=== PATIENT | female | born 1970 | race Caucasian/White ===

== ENCOUNTER 2017-10-24 00:27 | Outpatient (REF) | payer SELFPAY ==
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
--- OUTSIDE RECORDS SUMMARY | 2017-10-24 00:36 | XMS RPT_ITS | Summary of Care ---
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 Performing Laboratory Urine - Urine, Random [facility] [address] [place] [id number] Narrative Screen results should be used for treatment purposes only. [place] Top (01/16/2017 8:55 PM) Specimen Performing Laboratory Blood [facility] [address] [place] [id number] [place] Top (01/16/2017 8:55 PM) Component Value Ref Range Extra Tube Hold for add-ons.Comment: Auto resulted. Specimen Performing Laboratory Blood [facility] [address] [place] [address], [place] [address] Light Blue Top (01/16/2017 8:55 PM) Component Value Ref Range Extra Tube Hold for add-ons.Comment: Auto resulted. Specimen Performing Laboratory Blood [facility] [address] [place] [phone] Gold Top (01/16/2017 8:55 PM) Component Value Ref Range Extra Tube Hold for add-ons.Comment: Auto resulted. Specimen Performing Laboratory Blood [facility] [address] [place] [id number] [place] Draw (01/16/2017 8:55 PM) Specimen Performing Laboratory Blood Narrative The following orders were created for panel order [place] Draw. Procedure? Abnormality? Status? ---------? ------? Gold Top[[id number]]? Final result? [place] Top[[id number]]? Final result? [place] Top[[id number]]? Final result? [place] Top[[id number]]? Final result? Please view results for these tests on the individual orders. CBC Auto Differential (01/16/2017 8:55 PM) Component Value Ref Range WBC 6.26 4.50 - 11.00 K/mcL RBC 3.83 (L) 4.00 - 5.20 M/mcL Hemoglobin 9.2 (L) 12.0 - 16.0 g/dL Hematocrit 30.4 (L) 36.0 - 46.0 % MCV 79.4 (L) 80.0 - 100.0 fL MCH 24.0 (L) 26.0 - 34.0 pg MCHC 30.3 (L) 31.0 - 37.0 g/dL Platelets 284 150 - 400 K/mcL RDW - CV 17.1 (H) 11.6 - 14.8 % MPV 11.7 9.0 - 15.5 fL Neutrophils 48.4 % Lymphocytes 42.8 % Monocytes 4.2 % Eosinophils 3.5 % Basophils 0.8 % IG Percent 0.30Comment: The IG parameter is the percentage % of metamyelocytes, myelocytes, and promyelocytes. Neutrophils Abs 3.03 1.70 - 7.00 K/mcL Lymphocytes Abs 2.68 0.90 - 4.00 K/mcL Monocytes Abs 0.26 (L) 0.30 - 0.90 K/mcL Eosinophils Abs 0.22 0.00 - 0.50 K/mcL Basophils Abs 0.05 0.00 - 0.30 K/mcL IG Absolute 0.02 0.00 - 0.30 K/mcL Nucleated RBC 0.0 % Nucleated RBC Abs 0.00 0.00 - 0.00 K/mcL Specimen Performing Laboratory Blood [facility] [address] [place] [id number] Acetaminophen Level (01/16/2017 8:55 PM) Component Value Ref Range Acetaminophen <5.0 0.0 - 30.0 mcg/mL Specimen Performing Laboratory Blood [facility] [address] [place] [id number] Salicylate Level (01/16/2017 8:55 PM) Component Value Ref Range Salicylate <2.6 (L) 10.0 - 20.0 mg/dL Specimen Performing Laboratory Blood [facility] [address] [place] [id number] Alcohol, Medical (01/16/2017 8:55 PM) Component Value Ref Range Alcohol (Medical) 282.0 (H) <10.0 mg/dL Specimen Performing Laboratory Blood [facility] [address] [place] [id number] TSH (01/16/2017 8:55 PM) Component Value Ref Range TSH 2.92 0.32 - 5.00 mcIU/mL Specimen Performing Laboratory Blood [facility] [address] [place] [id number] Comprehensive Metabolic Panel (01/16/2017 8:55 PM) Component Value Ref Range Sodium 145 135 - 145 mmol/L Potassium 3.0 (L) 3.5 - 5.1 mmol/L Chloride 107 98 - 108 mmol/L Bicarbonate 24 21 - 32 mmol/L Anion Gap 17 10 - 20 mmol/L Glucose 97 65 - 99 mg/dL BUN 9 8 - 25 mg/dL Creatinine 0.75 0.40 - 1.10 mg/dL eGFR 97 >=60 mL/min/1.73 m2 BUN/Creatinine Ratio 12.0 10.0 - 20.0 Total Protein 7.1 6.0 - 8.0 g/dL Albumin 3.9 3.2 - 5.2 g/dL Calcium 8.7 8.4 - 10.2 mg/dL Alkaline Phosphatase 51 40 - 150 U/L AST 18 0 - 45 U/L ALT 10 0 - 40 U/L Total Bilirubin 0.4 0.0 - 1.3 mg/dL Specimen Performing Laboratory Blood [facility] [address] [place] [address] Narrative The eGFR should be used for monitoring renal function only and not for medication dosing. CBC and Differential (01/16/2017 8:55 PM) Specimen Performing Laboratory Blood Narrative The following orders were created for panel order CBC and Differential. Procedure? Abnormality? Status? ---------? ------? CBC Auto Differential[[id number]]?Abnormal?Final result? Please view results for these tests on the individual orders. in this encounter Administered Medications Inactive Administered Medications - up to 3 most recent administrations Medication Order MAR Action Action Date Dose Rate Site haloperidol lactate Given 01/16/2017 20:10 EST 10 mg Left Ventrogluteal (HALDOL) injection 10 mg 10 mg, Intramuscular, Once, 01/16/17 at 2009, For 1 dose, May cause QT interval prolongation. LORazepam (ATIVAN) injection 1 mg Given 01/16/2017 20:10 EST 1 mg Left Ventrogluteal 1 mg, Intramuscular, Once, 01/16/17 at 2009, For 1 dose in this encounter Insurance Payer Benefit Plan / Group Subscriber ID Type Phone Address MEDICARE MEDICARE PART A & B [id number] [place] Home: [phone] [place] [address] as of this encounter
--- OUTSIDE RECORDS SUMMARY | 2017-10-24 00:36 | XMS RPT_ITS ---
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 atraumatic.EYES: No conjunctival injection, no icterus.EARS: External ears appear normal.NOSE: Nose appears normal.NECK: Trachea is midline.RESPIRATORY: Normal chest excursion with respiration, no stridor. No rales, rhonchi or wheezes.CARDIOVASCULAR: Regular rate and rhythm. No edema.GASTROINTESTINAL: Abdomen is soft and nontender.NEUROLOGICAL: Awake, alert and oriented. PSYCHOLOGICAL: The patient's mood and manner are appropriate. INTEGUMENTARY: Skin is warm and dry. No evidence of rash. Medical Decision Making I saw and evaluated the patient. I have reviewed the chief complaint, triage note, past medical/surgical, family, and social history.The patient's presenting pulse oximetry was 100% on room air. This was interpreted as normal. The patient's old medical records have been reviewed.dr. kvng foy was my super vising physician discussed case withPatient presents to emergency room by EMS after being pink slipped by police. Patient was seen in the ER earlier today for bilateral ankle and feet pain with normal x-rays. She was treated as a sprain. She was acting erratic and bizarre at a gas station and called police multiple times. As I evaluated the patient in the ER she was resting comfortably and stated she just wanted to rest and go to sleep. I was unable to provide much history other than what is listed above. Social work for consult on psychiatric evaluation. We'll order blood work for medical clearance and addition to urinalysis. CBC showed no signs of leukocytosis with a hemoglobin of 8.6. I do not have prior labs to compare. Her potassium is low at 3.0 and she'll be given oral potassium chloride 40 mEq. pt. continued to sleep throughout her ER visit during my shift. I checked up on her multiple times. Will await pt. to be evaluated by forensic social worker. Reexamination/ Reevaluation Impression and Plan IMPRESSION: 1.acute bizarre behavior 2.acute hypokalemia Basic Information ED [facility] Observed: 12/06/2016 Status: C Source: [place] 2:37 PM HEALTH SYSTEM REPOSITORY [place] [address] [facility] Department Discharge Instructions KATHRIN CONDE , Please provide this information to your Primary Care/Specialist Name : KATHRIN CONDE Current Date : 12/06/2016 14:37:55DOB : 1970 12:00 PM Primary Care Physician: Physician, PCP Unknown Diagnosis : Follow-Up Instructions:KATHRIN CONDE has been given these follow- up instructions: Provider: Specialty: Address: Date: Follow up with primary care provider 7 to 10 days Laboratory Orders: None Ordered Radiology Orders: Name: Status: XR Ankle 3+ Views bilat Completed XR Foot 3+ Views bilat Completed Diagnostic Tests: None Ordered Procedure(s) and Patient Education(s ) : [place] - Clinic List - All (CUSTOM); Foot Sprain; Ankle Sprain EMERGENCY SERVICES MEDICATION LISTLista de Medicaciones de los Servicios de Emergencia Name KATHRIN CONDE MRN ([facility])- [id number] PLEASE READ THE FOLLOWING REGARDING YOUR MEDICATIONS Based on the information available during your visit we have given you the medication instructions below. Continue taking medications you took prior to your visit unless you have been told to change. Please share this information with your own doctor. Carry a list of your medications with you in case of an emergency. Update it when medications are stopped, doses are changed, or new medications (including ayve-zif-qvsxqag products) are added. If you have any questions, check with your doctor. Por la informaci??n disponible marino treviño visita, las instrucciones de medicaci??n aparecen debajo. Favor de continuar tomando las medicaciones Ud. meggan?? antes de treviño visita por lo menos que hay cambios. Favor de compartir esta informaci??n con treviño medico. Lleva jose lista de medicaciones consigo por jameel de emergenc??a. Actualiza la lista cuando Ud. aaron de anjel las medicaciones, si cambian las dosis, o si hay nuevas medicaciones a??adidas (incluyendo medicaciones vendidas sin prescripci??n). Favor de preguntar a treviño medico por cualquier belkis. THESE ARE THE MEDICATIONS YOU SHOULD BE TAKINGibuprofen (Motrin 600 mg oral tablet) 1 Tab(s) By Mouth every 6 hours for 10 Days. Refills: 0.MEDICATIONS GIVEN DURING MEDICAL VISITNone NON-MEDICATION PRESCRIPTION SCHEDULING PHONE NUMBER: MEDICATION CHANGE DETAILS (Not your Final Home Medication List) During the course of your visit, your home medication list was updated with the most current information. The details of those changes are shown below: NEW MEDICATIONSPrinted Prescriptionsibuprofen (Motrin 600 mg oral tablet) 1 Tab(s) By Mouth every 6 hours for 10 Days. Refills: 0.Comment UPDATED MEDICATIONSNoneUNCHANGED MEDICATIONSNoneSTOP TAKING THESE MEDICATIONSNoneDO NOT TAKE UNTIL YOU TALK TO YOUR DOCTORNone [place] [id number] [facility] Department Discharge Instructions Name: KATHRIN CONDE Current Date: 12/06/2016 14:37:55 : 1970 12:00 PM Primary Physician: Physician, PCP Unknown We would like to thank you for choosing [facility] for your emergency medical needs. We examined and treated you today on an emergency basis only. This was not a substitute for, or an effort to provide, complete medical care. In most cases, you must let your doctor (or the doctor we referred you to) check you again. Tell your doctor about any new or lasting problems. We cannot recognize and treat all injuries or illnesses in one emergency department visit. After you leave, you should follow the directions attached. When arranging for follow-up care with your physician/referral identify yourself as being seen in the emergency department. For language assistance please call [phone]. Instructions for obtaining X-rays:When following up with your doctor, you may need to take copies of your x-rays that were done in the Emergency Department. If you didn't receive these upon your discharge from the emergency department, please call . When the final report becomes available and it is reviewed, the emergency department will attempt to contact you if there are any changes in your instructions. It is important that you leave accurate information with us on how to contact you. IF you cannot be contacted, YOU must contact the follow-up doctor that you were assigned to make sure that the final official x-ray report does not require a change in your treatment. Instructions for obtaining medical records:If you need a copy of your medical records for follow-up, please contact the Health Information Management Department at . Their office hours are 8 AM- 4:30 PM, Tuesday through Tuesday. Please note: Results are not immediately available. Please allow a minimum of 36 hours for documentation and results.If you were prescribed an antibiotic:Antibiotics are life-saving drugs and they need to be used properly. Your team might change your antibiotic because test results show that a different antibiotic would be better to treat your infection. Like all medications, antibiotics have side effects. Some can be serious. This includes the risk of getting an antibiotic-resistant infection later, which may be difficult to treat. Remember to take your antibiotics as prescribed. If you have any questions please talk to your healthcare team.Seatbelts:There is no doubt that seatbelts save lives. Every day, people without seatbelts have more serious injuries. Have everyone buckle up, using age appropriate seatbelts or car seats, to reduce their risk of injury.Smoking:If you do smoke, we encourage you to stop. Smoking affects all aspects of your health and the health of those around you. Call the [place] [employer] at 5-057-IZPE-USA or the [place] [employer] at 2-470-HZJ-7380 for more information.High blood pressure: Your screening blood pressure today was 137 mm Hg / 85 mm Hg. Hypertension ( high blood pressure) is blood pressure over 120/80. People with hypertension should contact their primary care provider within 30 days to follow up. Check your patient portal for additional blood pressure information.Immunizations:Immunization is a way to protect against deadly infections. Discuss this with your child's guest relations officer, or Public Health Department. Your family practice doctor can determine if you need pneumonia or flu vaccine. The [facility] Department can be reached at .Domestic Violence:If you are a victim of domestic violence (physical, verbal, or emotional), you are not alone. Discuss this with your physician or a friend and call Choices Hotline ( for assistance and support.You are the most important factor in your recovery. Follow the provided instructions carefully. Take your medications as prescribed. Most importantly, see a doctor again as discussed. If you have problems that we have not discussed, call or visit your doctor right away. If you do not have a primary care physician, we have provided one for you to follow up with. When you call for an appointment, please inform them that you were seen in the emergency department and the date of your visit. If you are unable to reach your doctor and are still experiencing problems, return to the emergency department. For assistance finding a primary care physician, call the Physician Referral Line at .Suicide Hotline:Your mental and emotional well-being is important. If you are in a mental health crisis or are having thoughts of suicide, please call the nationwide suicide hotline, anytime day or night, at 7-974-880-KUDP.Community Forensic Social Worker: You may be contacted by your local fire department for a follow up visit from a community photographer lithographic. The community photographer lithographic can help with a home safety check; follow up care, and general home care management. Pharmacy Information:Below is a list of 24 hour pharmacies that we are aware of. We suggest that you call the specific pharmacy for their hours before traveling to a location. Hours may vary on holidays. [facility] Pharmacy [facility] [place] [address] [facility], [phone] [facility], [id number] [address] [facility], Skva676-9137 [address], [place]14[address] 5800 [facility], Nkxh969-2628 [address], [place]523-1165 [address] [place], [place]889-5[address] 1141 [place], [phone] 4617 [place], [place]868-1224 4548 [place], [place]235-[address]76 55 [address] [place], [place]890-8869 [address] [place], [phone] [address] [place] [phone] [address] [place] [phone] [address] [place], [place] [place], [place] [phone] Take all medications as directed. If you need prescription assistance, contact the following agencies:?? Partnership for Prescription Assistance at or www.pparx.org?? [facility] Best Rx at 9-718- 173-6686 or www.Diamond Fort[employer] Technologiesbestrx.org?? www.OndaxRSaleMove.[employer] is a site with many valuable coupons Patient Education Materials KATHRIN CONDE has been given the following patient education materials: For patients referred to a [facility] for possible follow-up careBefore you call for an appointment, please read this notice completely.[facility] wants to make sure that your follow-up care will not be delayed. Please let the emergency room staff know if you DO NOT meet ALL of the requirements listed below. They will then refer you elsewhere for timely care. Patients who are eligible for [facility] see patients:?? Who do not have a regular doctor or clinic that they see - no family doctor, no work- related clinic, etc.?? Who do not have private or employer-provided insurance?? Who are on Medicare/Medicaid without supplemental insurance.Who have a [employer] insurance card that lists [facility] as the providerPatients who are not eligible for [facility] provide high-quality health care for a variety of illnesses and injuries. However, [facility] are not able to serve all patients. [facility] cannot see patients:?? Who are under 18. ?? Who have private medical insurance. ?? Who already have a family doctor or are seen at another clinic.?? Who are on Medicare and have supplemental insurance.?? Who have an injury that is/could be a worker's compensation claim - i.e., were hurt on the job.?? Who are using/expecting payment from someone else's insurance - e.g., auto accident injuries when the patient is not the responsible constitution party. Not all types of care are available at all [facility] locations. Here is a list of [facility] locations and phone numbers, along with a brief description of the services they offer. [facility] - For General Medical Concerns [facility] Fdkzhk767 [place], [place] [phone] [facility]3480 [address] [place], [place] [phone] [facility] Bjtvmg[address] [phone]6699 [place], [place] [phone] [facility] BUSINESS ANALYST Bpvjlt413 [place], [place] [phone] [facility] Vadxfn[address] [phone] medical [facility] Outreach Mobile Jacquard Card [facility] - For all Clinics call [phone] [facility]*2930 [place], [place] [address]Qggija the [place]/ [facility]*2875 [place], [place] [address]EgtbBaker [facility] Kitchen*57 [place], [place] [address]Tcvoll27 Miller StreetColumbus, [place] [address]Qbdnhlvpmyjy CRC14 [place], [place] [address] [facility] 1675 [place], [place] [address]SpukeTrinity Health System [facility] Campus3160 [place], [place] [address] [address] [address]EhivnRipon Medical Center*888 [place], [place] [address]*Denotes clinics where mental health services are provided on site. Clinic hours vary; unless otherwise noted, [facility] see patients by appointment only. Some clinics do not accept Medicare patients. In addition to the above, there are other similar clinics throughout [facility]. Several such clinics are listed on the back of this notice, for your convenience. Non-[facility] in [facility] supplies this information for reference only, and is not responsible for changes in locations , hours, or services. This information was accurate at the time of printing. [facility] recommends checking all information listed here before choosing a clinic for your care.Call for hours, most clinics are by appointment only [facility] [phone] [facility]1180 [place], [place] [phone] [facility] Cl[place]'s[address] [phone] Cross Hospital2300 [place], [place] [address]N[address] Floor [place], [place] [address]Dwxao[address] [address] [facility]3433 [facility], [address], [place] [address]Ibqlhbk [facility] Johnnie Roca1905 [place], [place] [address] [place] [address] [address] [facility] Clinics Dental Bpdggi815 08 Watts [phone]'s Health FtgzilulR358 [place] [phone] Optometry Jcmydy[address] [phone] [facility]3595 [place], [place] [phone] Insure/Medicaid ClinicsDr. Nikolay Mejia[address] [place] [address]Hte people employed or have some incomeWith no insurance or those with MedicaidOnly see patients on mornings.To schedule an appointment call: [phone] [facility] Care Klparn[address] [place] [address] [phone] [facility] Shzbebo6351 [place], [place] [address] [facility] Family [phone] University Medical Center EpiscopalCleveland Clinic [phone] [facility] Free [phone] Free [phone] Free Cmnsbv9739 [place], [place] [phone] [facility] Primary Care Clinics [address] [phone] [place], [place] [phone] Mkos99[address] [place] [address] [phone] [phone] [place], [place] [phone]- [phone] [address]777 [place], [place] [phone] Uzpivrfx480 [place], [place] [phone] [place], [place] [phone] Wmiy0196 [place], [place] [phone]- [phone] Cross[address] [place], [place] [phone] [place], [place] [phone] [facility] Close to Home Centers [place]7901 [facility] [address] [place], [place] [phone] Zkuvfuzi0036 [place], [place] [phone] [facility] [address], [place] [phone]- [phone] [facility] [address], [place] [phone] [facility] [address], [place] [phone] [facility] 3rd floorSearcy, [place] [phone] [place], [place] [phone] [phone] [place], [place] [phone] [place], [place] [phone] All Seasons [place], [place] [phone], [place] [phone] Suite [place], [place] [phone] [place], [place] [phone] Non Hospital [facility] XenTemple University Hospital1934 [place], [place] [phone] ext 1840[facility]ness Ocdfkc[address] [place] [address] [phone] [phone], Tests, Health ScreeningsCall for times of clinicsGrace [facility] ([facility])39 [place], [place] [address]Vspjriyk of all ages accepted- treatment of common ailments including: common cold, ear infections, abrasions, and sprains.[phone] Tuesday 6:30pm-8:30pm [facility] [address] [phone] Fe Indian HospitalVarious locations throughout [phone] ChurchRoute 36/, and Mondays at [phone] medical care at no charge including sports and school physicals, health screenings. Walk [phone] or [phone] (toll free) [facility] MedicineAnkle SprainAn ankle sprain is an injury to the strong, fibrous tissues (ligaments) that hold the bones of your ankle joint together. ( Inserted Image. Unable to display) CAUSESAn ankle sprain is usually caused by a fall or by twisting your ankle. Ankle sprains most commonly occur when you step on the outer edge of your foot, and your ankle turns inward. People who participate in sports are more prone to these types of injuries. SYMPTOMS???Pain in your ankle. The pain may be present at rest or only when you are trying to stand or walk.???Swelling.???Bruising. Bruising may develop immediately or within 1 to 2 days after your injury.???Difficulty standing or walking, particularly when turning corners or changing directions.DIAGNOSISYour caregiver will ask you details about your injury and perform a physical exam of your ankle to determine if you have an ankle sprain. During the physical exam, your caregiver will press on and apply pressure to specific areas of your foot and ankle. Your caregiver will try to move your ankle in certain ways. An X-ray exam may be done to be sure a bone was not broken or a ligament did not separate from one of the bones in your ankle (avulsion fracture). TREATMENTCertain types of braces can help stabilize your ankle. Your caregiver can make a recommendation for this. Your caregiver may recommend the use of medicine for pain. If your sprain is severe, your caregiver may refer you to a surgeon who helps to restore function to parts of your skeletal system (orthopedist) or a physical therapist.HOME CARE INSTRUCTIONS???Apply ice to your injury for 1?2 days or as directed by your caregiver. Applying ice helps to reduce inflammation and pain.???Put ice in a plastic bag.???Place a towel between your skin and the bag.???Leave the ice on for 15-20 minutes at a time, every 2 hours while you are awake.???Only take lwxu-gaj-hxmuhhs or prescription medicines for pain, discomfort, or fever as directed by your caregiver. ???Elevate your injured ankle above the level of your heart as much as possible for 2?3 days.???If your caregiver recommends crutches, use them as instructed. Gradually put weight on the affected ankle. Continue to use crutches or a cane until you can walk without feeling pain in your ankle.???If you have a plaster splint, wear the splint as directed by your caregiver. Do not rest it on anything harder than a pillow for the first 24 hours. Do not put weight on it. Do not get it wet. You may take it off to take a shower or bath. ???You may have been given an elastic bandage to wear around your ankle to provide support. If the elastic bandage is too tight (you have numbness or tingling in your foot or your foot becomes cold and blue), adjust the bandage to make it comfortable.???If you have an air splint, you may blow more air into it or let air out to make it more comfortable. You may take your splint off at night and before taking a shower or bath. Wiggle your toes in the splint several times per day to decrease swelling.SEEK MEDICAL CARE IF:???You have rapidly increasing bruising or swelling.???Your toes feel extremely cold or you lose feeling in your foot.???Your pain is not relieved with medicine.SEEK IMMEDIATE MEDICAL CARE IF:???Your toes are numb or blue.???You have severe pain that is increasing.MAKE SURE YOU:??? Understand these instructions. ???Will watch your condition.???Will get help right away if you are not doing well or get worse.This information is not intended to replace advice given to you by your health care provider. Make sure you discuss any questions you have with your health care provider.Document Released: 01/31/2006 Document Revised: 02/21/2015 Document Reviewed: 02/12/2012[employer] Patient Education ?2016 [employer].MusculoskeletalFoot SprainA foot sprain is an injury to one of the strong bands of tissue (ligaments) that connect and support the many bones in your feet. The ligament can be stretched too much or it can tear. A tear can be either partial or complete. The severity of the sprain depends on how much of the ligament was damaged or torn.CAUSESA foot sprain is usually caused by suddenly twisting or pivoting your foot.RISK FACTORSThis injury is more likely to occur in people who:???Play a sport, such as basketball or football.???Exercise or play a sport without warming up.???Start a new workout or sport.???Suddenly increase how long or hard they exercise or play a sport.SYMPTOMSSymptoms of this condition start soon after an injury and include:???Pain, especially in the arch of the foot.???Bruising.??? Swelling.???Inability to walk or use the foot to support body weight.DIAGNOSISThis condition is diagnosed with a medical history and physical exam. You may also have imaging tests, such as:??? X-rays to make sure there are no broken bones (fractures).???MRI to see if the ligament has torn.TREATMENTTreatment varies depending on the severity of your sprain. Mild sprains can be treated with rest, ice, compression, and elevation (RICE). If your ligament is overstretched or partially torn, treatment usually involves keeping your foot in a fixed position (immobilization) for a period of time. To help you do this, your health care provider will apply a bandage, splint, or walking boot to keep your foot from moving until it heals. You may also be advised to use crutches or a scooter for a few weeks to avoid bearing weight on your foot while it is healing.If your ligament is fully torn, you may need surgery to reconnect the ligament to the bone. After surgery, a cast or splint will be applied and will need to stay on your foot while it heals.Your health care provider may also suggest exercises or physical therapy to strengthen your foot.HOME CARE INSTRUCTIONSIf You Have a Bandage, Splint, or Walking Boot:???Wear it as directed by your health care provider. Remove it only as directed by your health care provider.???Loosen the bandage, splint, or walking boot if your toes become numb and tingle, or if they turn cold and blue.Bathing???If your health care provider approves bathing and showering, cover the bandage or splint with a watertight plastic bag to protect it from water. Do not let the bandage or splint get wet.Managing Pain, Stiffness, and Swelling ???If directed , apply ice to the injured area:???Put ice in a plastic bag.???Place a towel between your skin and the bag.???Leave the ice on for 20 minutes, 2?3 times per day.???Move your toes often to avoid stiffness and to lessen swelling.???Raise (elevate) the injured area above the level of your heart while you are sitting or lying down.Driving???Do not drive or operate heavy machinery while taking pain medicine.???Do not drive while wearing a bandage, splint, or walking boot on a foot that you use for driving.Activity???Rest as directed by your health care provider.???Do not use the injured foot to support your body weight until your health care provider says that you can. Use crutches or other supportive devices as directed by your health care provider.???Ask your health care provider what activities are safe for you. Gradually increase how much and how far you walk until your health care provider says it is safe to return to full activity.???Do any exercise or physical therapy as directed by your health care provider.General Instructions???If a splint was applied, do not put pressure on any part of it until it is fully hardened. This may take several hours.???Take medicines only as directed by your health care provider. These include oekn-gyb-dmodefj medicines and prescription medicines.? ??Keep all follow-up visits as directed by your health care provider. This is important.???When you can walk without pain, wear supportive shoes that have stiff soles. Do not wear flip- flops, and do not walk barefoot.SEEK MEDICAL CARE IF:???Your pain is not controlled with medicine.???Your bruising or swelling gets worse or does not get better with treatment.???Your splint or walking boot is damaged.SEEK IMMEDIATE MEDICAL CARE IF:???Your foot is numb or blue.???Your foot feels colder than normal.This information is not intended to replace advice given to you by your health care provider. Make sure you discuss any questions you have with your health care provider.Document Released: 07/23/2002 Document Revised: 06/17/2015 Document Reviewed: 2014[employer] Patient Education ?2016 [employer].<><><><><><><><><>&lt ;><><><><><><><><><>&lt ;><><><>&l t;><><><><><><><><><>& lt;><><><><><><> Patient Visit Summary KATHRIN Salmon has been given the following list of patient education materials, prescriptions and follow-up instructions: IAMAYA DIANA, have received the above patient education materials/instructions and have verbalized understanding: Date_ Time Patient Signature Date Time Provider Signature DEPART SUMMARY Observed: 12/06/2016 Status: C Source: [facility] 2:37 PM HEALTH SYSTEM REPOSITORY EMERGENCY DEPARTMENT DISCHARGE SUMMARYPATIENT NAME:KATHRIN CONDE : 46 Years SEX: Female PHONE:DOS: 12/06/2016 1: 06 PM : 1970 ATTENDING PHYSICIAN:Curtis RODRIGUEZ , Ana Johnson PCP: Physician, PCP Unknown CHIEF COMPLAINT: BILATERAL ANKLE PAIN Allergies No Known Medication AllergiesProblems No Problems Documented DISCHARGE DIAGNOSIS: DISCHARGE INSTRUCTIONS: CO - Clinic List - All (CUSTOM); Foot Sprain; Ankle Sprain HISTORY OF PRESENT ILLNESS:MEDICAL DECISION MAKING:PROCEDURES:Free Text Sentence DISPOSITION:Time of Departure From ER 12/06/2016 14:37 Discharge/Transfer From ER Home 01 MEDICATION LISTS: CURRENT MEDICATION LISTibuprofen (Motrin 600 mg oral tablet) 1 Tab(s) By Mouth every 6 hours for 10 Days. Refills: 0. MEDICATIONS GIVEN DURING MEDICAL VISITNone LAB RESULTS: RADIOLOGY:RADIOLOGY RESULT(S) (Please contact Medical Records office for further information): 12/06/2016 13:22 XR Ankle 3+ Views bilat EXAMINATION TYPE: XR Foot 3+ Views bilat, XR Ankle 3+ Views bilat DATE OF EXAM : 12/06/2016 1:48 PMHISTORY: Pain w Trauma,COMPARISON: NONEFINDINGS: 3 views submitted bilaterally of the ankles and feet. LEFT ankle appears normal. LEFT foot demonstrates normal bone density. No fracture or dislocation. Mild arthritic narrowing of the 1st MTP joint.RIGHT ankle appears normal. Ankle mortise preserved. Imaging of the RIGHT foot demonstrates normal bone density. No fracture or dislocation. Mild osteoarthritic narrowing 1st MTP joint and early bunion formation.IMPRESSION: No acute findings noted of the ankles or feet bilaterally.Mary Cheung thanks you for the opportunity to care for your patient. Workstation ID: [id number] 12/06/2016 13:22 XR Foot 3+ Views bilat EXAMINATION TYPE: XR Foot 3+ Views bilat, XR Ankle 3+ Views bilat DATE OF EXAM : 12/06/2016 1:48 PMHISTORY: Pain w Trauma,COMPARISON: NONEFINDINGS: 3 views submitted bilaterally of the ankles and feet. LEFT ankle appears normal. LEFT foot demonstrates normal bone density. No fracture or dislocation. Mild arthritic narrowing of the 1st MTP joint.RIGHT ankle appears normal. Ankle mortise preserved. Imaging of the RIGHT foot demonstrates normal bone density. No fracture or dislocation. Mild osteoarthritic narrowing 1st MTP joint and early bunion formation.IMPRESSION: No acute findings noted of the ankles or feet bilaterally.[place] thanks you for the opportunity to care for your patient. Workstation ID: [id number] FOLLOW UP:With: Address: When: Follow up with primary care provider Within 7 to 10 days ED PHYSICIAN NOTES Observed: 12/06/2016 Status: F Source: [facility] 1:59 PM [facility]ALTH SYSTEM REPOSITORY Patient: KATHRIN CONDE MRN: [id number] Age: 46 years Sex: Female : 1970 Associated Diagnoses: None Author: Curtis RODRIGUEZ , Ana Johnson I elicited a history from and performed a physical examination on the patient. I have discussed the patient's management with the resident. I reviewed the resident's note and agree with the documented findings and plan of care. Patient presents with bilateral foot and ankle pain after fall. Most of patient's pain is over the lateral aspect of the right ankle and foot. Differential diagnosis is fracture sprain dislocation. Plain films of the foot and ankle bilateral negative per radiology interpretation.I did visualize the images.Impression:Right anterior talo fibular ligament sprainRight foot sprainLeft foot sprainLeft anterior scalp fibular ligament sprain XR ANKLE 3+ VIEWS Observed: 12/06/2016 Status: F Source: [facility] 1:48 PM [facility]ALTH SYSTEM REPOSITORY EXAMINATION TYPE: XR Foot 3+ Views bilat, XR Ankle 3+ Views bilat DATE OF EXAM : 12/06/2016 1:48 PMHISTORY: Pain w Trauma,COMPARISON: NONEFINDINGS: 3 views submitted bilaterally of the ankles and feet. LEFT ankle appears normal. LEFT foot demonstrates normal bone density. No fracture or dislocation. Mild arthritic narrowing of the 1st MTP joint.RIGHT ankle appears normal. Ankle mortise preserved. Imaging of the RIGHT foot demonstrates normal bone density. No fracture or dislocation. Mild osteoarthritic narrowing 1st MTP joint and early bunion formation.IMPRESSION: No acute findings noted of the ankles or feet bilaterally.Mary Cheung thanks you for the opportunity to care for your patient. Workstation ID: [id number] FINAL REPORT Dictated By: Ezequiel Kowalski MD 12/06/2016 13: 51Assigned Physician: Ezequiel Kowalski MD and Electronically Signed By: Ezequiel Kowalski MD 12/06/2016 13:52Transcribed by: LESTER 12/06/2016 13:51 XR FOOT 3+ VIEWS Observed: 12/06/2016 Status: F Source: [facility] 1:48 PM [facility]ALTH SYSTEM REPOSITORY EXAMINATION TYPE: XR Foot 3+ Views bilat, XR Ankle 3+ Views bilat DATE OF EXAM : 12/06/2016 1:48 PMHISTORY: Pain w Trauma,COMPARISON: NONEFINDINGS: 3 views submitted bilaterally of the ankles and feet. LEFT ankle appears normal. LEFT foot demonstrates normal bone density. No fracture or dislocation. Mild arthritic narrowing of the 1st MTP joint.RIGHT ankle appears normal. Ankle mortise preserved. Imaging of the RIGHT foot demonstrates normal bone density. No fracture or dislocation. Mild osteoarthritic narrowing 1st MTP joint and early bunion formation.IMPRESSION: No acute findings noted of the ankles or feet bilaterally.Mary Cheung thanks you for the opportunity to care for your patient. Workstation ID: [id number] FINAL REPORT Dictated By: Ezequiel Kowalski MD 12/06/2016 13: 51Assigned Physician: Ezequiel Kowalski MD and Electronically Signed By: Ezequiel Kowalski MD 12/06/2016 13:52Transcribed by: [facility] 12/06/2016 13:51 ED PHYSICIAN NOTES Observed: 12/06/2016 Status: F Source: [facility] 1:26 PM [facility]ALTH SYSTEM REPOSITORY Patient: KATHRIN CONDE MRN: [id number] Age: 46 years Sex: Female : 1970 Associated Diagnoses: None Author: Stan Maddox MD History of Present Illness The patient is a 46 yo F vague complaint of bilateral foot/ ankle pain, right>left. Says she was at [facility] when she tripped on a step and twisted her ankle with an audible snap. Reports inability to ambulate after falling. Denies numbness/tingling. Denies pain in bilateral knees/legs. During exam she is fixated on the cuboidal bony prominence of her right foot stating that's not normal. Social History: Review of Systems All systems have been reviewed by me, and with the exception of what is described in the history of present illness above, are otherwise negative.Nursing triage notes were reviewed by me and I agree. Health Status Allergies: Allergic Reactions (All)No Known Medication Allergies. Past Medical/ Family/ Social History Medical history No active or resolved past medical history items have been selected or recorded. Past Medical History Problem List No active or resolved problems charted Surgical history: No active procedure history items have been selected or recorded.. Family history: No family history items have been selected or recorded.. Social history: Social and Psychosocial GiaovuSzwybcd79/23/2017 Risk Assessment: Medium RiskSubstance Abuse12/06/2016 Risk Assessment: Denies Substance Abuse. Physical Examination Vital Signs Vital Signs/Measurements 12/06/2016 13:08 EDT Temperature 97.6 Degrees F NML Temperature Route Oral Pulse Rate 85 BPM NML Respiratory Rate 16 Br PM NML Pulse Oximetry 100 % NML Oxygen Delivery Room air Systolic BP 137 mm Hg NML Diastolic BP 85 mm Hg NML NIBP Method-CC Cuff Pain Score 10 Is Pain Level Acceptable? Yes Pain Location Site #1 Ankle Pain Location Modifier Site #1 Bilateral Weight 61.4 kg Weight Type Pt reported Weight Lb 135 lbs Weight Oz 5.82 oz Height 174 cm Height Type Pt reported Height Ft 5 ft Height in 8.5 Inch BSA 1.74 m2 Body Mass Index 20.3 kg/m2 . Constitutional: Awake, alert, covering head with blanket. HEENT: Normocephalic, atraumatic. Extraocular movements are intact.Cardiovascular: No edema/cyanosisPulmonary: Non-labored breathingIntegument: Skin is warm and dry without rashes or lesions.Musculoskeletal: RLE: Some erythema over lateral aspect of midfoot. No ecchymosis or deformity. Skin intact circumferentially. TTP diffusely. No gross deformity. SILT sa/treviño/sp/dp/tibial n. Wiggles toes, 3/5 strength in plantar and dorsiflexion. DP/PT 2+, BCR, WWP. LLE: Skin intact circumferentially. No ecchymosis or deformity. SILT sa/sai/sp/dp/tibial n. Wiggles toes, 5/5 strength in plantar and dorsiflexion. DP/PT 2+, BCR, WWP. Medical Decision Making Patient is a poor historian and participation in interview/ exam is limited. Feet and ankles are neurovascular intact, however somewhat limited due to complaint of extreme tenderness to light touch by provider despite patient ability to press on these areas. I ordered xrays of bilateral feet and bilateral ankles however given lack of swelling/deformity I have low suspicion for fracture or dislocation. Reexamination/ Reevaluation Impression and Plan Impression:46 F bilateral ankle/foot pain, right>left. Procedure Basic Information Patient information:: Chief Complaint from Nursing Triage Note : Chief Complaint-Triage 12/06/2016 13 :08 EDT Chief Complaint-Triage BILATERAL ANKLE PAIN . ALLERGIES ALLERGIES DATE TYPE / CODE NAME / CODE REACTION SEVERITY SOURCE Drug NO KNOWN [facility] Class/03798 ALLERGIES Repository 1003(SNOMED CT) ENCOUNTERS ENCOUNTERS ADMIT/DISCHARGE ACCOUNT NUMBER ADMITTING ENCOUNTER LOCATION SOURCE CLASS 10/24/2017 [id number] Ambulatory [facility] ding:ED Repository 01/16/2017/ [id number] Emergency Building:[place] [address] RRoom: One B40Bed: 40 Repository 12/06/2016/ [id number] Emergency [address] Repository :EDW 12/06/2016/ [id number] Emergency [address] Repository :EDW 11/11/2016/ [id number] LETI, Emergency Building:[place] [address] DIONNA GRoom: Two AKIRA A58Bed: 58 Repository 11/09/2016/ [id number] [place] [address] GRoom: Two A55Bed: 55 Repository 10/27/2016/ [id number] [place] [address] GRoom: Two A58Bed: 58 Repository PAYERS PAYERS ENCOUNTER GUARANTOR PAYER SUBSCRIBER SOURCE 10/24/2017 Primary NOT GIVENUNK [place] Insurance:SELF PAY [facility] Number: Effective Repository Date:2017-10-24 01/16/2017 KATHRINIZA CHAUB: Primary KATHRINIZA CONDEDOB: [facility] [id number] [facility] [id number] [facility] Number[facility] [address] [place], [place] [id number] [place], [place] [address]Xpe: (999) Date:[id number] [id number]: (HP) J15 PART A CLAIMSPO [phone] (HP) [address] [place] [id number]: 12/06/2016 KATHRIN AMAYADOB: Primary KATHRIN AMAYADOB: [facility]ung [id number] Insurance:MEDICARE [id number] [address] PART APolicy Number: Repository [address], [place] Effective [address]Flj: Date:[id number] Name:B () (WP) 12/06/2016 Secondary KATHRIN AMAYADOB: Mary Cheung Insurance:MEDICARE [id number] PART BPolicy Number: Repository Effective Date:[id number] Name:B 12/06/2016 KATHRIN AMAYADOB: Primary KATHRIN AMAYADOB: Mary Cheung [id number] Insurance:MEDICARE [id number] [address] PART APolicy Number: Repository [address], [place] Effective [address]Ged: Date:[id number] Name:B () (WP) 12/06/2016 Secondary KATHRIN AMAYADOB: Mary Cheung Insurance:MEDICARE [id number] PART BPolicy Number: Repository Effective Date:[id number] Name:B 11/11/2016 KATHRIN FRITZ: Primary KATHRINIZA CHAUB: [facility] Insurance:MEDICAREPol [id number] Repository [address] Number: [address] [place] [id number] [place], [place] [address]Zrf: (999) Date:[id number] [id number]: (HP) J15 PART A CLAIMSPO [phone] (HP) [address] [address]QBPNF[place], [place] [address]NK: 11/09/2016 KATHRIN CHAUB: Primary KATHRINIZA CHAUB: [facility] Insurance:MEDICAREPol [id number] Repository [address] icy Number: [address] [place] [id number] [place] [address]Scq: (999) Date:[id number] [address]Meo: (HP) J15 PART A CLAIMSPO [phone] (HP) [address] [address] [address]IO: 10/27/2016 KATHRIN CHAUB: Primary KATHRIN CHAUB: [facility] [id number] Repository [address] icy Number: [address] [place], [place] [id number] [place], [place] [address]Ibk: (999) Date:[id number] [id number]: (HP) J15 PART A CLAIMSPO [phone] (HP) [address] [address]UNY[place], [place] [address]VJ:
== END 2017-10-24 04:30 | disposition home or self-care (01) ==
LOC: ED 00:27
DX: Z04.41 Encounter for examination and observation following alleged adult rape (principal)

== ENCOUNTER 2017-10-24 02:48 | Emergency (ER) | payer MEDICARE, SELFPAY ==
[2017-10-24 02:50] VITALS: BP 131/80; PULSE 72; RESP 18; TEMP 36.4; O2SAT 99; BMI 20.5
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
[2017-10-24 04:31] LABS: Amphetamine Urine VISTA NEGATIVE (<1000 ng/mL); Barbiturate Urine VISTA NEGATIVE (< 200 ng/mL); Benzodiazepine Urine VISTA NEGATIVE (< 200 ng/mL); Cocaine Urine VISTA NEGATIVE (< 300 ng/mL); Ecstacy Urine VISTA NEGATIVE (< 500 ng/mL); Methadone Urine VISTA NEGATIVE (< 300 ng/mL); PCP Urine VISTA NEGATIVE (< 25 ng/mL); THC Urine VISTA NEGATIVE (< 50 ng/mL); Vista UDS pH Range 5
[2017-10-24 06:07] VITALS: BP 101/67; PULSE 114; RESP 16; RESP 17; O2SAT 100
== END 2017-10-24 06:08 | disposition home or self-care (01) ==
PROVIDERS: Emergency Provider Emergency Medicine
DX: Z04.41 Encounter for examination and observation following alleged adult rape (principal); F10.229 Alcohol dependence with intoxication, unspecified; Y90.9 Presence of alcohol in blood, level not specified
CPT/HCPCS: 80307; 99282

== ENCOUNTER 2018-01-14 15:15 | Outpatient (REF) | payer SELFPAY | END 2018-01-14 19:15 | disposition home or self-care (01) | LOC: EDREF 15:15 | DX: Z04.41 Encounter for examination and observation following alleged adult rape (principal) ==

== ENCOUNTER 2018-04-30 23:49 | Outpatient (REF) | payer SELFPAY | END 2018-05-01 03:30 | disposition home or self-care (01) | LOC: ED 23:49 | DX: Z04.41 Encounter for examination and observation following alleged adult rape (principal) ==

== ENCOUNTER 2019-03-25 09:39 | Emergency (ER) | payer MEDICARE, MEDICAID, SELFPAY ==
[2019-03-25 09:41] VITALS: BP 104/76; PULSE 74; RESP 18; TEMP 37.3; O2SAT 100; BMI 17.7
--- NOTE | 2019-03-25 10:03 | EKG12_ITS ---
Test Reason : SYNCOPE Blood Pressure : / mmHG Vent. Rate : 089 BPM Atrial Rate : 089 BPM P-R Int : 120 ms QRS Dur : 084 ms QT Int : 416 ms P-R-T Axes : 044 018 -07 degrees QTc Int : 506 ms Normal sinus rhythm Nonspecific ST and T wave abnormality Abnormal ECG Confirmed by ALEXUS RODRIGUEZ, FABIO ([id number]), editor publications ELENITA MELVIN ([id number]) on 03/27/2019 8:01:24 AM Referred By: DELORES Confirmed By:FABIO VAUGHAN MD
[2019-03-25 10:21] LABS: Absolute Lymphocyte Count 0.53 X10^3/uL (0.83-4.51); Basophil# 0.03 X10^3/uL; Basophil% 0.9 % (0-1); Eosinophil# 0.01 X10^3/uL; Eosinophils% 0.3 % (0-5); Hematocrit 32.1 % (37-47); Hemoglobin 9.7 g/dL (12.0-15.0); Lymphocyte # 0.53 X10^3/ul (4.0); Lymphocyte % 16.5 % (19-41); Mean Corp Hgb Conc 30.2 g/dL (32-36); Mean Corpuscular Hgb 25.5 pg (27.0-32.0); Mean Corpuscular Volume 84.3 fL (81-99); Mean Platelet Vol. 12.1 fl (6.2-12.0); Monocyte# 0.63 X10^3/uL; Monocyte% 19.6 % (0-10); NRBC Flagged by Analyzer 0 % (0-5); Neutrophil # 2.01 X10^3/uL (2.7-7.7); Neutrophil % 62.4 % (47-70); POSITIVE DIFFERENTIAL YES; Platelet Count 152 K/mm3 (150-450); RBC Distribution Width CV 18.6 % (11.6-14.6); RBC Distribution Width SD 56.8 fl (35.1-43.9); Red Blood Count 3.81 M/mm3 (4.2-5.4); White Blood Count 3.2 K/mm3 (4.4-11.0)
[2019-03-25 10:22] LABS: Differential Indicated SCAN CRITERIA MET
[2019-03-25] MEDS: 0.9% Normal Saline 1,000 ML 1000 ML IV (10:26)
[2019-03-25] MEDS: Ondansetron 4 MG/2 ML Vial IV (10:27)
--- NOTE | 2019-03-25 10:34 | RAD_ITS ---
STUDY: X-RAY CHEST REASON FOR EXAM: Female, 48 years old. SYNCOPE, WEAKNESS; -- NAUSEA, VOMITING, DIARRHEA TECHNIQUE: Frontal and lateral views COMPARISON: March 25, 2014 FINDINGS: The lungs are clear and expanded. There is no demonstrated pleural abnormality. Normal size heart. Normal mediastinum and dillon. Normal visualized pulmonary arteries. Normal visualized aortic arch and descending thoracic aorta. Normal visualized thoracic spine. Old left seventh rib fracture There is no demonstrated abnormality of the visualized soft tissue structures of the upper abdomen. RAD/Chest PA and Lateral IMPRESSION: Normal x-ray examination of the chest. Electronically Signed: Joselito Summers DO at 10:54 EST Tel [phone], Service support ,
[2019-03-25 10:41] LABS: Anisocytosis 1+; Hypochromasia 1+; Platelet Estimate ADEQUATE (ADEQ)
[2019-03-25 10:50] LABS: ALB/GLOB Ratio 0.6 RATIO (0.9-2.4); AST(SGOT) 163 U/L (15-37); Alanine Aminotransfer ALT/SGPT 57 U/L (13-56); Albumin, Serum 2.8 g/dL (3.2-5.0); Alkaline Phosphatase 153 U/L (45-117); Anion Gap 7 (5-15); BUN 11 mg/dL (7-18); BUN/Creat Ratio 11.8 RATIO (10-20); Calcium,Total 8.5 mg/dL (8.5-10.1); Chloride 99 mmol/L (98-107); Creatinine, Serum 0.93 mg/dL (0.55-1.02); EST Glomerular Filtration Rate 69 mL/min (>60); Est Glom Filt Rate - Afr Amer 83 mL/min (>60); Estimated Creatinine Clearance 64.95 ml/min; Globulin 4.5 g/dL (2.2-4.2); Glucose 84 mg/dL (74-106); Lipase 171 U/L (73-393); Potassium 2.7 mmol/L (3.5-5.1); Protein, Total 7.3 g/dL (6.4-8.2); Sodium Level 134 mmol/L (136-145)
[2019-03-25 10:51] LABS: Alcohol, Blood (Medical)-Serum < 3.0 mg/dL
[2019-03-25 11:16] VITALS: BP 101/86; BP 112/79; BP 118/80; PULSE 74; PULSE 82; PULSE 90
--- NOTE | 2019-03-25 12:13 | ED.VISSUMM ---
- ER Visit Summary Date of Service: 03/25/19 Chief Complaint: Syncope History of Present Illness: The patient is a 48 F with no primary care physician. She reports that she had gone to [place] today. She is resting for 5 to 10 minutes. She is lightheaded throughout this. She felt nauseated. She states that she had a syncopal episode. She denies any injury from this. No blow to her head. She is not on anticoagulants. She denies any neck or back pain. No shoulder, wrist, or hip pain. Patient is a poor informant. On review of systems she reports that she has had a fever for 2 months. She had a 20 pound weight loss in the past 2-1/2 months. She reports she is had a cough for several months. She denies any chest pain or shortness of breath. She reports she is been nauseated and vomited twice today. No abdominal pain. She has had diarrhea twice a day for the past 2 days. No blood in her stools or black tarry stools. She also complains of generalized weakness. Physical Examination: Vitals: Stable. Afebrile. General: Well-nourished and well-developed. Head: Normocephalic atraumatic. Neck: Supple, no lymphadenopathy. No JVD. Nontender. Cardiovascular: Regular rate and rhythm. No murmurs. Respiratory: No respiratory distress. Clear to auscultation bilaterally. Abdominal: Soft, nontender, nondistended, normal bowel sounds. No guarding, rebound, or peritoneal signs. Back: Nontender. Extremities: Nontender, no edema. Skin: Normal color, no rash. Neurologic: Alert and oriented ?3. Cranial nerves II through XII are intact. Normal strength and sensation. Psych: Normal affect. Test Results: EKG is sinus at [address] changes. Troponin is negative. LFTs are marked for an alk phos of 153, ALT of 53, AST of 163. Lipase is normal. Chem-7 shows a sodium 134 potassium 3.7. CBC shows a white count of 3.2 with 17 lymphocytes and 20 monocytes. H&H is 9.7 and 32.1. Alcohol is negative. Chest x-ray is normal. Emergency Department Course and Treatment: Patient was given a liter of normal saline. She was given potassium p.o. and magnesium IV. She is resting comfortably. She does report that she drinks 1/5 of vodka a day. She does not want help with her drinking. Treatment Plan: Patient will be discharged with potassium and magnesium. She is also given Zofran for nausea. Instructed to push fluids. Follow-up Dr. Krishnan within a week for another exam. Return to the emergency department for any worsening symptoms. Disposition: To home in improved and stable condition. Impression: 1. Syncope. 2. Hypokalemia. 3. Alcoholism. This note was generated with [facility] dictation software. It may contain incorrect words, spelling, and punctuation that were not noted in review of the chart prior to signing ED Disposition - Plan for ED Patient: Disposition: Home or Assisted Living Instructions: Hypokalemia, SYNCOPE, Unk Cause Prescriptions: Potassium Chloride [K-Dur] 40 meq PO DAILY #10 tab Prescription Printed Magnesium Oxide [Magnesium] 500 mg PO BID #60 cap Prescription Printed Referrals: Gerardo Krishnan MD [NON-STAFF] - 3-5 Days
[2019-03-25 12:36] VITALS: PULSE 66; RESP 25; O2SAT 97
[2019-03-25] MEDS: Magnesium Sulfate 2 GM in Syringe 1 EACH IV (12:54)
[2019-03-26 14:02] LABS: Pathologist Review Reviewed
== END 2019-03-25 13:17 | disposition home or self-care (01) ==
LOC: ED 10:11
PROVIDERS: Emergency Provider Emergency Medicine
DX: R55 Syncope and collapse (principal); E87.6 Hypokalemia; F10.20 Alcohol dependence, uncomplicated; R05 Cough; R19.7 Diarrhea, unspecified
CPT/HCPCS: 71046; 80053; 80320; 83690; 84484; 85025; 93005; 96365; 96367; 96375; 99285; J7030; J7050; A4216; G0480; J2405; J3475; J3490

== ENCOUNTER 2020-01-16 16:33 | Emergency (ER) | payer MEDICARE, MEDICAID, SELFPAY ==
[2020-01-16 16:33] VITALS: BP 98/50; PULSE 90; RESP 18; TEMP 32.7; O2SAT 100; BMI 17.4
--- NOTE | 2020-01-16 17:35 | ED.RN ---
PT OBSERVED AMBULATING OUT OF DEPT. STATES SHE DOESN'T WANT SEEN IN ED, DECLINES TESTING, DECLINES SPEAKING TO MD. MD MADE AWARE. PT AMBULATED OUT TO WAITING ROOM, NUMBERS GIVEN TO CALL TAXI. PT DENIES FURTHER NEEDS.
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
== END 2020-01-16 17:50 | disposition home or self-care (01) ==
LOC: ED 17:41
PROVIDERS: Emergency Provider Emergency Medicine
DX: R55 Syncope and collapse (principal); Z53.21 Procedure and treatment not carried out due to patient leaving prior to being seen by health care provider

== ENCOUNTER 2020-01-18 09:57 | Inpatient (IN) | payer MEDICARE, MEDICAID, SELFPAY ==
[2020-01-18] VITALS (13 sets, daily range): BP systolic 75–103; BP diastolic 44–80; PULSE 73–98; RESP 12–22; TEMP 36.6–37.2; O2SAT 95–100; BMI 17.4; BMI 17.9
--- NOTE | 2020-01-18 10:18 | EKG12_ITS ---
Test Reason : Blood Pressure : / mmHG Vent. Rate : 084 BPM Atrial Rate : 084 BPM P-R Int : 136 ms QRS Dur : 088 ms QT Int : 444 ms P-R-T Axes : 028 015 -54 degrees QTc Int : 524 ms Normal sinus rhythm ST & T wave abnormality, consider inferior ischemia ST & T wave abnormality, consider anterolateral ischemia Prolonged QT Abnormal ECG Confirmed by FABIO VAUGHAN MD ([id number]), editor greeting card ELENITA MELVIN ([id number]) on 01/21/2020 1:15:41 PM Referred By: SANIA Confirmed By:FABIO VAUGHAN MD
--- NOTE | 2020-01-18 10:18 | CT_ITS ---
STUDY: CT BRAIN WITHOUT CONTRAST REASON FOR EXAM: Female, 49 years old. FALL, COUGH, WEAK, SOB, SYNCOPE EPISODES. RADIATION DOSAGE (If Supplied By Facility): CTDIvol = ( 44.99 ) mGy, DLP = ( 745.49 ) mGycm TECHNIQUE: Transaxial CT imaging of the brain was performed without administration of intravenous contrast material. Individualized dose optimization techniques were used for this CT. COMPARISON: No relevant priors. FINDINGS: Normal soft tissue structures. Normal calvarium. There is mild cerebral atrophy with widening of the extra-axial spaces and ventricular dilatation. Normal white matter tracts of the cerebral hemispheres. Findings suggestive of early ischemic lacunar infarct in the left thalamus. Normal brainstem. Normal cerebellum. There is no intracranial hemorrhage. There are no findings of an acute ischemic infarction. Atherosclerotic calcification of the cavernous portions of the internal carotid arteries bilaterally. Normal visualized paranasal sinuses. CT/Brain/Head without Contrast IMPRESSION: Chronic involutional changes of the brain. Findings suggestive of early lacunar infarct in the left thalamus. Electronically Signed: Renzo Lyman, at 15:20 EST , Service support ,
--- NOTE | 2020-01-18 10:37 | ED.VISSUMM ---
- ER Visit Summary Date of Service: 01/18/20 Chief Complaint: Multiple complaints History of Present Illness: The patient is a 49 F complaining of generalized weakness. She was seen in the ED on 01/15 but left prior to completion of her evaluation. She denies fever or chills. She denies current chest pain. She complains of shortness of breath and cough. She has had nausea and vomiting daily. She states that she has had multiple syncopal episodes over the past year. She states she has passed out almost daily over the past 1 month. She states she is lightheaded with standing. She denies blood in her stool or black stool. She drinks alcohol daily. Physical Examination: Vitals are stable. Patient is afebrile. Alert no acute distress. HEENT exam is unremarkable. Neck is supple. Lungs are clear and equal bilaterally. Heart is regular rate and rhythm. Abdomen is soft mild right upper quadrant tenderness with no guarding or rebound Extremities are unremarkable. Skin is warm and dry. No focal neurologic deficit. Normal strength and sensation Remainder of exam is unremarkable. Emergency Department Course and Treatment: EKG is sinus rhythm rate of 84 with inferolateral T wave inversion. Chest x-ray shows no acute process. Covid is positive. Tox is negative. Alcohol negative. CT head shows Chronic involutional changes of the brain. Findings suggestive of early lacunar infarct in the left thalamus. Chest x-ray shows no acute process. Gallbladder ultrasound shows Hepatomegaly and fatty infiltration of the liver. Distended gallbladder with positive Brooks''s sign and sludge within the lumen. Chemistries show potassium 2.3. Total bili 2.4, alk phos 221, AST 195, lipase is normal. Lactic acid is 4.4. Magnesium 1.8. Troponin is negative. Patient was given potassium IV replacement. She was given IV fluids. Discussed with hospitalist for admission. Disposition: Admission Impression: Hypokalemia, recurrent syncope, generalized weakness, lactic acidosis, elevated liver enzymes, Covid positive This note was generated with [employer] dictation software. It may contain incorrect words, spelling, and punctuation that were not noted in review of the chart prior to signing ED Disposition - Plan for ED Patient: Referrals: Care Physician,No Primary [Primary Care Provider] -
--- NOTE | 2020-01-18 10:53 | RAD_ITS ---
STUDY: X-RAY CHEST REASON FOR EXAM: Female, 49 years old. PT WITH WEAKNESS, SOB, COUGH, FAINTING SPELLS FOR 1 MONTH. STATES NOW BECOMING WORSE TECHNIQUE: Single AP portable view of the chest. COMPARISON: Comparison is made with prior study dated 03/25/2019. FINDINGS: EKG electrodes are seen. The lungs are clear and expanded. There is no demonstrated pleural abnormality. Normal size heart. Normal mediastinum and dillon. Normal visualized pulmonary arteries. Normal visualized aortic arch and descending thoracic aorta. Normal visualized thoracic spine. Healed left rib fractures. There is no demonstrated abnormality of the visualized soft tissue structures of the upper abdomen. RAD/Chest 1 View (Portable) IMPRESSION: No acute abnormality is seen. Electronically Signed: Renzo Lyman, at 11:17 EST , Service support ,
[2020-01-18] MEDS: 0.9% Normal Saline 1,000 ML 1000 ML IV (10:55)
[2020-01-18 11:54] LABS: Amphetamine Urine VISTA NEGATIVE (<1000 ng/mL); Barbiturate Urine VISTA NEGATIVE (< 200 ng/mL); Benzodiazepine Urine VISTA NEGATIVE (< 200 ng/mL); Cocaine Urine VISTA NEGATIVE (< 300 ng/mL); Ecstacy Urine VISTA NEGATIVE (< 500 ng/mL); Methadone Urine VISTA NEGATIVE (< 300 ng/mL); PCP Urine VISTA NEGATIVE (< 25 ng/mL); THC Urine VISTA NEGATIVE (< 50 ng/mL); Vista UDS pH Range 5
[2020-01-18] MEDS: LORazepam 1 MG Tablet PO (12:09)
[2020-01-18 13:23] LABS: Absolute Lymphocyte Count 0.73 X10^3/uL (0.83-4.51); Absolute Neutrophil Count 2.5 X10^3/uL (2.0-7.7); Basophil# 0.02 X10^3/uL; Basophil% 0.6 % (0-1); Eosinophil# 0.02 X10^3/uL; Eosinophils% 0.6 % (0-5); Hematocrit 26.6 % (37-47); Hemoglobin 8.8 g/dL (12.0-15.0); Lymphocyte # 0.73 X10^3/ul (4.0); Lymphocyte % 20.7 % (19-41); Mean Corp Hgb Conc 33.1 g/dL (32-36); Mean Corpuscular Hgb 28.9 pg (27.0-32.0); Mean Corpuscular Volume 87.5 fL (81-99); Monocyte# 0.26 X10^3/uL; Monocyte% 7.4 % (0-10); NRBC Flagged by Analyzer 0 % (0-5); Neutrophil # 2.48 X10^3/uL (2.7-7.7); Neutrophil % 70.1 % (47-70); POSITIVE COUNT YES; Platelet Count 96 K/mm3 (150-450); RBC Distribution Width CV 19.8 % (11.6-14.6); RBC Distribution Width SD 62.8 fl (35.1-43.9); Red Blood Count 3.04 M/mm3 (4.2-5.4); White Blood Count 3.5 K/mm3 (4.4-11.0)
[2020-01-18 13:30] LABS: Alcohol, Blood (Medical)-Serum < 3.0 mg/dL
[2020-01-18 13:32] LABS: Differential Indicated SCAN CRITERIA MET
[2020-01-18 13:42] LABS: ALB/GLOB Ratio 0.4 RATIO (0.9-2.4); AST(SGOT) 195 U/L (15-37); Alanine Aminotransfer ALT/SGPT 48 U/L (13-56); Albumin, Serum 2.2 g/dL (3.2-5.0); Alkaline Phosphatase 221 U/L (45-117); Anion Gap 10 (5-15); BUN 3 mg/dL (7-18); BUN/Creat Ratio 3.1 RATIO (10-20); Calcium,Total 7.9 mg/dL (8.5-10.1); Chloride 97 mmol/L (98-107); Creatinine, Serum 0.97 mg/dL (0.55-1.02); EST Glomerular Filtration Rate 65 mL/min (>60); Est Glom Filt Rate - Afr Amer 79 mL/min (>60); Estimated Creatinine Clearance 60.58 ml/min; Globulin 5.3 g/dL (2.2-4.2); Glucose 85 mg/dL (74-106); Lipase 49 U/L (73-393); Magnesium 1.8 mg/dL (1.6-2.6); Potassium 2.3 mmol/L (3.5-5.1); Protein, Total 7.5 g/dL (6.4-8.2); Sodium Level 135 mmol/L (136-145)
[2020-01-18 13:47] LABS: Lactic Acid 4.4 mmol/L (0.4-1.9)
--- NOTE | 2020-01-18 13:48 | US_ITS ---
STUDY: ABDOMINAL ULTRASOUND - RIGHT UPPER QUADRANT REASON FOR VISIT: Female, 49 years old RUQ PAIN TECHNIQUE: Ultrasound evaluation of the right upper quadrant was performed with real-time and static weston-scale imaging. TECHNICAL QUALITY: Adequate. COMPARISON: None. FINDINGS: Liver: The liver is slightly enlarged and measures 19.2 cm. There is increased echogenicity consistent with fatty infiltration. The bile ducts are within normal limits. There is hepatic color flow. The direction of portal flow is hepatopetal. There is a 9 mm x 10 mm x 6 mm cyst in the anterior left lobe of the liver. Gallbladder: There is a moderately distended gallbladder. The gallbladder wall measures 2 mm. There is a positive sonographic Brooks''s sign. There is no pericholecystic fluid. There are no gallstones. /Before meals within the gallbladder lumen. Common Bile Duct (C.B.D.): The common bile duct measures 5.0 mm. Pancreas: Normal size of the head, body and tail of the pancreas. There is normal echogenicity of the pancreas. There is no demonstrated pancreatic mass or cyst. Right Kidney: Normal size of the right kidney. The right kidney measures 10.4 cm x 3.7 cm x 3.6 cm. Normal renal cortex. The right cortex measures 1.0 cm. There is no demonstrated renal mass or cyst. There is no right hydronephrosis. US/Gallbladder IMPRESSION: Hepatomegaly and fatty infiltration of the liver. Distended gallbladder with positive Brooks''s sign and sludge within the lumen. Electronically Signed: Renzo Lyman, at 15:47 EST , Service support ,
[2020-01-18 13:52] LABS: International Normalized Ratio 1.3; Prothrombin Time (Protime)PT. 15.3 SECONDS (11.7-14.9)
[2020-01-18 13:55] LABS: D-Dimer Quantitative (DVT/PE) 0.43 FEU/ug/m (0.27-0.49)
[2020-01-18] MEDS: Potassium Chloride 10mEq/100mL 10 MEQ/100 ML IV.SOLN. 100 MEQ IV BOLUS ×3 (14:20→16:58)
[2020-01-18 14:22] LABS: Platelet Estimate MOD DEC (ADEQ)
[2020-01-18 17:14] LABS: Reflex Lactate? Y
--- NOTE | 2020-01-18 18:28 | ED.RN ---
THIS NURSE TOLD THE MANAGER HEALTH IN THE PT ROOM THAT THERE WAS ONE MORE BAG OF KCL THAT NEEDED TO BE INFUSED WHICH WAS LEFT ON THE SINK.
[2020-01-18 19:11] LABS: Lactic Acid 2.8 mmol/L (0.4-1.9)
[2020-01-18 20:40] LABS: Iron 35 ug/dL (50-170); Iron Binding Capacity,Total 226 ug/dL (250-450); PERCENT IRON SATURATION 15.5 % (15.0-55.0)
--- NOTE | 2020-01-18 21:35 | PCM.HP.STD ---
Problem List (1) Syncope Status: Acute Qualifiers: Syncope type: unspecified Qualified Code(s): R55 - Syncope and collapse (2) Generalized weakness Status: Acute History of Present Illness Date of Admission: 01/18/20 Chief Complaint: Unexplained syncope, generalized weakness The patient is a 49 year old F who was seen in the emergency room at [facility] with multiple various complaints including recurrent syncope x3 months, nausea and vomiting and diarrhea-unknown length of time, and generalized weakness. Patient is unable to tell me what brings on her syncopal episodes, she states she has not gone to a physician regarding the syncopal episodes and did not give an exact reason why she did not seek a physician regarding this. Patient states that she is never had a family practitioner-I have a hard time believing that this is true. Patient is a poor informant and complains of multiple other symptoms which do not make sense. Work-up in the emergency room included labs which showed her potassium to be low at 2.3, bilirubin was elevated at 2.4, alkaline phosphatase was 221, AST was 195, and lactic acid was 4.4. On examination by the emergency room doctor, her abdomen was found to be mildly tender to palpation and so an ultrasound was obtained which showed a distended gallbladder and sludge within the lumen of the gallbladder. There was also noted to be hepatomegaly and fatty infiltration of the liver. Chest x-ray showed no acute process, Covid antigen test was obtained and this was positive. Tox screen was negative, alcohol level was nondetectable he showed a white blood cell count 3.5, hemoglobin was 8.8, and platelet count was 96,000. Patient's room air pulse ox was 100%, patient was not febrile. Patient denied excessive alcohol use and says she only drinks 2 beers per day. She denies any illicit drug abuse. Patient was given potassium supplementation in the emergency room,, she will be admitted to PCU under Covid precautions, she will be given IV fluids and labs will be rechecked. Will not be given any dexamethasone or remdesivir for her Covid infection as she is not hypoxic and has no evidence of pneumonia on her chest x-ray. Past Medical History Past Medical History (Chronic Problems): Chronic Problems (This Medical Record has been edited. Action required.) Alcoholism (Chronic) Allergies No Known Allergies Allergy (Verified 12/04/20 10:00) Home Medications: Ambulatory Orders Medication Instructions Recorded NK 01/18/20 Surgical History: - - Psychiatric History: No pertinent psych hx [employer] History: No pertinent [employer] history Lives: Alone Smoking Status: Never smoker Tobacco Use: Non-smoker Alcohol: Occasional Drugs: None - *Family History Maternal History Items: No pertinent history Paternal History Items: No pertinent history Review of Systems Constitutional: Reports: Weakness, Fatigue. Denies: Anorexia, Chills, Fever, Night Sweats, Malaise, Weight Change Eyes: Denies: Cataracts, Conjunctivae Inflammation, Double vision, Drainage HEENT: Denies: Difficulty Swallowing, Dysphasia, Ear Pain, Eye Pain, Hearing Changes, Nasal bleeding, Nasal Congestion, Post Nasal Drip Cardiovascular: Denies: Chest Pain, Claudication, Chest Pressure, Chest Tightness, Edema, Palpitations Respiratory: Denies: Cough, Hemoptysis, Shortness of breath at rest, Shortness of breath upon exertion Gastrointestinal: Reports: Diarrhea, Nausea, Vomiting. Denies: Abdominal Pain, Constipation, Hematemesis, Hematochezia, Melena Genitourinary: Denies: Dysuria, Frequency, Hematuria, Hesitancy, Urgency Musculoskeletal: Denies: Foot Pain, Hand Pain, Joint Pain, Joint stiffness, Joint swelling, Joint Tenderness, Leg Pain Skin: Denies: Dryness, Jaundice, Pruritis, Rash Neurological: Denies: Blurred vision, Double vision, Change in Speech, Slurred speech, Difficulty swallowing, Focal weakness, Headaches, Incoordination, Numbness, Tingling Psychiatric: Denies: Anxiety, Depression, Homicidal Ideations, Suicidal Ideations Endocrine: Denies: Change in Body Habitus, Heat/ Cold Intolerance, Polydipsia, Polyuria Hematologic/ Lymphatic: Denies: Adenopathy, Anemia, Easy Bruising, Easy Bleeding, Petechiae, Purpura VTE Information - Inpt Only VTE Present on Admission: No VTE Mechan Device Prophylaxis: None VTE Pharm Prophylaxis ordered?: Yes - Physical Exam Vitals/I&O's: Vital Signs Temp Pulse Resp BP Pulse Ox 98.2 F 77 14 83/58 L 96 01/18/20 18:51 01/18/20 18:51 01/18/20 18:51 01/18/20 18:51 01/18/20 18:51 Oxygen Delivery Method Room Air Weight: 54.885 kg Body Mass Index (BMI) 17.9 Intake and Output for Last 24 Hours 01/16/20 01/17/20 01/18/20 23:59 23:59 23:59 Intake Total 1200 / 1200 Balance 1200 / 1200 General: Alert, Oriented x3, Cooperative, No apparent distress, Well developed, Well nourished HEENT: Atraumatic, PERRLA, EOMI, Normocephalic Oral: Moist Mucosa Neck: Supple, No JVD, Negative Carotid Bruits, Trachea Midline, Thyroid Normal Size and Texture Lungs: Clear to auscultation, Normal air movement, No rhonchi, No wheeze, No rales Cardiovascular: Regular rate, Regular Rhythm, Normal S1, Normal S2, No murmurs, PMI Normal, No rub noted, No Gallop Abdomen: Bowel Sounds Present, Soft, Non Tender, Non-Distended Extremities: No clubbing, No cyanosis, No edema, Capillary Refill Less than 3 Seconds Skin: No rashes, No breakdown Musculoskeletal: No Tenderness to Palpation of Joints or Extremities Neurological: Cranial nerves II-XII grossly intact, Neuro grossly intact, Sensory exam intact to light touch and pain, Coordination normal Psych/Mental Status: Normal Affect, Appropriate, Alert and oriented to time, place, person, mood and affect Microbiology Past 72 Hours 01/18/20 10:35 Mucosa - Nose SARS-CoV-2 Antigen (Rapid) - Final SARS-CoV-2 (COVID 19) Laboratory Results 01/18/20 11:15: Urine Opiates Screen NEGATIVE, Urine Methadone Screen NEGATIVE, Ur Barbiturates Screen NEGATIVE, Ur Phencyclidine Scrn NEGATIVE, Ur Amphetamines Screen NEGATIVE, U Methamphetamin-MDMA NEGATIVE, U Benzodiazepines Scrn NEGATIVE, Urine Cocaine Screen NEGATIVE, U Cannabinoids Screen NEGATIVE, Ur Drug Screen Comment 01/18/20 12:40: Ethyl Alcohol < 3.0 01/18/20 13:05: WBC 3.5 L, RBC 3.04 L, Hgb 8.8 L, Hct 26.6 L, MCV 87.5, MCH 28.9, MCHC 33.1, RDW Std Deviation 62.8 H, RDW Coeff of Bhakti 19.8 H, Plt Count 96 L, Immature Gran % (Auto) 0.600, Neut % (Auto) 70.1 H, Lymph % (Auto) 20.7, Dauphin % (Auto) 7.4, Eos % (Auto) 0.6, Baso % (Auto) 0.6, Absolute Neuts (auto) 2.5, Absolute Lymphs (auto) 0.73 L, Nucleated RBC % 0, Platelet Estimate MOD DEC 01/18/20 13:05: PT 15.3 H, INR 1.3, D-Dimer Quant (PE/DVT) 0.43 01/18/20 13:05: Sodium 135 L, Potassium 2.3 L*, Chloride 97 L, Carbon Dioxide 28.0, Anion Gap 10, BUN 3 L, Creatinine 0.97, Estim Creat Clear Calc 60.58, Est GFR (MDRD) Af Amer 79, Est GFR (MDRD) Non-Af 65, BUN/Creatinine Ratio 3.1 L, Glucose 85, Calcium 7.9 L, Magnesium 1.8, Total Bilirubin 2.40 H, AST 195 H, ALT 48, Alkaline Phosphatase 221 H, Troponin I < 0.015, Total Protein 7.5, Albumin 2.2 L, Globulin 5.3 H, Albumin/Globulin Ratio 0.4 L, Lipase 49 L 01/18/20 13:05: Lactic Acid 4.4 H* 01/18/20 13:05: Iron 35 L, TIBC 226 L, Iron Saturation 15.5 01/18/20 18:30: Lactic Acid 2.8 H* Current Medications Acetaminophen (Acetaminophen 325 Mg Tablet) 650 mg PO Q6H PRN PRN PRN Reason: Pain Score 1-10/Temp > 100.7 F Enoxaparin Sodium (Enoxaparin 40 Mg/0.4 Ml Syringe) 40 mg SC BID CHRISTY Sodium Chloride () 250 mls @ 15 mls/hr IV .[id number] PRN PRN Reason: Saline Flush Sodium Chloride () 250 mls @ 15 mls/hr IV .[id number] PRN PRN Reason: Additional IVPB Infusion Potassium Chloride/Sodium Chloride () 1,000 mls @ 125 mls/hr IV .Q8H CHRISTY Sodium Chloride (0.9% Saline Lock 10 Ml Syringe) 10 - 40 ml IV UD PRN PRN Reason: SALINE FLUSH Assessment/Plan All Active Problems (This Medical Record has been edited. Action required.) Syncope (Acute) Generalized weakness (Acute) #1 hypokalemia-etiology unclear, patient complained to this examiner of diarrhea and vomiting although she made no mention of this to the emergency room physician. Patient will be placed in observation status on PCU, fluids will be administered and she will be given potassium replacement, labs will be rechecked tomorrow. #2 recurrent syncope-etiology unclear at this time, patient will be monitored on telemetry #3 COVID-19 infection without pneumonia-patient is not hypoxic #4 past history of alcoholism-patient denies excessive alcohol intake currently #5 anemia-etiology unclear, patient will have iron studies ordered #6 leukopenia-probably secondary to COVID-19 infection #7 elevated liver enzymes-possibly secondary to COVID-19 infection or unreported alcohol use #8 elevated lactic acid-etiology unclear, I do not feel this is secondary to severe sepsis. OBSV E&M: [id number] Initial observation care L3
[2020-01-18] MEDS: Enoxaparin 40 MG/0.4 ML Syringe SC (22:05)
[2020-01-18] MEDS: 0.9% Saline Lock 10 ML Syringe IV (22:40)
[2020-01-19] VITALS (13 sets, daily range): BP systolic 85–100; BP diastolic 49–68; PULSE 78–102; RESP 15–19; TEMP 36.8–37.3; O2SAT 92–100
[2020-01-19] MEDS: 0.9% Saline Lock 10 ML Syringe IV ×3 (06:23→21:38)
[2020-01-19 10:33] LABS: Absolute Lymphocyte Count 1.17 X10^3/uL (0.83-4.51); Absolute Neutrophil Count 2.9 X10^3/uL (2.0-7.7); Basophil# 0.03 X10^3/uL; Basophil% 0.7 % (0-1); Eosinophil# 0.03 X10^3/uL; Eosinophils% 0.7 % (0-5); Hematocrit 23.7 % (37-47); Hemoglobin 7.5 g/dL (12.0-15.0); Lymphocyte # 1.17 X10^3/ul (4.0); Lymphocyte % 25.8 % (19-41); Mean Corp Hgb Conc 31.6 g/dL (32-36); Mean Corpuscular Hgb 28.8 pg (27.0-32.0); Mean Corpuscular Volume 91.2 fL (81-99); Monocyte# 0.35 X10^3/uL; Monocyte% 7.7 % (0-10); NRBC Flagged by Analyzer 0 % (0-5); Neutrophil # 2.93 X10^3/uL (2.7-7.7); Neutrophil % 64.7 % (47-70); POSITIVE COUNT YES; POSITIVE MORPHOLOGY YES; Platelet Count 90 K/mm3 (150-450); RBC Distribution Width CV 21.1 % (11.6-14.6); RBC Distribution Width SD 69.9 fl (35.1-43.9); White Blood Count 4.5 K/mm3 (4.4-11.0)
[2020-01-19 10:34] LABS: Differential Indicated SCAN CRITERIA MET
[2020-01-19 10:47] LABS: ALB/GLOB Ratio 0.4 RATIO (0.9-2.4); AST(SGOT) 163 U/L (15-37); Alanine Aminotransfer ALT/SGPT 37 U/L (13-56); Albumin, Serum 1.8 g/dL (3.2-5.0); Alkaline Phosphatase 183 U/L (45-117); Anion Gap 10 (5-15); BUN 4 mg/dL (7-18); Calcium,Total 7.2 mg/dL (8.5-10.1); Chloride 106 mmol/L (98-107); Creatinine, Serum 1.01 mg/dL (0.55-1.02); EST Glomerular Filtration Rate 62 mL/min (>60); Est Glom Filt Rate - Afr Amer 76 mL/min (>60); Estimated Creatinine Clearance 59.66 ml/min; Globulin 4.2 g/dL (2.2-4.2); Glucose 114 mg/dL (74-106); Potassium 3.3 mmol/L (3.5-5.1); Sodium Level 138 mmol/L (136-145)
[2020-01-19 11:15] LABS: Anisocytosis 2+; Differential Comment SCANNED; Hypochromasia 2+; Poikilocytosis 2+; Stomatocyte 1+
[2020-01-19] MEDS: Enoxaparin 40 MG/0.4 ML Syringe SC ×2 (11:22→21:38)
[2020-01-19 11:38] LABS: Platelet Estimate SLT DEC (ADEQ)
--- NOTE | 2020-01-19 17:19 | PCM.PROGNOTE ---
Patient Problems: Active and Suspected Problems (This Medical Record has been edited. Action required.) Syncope (Acute) Generalized weakness (Acute) Subjective: Patient was seen and examined today, she said earlier this morning she had a brief syncopal episode at her bedside when she tried to sit up at the end of the bed, there is nothing on telemetry to suggest there was any cardiac event during this time. Patient initially refused labs this morning and then consented, her potassium was slightly low, hemoglobin was lower than on admission. Patient has an element of iron deficiency anemia, I will repeat labs tomorrow. Objective: General: Alert, Oriented x3, Cooperative, No apparent distress, Well developed, Well nourished HEENT: Atraumatic, PERRLA, EOMI, Normocephalic Oral: Moist Mucosa Neck: Supple, No JVD, Negative Carotid Bruits, Trachea Midline, Thyroid Normal Size and Texture Lungs: Clear to auscultation, Normal air movement, No rhonchi, No wheeze, No rales Cardiovascular: Regular rate, Regular Rhythm, Normal S1, Normal S2, No murmurs, PMI Normal, No rub noted, No Gallop Abdomen: Bowel Sounds Present, Soft, Non Tender, Non-Distended Extremities: No clubbing, No cyanosis, No edema, Capillary Refill Less than 3 Seconds Skin: No rashes, No breakdown Musculoskeletal: No Tenderness to Palpation of Joints or Extremities Neurological: Cranial nerves II-XII grossly intact, Neuro grossly intact, Sensory exam intact to light touch and pain, Coordination normal Psych/Mental Status: Normal Affect, Appropriate, Alert and oriented to time, place, person, mood and affect - Physical Exam Vitals/I&O's: Vital Signs Temp Pulse Resp BP Pulse Ox 99.1 F 84 15 95/57 L 92 01/19/20 17:10 01/19/20 17:10 01/19/20 17:10 01/19/20 17:10 01/19/20 17:10 Oxygen Delivery Method Room Air Weight: 54.885 kg Body Mass Index (BMI) 17.9 Orthostatic Vital Signs Start: 01/19/20 12:34 Freq: q24h Status: Active Protocol: Activity Type Activity Date Activity User E-Sign Co-Sign Detail Recorded Client Recorded Date Recorded By Document 01/19/20 12:34 [facility] [id number] 01/19/20 12:36 LDS 01/19/20 12:34 Orthostatic Vitals Standing -Blood Pressure (90/60-120/80) 85/52 L -Extremity Use Left Arm -Pulse Rate (60-100) 99 Sitting -Blood Pressure (90/60-120/80) 92/57 L -Extremity Use Left Arm -Pulse Rate (60-100) 98 Lying -Blood Pressure (90/60-120/80) 100/58 L -Extremity Use Left Arm -Pulse Rate (60-100) 95 Intake and Output for Last 24 Hours 01/17/20 01/18/20 01/19/20 23:59 23:59 23:59 Intake Total 1300 / 1700 3440 / 3440 Balance 1300 / 1700 3440 / 3440 Microbiology Past 72 Hours 01/18/20 10:35 Mucosa - Nose SARS-CoV-2 Antigen (Rapid) - Final SARS-CoV-2 (COVID 19) Laboratory Results 01/18/20 13:05: Iron 35 L, TIBC 226 L, Iron Saturation 15.5 01/18/20 18:30: Lactic Acid 2.8 H* 01/19/20 10:24: WBC 4.5, RBC 2.60 L, Hgb 7.5 L, Hct 23.7 L, MCV 91.2, MCH 28.8, MCHC 31.6 L, RDW Std Deviation 69.9 H, RDW Coeff of Bhakti 21.1 H, Plt Count 90 L, MPV 13.0 H, Immature Gran % (Auto) 0.400, Neut % (Auto) 64.7, Lymph % (Auto) 25.8, Hart % (Auto) 7.7, Eos % (Auto) 0.7, Baso % (Auto) 0.7, Absolute Neuts (auto) 2.9, Absolute Lymphs (auto) 1.17, Nucleated RBC % 0, Differential Comment SCANNED, Platelet Estimate SLT DEC, Hypochromasia 2+, Poikilocytosis 2+, Anisocytosis 2+, Stomatocytes 1+ 01/19/20 10:24: Sodium 138, Potassium 3.3 L, Chloride 106, Carbon Dioxide 22.0, Anion Gap 10, BUN 4 L, Creatinine 1.01, Estim Creat Clear Calc 59.66, Est GFR (MDRD) Af Amer 76, Est GFR (MDRD) Non-Af 62, BUN/Creatinine Ratio 4.0 L, Glucose 114 H, Calcium 7.2 L, Total Bilirubin 1.70 H, AST 163 H, ALT 37, Alkaline Phosphatase 183 H, Total Protein 6.0 L, Albumin 1.8 L, Globulin 4.2, Albumin/Globulin Ratio 0.4 L Current Medications Acetaminophen (Acetaminophen 325 Mg Tablet) 650 mg PO Q6H PRN PRN PRN Reason: Pain Score 1-10/Temp > 100.7 F Enoxaparin Sodium (Enoxaparin 40 Mg/0.4 Ml Syringe) 40 mg SC BID CHRISTY Last Admin: 01/19/20 11:22 Dose: 40 mg Documented by: Sodium Chloride () 250 mls @ 15 mls/hr IV .[id number] PRN PRN Reason: Saline Flush Sodium Chloride () 250 mls @ 15 mls/hr IV .[id number] PRN PRN Reason: Additional IVPB Infusion Potassium Chloride/Sodium Chloride () 1,000 mls @ 100 mls/hr IV .Q10H CHRISTY Last Admin: 01/19/20 17:06 Dose: 100 mls/hr Documented by: Sodium Chloride (0.9% Saline Lock 10 Ml Syringe) 10 - 40 ml IV UD PRN PRN Reason: SALINE FLUSH Last Admin: 01/19/20 06:24 Dose: 10 ml Documented by: Medical Necessity - Tobacco Use Smoking Status: Never smoker Tobacco Use: Non-smoker Assessment/Plan All Active Problems (This Medical Record has been edited. Action required.) Syncope (Acute) Generalized weakness (Acute) #1 hypokalemia-etiology unclear, supplemental potassium was given to the patient, labs will be repeated tomorrow #2 recurrent syncope-etiology unclear at this time, patient will be monitored on telemetry #3 COVID-19 infection without pneumonia-patient is not hypoxic #4 past history of alcoholism-patient denies excessive alcohol intake currently #5 anemia-appears to be iron deficiency in nature, I will give Zayra for today and recheck the patient's CBC tomorrow #6 leukopenia-probably secondary to COVID-19 infection #7 elevated liver enzymes-possibly secondary to COVID-19 infection or unreported alcohol use #8 elevated lactic acid-etiology unclear Inpatient E&M: 11926 Init Hosp L3
[2020-01-19] MEDS: Sodium Ferric Gluconat 250 MG in 0.9% Normal Saline 250 ML 135 MG IV (18:46)
[2020-01-19] MEDS: MELATONIN 3 MG TABLET PO (23:54)
[2020-01-20] VITALS (8 sets, daily range): BP systolic 86–102; BP diastolic 48–59; PULSE 79–90; RESP 20–21; TEMP 36.6–37.1; O2SAT 20–96
--- NOTE | 2020-01-20 01:21 | NURSING ---
Pt refusing telemetry. Educated on the need to monitor her heart. Pt continued to refuse.
[2020-01-20] MEDS: Acetaminophen 325 MG Tablet 650 MG PO ×2 (05:54→12:22)
[2020-01-20 06:55] LABS: Absolute Lymphocyte Count 1.33 X10^3/uL (0.83-4.51); Absolute Neutrophil Count 3.4 X10^3/uL (2.0-7.7); Basophil# 0.03 X10^3/uL; Basophil% 0.6 % (0-1); Eosinophil# 0.06 X10^3/uL; Eosinophils% 1.1 % (0-5); Hematocrit 23.6 % (37-47); Hemoglobin 7.3 g/dL (12.0-15.0); Lymphocyte # 1.33 X10^3/ul (4.0); Lymphocyte % 25.2 % (19-41); Mean Corp Hgb Conc 30.9 g/dL (32-36); Mean Corpuscular Volume 90.4 fL (81-99); Mean Platelet Vol. 13.2 fl (6.2-12.0); Monocyte# 0.41 X10^3/uL; Monocyte% 7.8 % (0-10); NRBC Flagged by Analyzer 0 % (0-5); Neutrophil # 3.41 X10^3/uL (2.7-7.7); Neutrophil % 64.5 % (47-70); POSITIVE MORPHOLOGY YES; Platelet Count 101 K/mm3 (150-450); RBC Distribution Width CV 21.6 % (11.6-14.6); RBC Distribution Width SD 70.9 fl (35.1-43.9); Red Blood Count 2.61 M/mm3 (4.2-5.4); White Blood Count 5.3 K/mm3 (4.4-11.0)
[2020-01-20 07:02] LABS: Differential Indicated SCAN CRITERIA MET
[2020-01-20 07:22] LABS: Anion Gap 6 (5-15); BUN 2 mg/dL (7-18); BUN/Creat Ratio 3.3 RATIO (10-20); Calcium,Total 7.6 mg/dL (8.5-10.1); Chloride 104 mmol/L (98-107); Creatinine, Serum 0.61 mg/dL (0.55-1.02); EST Glomerular Filtration Rate 111 mL/min (>60); Est Glom Filt Rate - Afr Amer 134 mL/min (>60); Estimated Creatinine Clearance 98.79 ml/min; Glucose 64 mg/dL (74-106); Potassium 3.6 mmol/L (3.5-5.1); Sodium Level 136 mmol/L (136-145)
[2020-01-20 07:30] LABS: Differential Comment SCANNED
[2020-01-20 07:32] LABS: Anisocytosis 2+; Hypochromasia 2+; Platelet Estimate SLT DEC (ADEQ); Poikilocytosis 2+; Stomatocyte 1+
[2020-01-20 07:33] LABS: Target Cells 1+
[2020-01-20] MEDS: Sodium Ferric Gluconat 250 MG in 0.9% Normal Saline 250 ML 135 MG IV (10:02)
--- NOTE | 2020-01-20 15:55 | NURSING ---
1545 in to pt room with charge nurse Cesar PARKS. pt is disoriented, but able to reorient. blood sugar 304. neuro check done. Julianne Gambino RN
--- NOTE | 2020-01-20 17:11 | DS.PCM_ITS ---
Discharge Date and Diagnosis - Problem List Patient Problems: Active and Suspected Problems (This Medical Record has been edited. Action required.) Syncope (Acute) Generalized weakness (Acute) Date of Admission: 01/18/20 Date of Discharge: 01/20/20 - Primary Discharge Diagnosis Acute Problems: Active Problems (This Medical Record has been edited. Action required.) Syncope -etiology unknown Generalized weakness -multifocal, probably secondary to chronic anemia, hypokalemia, and COVID-19 infection COVID-19 infection without pneumonia Chronic iron deficiency anemia-etiology unclear Hypokalemia-etiology unknown - Secondary Discharge Diagnosis Chronic Problems: Chronic Problems (This Medical Record has been edited. Action required.) Alcoholism (Chronic) Hospital Course and Treatment Operations: None Procedures: None Summary of Care Provided: The patient is a 49 year old F who was seen in the emergency room at [facility] with a chief complaint of multiple syncopal episodes over the past several weeks. When asked why she did not seek medical attention, she stated that she did not have a family practitioner, and she also stated that she is never had a family practitioner except when she was a child. Patient denies drinking excessively-she has a past history of alcoholism. Patient also complained of generalized weakness but was very vague about the timeframe of this weakness. Patient overall was a poor informant. Work-up in the emergency room showed her potassium to be low at 2.3, bilirubin was elevated at 2.4, AST was 195, alkaline phosphatase was 221, and lactic acid was 4.4. Patient underwent an abdominal ultrasound which showed a distended gallbladder and sludge within the lumen of the gallbladder but it was not felt that the patient was septic at this point or that her gallbladder was infected. Patient's tox screen was negative, alcohol level was undetectable, white blood cell count was 3.5 and hemoglobin was 8.8. Platelet count was low at 96,000, patient was not febrile, Covid antigen test was obtained and this was positive. Patient was admitted to PCU and given potassium replacement and IV fluids, the next morning her hemoglobin dropped to 7.5, iron studies were obtained and reveal that the patient was iron deficient and she was given IV Venofer. Patient stated that she had 1 syncopal episode in the hospital-this was not witnessed but telemetry did not show any cardiac abnormalities during the patient's hospitalization. Patient was not placed on any dexamethasone or remdesivir due to the fact that she was not hypoxic. On 01/20/2020, patient's CBC was repeated and showed a hemoglobin of 7.3, I recommended that the patient have a unit of blood transfused but she refused this. I then gave her Venofer, she was walked by nursing in her room and was not hypoxic on that day. Patient was examined on 01/20/2020: On examination she appeared in good health and spirits, she does not appear to be in any distress. Vital signs as documented. Skin warm and dry and without overt rashes. Neck without JVD, thyroid appears normal, trachea is midline, neck is supple. Lungs clear, normal air movement was noted. Heart exam notable for regular rhythm, normal sounds and absence of murmurs, rubs or gallops. Abdomen unremarkable and without evidence of organomegaly, masses, or abdominal aortic enlargement, bowel sounds are present in all 4 quadrants, no abdominal tenderness was noted. Extremities nonedematous, no cyanosis was noted, no clubbing was noted. Neuro: Cranial nerves II through XII are grossly intact, no focal motor deficits were noted, sensation to light touch and pinprick is intact, motor exam 5/5 throughout. Psych: Patient is alert and oriented x3, she does not appear anxious or depressed, she does not appear agitated. Patient was felt to be stable for discharge home on 01/20/2020, she was inst ructed to obtain [id number] ferrous sulfate 325 mg and take 1 twice a day, she was also given a list of physicians with which to follow-up with within the next 2 weeks. The etiology of the patient's syncope was never explained. Patient Problems: Active and Suspected Problems (This Medical Record has been edited. Action required.) Syncope (Acute) Generalized weakness (Acute) - Physical Exam Vitals/I&O's: Vital Signs Temp Pulse Resp BP Pulse Ox 98 F 80 20 H 86/48 L 96 01/20/20 09:30 01/20/20 10:00 01/20/20 10:00 01/20/20 09:30 01/20/20 10:00 Oxygen Delivery Method Room Air Weight: 54.885 kg Body Mass Index (BMI) 17.9 Orthostatic Vital Signs Start: 01/19/20 12:34 Freq: q24h Status: Active Protocol: Activity Type Activity Date Activity User E-Sign Co-Sign Detail Recorded Client Recorded Date Recorded By Document 01/19/20 12:34 [facility] [id number] 01/19/20 12:36 [facility] 01/19/20 12:34 Orthostatic Vitals Standing -Blood Pressure (90/60-120/80) 85/52 L -Extremity Use Left Arm -Pulse Rate (60-100) 99 Sitting -Blood Pressure (90/60-120/80) 92/57 L -Extremity Use Left Arm -Pulse Rate (60-100) 98 Lying -Blood Pressure (90/60-120/80) 100/58 L -Extremity Use Left Arm -Pulse Rate (60-100) 95 Intake and Output for Last 24 Hours 01/18/20 01/19/20 01/20/20 23:59 23:59 23:59 Intake Total 1300 / 1700 5076.67 / 5076.67 Balance 1300 / 1700 5076.67 / 5076.67 Microbiology Past 72 Hours 01/18/20 10:35 Mucosa - Nose SARS-CoV-2 Antigen (Rapid) - Final SARS-CoV-2 (COVID 19) Laboratory Results 01/20/20 06:20: WBC 5.3, RBC 2.61 L, Hgb 7.3 L, Hct 23.6 L, MCV 90.4, MCH 28.0, MCHC 30.9 L, RDW Std Deviation 70.9 H, RDW Coeff of Bhakti 21.6 H, Plt Count 101 L, MPV 13.2 H, Immature Gran % (Auto) 0.800, Neut % (Auto) 64.5, Lymph % (Auto) 25.2, [place] % (Auto) 7.8, Eos % (Auto) 1.1, Baso % (Auto) 0.6, Absolute Neuts (auto) 3.4, Absolute Lymphs (auto) 1.33, Nucleated RBC % 0, Differential Comment SCANNED, Platelet Estimate SLT DEC, Hypochromasia 2+, Poikilocytosis 2+, Anisocytosis 2+, Target Cells 1+, Stomatocytes 1+ 01/20/20 06:20: Sodium 136, Potassium 3.6, Chloride 104, Carbon Dioxide 26.0, Anion Gap 6, BUN 2 L, Creatinine 0.61, Estim Creat Clear Calc 98.79, Est GFR (MDRD) Af Amer 134, Est GFR (MDRD) Non-Af 111, BUN/Creatinine Ratio 3.3 L, Glucose 64 L, Calcium 7.6 L 01/20/20 08:45: Blood Type A NEGATIVE, Antibody Screen NEGATIVE, Crossmatch See Detail Current Medications Acetaminophen (Acetaminophen 325 Mg Tablet) 650 mg PO Q6H PRN PRN PRN Reason: Pain Score 1-10/Temp > 100.7 F Last Admin: 01/20/20 12:22 Dose: 650 mg Documented by: Betamethasone Valerate (Betamethasone Valerate 0.1% Cream) 1 applic TOPICAL BID [facility]; Protocol Enoxaparin Sodium (Enoxaparin 40 Mg/0.4 Ml Syringe) 40 mg SC BID [facility] Last Admin: 01/20/20 10:04 Dose: Not Given Documented by: Sodium Chloride () 250 mls @ 15 mls/hr IV .[id number] PRN PRN Reason: Saline Flush Sodium Chloride () 250 mls @ 15 mls/hr IV .[id number] PRN PRN Reason: Additional IVPB Infusion Potassium Chloride/Sodium Chloride () 1,000 mls @ 100 mls/hr IV .Q10H [facility] Last Infusion: 01/20/20 10:05 Dose: 0 mls/hr Documented by: Melatonin (Melatonin 3 Mg Tablet) 3 mg PO QHS [facility] Last Admin: 01/19/20 23:54 Dose: 3 mg Documented by: Sodium Chloride (0.9% Saline Lock 10 Ml Syringe) 10 - 40 ml IV UD PRN PRN Reason: SALINE FLUSH Last Admin: 01/19/20 21:38 Dose: 10 ml Documented by: Home Medications: Medications to take at Discharge Betamethasone Valerate [Valisone 0.1% Cream (BKC)] 1 applic TOPICAL BID tube 01/20/20 Primary Care Physician: Care Physician,No Primary [Primary Care Provider] - Disposition: Home Minutes spent on discharge:: 31 Patient Condition:: Stable Medical Necessity - Tobacco Use Smoking Status: Never smoker Tobacco Use: Non-smoker Meaningful Use Info Meaningful Use Diagnoses (Choose all that apply): None applicable Inpatient E&M: 42670 Disch Hosp
--- NOTE | 2020-01-20 17:14 | DCINST_ITS ---
- Discharge Diagnoses Current Active Problems: Current Active and Chronic Problems (This Medical Record has been edited. Action required.) Syncope (Acute) Generalized weakness (Acute) You will use the following diet at home:: No restrictions Your food should be the consistency of: Regular Your liquids should be the consistency of: Regular/Thin Discharge Activity: Return to Normal Activity, May Not Drive - Until you have seen a family physician for further work-up of your fainting episodes Weight Bearing Status: Full weight bearing Additional Instructions: Obtain ferrous sulfate 325 mg [id number] and take 1 twice a day for iron deficiency Allergies/Adverse Reactions: Allergies No Known Allergies Allergy (Verified 01/18/20 10:00) Medications to take at Discharge Betamethasone Valerate [Valisone 0.1% Cream (BKC)] 1 applic TOPICAL BID tube 01/20/20 Primary Care Physician: Care Physician,No Primary [Primary Care Provider] - Please follow up with your Primary Care Physician in: Follow-up with a primary care physician within the next 2 weeks Test Results: Test results from this visit will be discussed in further detail at your follow- up appointment, if applicable.
== END 2020-01-20 19:25 | disposition home or self-care (01) | DRG 640 ==
LOC: ED 10:57 → PCU 17:30
PROVIDERS: Admitting Provider Internal Medicine; Emergency Provider Emergency Medicine; Visit Provider Internal Medicine
DX: E87.6 Hypokalemia (principal); U07.1 COVID-19; R55 Syncope and collapse; F10.20 Alcohol dependence, uncomplicated; D50.9 Iron deficiency anemia, unspecified; K76.0 Fatty (change of) liver, not elsewhere classified
CPT/HCPCS: 36415; 70450; 71045; 76705; 80048; 80053; 80307; 80320; 83540; 83550; 83605; 83690; 83735; 84484; 85025; 85379; 85610; 86850; 86900; 86901; 86920; 86922; 87426; 93005; 97802; 99285; J7030; J7040; J7050; A4216; G0480; J2916

== ENCOUNTER 2020-02-13 17:00 | Emergency (ER) | payer MEDICARE, MEDICAID, SELFPAY ==
[2020-01-18 18:42] VITALS: BMI 17.9
[2020-02-13 17:03] VITALS: BP 119/81; PULSE 102; RESP 16; TEMP 36.7; O2SAT 98; BMI 18.0
--- NOTE | 2020-02-13 17:18 | ED.VIS.GEN ---
History of Present Illness Chief Complaint: Weakness Informant: Patient Onset: Month(s) - Onset 2 years ago Context: - - Gradual Timing: Continuous Quality: Generalized weakness, weight loss, hair loss and daily alcohol consumption Location: Patient states she is either in her bed or chair 90% of the day Current Severity: - - Unable to determine Maximum Severity: - - Unable to determine Worsened by: Patient states something occurred September 16. However onset was 2 years ago Relieved by: Nothing Associated Symptoms: Please read HPI Narrative: Patient is a 49-year-old woman who looks much older than stated age and is cachectic. She presents for generalized weakness. She states that started 2 years ago. She states she lives alone. She states she predominately sits in her chair or is in her bed 90% of the time. She states she has lost significant amount of weight. She states she has no appetite. She has trouble with sleep. She reports something occurred September 16 but would not elaborate. She also was told she needed a blood transfusion but refused. We will need to review prior records to determine when this occurred. Patient does admit to drinking daily. She did not quantitate how much she drinks on a daily basis. She reports intermittent black stool. She denies history of pancreatitis. She denies abdominal pain. She has no cardiac, respiratory or GI symptoms other than lack of appetite. She denies night sweats. She does report hair loss. Prior similar symptoms: No Recent Illness/Hospitalization: No Capacity - Capacity Assessment Tool Can the patient make a choice & communicate that choice?: Yes Can the patient understand benefits, risks and alternatives?: Yes Can the patient make a logical, rational choice?: Yes Is the choice the patient makes consistent w/ their values?: Yes Is there an impending, emergent risk to the patient?: Unable to Determine Does the patient have an Advance Directive?: No Is there a Surrogate Available?: No i.e. HCPOA: No i.e. close relative (spouse, child, parent, sibling)?: No - Past Medical History (1) Generalized weakness Status: Acute (2) Alcoholism Status: Chronic Past Medical History - Allergies and Home Meds Allergies/Adverse Reactions: Allergies No Known Allergies Allergy (Verified 02/13/20 17:06) Primary Care Physician: Care Physician,No Primary [Primary Care Provider] - Prior records reviewed: Yes Surgical History: - - Lives: Alone Smoking Status: Never smoker Alcohol: Heavy Drugs: None - Family History Maternal Family History: Reports: No pertinent history Paternal Family History: Reports: No pertinent history Review of Systems General: Reports: Weight loss. Denies: Chills, Fever, Malaise, Subjective, Sweats Eyes: Denies: Visual changes - bilaterally, Blurred Vision - bilaterally, Diplopia ENT: Denies: Bilateral ear pain, Rhinorrhea, Sore throat Cardiovascular: Denies: Chest pain, Palpitations, Heart racing Respiratory: Denies: Dyspnea, Cough, Dyspnea on exertion, Orthopnea Gastrointestinal: Reports: Nausea, Melena. Denies: Abdominal pain, Vomiting, Diarrhea, Constipation, Hematochezia Genitourinary: Denies: Dysuria, Hematuria, Frequency Musculoskeletal: Denies: Myalgias, Arthralgias, Neck pain, Back pain, Swelling, Extremity Pain, -, - Skin: Denies: Rash Neurological: Reports: Weakness. Denies: Headache, Parasthesia Psych: Reports: Depression. Denies: Anxiety Endocrine: Denies: Polyuria, Polydipsia Hematologic: Denies: Easy bruising, Easy bleeding Allergy: Reports: - - Patient reports she is lost weight because of lesions she had on her tongue. She would not elaborate. Physical Exam Vital Signs/Narrative: Vital Signs Temp Pulse Resp BP Pulse Ox 02/13/20 17:03 98.1 F 102 H 16 119/81 H 98 Inital Vital Signs reviewed: Yes General: Well developed, Cachectic, No Acute Distress Head: Normocephalic, Atraumatic Eyes: Perrl, EOMI. Negative for: Pale conjunctiva, Scleral icterus ENT: Moist mucous membranes, No rhinorrhea Neck: Supple, Nontender, No lymphadenopathy, No JVD Cardiovascular: Regular rhythm, No murmurs, Normal S1, Normal S2, Tachycardia Respiratory: No distress, CTA bilaterally, Chest nontender Abdomen: Soft, Nontender, Nondistended, Normal bowel sounds Rectal: Deferred Back: Nontender Extremities: Nontender, No edema. Negative for: Tenderness, Edema, Calf Tenderness Skin: Normal color, No rash, No Trauma. Negative for: Cyanosis, Diaphoresis, Jaundice Neurological: Alert, Oriented x3, Cranial nerves II-XII grossly intact, Normal Strength, Normal Sensation Psychological: Depressed, Tearful Diagnostic/Tx/Re-eval Laboratory Results 02/13/20 02/13/20 02/13/20 17:35 17:35 17:35 WBC 14.4 H RBC 3.28 L Hgb 9.9 L Hct 31.0 L MCV 94.5 MCH 30.2 MCHC 31.9 L RDW Std Deviation 68.2 H RDW Coeff of Bhakti 19.5 H Plt Count 221 MPV 11.9 Immature Gran % (Auto) 0.600 Neut % (Auto) 77.1 H Lymph % (Auto) 13.7 L [place] % (Auto) 7.7 Eos % (Auto) 0.1 Baso % (Auto) 0.8 Absolute Neuts (auto) 11.1 H Absolute Lymphs (auto) 1.97 Nucleated RBC % 0 Differential Comment SCANNED Hypochromasia 1+ Anisocytosis 1+ Target Cells 1+ ESR 103 H PT INR Sodium 133 L Potassium 2.3 L* Chloride 96 L Carbon Dioxide 23.0 Anion Gap 14 BUN 3 L Creatinine 1.00 Estim Creat Clear Calc 60.93 Est GFR (MDRD) Af Amer 76 Est GFR (MDRD) Non-Af 63 BUN/Creatinine Ratio 3.0 L Glucose 126 H Calcium 8.3 L Magnesium Total Bilirubin 3.60 H AST 192 H ALT 40 Alkaline Phosphatase 264 H Total Protein 8.8 H Albumin 2.1 L Globulin 6.7 H Albumin/Globulin Ratio 0.3 L Lipase 74 TSH 2.35 Ethyl Alcohol 108.0 02/13/20 02/13/20 17:35 17:35 WBC RBC Hgb Hct MCV MCH MCHC RDW Std Deviation RDW Coeff of Bhakti Plt Count MPV Immature Gran % (Auto) Neut % (Auto) Lymph % (Auto) [place] % (Auto) Eos % (Auto) Baso % (Auto) Absolute Neuts (auto) Absolute Lymphs (auto) Nucleated RBC % Differential Comment Hypochromasia Anisocytosis Target Cells ESR PT 17.1 H INR 1.5 Sodium Potassium Chloride Carbon Dioxide Anion Gap BUN Creatinine Estim Creat Clear Calc Est GFR (MDRD) Af Amer Est GFR (MDRD) Non-Af BUN/Creatinine Ratio Glucose Calcium Magnesium 2.0 Total Bilirubin AST ALT Alkaline Phosphatase Total Protein Albumin Globulin Albumin/Globulin Ratio Lipase TSH Ethyl Alcohol Potassium is 2.3. Magnesium is pain is normal. PT/INR slight elevated 17.1 and 1.5 consistent with alcoholic liver disease. She does have jaundice. Initially she was agreeable to admission. She is now not agreeable. She will sign out AGAINST MEDICAL ADVICE. As previously documented she has the capacity to sign out AGAINST MEDICAL ADVICE. She understands consequences/risk benefits. - Medical Decision Making Patient is clinically depressed. Need to rule out endocrine metabolic causes. If there are no medical reasons we will have case management see the person to facilitate appropriate care. The hospitalist informed that patient reported blood in her stool recently. Plan was to perform anoscopy/sigmoidoscopy. Patient informed me that she is going home. She asked the nurse to remove her IV. In my professional medical opinion patient has the capacity to make a medical decision AGAINST MEDICAL ADVICE. Patient has been here greater than 3 hours. Presuming she is a slow metabolizer she is below the legal limit. Presume she is a fast metabolizer since she drinks daily. Clinically she is not intoxicated or under the influence of any mind altering substances. Patient was informed by leaving AGAINST MEDICAL ADVICE this may result in necessity for more invasive treatment and more complications which may include but not limited to inability to perform 1 or more activities of daily living, life support, tracheostomy, feeding tube, seizure disorder, vegetative to semivegetative state, cognitive, physical or psychological disability. ED Disposition - Plan for ED Patient: Disposition: Against Medical Advice Diagnosis: Hypokalemia, Major depression, Alcoholic liver disease, Jaundice, recurrent, Anemia, unspecified, Reported hematochezia, Weight loss of more than 10% body weight Instructions: ED Hypokalemia, ED Depression, ED Anemia, Type Not Specified (Adult) Prescriptions: Potassium Cloride Effervescent [Potassium Chl 25 Meq Eff (For Liquid)] 25 meq PO BID #60 tablet.eff Prescription Printed Referrals: Care Physician,No Primary [Primary Care Provider] - [facility] [STAFF PHYSICIAN] - Gris Pineda [NON-STAFF] - 3-5 Days
[2020-02-13 17:56] LABS: Absolute Lymphocyte Count 1.97 X10^3/uL (0.83-4.51); Absolute Neutrophil Count 11.1 X10^3/uL (2.0-7.7); Basophil# 0.12 X10^3/uL; Basophil% 0.8 % (0-1); Eosinophil# 0.02 X10^3/uL; Eosinophils% 0.1 % (0-5); Hemoglobin 9.9 g/dL (12.0-15.0); Lymphocyte # 1.97 X10^3/ul (4.0); Lymphocyte % 13.7 % (19-41); Mean Corp Hgb Conc 31.9 g/dL (32-36); Mean Corpuscular Hgb 30.2 pg (27.0-32.0); Mean Corpuscular Volume 94.5 fL (81-99); Mean Platelet Vol. 11.9 fl (6.2-12.0); Monocyte# 1.11 X10^3/uL; Monocyte% 7.7 % (0-10); NRBC Flagged by Analyzer 0 % (0-5); Neutrophil # 11.11 X10^3/uL (2.7-7.7); Neutrophil % 77.1 % (47-70); POSITIVE MORPHOLOGY YES; Platelet Count 221 K/mm3 (150-450); RBC Distribution Width CV 19.5 % (11.6-14.6); RBC Distribution Width SD 68.2 fl (35.1-43.9); Red Blood Count 3.28 M/mm3 (4.2-5.4); White Blood Count 14.4 K/mm3 (4.4-11.0)
[2020-02-13 18:00] LABS: Differential Indicated SCAN CRITERIA MET
[2020-02-13 18:28] LABS: ALB/GLOB Ratio 0.3 RATIO (0.9-2.4); AST(SGOT) 192 U/L (15-37); Alanine Aminotransfer ALT/SGPT 40 U/L (13-56); Albumin, Serum 2.1 g/dL (3.2-5.0); Alkaline Phosphatase 264 U/L (45-117); Anion Gap 14 (5-15); BUN 3 mg/dL (7-18); Calcium,Total 8.3 mg/dL (8.5-10.1); Chloride 96 mmol/L (98-107); EST Glomerular Filtration Rate 63 mL/min (>60); Est Glom Filt Rate - Afr Amer 76 mL/min (>60); Estimated Creatinine Clearance 60.93 ml/min; Globulin 6.7 g/dL (2.2-4.2); Glucose 126 mg/dL (74-106); Lipase 74 U/L (73-393); Potassium 2.3 mmol/L (3.5-5.1); Protein, Total 8.8 g/dL (6.4-8.2); Sodium Level 133 mmol/L (136-145); Thyroid Stim Hormone (TSH) 2.35 uIU/mL (0.358-3.74)
[2020-02-13 18:30] LABS: Anisocytosis 1+; Differential Comment SCANNED; Hypochromasia 1+; Target Cells 1+
[2020-02-13 18:31] LABS: Erythrocyte Sedimentation Rate 103 mm/hr (0-20)
[2020-02-13 19:15] VITALS: BP 109/76; PULSE 100; RESP 20; O2SAT 100
--- NOTE | 2020-02-13 19:22 | HP.PCM_ITS ---
Problem List (1) GI bleed Status: Acute Qualifiers: GI bleed type/associated pathology: unspecified gastrointestinal hemorrhage type Qualified Code(s): K92.2 - Gastrointestinal hemorrhage, unspecified (2) Alcoholism Status: Chronic (3) Major depression Status: Chronic Qualifiers: Major depression recurrence: unspecified whether recurrent Active/Remission status: remission status unspecified Qualified Code(s): F32.9 - Major depressive disorder, single episode, unspecified (4) Alcoholic liver disease Status: Chronic (5) Anemia, unspecified Status: Chronic Qualifiers: Anemia type: unspecified type Qualified Code(s): D64.9 - Anemia, unspecified (6) Weight loss of more than 10% body weight Status: Chronic History of Present Illness Date of Admission: 02/13/20 Chief Complaint: Occasional hematemesis and black stools, possible EtOH withdrawal treatment The patient is a 49 y/o F w/ PMHx: Chronic pancreatitis, Suspected EtOH Abuse, Chronic macrocytic anemia, Bulemic/Paranoia/Germaphobic who presents to the [facility] ED on 02/13/20 with history of ongoing significant alcohol intake reportedly drinking several screwdrivers daily drinking at least 1/5 of vodka per day, more heavily over the last several months with underlying depression, uncontrolled but no associated suicidal ideation although per discussions in patient's behavior including usage of several different voices depending on the person in the room do suspect possible underlying borderline disorder concurrently with requested alcohol withdrawal treatment with most recent intake prior to ED presentation however concurrent information noting ongoing history of intermittent black stools most recently 2 days prior and hematemesis x1 on day of presentation which she notes is common. Patient denies knowledge of having any varices. She denies having ever been scoped or banded. Work-up in the ED included T 98.1, heart rate 102, BP 119/81, respiratory rate 16, 98% room air, CBC with WC 14.4, hemoglobin 9.9, platelet 221 with left shift, pending coags, CMP with sodium 133, potassium 2.3, chloride 96, BUN/creatinine 3/1.00, glucose 126, total bilirubin 3.60, AST/ALT 182/40, alk phos 264, lipase 74, TSH 2.35, ethyl alcohol level 108. In the ED patient administered potassium 40 mill equivalent p.o. x1. She admits significant depression but no SI related. Notes poor activity tolerance secondary to her depression. Past Medical History Past Medical History (Chronic Problems): Chronic Problems (This Medical Record has been edited. Action required.) Alcoholism (Chronic) Major depression (Chronic) Alcoholic liver disease (Chronic) Anemia, unspecified (Chronic) Weight loss of more than 10% body weight (Chronic) Allergies No Known Allergies Allergy (Verified 02/13/20 17:06) Home Medications: Ambulatory Orders Medication Instructions Recorded Potassium Cloride Effervescent 25 meq PO BID #60 tablet.eff 02/13/20 [Potassium Chl 25 Meq Eff (For Liquid)] Surgical History: - - x1, bilateral tubal ligation. Psychiatric History: No pertinent psych hx [employer]TER History: No pertinent [employer]TER history Lives: Alone Smoking Status: Never smoker Tobacco Use: Non-smoker Alcohol: Heavy - Patient with at least 1/5 of vodka daily specifically noting she drinks several screwdrivers daily. Drugs: None - *Family History Maternal History Items: Hypertension Paternal History Items: Hypertension Review of Systems Constitutional: Reports: Anorexia, Malaise, Weakness, Fatigue. Denies: Chills, Fever, Weight Change HEENT: Denies: Head Aches, Sinus Congestion, Sinus Drainage Cardiovascular: Denies: Chest Pain, Palpitations Respiratory: Denies: Cough, Shortness of breath at rest, Sputum production Gastrointestinal: Reports: Dyspepsia, Nausea, - - Occasional hematemesis noted to be bright red and dark black stools.. Denies: Abdominal Pain, Vomiting Genitourinary: Denies: Dysuria Musculoskeletal: Reports: Joint Pain. Denies: Joint Tenderness Skin: Denies: Rash, Wounds Neurological: Denies: Numbness, Tingling, Focal weakness Psychiatric: Reports: Anxiety, Depression. Denies: Homicidal Ideations, Suicidal Ideations Hematologic/ Lymphatic: Reports: Anemia. Denies: Easy Bruising, Easy Bleeding VTE Information - Inpt Only VTE Present on Admission: No VTE Mechan Device Prophylaxis: SCD's VTE Pharm Prophylaxis ordered?: No Reason prophylaxis not ordered:: Medical Contraindication Patient Problems: Active and Suspected Problems (This Medical Record has been edited. Action required.) Generalized weakness (Acute) Hypokalemia (Acute) Jaundice, recurrent (Acute) Subjective: Laying in the ED bed, fatigued appearing otherwise no acute distress, soft baby voice but eventually improved and is more dull like. Objective: Physical Examination: General: awake, alert, oriented x 3 and cooperative, laying in the ED bed, fatigued appearing otherwise no acute distress. Skin: normal color, turgor, no icterus, cyanosis except occasional staged ecchymoses. HEENT: AT/NC, EOMI, PERRLA, moderately dry MM, no carotid bruits or JVD noted. Lungs: Diminished breath sounds, greater bases, moderate effort, no rales, ronchi or wheezing. Heart: Mildly tachycardic with regular rhythm; no gallop, rub audible. Abdomen: soft, mild discomfort with epigastric palpation, ND, hyperactive BS, positive HM. Extremities: no cyanosis, clubbing, or edema. Neurological: patient awake, alert, oriented as noted; cognitive function suspect near baseline intact; pupils equally reactive to light and accomodation; cranial nerves II-XII grossly normal, moving all 4 extremities, no focal deficits, strength moderately global decrease secondary to acute presentation and complaints. Psychiatric: affect appears flat, fatigued, does have intermittent variations in her voice, noted to be using some accidents with staff and then transitioning altering her voice to baby like talk, admits to underlying significant depression anxiety but denies any suicidal ideation. - Physical Exam Vitals/I&O's: Vital Signs Temp Pulse Resp BP Pulse Ox 98.1 F 100 20 H 109/76 100 02/13/20 17:03 02/13/20 19:15 02/13/20 19:15 02/13/20 19:15 02/13/20 19:15 Oxygen Delivery Method Room Air Weight: 122 lb 5.705 oz Body Mass Index (BMI) 18.0 Laboratory Results 02/13/20 17:35: WBC 14.4 H, RBC 3.28 L, Hgb 9.9 L, Hct 31.0 L, MCV 94.5, MCH 30.2, MCHC 31.9 L, RDW Std Deviation 68.2 H, RDW Coeff of Bhakti 19.5 H, Plt Count 221, MPV 11.9, Immature Gran % (Auto) 0.600, Neut % (Auto) 77.1 H, Lymph % (Auto) 13.7 L, [place] % (Auto) 7.7, Eos % (Auto) 0.1, Baso % (Auto) 0.8, Absolute Neuts (auto) 11.1 H, Absolute Lymphs (auto) 1.97, Nucleated RBC % 0, Differential Comment SCANNED, Hypochromasia 1+, Anisocytosis 1+, Target Cells 1+, ESR 103 H 02/13/20 17:35: Sodium 133 L, Potassium 2.3 L*, Chloride 96 L, Carbon Dioxide 23.0, Anion Gap 14, BUN 3 L, Creatinine 1.00, Estim Creat Clear Calc 60.93, Est GFR (MDRD) Af Amer 76, Est GFR (MDRD) Non-Af 63, BUN/Creatinine Ratio 3.0 L, Glucose 126 H, Calcium 8.3 L, Total Bilirubin 3.60 H, AST 192 H, ALT 40, Alkaline Phosphatase 264 H, Total Protein 8.8 H, Albumin 2.1 L, Globulin 6.7 H, Albumin/Globulin Ratio 0.3 L, Lipase 74, TSH 2.35 02/13/20 17:35: Ethyl Alcohol 108.0 02/13/20 17:35: PT Pending, INR Pending 02/13/20 17:35: Magnesium Pending Assessment/Plan All Active Problems (This Medical Record has been edited. Action required.) Syncope (Acute) Generalized weakness (Acute) Hypokalemia (Acute) Jaundice, recurrent (Acute) GI bleed (Acute) The patient is a 49 y/o F w/ PMHx: Chronic pancreatitis, Suspected EtOH Abuse, Chronic macrocytic anemia, Bulemic/Paranoia/Germaphobic who presents to the [facility] ED on 02/13/20 with history of significant alcohol intake with some interest in alcohol withdrawal treatment with most recent intake prior to ED presentation however concurrent information noting ongoing history of intermittent black stools most recently 2 days prior and hematemesis x1 on day of presentation. 1. Acute GI Bleed w/ resultant chronic anemia as noted, complicated by alcohol abuse, suspected possible variceal bleeding: Patient reportedly having dark black stools and hematemesis noted to be bright red, intermittent, most recently 2 days prior to presentation with specifically black stools and hematemesis on day of presentation, admission hemoglobin 9.9, similar to prior however, would requested general surgery evaluation and clearance prior to any admission especially given underlying alcohol abuse this could be variceal bleeding, if they were amenable with then admit patient to the PCU to closely monitor, maintain on judicious IV fluids, n.p.o. status, cycle H&H's, obtain type and screen for PRBC administration if necessary, maintain on IV PPI and given alcohol abuse history would place on prophylactic Rocephin therapy. 2. Acute EtOH Withdrawal: If general surgery amenable to admission given significant history of hematemesis and black stools in the setting of alcohol abuse, lower suspicion as could be variceal bleed related then would plan admission to PCU to closely monitor, initiate and continue on protocol of Phenobarbital, scheduled gabapentin for seizure prophylaxis, as needed Catapres, Bentyl, Vistaril, IV fluids, IV antiemetics, Tylenol as needed for pain. Would plan consultation with Case management for assistance for transition to next level of rehabilitation care. Mag, phos would be requested. We will plan to maintain on CIWA protocol concurrently. 3. Hypokalemia: Admission K+ 2.3, magnesium level requested, supplementation given, repeat level in AM. 4. Chronic macrocytic anemia: Admission hemoglobin 9.9, most recently previously 7.3 on 01/20/2020, continue to trend as noted above. 5. Chronically elevated liver functions: Admission total bilirubin 3.60, AST/ALT 192/40, alk phos 264, bilirubin has increased from prior most recently noted 01/18/2020 up to 2.40, continue to treat as noted above, repeat CMP in AM. 6. Underlying depression/anxiety, bulimia, suspected borderline personality disorder: Patient with significant psychiatric history, denied any recent ongoing bulimia but suspect patient may continue this process given weight loss, denies any suicidal ideation but would greatly benefit from case management/neonatal social worker evaluation as well as aggressive therapy and treatment with 180. 7. Severe protein calorie malnutrition: Evidenced by habitus, lower BMI, obvious muscle and fat loss, significant bulimia history, would plan nutrition consultation. 8. DVT prophylaxis: SCDs, defer any chemoprophylaxis given acute presentation #1. Procedures: Other Procedure - See Report - BILLING CODE: [id number] ED consultation
[2020-02-13 19:44] LABS: International Normalized Ratio 1.5; Prothrombin Time (Protime)PT. 17.1 SECONDS (11.7-14.9)
--- NOTE | 2020-02-13 20:38 | ED.RN ---
PT ADAMANTLY REFUSES ADMISSION TO HOSPITAL, ALSO REFUSES TO ALLOW ED MD TO PERFORM EXAM OF ANUS TO EVALUATE FOR SELF REPORTED BLOODY STOOLS. PT VOICES UNDERSTANDING OF RISKS IN LEAVING AMA UP TO AND INCLUDING . PT CALLED FOR TAXI, AMBULATED OUT OF DEPARTMENT INDEPENDENTLY.
== END 2020-02-13 20:49 | disposition left against medical advice (07) ==
PROVIDERS: Emergency Provider Emergency Medicine
DX: E87.6 Hypokalemia (principal); F32.9 Major depressive disorder, single episode, unspecified; K70.9 Alcoholic liver disease, unspecified; D64.9 Anemia, unspecified; R63.4 Abnormal weight loss; K92.1 Melena; F10.20 Alcohol dependence, uncomplicated; K86.1 Other chronic pancreatitis; E43 Unspecified severe protein-calorie malnutrition; Z68.1 Body mass index [BMI] 19.9 or less, adult; Z53.21 Procedure and treatment not carried out due to patient leaving prior to being seen by health care provider; Z87.19 Personal history of other diseases of the digestive system
CPT/HCPCS: 80053; 80320; 83690; 83735; 84443; 85025; 85610; 85652; 99285; G0480

== ENCOUNTER 2020-03-12 19:01 | Emergency (ER) | payer MEDICARE, MEDICAID, SELFPAY ==
[2020-03-12 19:02] VITALS: BP 109/78; PULSE 90; RESP 20; TEMP 36.9; O2SAT 100; BMI 17.6
[2020-03-12 19:42] LABS: Absolute Lymphocyte Count 2.35 X10^3/uL (0.83-4.51); Absolute Neutrophil Count 13.3 X10^3/uL (2.0-7.7); Basophil# 0.11 X10^3/uL; Basophil% 0.6 % (0-1); Eosinophils% 1.1 % (0-5); Hematocrit 24.8 % (37-47); Hemoglobin 8.4 g/dL (12.0-15.0); Lymphocyte # 2.35 X10^3/ul (4.0); Lymphocyte % 13.5 % (19-41); Mean Corp Hgb Conc 33.9 g/dL (32-36); Mean Corpuscular Hgb 33.6 pg (27.0-32.0); Mean Corpuscular Volume 99.2 fL (81-99); Mean Platelet Vol. 11.3 fl (6.2-12.0); Monocyte# 1.24 X10^3/uL; Monocyte% 7.1 % (0-10); NRBC Flagged by Analyzer 0.1 % (0-5); Neutrophil # 13.26 X10^3/uL (2.7-7.7); Neutrophil % 76.3 % (47-70); POSITIVE MORPHOLOGY YES; Platelet Count 186 K/mm3 (150-450); RBC Distribution Width CV 18.6 % (11.6-14.6); RBC Distribution Width SD 66.3 fl (35.1-43.9); White Blood Count 17.4 K/mm3 (4.4-11.0)
[2020-03-12 19:52] LABS: Internal QC Validated? YES +Cl - CLEAR BKGD; Pregnancy, Serum, hCG Quali. NEGATIVE Negative
[2020-03-12 20:01] LABS: ALB/GLOB Ratio 0.2 RATIO (0.9-2.4); AST(SGOT) 136 U/L (15-37); Alanine Aminotransfer ALT/SGPT 16 U/L (13-56); Albumin, Serum 1.4 g/dL (3.2-5.0); Alkaline Phosphatase 157 U/L (45-117); Anion Gap 13 (5-15); BUN 5 mg/dL (7-18); BUN/Creat Ratio 5.4 RATIO (10-20); Calcium,Total 7.7 mg/dL (8.5-10.1); Chloride 89 mmol/L (98-107); Creatinine, Serum 0.92 mg/dL (0.55-1.02); EST Glomerular Filtration Rate 69 mL/min (>60); Est Glom Filt Rate - Afr Amer 84 mL/min (>60); Estimated Creatinine Clearance 64.92 ml/min; Globulin 6.6 g/dL (2.2-4.2); Glucose 86 mg/dL (74-106); Potassium 2.8 mmol/L (3.5-5.1); Sodium Level 130 mmol/L (136-145)
[2020-03-12 20:03] LABS: Differential Indicated SCAN CRITERIA MET
--- NOTE | 2020-03-12 20:05 | EKG12_ITS ---
Test Reason : OTHER PAIN Blood Pressure : / mmHG Vent. Rate : 089 BPM Atrial Rate : 089 BPM P-R Int : 128 ms QRS Dur : 092 ms QT Int : 462 ms P-R-T Axes : 056 029 -53 degrees QTc Int : 562 ms Normal sinus rhythm Anterior infarct , age undetermined ST & T wave abnormality, consider inferolateral ischemia Prolonged QT Abnormal ECG Confirmed by MAR RODRIGUEZ, FLAKO ([id number]), newspaper managing editor BINH FATIMA ([id number]) on 03/17/2020 11:10:20 AM Referred By: ONDINA Confirmed By:JENNIFER MANUEL MD
[2020-03-12 20:12] LABS: Differential Comment SCANNED
[2020-03-12 20:13] LABS: Anisocytosis 1+; Hypochromasia 1+; Polychromasia RARE; Target Cells 1+
--- NOTE | 2020-03-12 20:21 | ED.VIS.GEN ---
History of Present Illness Chief Complaint: Other, Pain/Inj Informant: Patient Narrative: Patient is a 49-year-old female who presents to the emergency department for generalized weakness and inability to walk. She states that she is b she has not seen a doctor for her liver disease. She states that she has been having bLeeding from her mouth, nose, vagina and rectum. She was diagnosed with liver failure. She is a heavy drinker and states she drinks 1 pint of screwdriver each day. She has not followed with anybody for her liver disease. She states that she does have diffuse abdominal discomfort. No nausea vomiting. She denies any diarrhea. No fevers or chills. She does have a chronic cough which is no worse than normal. She denies any chest pain or shortness of breath. Patient states that she had been drinking today as well. Past Medical History - Allergies and Home Meds Allergies/Adverse Reactions: Allergies No Known Allergies Allergy (Verified 03/12/20 19:06) Primary Care Physician: Care Physician,No Primary [Primary Care Provider] - Prior records reviewed: Yes Past Medical History: - - Depression, liver disease, alcohol abuse Surgical History: - - x1, bilateral tubal ligation. Smoking Status: Never smoker Alcohol: Heavy - Family History Maternal Family History: Reports: Hypertension Paternal Family History: Reports: Hypertension Review of Systems All systems negative except as indicated General: Reports: Malaise. Denies: Chills, Fever, Sweats Eyes: Denies: Visual changes - bilaterally, Diplopia ENT: Denies: Rhinorrhea, Sore throat Cardiovascular: Denies: Chest pain, Palpitations Respiratory: Denies: Dyspnea, Cough, Dyspnea on exertion Gastrointestinal: Denies: Abdominal pain, Nausea, Vomiting, Diarrhea Genitourinary: Reports: Hematuria. Denies: Dysuria, Frequency Musculoskeletal: Denies: Back pain, Extremity Pain Skin: Denies: Rash, Wounds Neurological: Reports: Weakness. Denies: Headache, Numbness Hematologic: Reports: Easy bleeding Physical Exam Vital Signs/Narrative: Vital Signs Temp Pulse Resp BP Pulse Ox 03/12/20 19:02 98.5 F 90 20 H 109/78 100 Inital Vital Signs reviewed: Yes General: Cachectic, No Acute Distress Head: Normocephalic, Atraumatic Eyes: Perrl, EOMI, Scleral icterus ENT: Moist mucous membranes, No rhinorrhea Neck: Supple, Nontender Cardiovascular: Regular rate, Regular rhythm, No murmurs Respiratory: No distress, CTA bilaterally, Chest nontender Abdomen: Soft, Nontender, Nondistended, Normal bowel sounds Back: Nontender, Normal Inspection Extremities: Nontender, No edema Skin: No rash, Jaundice Neurological: Alert, Oriented x3, Cranial nerves II-XII grossly intact, Normal Strength, Normal Sensation Psychological: Normal affect, Normal Mood Diagnostic/Tx/Re-eval - Medical Decision Making Patient presents to the emergency department for generalized weakness and unable to ambulate. She states that she has been having very easy bleeding which is getting worse. She was supposed to be hospitalized but she left AGAINST MEDICAL ADVICE 2 weeks ago. She has been drinking heavily as well. We will recheck lab work today. Patient's lab work shows her to have a leukocytosis. She does have a urinary tract infection is treated with Rocephin. Her PTT is very high. She does have a meld score of 25. We do not have GI specialist here capable of caring for her especially she has a varicocele bleed. Because of this issue she is requiring transfer. She is agreeable to being transferred. I did contact the [place] [facility] at [facility] are full. They are requesting coronavirus swab before they will speak to us. Patient not having any active bleeding here in the emergency department. Her potassium is being replaced. Patient signed out due to end of shift. ED Disposition - Plan for ED Patient: Diagnosis: Weakness, Coagulopathy, Liver failure, Hypokalemia, Anemia, UTI (urinary tract infection) Referrals: Care Physician,No Primary [Primary Care Provider] -
[2020-03-12] MEDS: Potassium Chloride 10mEq/100mL 10 MEQ/100 ML IV.SOLN. 100 MEQ IV BOLUS ×2 (20:30→22:08)
--- NOTE | 2020-03-12 20:35 | CT_ITS ---
STUDY: CT ABDOMEN AND PELVIS WITH CONTRAST REASON FOR EXAM: Female, 49 years old. ELEVATED BILIRUBIN, DIFFUSE ABD PAIN, RECENT DX LIVER DZ, BLEEDING FROM MOUTH, NOSE, VAGINA, RECTUM, ALCOHOLISM, WEAKNESS RADIATION DOSAGE (If Supplied By Facility): CTDIvol = ( 15.66 ) mGy, DLP = ( 421.17 ) mGycm TECHNIQUE: Transaxial images were obtained from the dome of the diaphragm to the symphysis pubis without oral contrast. IV 100mL Isovue-370 was administered. Sagittal and coronal images were reconstructed. Individualized dose optimization techniques were used for this CT. COMPARISON: None. FINDINGS: Mild nonspecific interstitial thickening at the lung bases.. The visualized portions of the heart are within normal limits. Liver is enlarged and fatty infiltrated. There is a small cyst in left lobe. Bile ducts are not dilated. There is minor thickening of the wall of the gallbladder without calcified stones or pericholecystic fluid. Normal spleen. Pancreas is normal in size and homogeneous attenuation however there does appear to be very mild peripancreatic edema and fluid most pronounced at the level of the distal body and tail consistent with acute pancreatitis. Normal bilateral adrenal glands. Normal right kidney. Normal left kidney. Normal visualized stomach. Normal small intestine. Normal colon. No evidence for acute appendicitis. Normal abdominal aorta. Normal inferior vena cava. Normal retroperitoneum. Incompletely distended thick-walled bladder likely of no significance Uterus is normal size however there does appear to be a small pedunculated fibroid arising off the fundus of the uterus. Postsurgical changes in the pelvis possibly due to prior tubal ligation Normal abdominal wall. Lumbar spine demonstrates degenerative change CT/Abdomen/Pelvis W IV Cont ONLY IMPRESSION: Findings suggestive of mild acute pancreatitis. Mildly thick-walled gallbladder without calcified stones which may be further assessed with ultrasound if clinically warranted Other findings as above Electronically Signed: Pradeep Gallego MD at 21:47 EST , Service support ,
[2020-03-12 21:49] LABS: Mucous, Urine 0 SEEN /hpf (<or=2+); Red Blood Cells-Urine 0 SEEN /hpf (0-5)
[2020-03-12 21:59] LABS: Color, Urine Amber (Yellow); Glucose, Dipstick Normal (Normal); Ketone-Dipstick 5 mg/dl (Negative); Leukocyte Esterase-Dipstick 500 /ul (Negative); Nitrite-Dipstick Positive (Negative); Occult Blood-Urine 250 /ul (Negative); Protein-Dipstick 30 mg/dl (Negative); Urine Clarity Cloudy (Clear); Urine Urobilinogen 12 mg/dl (Normal); Urine pH 6.5 (5.0 - 8.0)
[2020-03-12 22:00] VITALS: RESP 18; O2SAT 98
[2020-03-12 22:04] LABS: Urine Bilirubin Dipstick 3 mg/dL (Negative)
[2020-03-12 22:13] LABS: Bacteria 2+ /hpf (None Seen); White Blood Cells 5-10 SEEN /hpf (0-5)
[2020-03-12 22:14] LABS: Squamous Epithelial Cells - UA 10-25 SEEN /hpf (5-10)
[2020-03-12 22:15] LABS: Amphetamine Urine VISTA NEGATIVE (<1000 ng/mL); Barbiturate Urine VISTA NEGATIVE (< 200 ng/mL); Benzodiazepine Urine VISTA NEGATIVE (< 200 ng/mL); Cocaine Urine VISTA NEGATIVE (< 300 ng/mL); Ecstacy Urine VISTA NEGATIVE (< 500 ng/mL); Methadone Urine VISTA NEGATIVE (< 300 ng/mL); PCP Urine VISTA NEGATIVE (< 25 ng/mL); THC Urine VISTA NEGATIVE (< 50 ng/mL); Vista UDS pH Range 6
[2020-03-12 22:23] LABS: International Normalized Ratio 1.7; Prothrombin Time (Protime)PT. 19.7 SECONDS (11.7-14.9)
[2020-03-12 22:38] VITALS: BP 98/68; O2SAT 100
[2020-03-12 22:47] LABS: Partial Thromboplast Time > 250.0 Seconds (24.1-36.2)
[2020-03-12] MEDS: Ceftriaxone 1 GM/50 ML BAG IV (23:54)
[2020-03-13] VITALS: BP 96/59; O2SAT 99
[2020-03-13 02:00] VITALS: BP 93/56; PULSE 72; RESP 18; O2SAT 98
[2020-03-13 02:24] VITALS: BP 93/56; PULSE 72; RESP 18; O2SAT 98
[2020-03-13 04:35] VITALS: BP 96/57; PULSE 70; RESP 16; O2SAT 98
== END 2020-03-13 04:46 | disposition short-term general hospital (02) ==
LOC: ED 19:50
PROVIDERS: Emergency Provider Emergency Medicine
DX: D68.9 Coagulation defect, unspecified (principal); R53.1 Weakness; K72.90 Hepatic failure, unspecified without coma; E87.6 Hypokalemia; D64.9 Anemia, unspecified; N39.0 Urinary tract infection, site not specified; R31.9 Hematuria, unspecified; F10.10 Alcohol abuse, uncomplicated
CPT/HCPCS: 36415; 74177; 80053; 80307; 81001; 82077; 83735; 84484; 84703; 85025; 85610; 85730; 87426; 93005; 96365; 96366; 96368; 99285; J7030; Q9967; A4216

== ENCOUNTER 2020-05-16 09:01 | Emergency (ER) | payer MEDICARE, MEDICAID, SELFPAY ==
[2020-05-16 09:01] VITALS: BP 120/78; PULSE 101; RESP 17; TEMP 36.7; O2SAT 100; BMI 17.4
--- NOTE | 2020-05-16 09:13 | EKG12_ITS ---
Test Reason : Blood Pressure : / mmHG Vent. Rate : 095 BPM Atrial Rate : 095 BPM P-R Int : 122 ms QRS Dur : 088 ms QT Int : 402 ms P-R-T Axes : 026 004 028 degrees QTc Int : 505 ms Normal sinus rhythm Low voltage QRS Prolonged QT Abnormal ECG Confirmed by ENRIQUE RODRIGUEZ, DIMITRIS ([id number]), scientific editor FABIANO KRISHNAN ([id number]) on 05/21/2020 8:02:36 AM Referred By: RONALD Confirmed By:DIMITRIS NUNEZ MD
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
--- NOTE | 2020-05-16 09:47 | RAD_ITS ---
STUDY: X-RAY CHEST REASON FOR EXAM: Female, 49 years old. Chest pain TECHNIQUE: Single AP portable view of the chest. COMPARISON: Comparison is made with prior study dated 01/18/2020. FINDINGS: EKG electrodes are seen. The lungs are clear and expanded. There is no demonstrated pleural abnormality. Normal size heart. Normal mediastinum and dillon. Normal visualized pulmonary arteries. Normal visualized aortic arch and descending thoracic aorta. Normal visualized thoracic spine. Healed left-sided rib fractures. There is no demonstrated abnormality of the visualized soft tissue structures of the upper abdomen. RAD/Chest 1 View (Portable) IMPRESSION: No acute abnormality is seen. Healed left rib fractures. Electronically Signed: Renzo Lyman MD at 10:09 EDT , Service support ,
[2020-05-16 10:03] LABS: Absolute Neutrophil Count 2.2 X10^3/uL (2.0-7.7); Basophil# 0.05 X10^3/uL; Basophil% 1.2 % (0-1); Eosinophil# 0.08 X10^3/uL; Hematocrit 25.9 % (37-47); Hemoglobin 8.2 g/dL (12.0-15.0); Lymphocyte % 34.9 % (19-41); Mean Corp Hgb Conc 31.7 g/dL (32-36); Mean Corpuscular Hgb 28.9 pg (27.0-32.0); Mean Corpuscular Volume 91.2 fL (81-99); Mean Platelet Vol. 10.5 fl (6.2-12.0); Monocyte# 0.27 X10^3/uL; Monocyte% 6.7 % (0-10); NRBC Flagged by Analyzer 0 % (0-5); Neutrophil # 2.19 X10^3/uL (2.7-7.7); Neutrophil % 54.7 % (47-70); Platelet Count 153 K/mm3 (150-450); RBC Distribution Width CV 17.1 % (11.6-14.6); RBC Distribution Width SD 55.3 fl (35.1-43.9); Red Blood Count 2.84 M/mm3 (4.2-5.4)
[2020-05-16 10:06] VITALS: BP 106/66; PULSE 108; RESP 16; O2SAT 100
[2020-05-16 10:13] LABS: AST(SGOT) 121 U/L (15-37); Alanine Aminotransfer ALT/SGPT 34 U/L (13-56); Albumin, Serum 2.3 g/dL (3.2-5.0); Alkaline Phosphatase 123 U/L (45-117); Anion Gap 11 (5-15); BUN 2 mg/dL (7-18); BUN/Creat Ratio 2.9 RATIO (10-20); Bilirubin, Direct 1.88 mg/dL (0.00-0.30); Calcium,Total 8.4 mg/dL (8.5-10.1); Chloride 100 mmol/L (98-107); Creatinine, Serum 0.69 mg/dL (0.55-1.02); EST Glomerular Filtration Rate 97 mL/min (>60); Est Glom Filt Rate - Afr Amer 117 mL/min (>60); Estimated Creatinine Clearance 85.29 ml/min; Globulin 6.3 g/dL (2.2-4.2); Glucose 72 mg/dL (74-106); Potassium 2.8 mmol/L (3.5-5.1); Protein, Total 8.6 g/dL (6.4-8.2); Sodium Level 136 mmol/L (136-145)
[2020-05-16 10:42] LABS: Magnesium 1.5 mg/dL (1.6-2.6)
[2020-05-16] MEDS: Potassium Chloride Oral Tablet 20 MEQ 40 MEQ PO (10:54)
[2020-05-16] MEDS: Potassium Chloride 10mEq/100mL 10 MEQ/100 ML IV.SOLN. 100 MEQ IV BOLUS ×2 (10:55→11:55)
[2020-05-16 11:02] VITALS: BP 105/71; PULSE 88; RESP 15; O2SAT 100
[2020-05-16 13:06] VITALS: BP 104/71; PULSE 89; RESP 16; O2SAT 98
== END 2020-05-16 13:10 | disposition home or self-care (01) ==
PROVIDERS: Emergency Provider Emergency Medicine
DX: R07.89 Other chest pain (principal); E87.6 Hypokalemia; F10.129 Alcohol abuse with intoxication, unspecified; Y90.9 Presence of alcohol in blood, level not specified; K74.60 Unspecified cirrhosis of liver; Z91.19 Patient's noncompliance with other medical treatment and regimen
CPT/HCPCS: 71045; 80048; 80076; 82077; 83735; 84484; 85025; 93005; 96365; 96366; 99285; J7030; A4216

== ENCOUNTER 2020-05-27 17:11 | Emergency (ER) | payer MEDICARE, MEDICAID, SELFPAY ==
[2020-05-27 17:13] VITALS: BP 99/66; PULSE 93; RESP 16; TEMP 36.8; O2SAT 100; BMI 17.7
--- NOTE | 2020-05-27 17:35 | EKG12_ITS ---
Test Reason : UPPER EXTREMETY Blood Pressure : / mmHG Vent. Rate : 094 BPM Atrial Rate : 094 BPM P-R Int : 124 ms QRS Dur : 098 ms QT Int : 410 ms P-R-T Axes : 018 034 023 degrees QTc Int : 512 ms Normal sinus rhythm Low voltage QRS Prolonged QT Abnormal ECG Confirmed by ALEXUS RODRIGUEZ, FABIO ([id number]), industrial editor BINH FATIMA ([id number]) on 05/28/2020 1:08:26 PM Referred By: NICOLE Confirmed By:FABIO VAUGHAN MD
--- NOTE | 2020-05-27 18:04 | ED.VIS.GEN ---
History of Present Illness Chief Complaint: Upper Extremity Injury Informant: Patient Onset: - - Patient has multiple complaints see HPI Context: - - Approximately 2 weeks ago Timing: Continuous - Reports neighbors are harassing her Quality: Patient states she has no appetite Location: Apartment Current Severity: - - Unable to determine Maximum Severity: - - Unable to determine Worsened by: Reportedly because behavior of neighbors and [address] Relieved by: Nothing Associated Symptoms: Lack of appetite, increased abdominal girth Narrative: Patient is a middle-age woman who reports she has history of liver cancer. She has had paracentesis performed in the past. She states the last time 3.5 L was removed. She receives her care at [facility]. She denies fever, chills night sweats. She reports generalized weakness. She did injure her elbow. She denies pain. Tetanus is up-to-date. She denies headache, visual, ocular auditory symptoms. She is aware that her eyes appear yellow. She does report thirst. She states she is not eating for 13 days because her neighbors bother her and she does not wish to eat. She denies being depressed. When asked if she was depressed she replied I do not know what that is and I am not sure . She has no thoughts of harming herself. She denies visual auditory hallucinations. She denies paresthesia, anesthesia motor weakness. She does report chest pain has been intermittent lasting 15 minutes to hours over the last 3 days. There is no exacerbating, precipitating alleviating factors. She denies pleuritic component. She denies shortness of breath. She does report increased abdominal girth. She does report darker colored urine. 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 She does not note any blood in the stool or mucus. She denies urologic symptoms. Prior similar symptoms: Yes Recent Illness/Hospitalization: Yes - Past Medical History (1) GI bleed Status: Acute (2) Generalized weakness Status: Acute (3) Alcoholism Status: Chronic Past Medical History - Allergies and Home Meds Allergies/Adverse Reactions: Allergies No Known Allergies Allergy (Verified 05/27/20 17:12) Primary Care Physician: Care Physician,No Primary [Primary Care Provider] - Prior records reviewed: Yes Surgical History: - - x1, bilateral tubal ligation. Lives: Alone Smoking Status: Current every day smoker Alcohol: Sober Drugs: None - Family History Maternal Family History: Reports: Hypertension Paternal Family History: Reports: Hypertension Review of Systems General: Reports: Malaise, Weight loss. Denies: Chills, Fever, Subjective, Sweats Eyes: Denies: Visual changes - bilaterally, Blurred Vision - bilaterally ENT: Denies: Bilateral ear pain, Rhinorrhea, Sore throat Cardiovascular: Reports: Chest pain. Denies: Palpitations, Heart racing Respiratory: Denies: Dyspnea, Cough, Sputum, Dyspnea on exertion, Orthopnea, Paroxysmal nocturnal dyspnea Gastrointestinal: Reports: Abdominal pain, Nausea. Denies: Vomiting, Diarrhea, Constipation, Melena, Hematochezia Genitourinary: Denies: Dysuria, Hematuria, Frequency Musculoskeletal: Denies: Myalgias, Arthralgias, Neck pain, Back pain, Swelling Skin: Denies: Rash, Wounds Neurological: Reports: Weakness. Denies: Headache, Parasthesia Psych: Denies: Depression, Anxiety Hematologic: Denies: Easy bruising, Easy bleeding Allergy: Denies: Uticaria, Swelling of the mouth Physical Exam Vital Signs/Narrative: Vital Signs Temp Pulse Resp BP Pulse Ox 05/27/20 17:13 98.3 F 93 16 99/66 100 Inital Vital Signs reviewed: Yes General: Well developed, No Acute Distress Head: Normocephalic, Atraumatic Eyes: Perrl, EOMI, Scleral icterus. Negative for: Pale conjunctiva ENT: No rhinorrhea, TM's clear. Negative for: Nasal congestion, Sinus tenderness Neck: Supple, Nontender, No lymphadenopathy, No JVD Cardiovascular: Regular rate, Regular rhythm, No murmurs, Normal S1, Normal S2 Respiratory: No distress, CTA bilaterally, Chest nontender Abdomen: Soft, Nontender, Normal bowel sounds, - - Patient has fluid wave noted.. Negative for: Nondistended Rectal: Deferred Back: Nontender, Normal Inspection Extremities: Negative for: Nontender, No edema Skin: No rash, Jaundice. Negative for: Normal color, Cyanosis, Diaphoresis Neurological: Alert, Oriented x3, Cranial nerves II-XII grossly intact, Normal Strength, Normal Sensation Psychological: Depressed Diagnostic/Tx/Re-eval Chest X-Ray - ED: 1 View, Unchanged, Normal, Heart, No Acute Disease, Chronic Changes 05/27/20 18:17 Chest PA and Lateral [RAD] Stat Laboratory Results 05/27/20 05/27/20 05/27/20 18:00 18:00 18:00 WBC 3.4 L RBC 3.00 L Hgb 8.7 L Hct 27.9 L MCV 93.0 MCH 29.0 MCHC 31.2 L RDW Std Deviation 66.6 H RDW Coeff of Bhakti 19.9 H Plt Count 46 L* MPV TNP Immature Gran % (Auto) 0.600 Neut % (Auto) 62.4 Lymph % (Auto) 27.0 [place] % (Auto) 9.1 Eos % (Auto) 0.3 Baso % (Auto) 0.6 Absolute Neuts (auto) 2.1 Absolute Lymphs (auto) 0.92 Nucleated RBC % 0 Differential Comment SCANNED Diff Path Review June foll PT 22.3 H INR 2.1 Sodium 132 L Potassium 2.6 L* Chloride 93 L Carbon Dioxide 27.0 Anion Gap 12 BUN 2 L Creatinine 1.18 H Estim Creat Clear Calc 50.80 Est GFR (MDRD) Af Amer 63 Est GFR (MDRD) Non-Af 52 L BUN/Creatinine Ratio 1.7 L Glucose 110 H Calcium 8.7 Total Bilirubin 7.60 H AST 89 H ALT 27 Alkaline Phosphatase 154 H Total Protein 8.9 H Albumin 2.3 L Globulin 6.6 H Albumin/Globulin Ratio 0.3 L Lipase 112 Alcohol use level is elevated. Presuming she metabolizes that 0.15/h plan is discharge at 10 PM. She states she will take a cab. She was treated with potassium p.o. for hypokalemia. - Rhythm Strip Rhythm Strip: Sinus Rhythm Rate: 89 Ectopy: None - EKG Initial EKG Interpretation: Sinus Rhythm - Normal sinus rhythm rate of 94. [place] interval is 124 ms. QS duration 98 ms. QT duration 4 and 10 ms. QT C is 512 ms, which is prolonged. Patient has low voltage. The EKG is not normal. - Medical Decision Making In my professional opinion patient is depressed. She not suicidal. Since she reports not eating for 3 days and is jaundice baseline blood work was obtained to assess for anemia, renal injury, electrolyte abnormality. Because she complained of chest pain EKG was obtained. Troponin was obtained as well. Nurse informed me that she attempted to leave and she appeared to be staggering. Since patient is known alcoholic alcohol level was ordered. Case management was consulted as well. ED Disposition - Plan for ED Patient: Disposition: Home or Assisted Living Diagnosis: Liver cancer, Alcoholic cirrhosis of liver, Jaundice, Hypokalemia, Ascites of liver, Alcohol intoxication with blood alcohol level 0.08-0.29 Instructions: ED Cirrhosis, ED Hypokalemia, ED Ascites, ED Alcohol Intoxication Prescriptions: Potassium Chloride Oral Soln [KCL 20meq Oral Solution] 20 meq PO DAILY #[id number] [facility] [place] Status: Pending to Expert TA #[id number] Referrals: Care Physician,No Primary [Primary Care Provider] - Additional Instructions: Follow-up with your doctor to have a potassium level drawn in 4 to 5 days.
[2020-05-27 18:10] LABS: Absolute Lymphocyte Count 0.92 X10^3/uL (0.83-4.51); Absolute Neutrophil Count 2.1 X10^3/uL (2.0-7.7); Basophil# 0.02 X10^3/uL; Basophil% 0.6 % (0-1); Eosinophil# 0.01 X10^3/uL; Eosinophils% 0.3 % (0-5); Hematocrit 27.9 % (37-47); Hemoglobin 8.7 g/dL (12.0-15.0); Lymphocyte # 0.92 X10^3/ul (4.0); Mean Corp Hgb Conc 31.2 g/dL (32-36); Monocyte# 0.31 X10^3/uL; Monocyte% 9.1 % (0-10); NRBC Flagged by Analyzer 0 % (0-5); Neutrophil # 2.13 X10^3/uL (2.7-7.7); Neutrophil % 62.4 % (47-70); POSITIVE COUNT YES; POSITIVE MORPHOLOGY YES; RBC Distribution Width CV 19.9 % (11.6-14.6); RBC Distribution Width SD 66.6 fl (35.1-43.9); White Blood Count 3.4 K/mm3 (4.4-11.0)
[2020-05-27 18:11] LABS: Differential Indicated SCAN CRITERIA MET
[2020-05-27 18:12] LABS: Platelet Count 46 K/mm3 (150-450)
--- NOTE | 2020-05-27 18:17 | RAD_ITS ---
STUDY: X-RAY CHEST REASON FOR EXAM: Female, 49 years old. Chest pain TECHNIQUE: Frontal and lateral views COMPARISON: 05/16/2020. FINDINGS: The lungs are expanded. No infiltrate or consolidation.. Normal size heart. Normal mediastinum and dillon. Normal visualized pulmonary arteries. Normal visualized aortic arch and descending thoracic aorta. Normal visualized thoracic spine . Old left seventh rib fracture. There is no demonstrated abnormality of the visualized soft tissue structures of the upper abdomen. RAD/Chest PA and Lateral IMPRESSION: Mild right infrahilar opacity. Electronically Signed: Joselito Summers DO at 19:26 EDT Tel [phone], Service support ,
[2020-05-27 18:22] LABS: International Normalized Ratio 2.1; Prothrombin Time (Protime)PT. 22.3 SECONDS (11.7-14.9)
[2020-05-27 18:35] LABS: Differential Comment SCANNED
[2020-05-27 18:40] LABS: ALB/GLOB Ratio 0.3 RATIO (0.9-2.4); AST(SGOT) 89 U/L (15-37); Alanine Aminotransfer ALT/SGPT 27 U/L (13-56); Albumin, Serum 2.3 g/dL (3.2-5.0); Alkaline Phosphatase 154 U/L (45-117); Anion Gap 12 (5-15); BUN 2 mg/dL (7-18); BUN/Creat Ratio 1.7 RATIO (10-20); Calcium,Total 8.7 mg/dL (8.5-10.1); Chloride 93 mmol/L (98-107); Creatinine, Serum 1.18 mg/dL (0.55-1.02); EST Glomerular Filtration Rate 52 mL/min (>60); Est Glom Filt Rate - Afr Amer 63 mL/min (>60); Globulin 6.6 g/dL (2.2-4.2); Glucose 110 mg/dL (74-106); Lipase 112 U/L (73-393); Potassium 2.6 mmol/L (3.5-5.1); Protein, Total 8.9 g/dL (6.4-8.2); Sodium Level 132 mmol/L (136-145)
[2020-05-27 19:14] VITALS: BP 103/65; PULSE 103; RESP 22; O2SAT 100
--- NOTE | 2020-05-27 20:03 | CM.ED ---
SOCIAL WORK Received order for consult for Hospice/Palliative Care. Met with patient in room and attempted to educate patient on Hospice and Palliative Care. Patient appears intoxicated. Inquired if patient has been drinking today. Patient states I had a pint of screwdrivers. Dr. Robles updated on the above. This worker to remain available for needs. Educational information left with patient to review. Maria E Sandy, LITHOGRAPH OPERATOR, [employer]
[2020-05-27] MEDS: Potassium Chloride Oral Soln 20 MEQ/15 ML UDC 40 MEQ PO ×2 (20:46→21:29)
[2020-05-28 13:51] LABS: Pathologist Review Reviewed
== END 2020-05-27 23:10 | disposition home or self-care (01) ==
PROVIDERS: Emergency Provider Emergency Medicine
DX: K70.31 Alcoholic cirrhosis of liver with ascites (principal); C22.8 Malignant neoplasm of liver, primary, unspecified as to type; E87.6 Hypokalemia; F10.129 Alcohol abuse with intoxication, unspecified; Y90.9 Presence of alcohol in blood, level not specified; F32.9 Major depressive disorder, single episode, unspecified; Z87.19 Personal history of other diseases of the digestive system; F17.200 Nicotine dependence, unspecified, uncomplicated
CPT/HCPCS: 71046; 80053; 82077; 83690; 85025; 85610; 93005; 99285; A4216

== ENCOUNTER 2020-06-05 21:15 | Inpatient (IN) | payer MEDICARE, MEDICAID, SELFPAY ==
[2020-06-05 21:18] VITALS: BP 92/67; PULSE 89; RESP 18; TEMP 36.8; O2SAT 99; BMI 17.2
--- NOTE | 2020-06-05 22:00 | RAD_ITS ---
STUDY: X-RAY CHEST REASON FOR EXAM: Female, 49 years old. weakness TECHNIQUE: Single AP portable view of the chest. COMPARISON: 05/27/2020 FINDINGS: The lungs are clear and expanded. There is no demonstrated pleural abnormality. Normal size heart. Normal mediastinum and dillon. Normal visualized pulmonary arteries. Normal visualized aortic arch and descending thoracic aorta. Normal visualized thoracic spine. Normal visualized ribs, clavicles, and shoulders. There is no demonstrated abnormality of the visualized soft tissue structures of the upper abdomen. RAD/Chest 1 View (Portable) IMPRESSION: Normal x-ray examination of the chest. Electronically Signed: Subhash Hurley DO at 22:24 EDT Tel , Service support ,
--- NOTE | 2020-06-05 22:02 | ED.VIS.GEN ---
History of Present Illness Chief Complaint: Weakness Informant: Patient Narrative: 49-year-old female with history of EtOH abuse and liver cancer presenting for generalized weakness. She states she was at drug [place] when she she collapsed. It was noted by bystanders. EMS was called and she was transported the ED. It is unknown if she hit her head. She states that she feels generally weak. She supposed to follow-up with [facility] for chemotherapy but does not. She states he is supposed to be set up with palliative care hospice but is unclear why she has it. She appears intoxicated. She states her last drink was this morning. History is noted as the patient is a poor historian. - Past Medical History (1) Generalized weakness Status: Chronic (2) Syncope Status: Chronic (3) Alcoholism Status: Chronic Past Medical History - Allergies and Home Meds Allergies/Adverse Reactions: Allergies No Known Allergies Allergy (Verified 06/05/20 21:18) Primary Care Physician: Care Physician,No Primary [Primary Care Provider] - Prior records reviewed: Yes Past Medical History: - Surgical History: - - x1, bilateral tubal ligation. Lives: Alone Smoking Status: Current every day smoker Alcohol: Heavy Drugs: None - Family History Maternal Family History: Reports: Hypertension Paternal Family History: Reports: Hypertension Review of Systems General: Reports: Malaise. Denies: Chills, Fever, Sweats Eyes: Denies: Visual changes - bilaterally, Diplopia ENT: Denies: Rhinorrhea, Sore throat Cardiovascular: Reports: - - Syncope Respiratory: Denies: Dyspnea, Cough, Dyspnea on exertion Gastrointestinal: Denies: Abdominal pain, Nausea, Vomiting, Diarrhea, Melena, Hematochezia Genitourinary: Denies: Dysuria, Hematuria, Frequency Musculoskeletal: Denies: Neck pain, Back pain, Extremity Pain Skin: Denies: Rash, Wounds Neurological: Denies: Headache, Weakness Psych: Denies: Depression, Anxiety Physical Exam Vital Signs/Narrative: Vital Signs Temp Pulse Resp BP Pulse Ox 06/05/20 21:18 98.3 F 89 18 92/67 99 General: Obese, Unkempt, No Acute Distress Head: Normocephalic, Atraumatic Eyes: Perrl, EOMI, Scleral icterus ENT: Moist mucous membranes, No rhinorrhea Cardiovascular: Regular rate, Regular rhythm Respiratory: No distress, CTA bilaterally Abdomen: Soft, Nontender, Nondistended Skin: No rash, Jaundice. Negative for: Cyanosis Neurological: Alert, Cranial nerves II-XII grossly intact Psychological: Depressed, Tearful Diagnostic/Tx/Re-eval Clinical Impression(s) from Imaging Studies Chest X-Ray 06/05/20 22:00 IMPRESSION: Normal x-ray examination of the chest. Electronically Signed: Subhash Hurley DO at 22:24 EDT Tel , Service support , Brain CT 06/05/20 22:03 IMPRESSION: No acute intracranial pathology Electronically Signed: Subhash Hurley DO at 23:03 EDT Tel , Service support , Laboratory Data 06/05/20 06/05/20 06/05/20 22:15 22:15 22:15 WBC 5.5 RBC 2.80 L Hgb 8.4 L Hct 26.5 L MCV 94.6 MCH 30.0 MCHC 31.7 L RDW Std Deviation 73.0 H RDW Coeff of Bhakti 21.4 H Plt Count 68 L MPV 11.5 Immature Gran % (Auto) 1.100 H Neut % (Auto) 66.5 Lymph % (Auto) 20.6 [place] % (Auto) 10.7 H Eos % (Auto) 0.2 Baso % (Auto) 0.9 Absolute Neuts (auto) 3.7 Absolute Lymphs (auto) 1.13 Nucleated RBC % 0.4 Platelet Estimate MOD DEC RBC Morphology N CHROM Hypochromasia 1+ Anisocytosis 1+ Macrocytosis RARE Target Cells RARE Ovalocytes RARE PT 24.6 H INR 2.3 Sodium 131 L Potassium 3.2 L Chloride 90 L Carbon Dioxide 27.0 Anion Gap 14 BUN 3 L Creatinine 0.98 Estim Creat Clear Calc 59.27 Est GFR (MDRD) Af Amer 78 Est GFR (MDRD) Non-Af 64 BUN/Creatinine Ratio 3.1 L Glucose 78 Calcium 8.1 L Total Bilirubin 9.00 H AST 133 H ALT 23 Alkaline Phosphatase 167 H Ammonia Troponin I < 0.015 Total Protein 8.3 H Albumin 2.0 L Globulin 6.3 H Albumin/Globulin Ratio 0.3 L Lipase 73 Urine Color Urine Clarity Urine pH Ur Specific [place] Urine Protein Urine Glucose (UA) Urine Ketones Urine Occult Blood Urine Nitrite Urine Bilirubin Urine Urobilinogen Ur Leukocyte Esterase Urine RBC Urine WBC Ur Squamous Epith Cells Urine Bacteria Urine Mucus Ethyl Alcohol 06/05/20 06/05/20 06/05/20 22:15 22:15 23:00 WBC RBC Hgb Hct MCV MCH MCHC RDW Std Deviation RDW Coeff of Bhakti Plt Count MPV Immature Gran % (Auto) Neut % (Auto) Lymph % (Auto) [place] % (Auto) Eos % (Auto) Baso % (Auto) Absolute Neuts (auto) Absolute Lymphs (auto) Nucleated RBC % Platelet Estimate RBC Morphology Hypochromasia Anisocytosis Macrocytosis Target Cells Ovalocytes PT INR Sodium Potassium Chloride Carbon Dioxide Anion Gap BUN Creatinine Estim Creat Clear Calc Est GFR (MDRD) Af Amer Est GFR (MDRD) Non-Af BUN/Creatinine Ratio Glucose Calcium Total Bilirubin AST ALT Alkaline Phosphatase Ammonia 11.0 Troponin I Total Protein Albumin Globulin Albumin/Globulin Ratio Lipase Urine Color Mel Urine Clarity Sl. Cloudy Urine pH 5.0 Ur Specific [place] 1.025 Urine Protein 30 H Urine Glucose (UA) Normal Urine Ketones 15 H Urine Occult Blood 10 H Urine Nitrite Negative Urine Bilirubin 6 H Urine Urobilinogen 12 H Ur Leukocyte Esterase 25 H Urine RBC 0-5 SEEN Urine WBC 0-5 SEEN Ur Squamous Epith Cells 10-25 SEEN Urine Bacteria 1+ Urine Mucus 4+ Ethyl Alcohol 78.0 - Medical Decision Making 49-year-old female with history of EtOH abuse, hyperbilirubinemia, liver cancer presenting with generalized weakness and episode of syncope at [employer]. She states she feels generally weak. She has no specific complaint of pain. Blood work appears to be at baseline with exception of her bilirubin which is now elevated. Her ammonia is not elevated. Urinalysis is negative for infection. CT brain negative for acute intracranial findings. Chest x-ray is interpreted by myself shows no acute cardiopulmonary process. Impression: 1. Elevated bilirubin 2. Generalized weakness 3. Syncope 4. History of liver cancer ED Disposition - Plan for ED Patient: Referrals: Care Physician,No Primary [Primary Care Provider] -
--- NOTE | 2020-06-05 22:03 | CT_ITS ---
STUDY: CT BRAIN WITHOUT CONTRAST REASON FOR EXAM: Female, 49 years old. syncope RADIATION DOSAGE (If Supplied By Facility): CTDIvol = ( 44.99 ) mGy, DLP = ( 796.11 ) mGycm TECHNIQUE: Transaxial CT imaging of the brain was performed without administration of intravenous contrast material. Individualized dose optimization techniques were used for this CT. COMPARISON: 01/18/2020 FINDINGS: Normal soft tissue structures. Normal calvarium. Normal size ventricles and extra-axial spaces for the patient''s age. Normal white matter tracts of the cerebral hemispheres. Normal basal ganglia and thalami. Normal brainstem. Normal cerebellum. There is no intracranial hemorrhage. There are no findings of an acute ischemic infarction. Normal visualized paranasal sinuses. 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 CT/Brain/Head without Contrast IMPRESSION: No acute intracranial pathology Electronically Signed: Subhsah Hurley DO at 23:03 EDT Tel , Service support ,
[2020-06-05 22:27] LABS: Absolute Lymphocyte Count 1.13 X10^3/uL (0.83-4.51); Absolute Neutrophil Count 3.7 X10^3/uL (2.0-7.7); Basophil# 0.05 X10^3/uL; Basophil% 0.9 % (0-1); Eosinophil# 0.01 X10^3/uL; Eosinophils% 0.2 % (0-5); Hematocrit 26.5 % (37-47); Hemoglobin 8.4 g/dL (12.0-15.0); Lymphocyte # 1.13 X10^3/ul (0.83-4.51); Lymphocyte % 20.6 % (19-41); Mean Corp Hgb Conc 31.7 g/dL (32-36); Mean Corpuscular Volume 94.6 fL (81-99); Mean Platelet Vol. 11.5 fl (6.2-12.0); Monocyte# 0.59 X10^3/uL; Monocyte% 10.7 % (0-10); NRBC Flagged by Analyzer 0.4 % (0-5); Neutrophil # 3.65 X10^3/uL (2.7-7.7); Neutrophil % 66.5 % (47-70); POSITIVE COUNT YES; POSITIVE MORPHOLOGY YES; Platelet Count 68 K/mm3 (150-450); RBC Distribution Width CV 21.4 % (11.6-14.6); White Blood Count 5.5 K/mm3 (4.4-11.0)
[2020-06-05 22:32] LABS: Differential Indicated SCAN CRITERIA MET
[2020-06-05 22:37] LABS: International Normalized Ratio 2.3; Prothrombin Time (Protime)PT. 24.6 SECONDS (11.7-14.9)
[2020-06-05 22:46] LABS: Anisocytosis 1+; Hypochromasia 1+; Macrocytosis RARE; Ovalocyte RARE; Platelet Estimate MOD DEC (ADEQ); Red Cell Morphology N CHROM NORMAL (NORM C&C); Target Cells RARE
[2020-06-05 22:48] LABS: ALB/GLOB Ratio 0.3 RATIO (0.9-2.4); AST(SGOT) 133 U/L (15-37); Alanine Aminotransfer ALT/SGPT 23 U/L (13-56); Alkaline Phosphatase 167 U/L (45-117); Anion Gap 14 (5-15); BUN 3 mg/dL (7-18); BUN/Creat Ratio 3.1 RATIO (10-20); Calcium,Total 8.1 mg/dL (8.5-10.1); Chloride 90 mmol/L (98-107); Creatinine, Serum 0.98 mg/dL (0.55-1.02); EST Glomerular Filtration Rate 64 mL/min (>60); Est Glom Filt Rate - Afr Amer 78 mL/min (>60); Estimated Creatinine Clearance 59.27 ml/min; Globulin 6.3 g/dL (2.2-4.2); Glucose 78 mg/dL (74-106); Lipase 73 U/L (73-393); Potassium 3.2 mmol/L (3.5-5.1); Protein, Total 8.3 g/dL (6.4-8.2); Sodium Level 131 mmol/L (136-145)
[2020-06-05 23:13] LABS: Color, Urine Amber (Yellow); Glucose, Dipstick Normal (Normal); Ketone-Dipstick 15 mg/dl (Negative); Leukocyte Esterase-Dipstick 25 /ul (Negative); Nitrite-Dipstick Negative (Negative); Occult Blood-Urine 10 /ul (Negative); Protein-Dipstick 30 mg/dl (Negative); Specific Gravity, Urine 1.025 (1.002-1.030); Urine Clarity Sl. Cloudy (Clear); Urine Urobilinogen 12 mg/dl (Normal)
[2020-06-05 23:15] LABS: Urine Bilirubin Dipstick 6 mg/dL (Negative)
[2020-06-05 23:18] LABS: Squamous Epithelial Cells - UA 10-25 SEEN /hpf (5-10)
[2020-06-05 23:19] LABS: Mucous, Urine 4+ /hpf (<or=2+); Red Blood Cells-Urine 0-5 SEEN /hpf (0-5); White Blood Cells 0-5 SEEN /hpf (0-5)
[2020-06-05 23:20] LABS: Bacteria 1+ /hpf (None Seen)
--- NOTE | 2020-06-05 23:50 | HP.PCM_ITS ---
Problem List (1) Alcohol withdrawal Status: Acute (2) Encounter for hospice care discussion Status: Acute (3) Alcoholic cirrhosis Status: Chronic Qualifiers: Ascites presence: unspecified Qualified Code(s): K70.30 - Alcoholic cirrhosis of liver without ascites (4) Anxiety and depression Status: Chronic (5) Alcoholism Status: Chronic (6) GI bleed Status: Acute Qualifiers: GI bleed type/associated pathology: unspecified gastrointestinal hemorrhage type Qualified Code(s): K92.2 - Gastrointestinal hemorrhage, unspecified History of Present Illness Date of Admission: 06/05/20 Chief Complaint: Fatigue, malaise, desire for hospice. 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 Patient interested in Hospice transition and understands necessity for withdrawal treatment to achieve transition to hospice potentially in facility if case management notes this as an appropriate transition. She requests specifically hospice consultation upon discussions regarding her presentation. She notes ongoing fatigue, malaise. She denies any worsening dyspnea, confusion, edema. She notes she is tired of drinking. She reports wants to be able to contact her family again. Work-up in the ED included T 98.3, heart rate 89, BP 92/67, respiratory rate 18, 99% on room air, CBC with WC 5.5, hemoglobin 8.4, platelets 68 with mildly increased immature granulocytes, coags with PT 24.6, INR 2.3, CMP with sodium 131, potassium 3.2, chloride 90, total bilirubin 9, AST/LT 133/23, alk phos 167, ammonia 11, less than 0.015, lipase 73, ethyl alcohol 78, chest x- ray with no acute cardiopulmonary findings, CT head no acute intracranial findings, UA with specific IV 1.025, protein 30, glucose 15, ketones 10, negative nitrite, 25 leukocyte esterase, poor sample with 10-25 squamous epithelial cells with 1+ urine bacteria but patient is asymptomatic. Past Medical History Past Medical History (Chronic Problems): Chronic Problems (This Medical Record has been edited. Action required.) Alcoholism (Chronic) Syncope (Chronic) Generalized weakness (Chronic) Alcoholic cirrhosis (Chronic) Anxiety and depression (Chronic) Allergies No Known Allergies Allergy (Verified 06/05/20 21:18) Home Medications: Ambulatory Orders Medication Instructions Recorded Potassium Chloride Oral Soln [KCL 20 meq PO DAILY #210 [facility] [place] 05/27/20 20meq Oral Solution] Surgical History: - - x1, bilateral tubal ligation. 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 Denies: Chills, Fever, Weight Change HEENT: Denies: Head Aches, Sinus Congestion, Sinus Drainage Cardiovascular: Denies: Chest Pain, Palpitations Respiratory: Denies: Cough, Shortness of Breath, Shortness of breath at rest, Shortness of breath upon exertion, Sputum production Gastrointestinal: Reports: Nausea. Denies: Abdominal Pain, Vomiting Genitourinary: Denies: Dysuria Musculoskeletal: Reports: Joint Pain. Denies: Joint Tenderness Skin: Denies: Rash, Wounds Neurological: Denies: Numbness, Tingling, Focal weakness Psychiatric: Reports: Anxiety, Depression. Denies: Homicidal Ideations, Suicidal Ideations Hematologic/ Lymphatic: Reports: Anemia, Easy Bruising, Easy Bleeding VTE Information - Inpt Only VTE Present on Admission: No VTE Mechan Device Prophylaxis: None VTE Pharm Prophylaxis ordered?: No Reason prophylaxis not ordered:: Hospice Care, Palliative Care Patient Problems: Active and Suspected Problems (This Medical Record has been edited. Action required.) GI bleed (Acute) Alcohol withdrawal (Acute) Encounter for hospice care discussion (Acute) Subjective: Patient laying in the ED bed, fatigued appearance, alert and appropriate with lengthy discussion regarding her intention for hospice transition and amenable to alcohol withdrawal treatment in order to facilitate this transition. Objective: Physical Examination: General: awake, alert, oriented x >3 including to person, place, year, remains cooperative, laying in the ED bed, no acute distress aside from reported mild nausea and mild tremors. Skin: normal color, turgor, no icterus, cyanosis. HEENT: AT/NC, EOMI, PERRLA, dry MM, no carotid bruits or JVD noted. Lungs: Diminished breath sounds, greater bases, moderate effort, no evidence of any distress, no rales, ronchi or wheezing. Heart: Mildly tachycardic with regular rhythm; no gallop, rub audible. Abdomen: soft, NTTP, not markedly distended, mildly hyperactive bowel sounds, positive HM. Extremities: no cyanosis, clubbing, or edema. Neurological: patient awake, alert, oriented as noted; cognitive function appears intact; pupils equally reactive to light and accomodation; cranial nerves II-XII grossly normal, moving all 4 extremities, no focal deficits, strength moderately decreased secondary to acute presentation and underlying history. Psychiatric: affect appears fatigued, flat which is common presentation for this patient, does have underlying history of anxiety and depression. - Physical Exam Vitals/I&O's: Vital Signs Temp Pulse Resp BP Pulse Ox 98.3 F 89 18 92/67 99 06/05/20 21:18 06/05/20 21:18 06/05/20 21:18 06/05/20 21:18 06/05/20 21:18 Oxygen Delivery Method Room Air Weight: 116 lb 9.992 oz Body Mass Index (BMI) 17.2 Laboratory Results 06/05/20 22:15: WBC 5.5, RBC 2.80 L, Hgb 8.4 L, Hct 26.5 L, MCV 94.6, MCH 30.0, MCHC 31.7 L, RDW Std Deviation 73.0 H, RDW Coeff of Bhakti 21.4 H, Plt Count 68 L, MPV 11.5, Immature Gran % (Auto) 1.100 H, Neut % (Auto) 66.5, Lymph % (Auto) 20.6, [place] % (Auto) 10.7 H, Eos % (Auto) 0.2, Baso % (Auto) 0.9, Absolute Neuts (auto) 3.7, Absolute Lymphs (auto) 1.13, Nucleated RBC % 0.4, Platelet Estimate MOD DEC, RBC Morphology N CHROM, Hypochromasia 1+, Anisocytosis 1+, Macrocytosis RARE, Target Cells RARE, Ovalocytes RARE 06/05/20 22:15: Sodium 131 L, Potassium 3.2 L, Chloride 90 L, Carbon Dioxide 27.0, Anion Gap 14, BUN 3 L, Creatinine 0.98, Estim Creat Clear Calc 59.27, Est GFR (MDRD) Af Amer 78, Est GFR (MDRD) Non-Af 64, BUN/Creatinine Ratio 3.1 L, Glucose 78, Calcium 8.1 L, Total Bilirubin 9.00 H, AST 133 H, ALT 23, Alkaline Phosphatase 167 H, Troponin I < 0.015, Total Protein 8.3 H, Albumin 2.0 L, Globulin 6.3 H, Albumin/Globulin Ratio 0.3 L, Lipase 73 06/05/20 22:15: PT 24.6 H, INR 2.3 06/05/20 22:15: Ammonia 11.0 06/05/20 22:15: Ethyl Alcohol 78.0 06/05/20 23:00: Urine Color Mel, Urine Clarity Sl. Cloudy, Urine pH 5.0, Ur Specific [place] 1.025, Urine Protein 30 H, Urine Glucose (UA) Normal, Urine Ketones 15 H, Urine Occult Blood 10 H, Urine Nitrite Negative, Urine Bilirubin 6 H, Urine Urobilinogen 12 H, Ur Leukocyte Esterase 25 H, Urine RBC 0-5 SEEN, Urine WBC 0-5 SEEN, Ur Squamous Epith Cells 10-25 SEEN, Urine Bacteria 1+, Urine Mucus 4+ Assessment/Plan All Active Problems (This Medical Record has been edited. 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 1. Underlying EtOH Liver Cirrhosis, Patient reported Hepatic Cancer (Unclear if true), does not appear decompensated however patient with worsening fatigue, malaise with Requested Hospice transition: Given complicated presentation, patient currently living by herself and an ongoing alcoholic will admit to medical surgical floor, will initiate alcohol withdrawal treatment as last drink she reports earlier in the day with onset of withdrawal mild symptoms with patient interested in transitioning to hospice and admission that she cannot live by herself or take care of herself, will maintain on fall and aspiration precautions, will correct potassium, will obtain mag and Riddhi level and replete as needed, not on any current medications and will defer starting given planned hospice transition, will repeat CBC, CMP in a.m. however beyond this would defer any repeat labs given DNRCC transition. Will hold on PT and OT assessments as unclear if these would be needed for hospice transition but given likelihood of SNF for hospice transition may be required but will await case management input as well as pending consultation with hospice service. 2. Acute EtOH Withdrawal: Given patient intention for transition to hospice with most recent drink early in day of ED day of presentation will initiate and continue on protocol with taper course of Ativan cautiously given liver dysfu nction, scheduled gabapentin for seizure prophylaxis, as needed Catapres, Bentyl, Vistaril, IV fluids, IV antiemetics, Tylenol as needed for pain. Will consult Case management as noted. Mag, phos pending. 3. Hypokalemia: Admission K+ 3.2, magnesium level requested, supplementation given, repeat level in AM but will defer repeat further following hospice transition. 4. Chronic thrombocytopenia: Admission platelets 68, prior to this on 05/27/20 platelets 46, will repeat CBC in a.m. but as noted given DNRCC transition with planned hospice will defer repeat beyond this. 5. Chronic anemia: Associated with underlying liver disease and EtOH abuse, admission hemoglobin 8.4, baseline 7-9, stable, will repeat CBC in a.m. but given planned DNRCC transition with planned hospice will defer repeat beyond this. 6. Anxiety and depression complicated by bulimia/paranoia/drama phobia: Patient not on any regimen, case management consulted, complicated situation given alcohol abuse and significant cirrhotic disease, will benefit from what ever services hospice has for her underlying psychiatric disease. 7. Severe protein calorie malnutrition: Evidenced by reduced BMI, obvious muscle and fat loss, secondary to #1, #2. 8. GERD with history of GI bleed: We will maintain on PPI. 9. DVT prophylaxis: Defer SCDs or chemoprophylaxis given comfort status, planned hospice transition and also elevated INR with cirrhotic disease as noted. 10. CODE status: Patient does not have healthcare power of corporate controller or living will set up. Given planned hospice transition, discussed CODE status at length including difference between FULL code, DNR-CCA and DNR-CC status. Following discussions about the differences in these status, agreed to transition to DNRCC status and remains amenable to hospice transition with specific request to transition to hospice at facility. DNR CC form filled out and signed by patient. Advanced Care Planning Face to Face Time: 20 minutes. Inpatient E&M: 85102 Init Hosp L3 Procedures: 33438 Advncd Care Plan 30 Min
[2020-06-06] VITALS (14 sets, daily range): BP systolic 79–104; BP diastolic 46–69; PULSE 87–105; RESP 16–18; TEMP 36.3–37.7; O2SAT 94–100; BMI 17.7
--- NOTE | 2020-06-06 00:15 | EKG12_ITS ---
Test Reason : DYSRHYTHMIA Blood Pressure : / mmHG Vent. Rate : 091 BPM Atrial Rate : 091 BPM P-R Int : 106 ms QRS Dur : 096 ms QT Int : 410 ms P-R-T Axes : 040 064 070 degrees QTc Int : 504 ms Sinus rhythm with short AR Otherwise normal ECG Confirmed by MAR RODRIGUEZ, FLAKO ([id number]), managing editor BINH FATIMA ([id number]) on 06/09/2020 9:55:11 AM Referred By: LIZZ Confirmed By:JENNIFER MANUEL MD
--- NOTE | 2020-06-06 00:24 | ED.RN ---
Pt refuses IV
--- NOTE | 2020-06-06 01:15 | NURSING ---
Pt refusing for IV to be placed. Will update hospitalist.
[2020-06-06 01:18] LABS: Magnesium 1.7 mg/dL (1.6-2.6)
[2020-06-06] MEDS: Potassium Chloride Oral Tablet 20 MEQ 40 MEQ PO (01:26)
[2020-06-06] MEDS: Ondansetron 8 MG Tablet PO (05:54)
[2020-06-06] MEDS: LORazepam 1 MG Tablet PO (06:33)
[2020-06-06 06:53] LABS: Absolute Lymphocyte Count 1.13 X10^3/uL (0.83-4.51); Absolute Neutrophil Count 3.3 X10^3/uL (2.0-7.7); Basophil# 0.04 X10^3/uL; Basophil% 0.8 % (0-1); Eosinophil# 0.02 X10^3/uL; Eosinophils% 0.4 % (0-5); Hematocrit 23.2 % (37-47); Hemoglobin 7.5 g/dL (12.0-15.0); Lymphocyte # 1.13 X10^3/ul (0.83-4.51); Lymphocyte % 21.9 % (19-41); Mean Corp Hgb Conc 32.3 g/dL (32-36); Mean Corpuscular Hgb 30.1 pg (27.0-32.0); Mean Corpuscular Volume 93.2 fL (81-99); Mean Platelet Vol. 11.9 fl (6.2-12.0); Monocyte# 0.65 X10^3/uL; Monocyte% 12.6 % (0-10); NRBC Flagged by Analyzer 0 % (0-5); Neutrophil # 3.28 X10^3/uL (2.7-7.7); Neutrophil % 63.7 % (47-70); POSITIVE COUNT YES; POSITIVE MORPHOLOGY YES; Platelet Count 61 K/mm3 (150-450); RBC Distribution Width CV 21.7 % (11.6-14.6); RBC Distribution Width SD 72.5 fl (35.1-43.9); Red Blood Count 2.49 M/mm3 (4.2-5.4); White Blood Count 5.2 K/mm3 (4.4-11.0)
[2020-06-06 06:54] LABS: Differential Indicated SCAN CRITERIA MET
[2020-06-06 07:20] LABS: ALB/GLOB Ratio 0.3 RATIO (0.9-2.4); AST(SGOT) 111 U/L (15-37); Alanine Aminotransfer ALT/SGPT 18 U/L (13-56); Albumin, Serum 1.9 g/dL (3.2-5.0); Alkaline Phosphatase 150 U/L (45-117); Anion Gap 13 (5-15); BUN 4 mg/dL (7-18); BUN/Creat Ratio 3.6 RATIO (10-20); Calcium,Total 8.2 mg/dL (8.5-10.1); Chloride 91 mmol/L (98-107); Creatinine, Serum 1.12 mg/dL (0.55-1.02); EST Glomerular Filtration Rate 55 mL/min (>60); Est Glom Filt Rate - Afr Amer 67 mL/min (>60); Estimated Creatinine Clearance 53.43 ml/min; Globulin 5.6 g/dL (2.2-4.2); Glucose 61 mg/dL (74-106); Protein, Total 7.5 g/dL (6.4-8.2); Sodium Level 130 mmol/L (136-145)
--- NOTE | 2020-06-06 11:20 | CASEMGMT ---
Social Work Note HOMER updated that pt does want to speak with Hospice and that Hospice was called last night. HOMER placed a call to [facility] and spoke with Yanique in admissions. Yanique states referral was called last night but no clinicals were faxed. HOMER faxed clinicals. HOMER also updated that pt was hard to arouse this morning, Yanique updated. Yanique states she will discuss with her supervisor forming department to determine when Hospice can meet with pt. HOMER received call from Yanique stating the Liaison coordinator will be in tomorrow to speak with pt since pt is not arousable at this time. SW to continue to follow. Michelle Clarke POCKET SETTER, SENIOR COMPUTER SPECIALIST
--- NOTE | 2020-06-06 12:00 | CASEMGMT ---
KASEY MONTERO in to pt room for assessment. Pt lying with eyes closed. Pt did not open her eyes for assessment. KASEY MONTERO will try back later today.
--- NOTE | 2020-06-06 13:07 | CASEMGMT ---
Pt screened with [facility] Palliative Care screening tool due to pt being a Str[employer] 3. Pt did meet criteria. Hospice consulted for pt. Referral not made.
--- NOTE | 2020-06-06 14:09 | PCM.NTREPORT ---
Nutrition Therapy Report - History Nutrition Services has been consulted to:: Manage nutrient details of diet order Current diet / nutrition support order:: Regular diet - Anthropometric Measurements Height:: 5 ft 9 in Weight:: 54.5 kg Body Mass Index (BMI):: 17.7 - Relevant Labs Relevant Labs:: RBC 2.49 M/mm3 (4.2-5.4) L 06/06/20 06:27 Hgb 7.5 g/dL (12.0-15.0) L 06/06/20 06:27 Hct 23.2 % (37-47) L 06/06/20 06:27 MCHC 31.7 g/dL (32-36) L 06/05/20 22:15 RDW Std Deviation 72.5 fl (35.1-43.9) H 06/06/20 06:27 RDW Coeff of Bhakti 21.7 % (11.6-14.6) H 06/06/20 06:27 Plt Count 61 K/mm3 (150-450) L 06/06/20 06:27 Immature Gran % (Auto) 1.100 % (0.0-0.9) H 06/05/20 22:15 [place] % (Auto) 12.6 % (0-10) H 06/06/20 06:27 PT 24.6 SECONDS (11.7-14.9) H 06/05/20 22:15 Sodium 130 mmol/L (136-145) L 06/06/20 06:27 Potassium 3.0 mmol/L (3.5-5.1) L 06/06/20 06:27 Chloride 91 mmol/L (98-107) L 06/06/20 06:27 BUN 4 mg/dL (7-18) L 06/06/20 06:27 Creatinine 1.12 mg/dL (0.55-1.02) H 06/06/20 06:27 Est GFR (MDRD) Non-Af 55 mL/min (>60) L 06/06/20 06:27 BUN/Creatinine Ratio 3.6 RATIO (10-20) L 06/06/20 06:27 Glucose 61 mg/dL (74-106) L 06/06/20 06:27 Calcium 8.2 mg/dL (8.5-10.1) L 06/06/20 06:27 Total Bilirubin 9.20 mg/dL (0.20-1.00) H 06/06/20 06:27 AST 111 U/L (15-37) H 06/06/20 06:27 Alkaline Phosphatase 150 U/L (45-117) H 06/06/20 06:27 Total Protein 8.3 g/dL (6.4-8.2) H 06/05/20 22:15 Albumin 1.9 g/dL (3.2-5.0) L 06/06/20 06:27 Globulin 5.6 g/dL (2.2-4.2) H 06/06/20 06:27 Albumin/Globulin Ratio 0.3 RATIO (0.9-2.4) L 06/06/20 06:27 - Assessment Food / Nutrition-Related History:: Pt is sleeping with no interest in being interviewed at this time; noted to be refusing meals since admit; per EMR review wt appears stable as per wt 54.9 Kg 4-5 months ago. Pt with obvious muscle and fat wasting in the face, clavicle, arms and legs. 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 - Nutrition Diagnosis Problem / Etiology / Signs & Symptoms (PES):: Protein/Calorie Malnutrition in the context of chronic disease related to ETOH abuse and refusal of meal intake as evidenced by poor intake meeting less than 50% of estimated nutrition needs, obvious muscle and fat wasting in the face, clavicle, arms and legs and BMI 17.7. Evidence of Malnutrition Exists:: Yes Severe PCM:: Chronic Illness - Nutrition Intervention Nutrition Prescription:: Estimated nutrition needs~1477-9746 kcal (25 kcal/Kg +350 kcal) and ~70-80 gm pro (1.4 gm pro/Kg) per day. Estimated fluid needs~6938-3720 ml/day (30 ml/Kg). - Food / Nutrient Delivery Interventions Summary of nutrition intervention:: Continue liberalized regular diet as pt willing to accept. Will offer 240 ml Ensure Enlive w/ breakfast and Magic Cup BID w/ lunch and dinner for additional 930 kcal and 38 gm protein per day if consumed. May need to consider TF support if pt continues refusal of meals. [ End ] Nutrition support ordered as / adjusted to:: None at this time. Nutrition education provided?: No - MNT Monitoring Further MNT monitoring and evaluation required?: Yes MNT Follow-up in:: 3-5 days
--- NOTE | 2020-06-06 14:40 | CASEMGMT ---
Social Work Note SW updated that pt is now awake and able to engage in conversation. SW placed a call to [facility] and spoke with Admissions again and let them know pt is awake now and able to discuss services if they want to send Liaison over today. Admissions state they will check with staff. Michelle Clarke BIOSTATISTICS PROFESSOR, UPHOLSTERY DEPARTMENT SUPERVISOR
--- NOTE | 2020-06-06 14:51 | CASEMGMT ---
Social Work SW met with pt in room and introduced self and role of SW. Pt is lying in bed with eyes open. Pt speaking only in whisper but as coversation progressed, pt voice became louder. Pt willing to speak with SW and answer questions asked. Pt appears to be A&Ox3. Pt able to state address and that she lives on second floor apartment. PCP: Pt states her PCP is Dr. Robbins in [place] (although the accuracy of this is questionable) Specialists: Pt states she sees a Liver doctor at [facility] Preferred Pharmacy: [facility] Insurance:Medicare, Medicaid Prescription Benefit: Yes Living Will/HPOA: No LNOK: Pt states she has no one involved in her life. When asked a second time who she would want contacted in case of emergency she stated her family, and when pressed further she states her mother Jamila Reyes. Living Arrangements: Pt lives alone in a second story apartment. Flight of stairs to get into the apartment. Pt states that she has been independent, but recently is very weak and cannot care for herself. Transportation: Pt does not drive. States the only place she goes is [facility] as she can walk there. DME: Denies using any DME Mental Health: Pt states she does have PTSD. Denies any other mental health issues including depression and anxiety. Pt denies taking any medications Drug Use: Pt denies any drug use. Alcohol Use: Pt does state at one point that she doesn't eat at all and drinks instead and does state she drinks daily. Pt later states that she only drinks 2 beers a day, an occasional screwdriver, but not often. Pt states she stopped drinking for a few months after her visit to the liver doctor but started drinking again due to the stress from the tennants in [address] where she lives. Plan: Pt states she would like to have hospice services. SW explained hospice and that it was for someone with terminal illness who is not seeking continued medical care. Pt acknowledges understanding of this and states several doctors have told her she should be on hospice. When asked about living situation after discharge pt stating she wants to go to inpatient hospice unit. SW explained there is criteria to get into IPU and SW is uncertain if pt would meet criteria. Pt asked if pt would return home or [place] [facility]. Pt states she cannot return home as she cannot care for herself and would be open to ECF if needed. Hospice Referral made and will see pt later this afternoon or Tuesday. ASHVIN Martinez updated. ASHVIN Bustillo
--- NOTE | 2020-06-06 17:22 | CASEMGMT ---
Social Work Note HOMER placed another call to [facility] and spoke with Olivia. HOMER asked Olivia about [facility] speaking with pt virginie. Olivia states she will staff come to [facility] to speak with pt about Hospice tonight. HOMER updated RN. Plan: Hospice to meet with pt Michelle Clarke SMOKE ROOM OPERATOR, LEADERSHIP PROGRAM ASSOCIATE
--- NOTE | 2020-06-06 17:38 | PCM.PROGNOTE ---
Patient Problems: Active and Suspected Problems (This Medical Record has been edited. Action required.) Encounter for hospice care discussion (Acute) Subjective: Patient was seen and examined today, she appeared very lethargic this morning, I decided to give her 2 units of packed red blood cells due to her anemia. She indicated to me that she would talk with hospice today, at the time of this dictation-patient has not seen hospice yet today. - Physical Exam Vitals/I&O's: Vital Signs Temp Pulse Resp BP Pulse Ox 98.2 F 94 18 95/55 L 98 06/06/20 14:39 06/06/20 14:39 06/06/20 14:39 06/06/20 14:39 06/06/20 14:39 Oxygen Delivery Method Room Air Weight: 54.5 kg Body Mass Index (BMI) 17.7 Intake and Output for Last 24 Hours 06/04/20 06/05/20 06/06/20 23:59 23:59 23:59 Intake Total 400 / 400 Output Total 0 / 0 Balance 400 / 400 General: Cooperative, No apparent distress, Well developed, Lethargic HEENT: Atraumatic, PERRLA, EOMI, Normocephalic Oral: Moist Mucosa Neck: Supple, No JVD, Trachea Midline, Thyroid Normal Size and Texture Lungs: Clear to auscultation, Normal air movement, No rhonchi, No wheeze, No rales Cardiovascular: Regular rate, Regular Rhythm, Normal S1, Normal S2, No murmurs, PMI Normal, No rub noted, No Gallop Abdomen: Bowel Sounds Present, Soft, Non Tender, Non-Distended Extremities: No clubbing, No cyanosis, No edema, Capillary Refill Less than 3 Seconds Skin: No rashes, No breakdown Musculoskeletal: No Tenderness to Palpation of Joints or Extremities Neurological: Cranial nerves II-XII grossly intact, Neuro grossly intact, Sensory exam intact to light touch and pain Psych/Mental Status: Flat Affect, - - Patient is lethargic Laboratory Results 06/05/20 22:15: WBC 5.5, RBC 2.80 L, Hgb 8.4 L, Hct 26.5 L, MCV 94.6, MCH 30.0, MCHC 31.7 L, RDW Std Deviation 73.0 H, RDW Coeff of Bhakti 21.4 H, Plt Count 68 L, MPV 11.5, Immature Gran % (Auto) 1.100 H, Neut % (Auto) 66.5, Lymph % (Auto) 20.6, [place] % (Auto) 10.7 H, Eos % (Auto) 0.2, Baso % (Auto) 0.9, Absolute Neuts (auto) 3.7, Absolute Lymphs (auto) 1.13, Nucleated RBC % 0.4, Platelet Estimate MOD DEC, RBC Morphology N CHROM, Hypochromasia 1+, Anisocytosis 1+, Macrocytosis RARE, Target Cells RARE, Ovalocytes RARE 06/05/20 22:15: Sodium 131 L, Potassium 3.2 L, Chloride 90 L, Carbon Dioxide 27.0, Anion Gap 14, BUN 3 L, Creatinine 0.98, Estim Creat Clear Calc 59.27, Est GFR (MDRD) Af Amer 78, Est GFR (MDRD) Non-Af 64, BUN/Creatinine Ratio 3.1 L, Glucose 78, Calcium 8.1 L, Total Bilirubin 9.00 H, AST 133 H, ALT 23, Alkaline Phosphatase 167 H, Troponin I < 0.015, Total Protein 8.3 H, Albumin 2.0 L, Globulin 6.3 H, Albumin/Globulin Ratio 0.3 L, Lipase 73 06/05/20 22:15: PT 24.6 H, INR 2.3 06/05/20 22:15: Ammonia 11.0 06/05/20 22:15: Ethyl Alcohol 78.0 06/05/20 23:00: Urine Color Mel, Urine Clarity Sl. Cloudy, Urine pH 5.0, Ur Specific [place] 1.025, Urine Protein 30 H, Urine Glucose (UA) Normal, Urine Ketones 15 H, Urine Occult Blood 10 H, Urine Nitrite Negative, Urine Bilirubin 6 H, Urine Urobilinogen 12 H, Ur Leukocyte Esterase 25 H, Urine RBC 0-5 SEEN, Urine WBC 0-5 SEEN, Ur Squamous Epith Cells 10-25 SEEN, Urine Bacteria 1+, Urine Mucus 4+ 06/06/20 00:23: Troponin I < 0.015 06/06/20 06:27: WBC 5.2, RBC 2.49 L, Hgb 7.5 L, Hct 23.2 L, MCV 93.2, MCH 30.1, MCHC 32.3, RDW Std Deviation 72.5 H, RDW Coeff of Bhakti 21.7 H, Plt Count 61 L, MPV 11.9, Immature Gran % (Auto) 0.600, Neut % (Auto) 63.7, Lymph % (Auto) 21.9, [place] % (Auto) 12.6 H, Eos % (Auto) 0.4, Baso % (Auto) 0.8, Absolute Neuts (auto) 3.3, Absolute Lymphs (auto) 1.13, Nucleated RBC % 0 06/06/20 06:27: Sodium 130 L, Potassium 3.0 L, Chloride 91 L, Carbon Dioxide 26.0, Anion Gap 13, BUN 4 L, Creatinine 1.12 H, Estim Creat Clear Calc 53.43, Est GFR (MDRD) Af Amer 67, Est GFR (MDRD) Non-Af 55 L, BUN/Creatinine Ratio 3.6 L, Glucose 61 L, Calcium 8.2 L, Total Bilirubin 9.20 H, AST 111 H, ALT 18, Alkaline Phosphatase 150 H, Total Protein 7.5, Albumin 1.9 L, Globulin 5.6 H, Albumin/Globulin Ratio 0.3 L 06/06/20 08:40: Blood Type A NEGATIVE, Antibody Screen NEGATIVE, Crossmatch See Detail 06/06/20 : Magnesium 1.7 Current Medications Acetaminophen (Acetaminophen 500 Mg Tablet) 500 mg PO Q4H PRN PRN PRN Reason: Temp > 100.4 F Al Hydroxide/Mg Hydroxide (Mag Hydrox/Al Hydrox/Simeth 30 Ml Udc) 30 ml PO Q6H PRN PRN PRN Reason: dyspesia Albuterol Sulfate (Albuterol 2.5 Mg/3 Ml Vial.Neb.) 2.5 mg INHALATION Q2H PRN PRN PRN Reason: Dyspnea, wheezing Bisacodyl (Bisacodyl 10 Mg Suppository) 10 mg RC DAILY PRN PRN Reason: Constipation Dicyclomine HCl (Dicyclomine 10 Mg Capsule) 20 mg PO Q6H PRN PRN PRN Reason: abdominal discomfort Folic Acid (Folic Acid 1 Mg Tablet) 1 mg PO DAILY@0800 CHRISTY Last Admin: 06/06/20 10:41 Dose: Not Given Documented by: Gabapentin (Gabapentin 300 Mg Capsule) 300 mg PO Q8H PRN PRN PRN Reason: moderate to severe anxiety Guaifenesin (Guaifenesin 10 Ml Udc (200mg/10ml)) 20 ml PO Q4H PRN PRN PRN Reason: COUGH Hydralazine HCl (Hydralazine 20 Mg/Ml Vial) 10 mg IV Q4H PRN PRN PRN Reason: SBP > 160 Hydroxyzine Pamoate (Hydroxyzine [place] 25 Mg Capsule) 50 mg PO Q4H PRN PRN PRN Reason: mild anxiety Loperamide HCl (Loperamide 2 Mg Capsule) 2 mg PO Q4H PRN PRN PRN Reason: LOOSE STOOLS Lorazepam (Lorazepam 1 Mg Tablet) 2 mg PO Q4H CHRISTY; Taper Stop: 06/10/20 08:59 Last Admin: 06/06/20 13:09 Dose: Not Given Documented by: Ondansetron HCl (Ondansetron 8 Mg Tablet) 8 mg PO Q8H PRN PRN PRN Reason: NAUSEA Last Admin: 06/06/20 05:54 Dose: 8 mg Documented by: Ondansetron HCl (Ondansetron 4 Mg/2 Ml Vial) 4 mg IV Q8H PRN PRN PRN Reason: NAUSEA/VOMITING Pantoprazole Sodium (Pantoprazole Sodium 20 Mg Tablet) 20 mg PO BID [facility] Last Admin: 06/06/20 10:41 Dose: Not Given Documented by: Prochlorperazine Edisylate (Prochlorperazine 10 Mg/2 Ml Vial) 5 mg IV Q4H PRN PRN PRN Reason: Breakthrough nausea/vomiting Senna (Senna Tablet) 2 tablet PO QHS PRN PRN PRN Reason: Constipation Sodium Chloride (0.9% Saline Lock 10 Ml Syringe) 10 - 40 ml IV UD PRN PRN Reason: SALINE FLUSH Thiamine HCl (Thiamine Hydrochloride 100 Mg Tablet) 100 mg PO DAILYCM [facility] Last Admin: 06/06/20 10:41 Dose: Not Given Documented by: Throat Lozenges (Benzocaine/Menthol 1 Lozenge) 1 lozenge MUCOUS MEM Q2H PRN PRN PRN Reason: SORE THROAT Trazodone HCl (Trazodone 100 Mg Tablet) 100 mg PO QHS PRN PRN PRN Reason: INSOMNIA Medical Necessity - Tobacco Use Smoking Status: Never smoker Tobacco Use: Non-smoker Assessment/Plan All Active Problems (This Medical Record has been edited. Action required.) GI bleed (Resolved) Encounter for hospice care discussion (Acute) #1 generalized weakness-probably secondary to chronic alcoholism, chronic liver disease, and anemia-I have decided to give the patient 2 units of packed red blood cells today, she will be seen by hospice today #2 anemia-etiology unclear, patient will receive 2 units of packed red blood cells #3 alcoholic liver disease #4 alcoholism-patient is not showing any signs of alcohol withdrawal at this time #5 hypokalemia-potassium replacement will be given, labs will be rechecked #6 alcoholic hepatitis-patient's liver functions are elevated, CMP will be rechecked #7 hyponatremia-secondary to alcoholic cirrhosis Discharge planning is unclear on this patient, I do not know whether she will want to return home after her hospitalization, I do not believe she is a candidate to go to inpatient hospice at this time. Inpatient E&M: [id number] Subs Hosp L2
[2020-06-06] MEDS: Pantoprazole Sodium 20 MG Tablet PO (20:50)
[2020-06-07] VITALS (10 sets, daily range): BP systolic 83–99; BP diastolic 44–74; PULSE 75–109; RESP 16–20; TEMP 36.3–37.2; O2SAT 92–98
[2020-06-07 07:22] LABS: Absolute Lymphocyte Count 1.61 X10^3/uL (0.83-4.51); Absolute Neutrophil Count 2.9 X10^3/uL (2.0-7.7); Basophil# 0.06 X10^3/uL; Basophil% 1.1 % (0-1); Eosinophil# 0.14 X10^3/uL; Eosinophils% 2.6 % (0-5); Hematocrit 27.1 % (37-47); Lymphocyte # 1.61 X10^3/ul (0.83-4.51); Lymphocyte % 30.4 % (19-41); Mean Corp Hgb Conc 33.2 g/dL (32-36); Mean Corpuscular Hgb 29.7 pg (27.0-32.0); Mean Corpuscular Volume 89.4 fL (81-99); Mean Platelet Vol. 11.1 fl (6.2-12.0); Monocyte# 0.57 X10^3/uL; Monocyte% 10.8 % (0-10); NRBC Flagged by Analyzer 0 % (0-5); Neutrophil # 2.89 X10^3/uL (2.7-7.7); Neutrophil % 54.5 % (47-70); POSITIVE COUNT YES; POSITIVE MORPHOLOGY YES; Platelet Count 58 K/mm3 (150-450); RBC Distribution Width CV 19.9 % (11.6-14.6); RBC Distribution Width SD 61.4 fl (35.1-43.9); Red Blood Count 3.03 M/mm3 (4.2-5.4); White Blood Count 5.3 K/mm3 (4.4-11.0)
[2020-06-07 07:24] LABS: Differential Indicated SCAN CRITERIA MET
[2020-06-07 08:12] LABS: Hypochromasia 2+; Platelet Estimate MKD DEC (ADEQ)
[2020-06-07] MEDS: Pantoprazole Sodium 20 MG Tablet PO (08:28)
[2020-06-07] MEDS: 0.9% Saline Lock 10 ML Syringe IV (08:28)
[2020-06-07] MEDS: Folic Acid 1 MG Tablet PO (08:28)
[2020-06-07] MEDS: Ondansetron 4 MG/2 ML Vial IV (08:28)
--- NOTE | 2020-06-07 09:20 | NURSING ---
Call made to Jeanne at [facility] hospice with update that pt is more alert today, willing to speak with hospice. Jeanne will call [facility] to assess pt today.
--- NOTE | 2020-06-07 10:55 | CASEMGMT ---
SOCIAL WORK Received call from Yosvany with [facility]. Yosvany reports will be in this afternoon to meet with patient. Maria E Sandy, LASTING ROOM MACHINE OPERATOR, [employer] REPAIR SHOP MANAGER
--- NOTE | 2020-06-07 14:30 | CASEMGMT ---
SOCIAL WORK Updated by nursing, [facility] met with patient and patient signed paperwork. Nursing states patient will need [facility] placement. Met with patient in room. Patient laying in bed with eyes closed. Introduced self and provided patient with list of area facilities. Patient to review list. SW to follow up Tuesday. LUANA Chacko, FELLER OPERATOR
--- NOTE | 2020-06-07 14:54 | PCM.PROGNOTE ---
Patient Problems: Active and Suspected Problems (This Medical Record has been edited. Action required.) Encounter for hospice care discussion (Acute) Subjective: Patient was seen and examined today, she has not been evaluated by hospice as yet because of extreme somnolence, she still appears sleepy today, I have elected to reduce her Librium to 3 times daily. I doubt patient will be able to care for self at home, we will probably need placement in a senior care facility if she consents. - Physical Exam Vitals/I&O's: Vital Signs Temp Pulse Resp BP Pulse Ox 98.9 F 98 20 H 83/49 L 96 06/07/20 12:46 06/07/20 12:46 06/07/20 12:46 06/07/20 12:46 06/07/20 12:46 Oxygen Delivery Method Room Air Weight: 54.5 kg Body Mass Index (BMI) 17.7 Intake and Output for Last 24 Hours 06/05/20 06/06/20 06/07/20 23:59 23:59 23:59 Intake Total 860 / 960 200 / 200 Output Total 225 / 225 150 / 150 Balance 635 / 735 50 / 50 General: Cooperative, No apparent distress, Well developed, Lethargic HEENT: Atraumatic, PERRLA, EOMI, Normocephalic Oral: Moist Mucosa Neck: Supple, No JVD, Trachea Midline, Thyroid Normal Size and Texture Lungs: Clear to auscultation, Normal air movement, No rhonchi, No wheeze, No rales Cardiovascular: Regular rate, Regular Rhythm, Normal S1, Normal S2, No murmurs, PMI Normal, No rub noted Abdomen: Bowel Sounds Present, Soft, Non Tender, Non-Distended Extremities: No clubbing, No cyanosis, No edema, Capillary Refill Less than 3 Seconds Skin: No rashes, No breakdown Musculoskeletal: No Tenderness to Palpation of Joints or Extremities Neurological: Cranial nerves II-XII grossly intact, Neuro grossly intact, Sensory exam intact to light touch and pain Psych/Mental Status: Flat Affect, - - Patient appears somnolent, she shakes her head yes when asked questions Laboratory Results 06/06/20 08:40: Crossmatch See Detail 06/07/20 07:14: WBC 5.3, RBC 3.03 L, Hgb 9.0 L, Hct 27.1 L, MCV 89.4, MCH 29.7, MCHC 33.2, RDW Std Deviation 61.4 H, RDW Coeff of Bhakti 19.9 H, Plt Count 58 L, MPV 11.1, Immature Gran % (Auto) 0.600, Neut % (Auto) 54.5, Lymph % (Auto) 30.4, [place] % (Auto) 10.8 H, Eos % (Auto) 2.6, Baso % (Auto) 1.1 H, Absolute Neuts (auto) 2.9, Absolute Lymphs (auto) 1.61, Nucleated RBC % 0, Platelet Estimate MKD DEC, Hypochromasia 2+ Current Medications Acetaminophen (Acetaminophen 500 Mg Tablet) 500 mg PO Q4H PRN PRN PRN Reason: Temp > 100.4 F Folic Acid (Folic Acid 1 Mg Tablet) 1 mg PO DAILY@0800 [facility] Last Admin: 06/07/20 08:28 Dose: 1 mg Documented by: Loperamide HCl (Loperamide 2 Mg Capsule) 2 mg PO Q4H PRN PRN PRN Reason: LOOSE STOOLS Lorazepam (Lorazepam 1 Mg Tablet) 1 mg PO Q8 [facility]; Taper Stop: 06/12/20 05:59 Ondansetron HCl (Ondansetron 4 Mg/2 Ml Vial) 4 mg IV Q8H PRN PRN PRN Reason: NAUSEA/VOMITING Last Admin: 06/07/20 08:28 Dose: 4 mg Documented by: Pantoprazole Sodium (Pantoprazole Sodium 20 Mg Tablet) 20 mg PO BID [facility] Last Admin: 06/07/20 08:28 Dose: 20 mg Documented by: Senna (Senna Tablet) 2 tablet PO QHS PRN PRN PRN Reason: Constipation Sodium Chloride (0.9% Saline Lock 10 Ml Syringe) 10 - 40 ml IV UD PRN PRN Reason: SALINE FLUSH Last Admin: 06/07/20 08:28 Dose: 10 ml Documented by: Thiamine HCl (Thiamine Hydrochloride 100 Mg Tablet) 100 mg PO DAILYCM [facility] Last Admin: 06/07/20 08:35 Dose: Not Given Documented by: Trazodone HCl (Trazodone 100 Mg Tablet) 100 mg PO QHS PRN PRN PRN Reason: INSOMNIA Medical Necessity - Tobacco Use Smoking Status: Never smoker Tobacco Use: Non-smoker Assessment/Plan All Active Problems (This Medical Record has been edited. Action required.) GI bleed (Resolved) Encounter for hospice care discussion (Acute) #1 generalized weakness-probably secondary to chronic alcoholism, chronic liver disease, and anemia-patient's hemoglobin is now 9 #2 anemia-etiology unclear, requiring blood transfusion #3 alcoholic liver disease #4 alcoholism-patient is not showing any signs of alcohol withdrawal at this time #5 hypokalemia-potassium replacement will be given, labs will be rechecked #6 alcoholic hepatitis-patient's liver functions are elevated, CMP will be rechecked #7 hyponatremia-secondary to alcoholic cirrhosis Discharge planning is unclear on this patient, I do not know whether she will want to return home after her hospitalization, I do not believe she is a candidate to go to inpatient hospice at this time. Inpatient E&M: [id number] Subs Hosp L2
[2020-06-08 02:01] VITALS: BP 113/61; PULSE 97; RESP 18; TEMP 37; O2SAT 98
[2020-06-08 07:38] VITALS: BP 95/62; PULSE 93; RESP 18; TEMP 37; O2SAT 94
[2020-06-08 07:47] VITALS: O2SAT 94
[2020-06-08] MEDS: Folic Acid 1 MG Tablet PO (08:33)
[2020-06-08] MEDS: Pantoprazole Sodium 20 MG Tablet PO ×2 (08:33→20:41)
[2020-06-08] MEDS: Thiamine Hydrochloride 100 MG Tablet PO (08:33)
[2020-06-08 13:21] VITALS: BP 100/63; PULSE 90; RESP 18; TEMP 36.9; O2SAT 96
--- NOTE | 2020-06-08 17:01 | PCM.PROGNOTE ---
Patient Problems: Active and Suspected Problems (This Medical Record has been edited. Action required.) Encounter for hospice care discussion (Acute) Subjective: In and examined today, she is more alert today and is able to talk with me, I suggested to senior care she might consider for placement, [facility] in [place]. Patient has no complaints to this examiner of anxiety or tremor today - Physical Exam Vitals/I&O's: Vital Signs Temp Pulse Resp BP Pulse Ox 98.4 F 90 18 100/63 96 06/08/20 13:21 06/08/20 13:21 06/08/20 13:21 06/08/20 13:21 06/08/20 13:21 Oxygen Delivery Method Room Air Weight: 54.5 kg Body Mass Index (BMI) 17.7 Intake and Output for Last 24 Hours 06/06/20 06/07/20 06/08/20 23:59 23:59 23:59 Intake Total 860 / 960 320 / 870 890 / 890 Output Total 225 / 225 400 / 400 450 / 450 Balance 635 / 735 -80 / 470 440 / 440 General: Alert, Oriented x3, Cooperative, No apparent distress, Well developed HEENT: Atraumatic, PERRLA, EOMI, Normocephalic Oral: Moist Mucosa Neck: Supple, No JVD, Trachea Midline, Thyroid Normal Size and Texture Lungs: Clear to auscultation, Normal air movement, No rhonchi, No wheeze, No rales Cardiovascular: Regular rate, Regular Rhythm, Normal S1, Normal S2, No murmurs, PMI Normal, No rub noted, No Gallop Abdomen: Bowel Sounds Present, Soft, Non Tender, Non-Distended Extremities: No clubbing, No cyanosis, No edema, Capillary Refill Less than 3 Seconds Skin: No rashes, No breakdown Musculoskeletal: No Tenderness to Palpation of Joints or Extremities Neurological: Cranial nerves II-XII grossly intact, Neuro grossly intact, Sensory exam intact to light touch and pain Psych/Mental Status: Appropriate, Flat Affect Current Medications Acetaminophen (Acetaminophen 500 Mg Tablet) 500 mg PO Q4H PRN PRN PRN Reason: Temp > 100.4 F Folic Acid (Folic Acid 1 Mg Tablet) 1 mg PO DAILY@0800 CHRISTY Last Admin: 06/08/20 08:33 Dose: 1 mg Documented by: Loperamide HCl (Loperamide 2 Mg Capsule) 2 mg PO Q4H PRN PRN PRN Reason: LOOSE STOOLS Ondansetron HCl (Ondansetron 4 Mg/2 Ml Vial) 4 mg IV Q8H PRN PRN PRN Reason: NAUSEA/VOMITING Last Admin: 06/07/20 08:28 Dose: 4 mg Documented by: Pantoprazole Sodium (Pantoprazole Sodium 20 Mg Tablet) 20 mg PO BID [facility] Last Admin: 06/08/20 08:33 Dose: 20 mg Documented by: Senna (Senna Tablet) 2 tablet PO QHS PRN PRN PRN Reason: Constipation Sodium Chloride (0.9% Saline Lock 10 Ml Syringe) 10 - 40 ml IV UD PRN PRN Reason: SALINE FLUSH Last Admin: 06/07/20 08:28 Dose: 10 ml Documented by: Thiamine HCl (Thiamine Hydrochloride 100 Mg Tablet) 100 mg PO DAILYCM [facility] Last Admin: 06/08/20 08:33 Dose: 100 mg Documented by: Trazodone HCl (Trazodone 100 Mg Tablet) 100 mg PO QHS PRN PRN PRN Reason: INSOMNIA Medical Necessity - Tobacco Use Smoking Status: Never smoker Tobacco Use: Non-smoker Assessment/Plan All Active Problems (This Medical Record has been edited. Action required.) GI bleed (Resolved) Encounter for hospice care discussion (Acute) #1 generalized weakness-probably secondary to chronic alcoholism, chronic liver disease, and anemia #2 anemia-etiology unclear, requiring blood transfusion, recheck CBC tomorrow #3 alcoholic liver disease #4 alcoholism-patient is not showing any signs of alcohol withdrawal at this time #5 hypokalemia-potassium replacement will be given, labs will be rechecked #6 alcoholic hepatitis-patient's liver functions are elevated, CMP will be rechecked #7 hyponatremia-secondary to alcoholic cirrhosis Patient will need temporary placement in a senior care facility at the time of discharge, she does not want to go back to her apartment-she states she does not feel safe. Hospice saw the patient yesterday but there is no note entered by hospice in the electronic medical records or on the chart according to nursing. Inpatient E&M: [id number] [facility] [place] Hosp L2
[2020-06-08 18:12] VITALS: BP 97/65; PULSE 93; RESP 18; TEMP 36.9; O2SAT 97
[2020-06-08 20:31] VITALS: BP 96/61; PULSE 98; RESP 18; TEMP 37; O2SAT 96
[2020-06-08] MEDS: traZODone 100 MG Tablet PO (20:41)
[2020-06-09 02:30] VITALS: BP 94/50; PULSE 99; RESP 18; TEMP 37.7; O2SAT 94
[2020-06-09 07:21] LABS: Absolute Neutrophil Count 2.9 X10^3/uL (2.0-7.7); Basophil# 0.06 X10^3/uL; Basophil% 1.1 % (0-1); Eosinophil# 0.12 X10^3/uL; Eosinophils% 2.2 % (0-5); Hematocrit 26.8 % (37-47); Hemoglobin 8.9 g/dL (12.0-15.0); Lymphocyte % 29.6 % (19-41); Mean Corp Hgb Conc 33.2 g/dL (32-36); Mean Corpuscular Hgb 29.9 pg (27.0-32.0); Mean Corpuscular Volume 89.9 fL (81-99); Mean Platelet Vol. 11.6 fl (6.2-12.0); Monocyte# 0.73 X10^3/uL; Monocyte% 13.5 % (0-10); NRBC Flagged by Analyzer 0.4 % (0-5); Neutrophil # 2.87 X10^3/uL (2.7-7.7); POSITIVE COUNT YES; POSITIVE MORPHOLOGY YES; Platelet Count 65 K/mm3 (150-450); RBC Distribution Width CV 21.4 % (11.6-14.6); RBC Distribution Width SD 65.1 fl (35.1-43.9); Red Blood Count 2.98 M/mm3 (4.2-5.4); White Blood Count 5.4 K/mm3 (4.4-11.0)
[2020-06-09 07:24] LABS: Differential Indicated SCAN CRITERIA MET
[2020-06-09 07:38] VITALS: BP 96/60; PULSE 99; RESP 14; TEMP 36.9; O2SAT 96
[2020-06-09 07:45] LABS: Anisocytosis 1+
[2020-06-09 07:46] LABS: Platelet Estimate MOD DEC (ADEQ)
[2020-06-09] MEDS: Pantoprazole Sodium 20 MG Tablet PO ×2 (07:51→21:12)
[2020-06-09] MEDS: Folic Acid 1 MG Tablet PO (07:52)
[2020-06-09] MEDS: Thiamine Hydrochloride 100 MG Tablet PO (07:52)
[2020-06-09 07:58] LABS: ALB/GLOB Ratio 0.3 RATIO (0.9-2.4); AST(SGOT) 85 U/L (15-37); Alanine Aminotransfer ALT/SGPT 15 U/L (13-56); Albumin, Serum 1.6 g/dL (3.2-5.0); Alkaline Phosphatase 160 U/L (45-117); Anion Gap 4 (5-15); BUN 4 mg/dL (7-18); BUN/Creat Ratio 4.3 RATIO (10-20); Chloride 95 mmol/L (98-107); Creatinine, Serum 0.92 mg/dL (0.55-1.02); EST Glomerular Filtration Rate 69 mL/min (>60); Est Glom Filt Rate - Afr Amer 84 mL/min (>60); Estimated Creatinine Clearance 65.04 ml/min; Glucose 74 mg/dL (74-106); Potassium 2.6 mmol/L (3.5-5.1); Protein, Total 6.6 g/dL (6.4-8.2); Sodium Level 132 mmol/L (136-145)
--- NOTE | 2020-06-09 09:58 | PN_ITS ---
Patient Problems: Active and Suspected Problems (This Medical Record has been edited. Action required.) Encounter for hospice care discussion (Acute) Subjective: States that her anemia she lives on the first floor were removed from this floor as well as a second floor for intimidation and creating commotion. They were not there visiting her but to stalk her. These neighbors follow her wherever she goes and she only goes to drug [place]. They tell her that she is stocking them but then they are blunt as f and tell her that they are stalking her. They tell her that it is a set up for psychiatric evaluation. Vitals/I&O's: Vital Signs Temp Pulse Resp BP Pulse Ox 36.9 C 99 14 96/60 96 06/09/20 07:38 06/09/20 07:38 06/09/20 07:38 06/09/20 07:38 06/09/20 07:38 Oxygen Delivery Method Room Air Weight: 54.5 kg Body Mass Index (BMI) 17.7 Intake and Output for Last 24 Hours 06/07/20 06/08/20 06/09/20 23:59 23:59 23:59 Intake Total 320 / 870 1090 / 1090 Output Total 400 / 400 450 / 450 75 / 75 Balance -80 / 470 640 / 640 -75 / -75 General: Alert, Oriented x3, - - appears much older than stated age. HEENT: Atraumatic, Normocephalic Psych/Mental Status: - - patient declined further exam. Laboratory Results 06/09/20 06:50: WBC 5.4, RBC 2.98 L, Hgb 8.9 L, Hct 26.8 L, MCV 89.9, MCH 29.9, MCHC 33.2, RDW Std Deviation 65.1 H, RDW Coeff of Bhakti 21.4 H, Plt Count 65 L, MPV 11.6, Immature Gran % (Auto) 0.600, Neut % (Auto) 53.0, Lymph % (Auto) 29.6, [place] % (Auto) 13.5 H, Eos % (Auto) 2.2, Baso % (Auto) 1.1 H, Absolute Neuts (auto) 2.9, Absolute Lymphs (auto) 1.60, Nucleated RBC % 0.4, Platelet Estimate MOD DEC, Anisocytosis 1+ 06/09/20 06:50: Sodium 132 L, Potassium 2.6 L*, Chloride 95 L, Carbon Dioxide 33.0 H, Anion Gap 4 L, BUN 4 L, Creatinine 0.92, Estim Creat Clear Calc 65.04, Est GFR (MDRD) Af Amer 84, Est GFR (MDRD) Non-Af 69, BUN/Creatinine Ratio 4.3 L, Glucose 74, Calcium 8.0 L, Total Bilirubin 6.20 H, AST 85 H, ALT 15, Alkaline Phosphatase 160 H, Total Protein 6.6, Albumin 1.6 L, Globulin 5.0 H, Albumin/Globulin Ratio 0.3 L Current Medications Acetaminophen (Acetaminophen 500 Mg Tablet) 500 mg PO Q4H PRN PRN PRN Reason: Temp > 100.4 F Folic Acid (Folic Acid 1 Mg Tablet) 1 mg PO DAILY@0800 [facility] Last Admin: 06/09/20 07:52 Dose: 1 mg Documented by: Loperamide HCl (Loperamide 2 Mg Capsule) 2 mg PO Q4H PRN PRN PRN Reason: LOOSE STOOLS Nystatin (Nystatin 500,000 Unit/5 Ml Udc) 500,000 unit PO 4X/DAY [facility] Ondansetron HCl (Ondansetron 4 Mg/2 Ml Vial) 4 mg IV Q8H PRN PRN PRN Reason: NAUSEA/VOMITING Last Admin: 06/07/20 08:28 Dose: 4 mg Documented by: Ondansetron HCl (Ondansetron 8 Mg Tablet) 8 mg PO Q8H PRN PRN PRN Reason: NAUSEA/VOMITING Pantoprazole Sodium (Pantoprazole Sodium 20 Mg Tablet) 20 mg PO BID [facility] Last Admin: 06/09/20 07:51 Dose: 20 mg Documented by: Potassium Chloride (Potassium Chloride Oral Tablet 20 Meq) [facility] Senna (Senna Tablet) 2 tablet PO QHS PRN PRN PRN Reason: Constipation Sodium Chloride (0.9% Saline Lock 10 Ml Syringe) 10 - 40 ml IV UD PRN PRN Reason: SALINE FLUSH Last Admin: 06/07/20 08:28 Dose: 10 ml Documented by: Thiamine HCl (Thiamine Hydrochloride 100 Mg Tablet) [facility] Last Admin: 06/09/20 07:52 Dose: 100 mg Documented by: Trazodone HCl (Trazodone 100 Mg Tablet) 100 mg PO QHS PRN PRN PRN Reason: INSOMNIA Last Admin: 06/08/20 20:41 Dose: 100 mg Documented by: STROKE Vital Signs/Narrative: Vital Signs Temp Pulse Resp BP Pulse Ox 06/09/20 07:38 36.9 C 99 14 96/60 96 Medical Necessity - Tobacco Use Smoking Status: Never smoker Tobacco Use: Non-smoker Assessment/Plan All Active Problems (This Medical Record has been edited. Action required.) GI bleed (Resolved) Encounter for hospice care discussion (Acute) 1. hallucinations Patient stated that her neighbors who live on the first floor are tormenting her here in the hospital and had to be removed. This is not the case. She said that she notified the police and I reviewed her call registry on her phone which she stated that she called herself on she is not made any phone calls since Tuesday. I am concerned the patient is actively hallucinating or is completely making this up. The reason I suspect she may be making this up as she is completely alert and oriented x3. Previously her ammonia level has been normal at 11 so I do not feel that she is experiencing hepatic encephalopathy. I suspect she is either malingering or she is having legitimate psychiatric break with reality. With this possible hallucinations, patient is not competent to make a decision in regards to her overall wellbeing and we would need a competency evaluation performed by psychiatry before she could be determined capable of making her own decisions. 2. Cirrhosis Patient has a meld score of 25. It had been the plan for the patient to meet with hospice and go somewhere with hospice services but with this possible hallucinations and questionable competency and that is currently on hold at this time. 3. Hypokalemia Replace 4. Alcohol abuse No obvious withdrawal symptoms at this time unless these hallucinations are a manifestation of that. 5. Anemia: Stable at this time. No indication to transfuse. Greater than 35 minutes which greater than 50 in the time was discussing the patient about her hallucinations and what she is experiencing. I did express to her that I am concerned that this may not be real for her. Inpatient E&M: [id number] Subs Hosp L3
--- NOTE | 2020-06-09 10:52 | CASEMGMT ---
Social Work Note Physician is requesting Crisis evaluation due to pt's current hallucinations. HOMER placed a call to [facility] and spoke with María and provided referral. SW faxed referral. Michelle Clarke BARREL RAISER HELPER, WATER CONTROL STATION ENGINEER
[2020-06-09 11:17] LABS: Magnesium 1.9 mg/dL (1.6-2.6)
[2020-06-09] MEDS: NYSTATIN 500,000 UNIT/5 ML UDC 500000 UNIT PO ×4 (11:17→21:12)
[2020-06-09] MEDS: Potassium Chloride Oral Tablet 20 MEQ 40 MEQ PO ×2 (11:17→17:35)
--- NOTE | 2020-06-09 12:54 | CHAPLAIN ---
Type of Pastoral Visit _x__ Initial Visit ___ Follow-up Visit ___ On-call Visit ___ General Patient Visit ___ Spiritual Assessment ___ Family Conference ___ Bereavement ___ Rapid Response ___ Code Blue ___ Other (describe below) Pastoral Care Referral From _x__ Patient ___ Family ___ Nurse ___ Physician ___ Technical Specialist Cytogenetics ___ Edge Baster ___ Other (describe below) Sacrament/Intervention _x__ Active listening ___ Anointing ___ Zoroastrianism ___ Bereavement ___ Communion _x__ Brianna exploration ___ ___ Life review _x__ Prayer ___ Reconciliation ___ Sacrament of Sick _x__ Supportive presence ___ Wedding ___ Other (describe below) Pastoral Comments patient talks immediately about people that are accusing her of things that are not true; pt states I am just tired and I want people to leave me alone; pt continues to explain that she wants hospice because three doctors have said I don't have much time; asked to tell about her feelings, the patient indicates that they include anger and sadness; pt is not affiliated with any baptist but absolutely believes in God; pt says that I have not talked to my family when asked if she had family support; pt welcomed visit and prayer of this recycling director
[2020-06-09 14:08] VITALS: BP 109/67; PULSE 98; RESP 16; TEMP 36.7; O2SAT 98
[2020-06-09] MEDS: Ondansetron 8 MG Tablet PO (14:14)
--- NOTE | 2020-06-09 15:24 | CASEMGMT ---
Addendum entered by Michelle Clarke 06/09/20 16:32: SW updated that pt is now not wanting Hospice but to continue treatment and got to a SNF skilled. HOMER placed a call to Tabitha at [facility] and updated her. Tabitha states she will update the team. SW placed a call to Olivia at [facility] and updated Olivia that pt is now not wanting Hospice. Olivia states understanding, cancelled Hospice referral at this time. SW then received message from Tabitha at [facility] stating they are not able to accept pt. Per previous conversation with pt, her second choice for SNF is [facility]. SW to fax referral to [facility]. Plan: SNF pending acceptance Original Note: Social Work Note SW updated that Crisis evaluated pt and pt was cleared. SW updated that physician wanted competency evaluation to be completed by Crisis. HOMER placed a call to [facility] and spoke with María with Crisis. María states they are not able to do competency evaluations, can only do Psychiatric Evaluations. María states pt had slight delusions, thoughts were linear, pt was able to complete sentences, and pt had insight. SW in to speak with pt. HOMER introduced self and role at [facility]. Pt is alert and orientated x3. SW completed Mini Mental Status Exam with pt. Pt only missed three, scored a 27/30. A score below 20 usually indicated cognitive impairment. Pt scored above 20. HOMER updated physician. HOMER spoke with pt about discharge plans. Pt once again states she would like to go to an ECF with Hospice Services. Pt states her preferred providers are 1. [facility] and 2. [facility]. HOMER informed pt that this worker will send referral to [facility] first to determine if they are able to accept pt. Pt states understanding. HOMER placed a call to [facility] and spoke with Olivia. Olivia confirms pt signed Hospice paperwork. HOMER placed a call to Tabitha at [facility] and left message regarding referral. HMOER faxed referral. Michelle Clarke MONITORING SPECIALIST, FOUNTAIN WAITRESS/WAITER
[2020-06-09] MEDS: Furosemide 40 MG Tablet PO (17:35)
[2020-06-09 21:18] VITALS: BP 95/51; PULSE 92; RESP 16; TEMP 37.4; O2SAT 94
[2020-06-10] VITALS (7 sets, daily range): BP systolic 88–104; BP diastolic 53–69; PULSE 90–99; RESP 16; TEMP 36.7–37.3; O2SAT 96–98
[2020-06-10 07:48] LABS: ALB/GLOB Ratio 0.3 RATIO (0.9-2.4); AST(SGOT) 79 U/L (15-37); Alanine Aminotransfer ALT/SGPT 15 U/L (13-56); Albumin, Serum 1.5 g/dL (3.2-5.0); Alkaline Phosphatase 148 U/L (45-117); Anion Gap 7 (5-15); BUN 5 mg/dL (7-18); BUN/Creat Ratio 5.5 RATIO (10-20); Calcium,Total 7.5 mg/dL (8.5-10.1); Chloride 93 mmol/L (98-107); Creatinine, Serum 0.91 mg/dL (0.55-1.02); EST Glomerular Filtration Rate 70 mL/min (>60); Est Glom Filt Rate - Afr Amer 85 mL/min (>60); Estimated Creatinine Clearance 65.75 ml/min; Glucose 80 mg/dL (74-106); Protein, Total 6.5 g/dL (6.4-8.2); Sodium Level 133 mmol/L (136-145)
[2020-06-10] MEDS: Potassium Chloride Oral Tablet 20 MEQ 40 MEQ PO ×2 (08:52→16:37)
[2020-06-10] MEDS: Folic Acid 1 MG Tablet PO (08:52)
[2020-06-10] MEDS: Pantoprazole Sodium 20 MG Tablet PO ×2 (08:52→20:06)
[2020-06-10] MEDS: Thiamine Hydrochloride 100 MG Tablet PO (08:52)
[2020-06-10] MEDS: Ondansetron 8 MG Tablet PO (08:57)
[2020-06-10] MEDS: Spironolactone 50 MG Tablet PO (10:52)
[2020-06-10] MEDS: NYSTATIN 500,000 UNIT/5 ML UDC 500000 UNIT PO ×4 (10:52→20:06)
[2020-06-10] MEDS: Furosemide 40 MG Tablet PO (10:53)
--- NOTE | 2020-06-10 11:44 | CASEMGMT ---
Addendum entered by Michelle Clarke 06/10/20 13:57: SW placed another call to [facility] and left message for admissions regarding referral. SW waiting for call back. Original Note: Social Work Note SW in to speak with pt. Pt confirms that she wishes to continue to receive treatment and doesn't want Hospice. Pt confirms she would like to admit to SNF skilled. SW informed pt that this worker faxed referral to [facility] yesterday but they are not able to accept pt. SW asked pt if she wanted a referral sent to [facility] ( as this was pt's second choice yesterday) or a different SNF. Pt asked can I go back to [facility]? Pt states she was at a half-way called [facility] and pt states they were able to get me walking again. SW informed pt that this worker can send referral to [facility] and see if they are able to accept pt. Pt states understanding. SW placed a call to [facility] ([phone]) and left message for admission. SW faxed referral to [facility] ([phone]). Plan: SNF pending acceptance Michelle Clarke JEWELRY APPRAISER, PRODUCTION REPAIRER
--- NOTE | 2020-06-10 11:47 | PCM.PN.HOSP ---
Subjective Subjective: Denies complaints. Objective Data Objective Data Vital Signs: Vital Signs Temp Pulse Resp BP Pulse Ox 36.9 C 98 16 104/62 96 06/10/20 08:41 06/10/20 08:42 06/10/20 08:41 06/10/20 10:54 06/10/20 08:41 Oxygen Delivery Method Room Air Weight: 54.5 kg Body Mass Index (BMI) 17.7 Intake & Output: Intake and Output for Last 24 Hours 06/08/20 06/09/20 06/10/20 23:59 23:59 23:59 Intake Total 1090 / 1090 200 / 200 Output Total 450 / 450 1075 / 1075 200 / 200 Balance 640 / 640 -875 / -875 -200 / -200 Lab / Micro Data Result Diagrams: 06/09/20 06:50 06/10/20 06:05 Labs: Laboratory Results - last 24 hr 06/10/20 06:05 Sodium 133 L Potassium 3.0 L Chloride 93 L Carbon Dioxide 33.0 H Anion Gap 7 BUN 5 L Creatinine 0.91 Estim Creat Clear Calc 65.75 Est GFR (MDRD) Af Amer 85 Est GFR (MDRD) Non-Af 70 BUN/Creatinine Ratio 5.5 L Glucose 80 Calcium 7.5 L Total Bilirubin 5.60 H AST 79 H ALT 15 Alkaline Phosphatase 148 H Total Protein 6.5 Albumin 1.5 L Globulin 5.0 H Albumin/Globulin Ratio 0.3 L Physical Exam Const Constitutional Narrative: lying bed. awakes with ease. soft voice. no active hallucinations Resp normal respiratory effort and clear to auscultation bilaterally Cardio regular rate and regular rhythm Assessment & Plan Assessment/Plan (1) Alcoholic cirrhosis: Status: Chronic Code(s): K70.30 - Alcoholic cirrhosis of liver without ascites Qualifiers: Ascites presence: unspecified Qualified Code(s): K70.30 - Alcoholic cirrhosis of liver without ascites Plan: 1. hallucinations Patient stated that her neighbors who live on the first floor are tormenting her here in the hospital and had to be removed. This is not the case. She said that she notified the police and I reviewed her call registry on her phone which she stated that she called herself on she is not made any phone calls since Tuesday. I am concerned the patient is actively hallucinating or is completely making this up. The reason I suspect she may be making this up as she is completely alert and oriented x3. Previously her ammonia level has been normal at 11 so I do not feel that she is experiencing hepatic encephalopathy. I suspect she is either malingering or she is having legitimate psychiatric break with reality. With this possible hallucinations, patient is not competent to make a decision in regards to her overall wellbeing and we would need a competency evaluation performed by psychiatry before she could be determined capable of making her own decisions. 2. Cirrhosis Patient has a meld score of 25. It had been the plan for the patient to meet with hospice and go somewhere with hospice services but with this possible hallucinations and questionable competency and that is currently on hold at this time. 3. Hypokalemia Replace 4. Alcohol abuse No obvious withdrawal symptoms at this time unless these hallucinations are a manifestation of that. 5. Anemia: Stable at this time. No indication to transfuse. Inpatient E&M: 46482 Subs Hosp L2
[2020-06-10] MEDS: traZODone 100 MG Tablet PO (22:39)
[2020-06-10] MEDS: Ibuprofen 600 MG Tablet PO (22:40)
[2020-06-11 06:00] VITALS: BP 84/54; PULSE 94; RESP 20; TEMP 36.9; O2SAT 93
[2020-06-11 07:14] LABS: Absolute Lymphocyte Count 1.73 X10^3/uL (0.83-4.51); Absolute Neutrophil Count 2.9 X10^3/uL (2.0-7.7); Basophil# 0.09 X10^3/uL; Basophil% 1.6 % (0-1); Eosinophil# 0.15 X10^3/uL; Eosinophils% 2.6 % (0-5); Hematocrit 27.5 % (37-47); Hemoglobin 8.8 g/dL (12.0-15.0); Lymphocyte # 1.73 X10^3/ul (0.83-4.51); Lymphocyte % 30.1 % (19-41); Mean Corpuscular Hgb 29.5 pg (27.0-32.0); Mean Corpuscular Volume 92.3 fL (81-99); Mean Platelet Vol. 10.6 fl (6.2-12.0); Monocyte# 0.88 X10^3/uL; Monocyte% 15.3 % (0-10); NRBC Flagged by Analyzer 0 % (0-5); Neutrophil # 2.87 X10^3/uL (2.7-7.7); Neutrophil % 49.9 % (47-70); POSITIVE COUNT YES; POSITIVE MORPHOLOGY YES; Platelet Count 71 K/mm3 (150-450); RBC Distribution Width CV 22.8 % (11.6-14.6); RBC Distribution Width SD 70.5 fl (35.1-43.9); Red Blood Count 2.98 M/mm3 (4.2-5.4); White Blood Count 5.8 K/mm3 (4.4-11.0)
[2020-06-11 07:16] LABS: Differential Indicated SCAN CRITERIA MET
[2020-06-11 07:43] LABS: ALB/GLOB Ratio 0.3 RATIO (0.9-2.4); AST(SGOT) 65 U/L (15-37); Alanine Aminotransfer ALT/SGPT 13 U/L (13-56); Albumin, Serum 1.5 g/dL (3.2-5.0); Alkaline Phosphatase 136 U/L (45-117); Anion Gap 3 (5-15); BUN 6 mg/dL (7-18); BUN/Creat Ratio 6.1 RATIO (10-20); Calcium,Total 7.5 mg/dL (8.5-10.1); Chloride 96 mmol/L (98-107); Creatinine, Serum 0.98 mg/dL (0.55-1.02); EST Glomerular Filtration Rate 65 mL/min (>60); Est Glom Filt Rate - Afr Amer 78 mL/min (>60); Estimated Creatinine Clearance 61.06 ml/min; Globulin 4.8 g/dL (2.2-4.2); Glucose 88 mg/dL (74-106); Potassium 3.8 mmol/L (3.5-5.1); Protein, Total 6.3 g/dL (6.4-8.2); Sodium Level 132 mmol/L (136-145)
[2020-06-11 07:46] LABS: Anisocytosis 1+; Platelet Estimate MOD DEC (ADEQ)
[2020-06-11 10:00] VITALS: BP 86/56; PULSE 84; RESP 16; TEMP 36.9; O2SAT 95
--- NOTE | 2020-06-11 10:18 | CASEMGMT ---
HOMER called [facility] twice, was informed they are still reviewing referrals. LEANDRO Alvarez
[2020-06-11] MEDS: Potassium Chloride Oral Tablet 20 MEQ 40 MEQ PO (10:23)
[2020-06-11] MEDS: Pantoprazole Sodium 20 MG Tablet PO (10:35)
[2020-06-11] MEDS: NYSTATIN 500,000 UNIT/5 ML UDC 500000 UNIT PO (10:36)
--- NOTE | 2020-06-11 11:15 | PCM.PN.HOSP ---
Subjective Subjective: Denies any new complaints. States that her abdomen is feeling softer today. Objective Data Objective Data Vital Signs: Vital Signs Temp Pulse Resp BP Pulse Ox 36.9 C 84 16 86/56 L 95 06/11/20 10:00 06/11/20 10:00 06/11/20 10:00 06/11/20 10:00 06/11/20 10:00 Oxygen Delivery Method Room Air Weight: 54.5 kg Body Mass Index (BMI) 17.7 Intake & Output: Intake and Output for Last 24 Hours 06/09/20 06/10/20 06/11/20 23:59 23:59 23:59 Intake Total 200 / 200 440 / 440 125 / 125 Output Total 1075 / 1075 200 / 350 150 / 150 Balance -875 / -875 240 / 90 -25 / -25 Lab / Micro Data Result Diagrams: 06/11/20 06:55 06/11/20 06:55 Labs: Laboratory Results - last 24 hr 06/11/20 06/11/20 06:55 06:55 WBC 5.8 RBC 2.98 L Hgb 8.8 L Hct 27.5 L MCV 92.3 MCH 29.5 MCHC 32.0 RDW Std Deviation 70.5 H RDW Coeff of Bhakti 22.8 H Plt Count 71 L MPV 10.6 Immature Gran % (Auto) 0.500 Neut % (Auto) 49.9 Lymph % (Auto) 30.1 [place] % (Auto) 15.3 H Eos % (Auto) 2.6 Baso % (Auto) 1.6 H Absolute Neuts (auto) 2.9 Absolute Lymphs (auto) 1.73 Nucleated RBC % 0 Platelet Estimate MOD DEC Anisocytosis 1+ Sodium 132 L Potassium 3.8 Chloride 96 L Carbon Dioxide 33.0 H Anion Gap 3 L BUN 6 L Creatinine 0.98 Estim Creat Clear Calc 61.06 Est GFR (MDRD) Af Amer 78 Est GFR (MDRD) Non-Af 65 BUN/Creatinine Ratio 6.1 L Glucose 88 Calcium 7.5 L Total Bilirubin 6.10 H AST 65 H ALT 13 Alkaline Phosphatase 136 H Total Protein 6.3 L Albumin 1.5 L Globulin 4.8 H Albumin/Globulin Ratio 0.3 L Micro: Microbiology 06/10/20 16:15 Mucosa - Nose SARS-CoV-2 Antigen (Rapid) - Final Physical Exam Const alert and no apparent distress HEENT Head and Scalp: normocephalic Resp normal respiratory effort and clear to auscultation bilaterally Cardio regular rate, regular rhythm, S1 normal heart sound and S2 normal heart sound GI normal to inspection, nondistended, normoactive bowel sounds and non-tender Assessment & Plan Assessment/Plan (1) Alcoholic cirrhosis: Status: Chronic Code(s): K70.30 - Alcoholic cirrhosis of liver without ascites Qualifiers: Ascites presence: unspecified Qualified Code(s): K70.30 - Alcoholic cirrhosis of liver without ascites (2) Ascites due to alcoholic cirrhosis: Status: Acute Code(s): K70.31 - Alcoholic cirrhosis of liver with ascites (3) Hallucinations: Status: Acute Code(s): R44.3 - Hallucinations, unspecified Plan: 1. hallucinations Patient stated that her neighbors who live on the first floor are tormenting her here in the hospital and had to be removed. This is not the case. She said that she notified the police and I reviewed her call registry on her phone which she stated that she called herself on she is not made any phone calls since Tuesday. I am concerned the patient is actively hallucinating or is completely making this up. The reason I suspect she may be making this up as she is completely alert and oriented x3. Previously her ammonia level has been normal at 11 so I do not feel that she is experiencing hepatic encephalopathy. I suspect she is either malingering or she is having legitimate psychiatric break with reality. With this possible hallucinations, patient is not competent to make a decision in regards to her overall wellbeing and we would need a competency evaluation performed by psychiatry before she could be determined capable of making her own decisions. 2. Cirrhosis Patient has a meld score of 25. It had been the plan for the patient to meet with hospice and go somewhere with hospice services but with this possible hallucinations and questionable competency and that is currently on hold at this time. 3. Hypokalemia improved 4. Alcohol abuse No obvious withdrawal symptoms at this time unless these hallucinations are a manifestation of that. 5. Anemia: Stable at this time. No indication to transfuse.
--- NOTE | 2020-06-11 12:12 | CASEMGMT ---
Addendum entered by Sujey Burris 06/11/20 14:41: SW called [facility], message left. SW also sent a referral to [facility]. LEANDRO Alvarez Addendum entered by Sujey Burris 06/11/20 12:28: SW spoke w/pt again let her know that [facility] cannot take her, and that a referral was faxed to [facility]. SW asked for additional choices if [facility] cannot take pt. SW provided pt with a list of jail facilities that take her insurance, in her geographic area, can meet her medical needs and that includes quality and resource data. Pt states does not want to stay in [place], otherwise does not have a preference. SW explained will send other referrals if the [facility] cannot take her. SW will continue to follow. LEANDRO Alvarez Original Note: SW spoke w/pt about other options if [facility] cannot take pt. She states [facility]. SW called admissions at [facility], they cannot take pt, no beds available. HOMER called [facility], faxed referral. SW will continue to follow. LEANDRO Alvarez
--- NOTE | 2020-06-11 15:37 | CASEMGMT ---
Addendum entered by Sujey Burris 06/11/20 15:49: [facility] asked for additional information, information faxed, they will let SW know if they can take pt. If they can, it will be tomorrow. LEANDRO Alvarez Original Note: [facility] SW attempted to tell pt, she is asleep. [facility] referral is still pending. LEANDRO Alvarez
[2020-06-11] MEDS: Furosemide 40 MG Tablet PO (16:07)
[2020-06-11 16:16] VITALS: BP 100/60; PULSE 102; RESP 18; TEMP 37; O2SAT 98
[2020-06-11 22:00] VITALS: BP 87/56; PULSE 84; RESP 18; TEMP 36.9; O2SAT 98
[2020-06-12 03:00] VITALS: BP 99/54; PULSE 89; RESP 16; TEMP 36.9; O2SAT 93
[2020-06-12] MEDS: Potassium Chloride Oral Tablet 20 MEQ 40 MEQ PO (08:29)
[2020-06-12] MEDS: Furosemide 40 MG Tablet PO (08:34)
[2020-06-12 08:54] LABS: ALB/GLOB Ratio 0.3 RATIO (0.9-2.4); AST(SGOT) 63 U/L (15-37); Alanine Aminotransfer ALT/SGPT 11 U/L (13-56); Albumin, Serum 1.5 g/dL (3.2-5.0); Alkaline Phosphatase 149 U/L (45-117); Anion Gap 3 (5-15); BUN 10 mg/dL (7-18); BUN/Creat Ratio 9.5 RATIO (10-20); Calcium,Total 7.9 mg/dL (8.5-10.1); Chloride 99 mmol/L (98-107); Creatinine, Serum 1.05 mg/dL (0.55-1.02); EST Glomerular Filtration Rate 60 mL/min (>60); Est Glom Filt Rate - Afr Amer 72 mL/min (>60); Estimated Creatinine Clearance 56.99 ml/min; Globulin 4.8 g/dL (2.2-4.2); Glucose 86 mg/dL (74-106); Protein, Total 6.3 g/dL (6.4-8.2); Sodium Level 134 mmol/L (136-145)
[2020-06-12 09:00] VITALS: BP 88/45; PULSE 97; RESP 18; TEMP 36.9; O2SAT 96
--- NOTE | 2020-06-12 09:16 | CASEMGMT ---
Social Work Note SW placed a call to Sherry at [facility] to inquire about referral. Sherry state she will review referral and give this worker a call back. Plan: [facility] pending pre-cert Michelle Clarke OUTSIDE CUTTER, BRAND PLANNER
--- NOTE | 2020-06-12 12:56 | TREXTCAR_ITS ---
Diet 06/06/20 00:56 Diet: Regular - General Food consistency:: Regular Liquid Consistency:: Regular/Thin Type of Dietary Supplement:: Magic Cup Dessert Diet Comments: 240ml ensure clear w/breakfast; magic cup BID w/ lunch and dinner Problem/Diagnosis (1) Alcoholic cirrhosis: Status: Chronic (2) Ascites due to alcoholic cirrhosis: Status: Chronic (3) Hallucinations: Status: Chronic Allergies/Procedures Done in Hospital Allergies No Known Allergies Allergy (Verified 06/05/20 21:18) Type of Care/Length of Stay Estimated LOS: Convalescent Care Less Than 30 days Type of Care Needed: Skilled Rehab Potential: Fair Prognosis: Fair Additional Orders/Day of Discharge Day of Discharge: 06/12/20 Dietary and Speech Recommendations Dietitian Recommendations/Changes: Continue liberalized regular diet as pt willing to accept. Will provide 240 ml Ensure Clear w/ breakfast and Magic Cup BID w/ lunch and dinner. May need to consider TF support if pt continues refusal of meals. Discharge Plan Admission Admit Date/Time: 06/05/20 23:51 Attending Provider: Manuel Ch Primary Care Provider: Care Physician,No Primary Instructions Patient Instructions: ED Cirrhosis Additional Instructions / Restrictions: Follow up with gastroenterology in 4-6 weeks. Discharge Orders/Prescriptions Prescriptions: New folic acid 1 mg Tablet 1 mg PO DAILY@0800 Qty: 0 RF: 0 furosemide 40 mg Tablet 40 mg PO DAILY Qty: 0 RF: 0 sennosides [Kristi-parveen] 8.6 mg Tablet 2 tab PO QHS PRN PRN (Reason: Constipation) Qty: 0 RF: 0 nystatin 100,000 unit/mL Suspension 500,000 unit PO 4X/DAY Qty: 0 RF: 0 loperamide 2 mg Capsule 2 mg PO Q4H PRN PRN (Reason: LOOSE STOOLS) Qty: 0 RF: 0 ondansetron HCl 8 mg Tablet 8 mg PO Q8H PRN PRN (Reason: NAUSEA/VOMITING) Qty: 0 RF: 0 pantoprazole 20 mg Tablet,Delayed Release (Dr/Ec) 20 mg PO BID Qty: 0 RF: 0 thiamine HCl (vitamin B1) [Vitamin B-1] 100 mg Tablet 100 mg PO DAILYCM Qty: 0 RF: 0 spironolactone 50 mg Tablet 50 mg PO DAILY Qty: 0 RF: 0 trazodone 100 mg Tablet 100 mg PO QHS PRN PRN (Reason: Insomnia) Qty: 0 RF: 0 No Action potassium chloride 20 MEQ/15 ML liquid 20 meq PO DAILY Qty: 210 RF: 0 Referrals: Care Physician,No Primary [Primary Care Provider] - Within 1 Week Disposition Patient Disposition: Assisted Facility
--- NOTE | 2020-06-12 13:14 | DS.PCM_ITS ---
Providers Date of Admission: 06/05/20 Primary Care Physician: Juli Primary Care Phys Consultations 06/06/20 00:56 Physician Consult Routine Consulting Provider: Nola Krishnan Consulted Physician Type:: Hospice/Pallative care Reason for Consult: Liver failure, Cancer, patient requesting hospice transition, FTT adult Comments:: called Cassia assistant vice president MD Notified: Yes Date Notified:: 06/06/20 Time Notified: 06:29 Method of Notification:: Verbal Reason For Visit: FTT ADULT, LIVER FAILURE, HOSPICE TRANSITION Diagnosis Discharge Diagnosis (1) Alcoholic cirrhosis: Status: Chronic Code(s): K70.30 - Alcoholic cirrhosis of liver without ascites Qualifiers: Ascites presence: unspecified Qualified Code(s): K70.30 - Alcoholic cirrhosis of liver without ascites (2) Ascites due to alcoholic cirrhosis: Status: Chronic Code(s): K70.31 - Alcoholic cirrhosis of liver with ascites (3) Hallucinations: Status: Chronic Code(s): R44.3 - Hallucinations, unspecified Medications at Discharge Home Medications potassium chloride 20 meq PO DAILY #210 udc 05/27/20 folic acid 1 mg PO DAILY@0800 #0 tab 06/12/20 furosemide 40 mg PO DAILY #0 tab 06/12/20 loperamide 2 mg PO Q4H PRN PRN #0 cap 06/12/20 nystatin 500,000 unit PO 4X/DAY #0 ml 06/12/20 ondansetron HCl 8 mg PO Q8H PRN PRN #0 tab 06/12/20 pantoprazole 20 mg PO BID #0 tab 06/12/20 sennosides [Kristi-parveen] 2 tab PO QHS PRN PRN #0 tab 06/12/20 spironolactone 50 mg PO DAILY #0 tab 06/12/20 thiamine HCl (vitamin B1) [Vitamin B-1] 100 mg PO DAILYCM #0 tab 06/12/20 trazodone 100 mg PO QHS PRN PRN #0 tab 06/12/20 Hospital Course Summary of Care Provided Minutes Spent on Discharge: 40 Hospital Course: Presents with debility and expressing desire for hospice. Hospital course was complicated by hallucinations. Patient was stating that her neighbors were in the house and on the second floor which is the Covid unit and obviously they were not in the hospital. Previous to that patient was expressing desire to proceed with hospice but then there was concern about competency. Patient was seen by crisis not felt to be a candidate for inpatient therapy. 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 Discussed treating her cirrhosis with medications to help mitigate her ascites. Patient was in agreement that the patient was started on furosemide and spironolactone and she has tolerated that. Patient does have some abdominal distention but is not hot nor any concern for spontaneous bacterial peritonitis. Regards to patient's delusions and hallucinations, ammonia level is normal so is not felt to be related with hepatic encephalopathy. Concern is patient has underlying psychiatric disorder that is not been fully elucidated and will require further psychiatric evaluation after discharge. So patient will be going to [facility] in stable condition. Physical Exam Const alert Constitutional Narrative: Appears older than stated age Resp normal respiratory effort and clear to auscultation bilaterally Cardio regular rate, regular rhythm, S1 normal heart sound and S2 normal heart sound Neuro Sensorium / Orientation: awake and alert ABG / Lab / Microbiology Data Result Diagrams: 06/11/20 06:55 06/12/20 08:14 Laboratory: Laboratory Results - last 24 hr 06/12/20 08:14 Sodium 134 L Potassium 4.0 Chloride 99 Carbon Dioxide 32.0 Anion Gap 3 L BUN 10 Creatinine 1.05 H Estim Creat Clear Calc 56.99 Est GFR (MDRD) Af Amer 72 Est GFR (MDRD) Non-Af 60 BUN/Creatinine Ratio 9.5 L Glucose 86 Calcium 7.9 L Total Bilirubin 5.30 H AST 63 H ALT 11 L Alkaline Phosphatase 149 H Total Protein 6.3 L Albumin 1.5 L Globulin 4.8 H Albumin/Globulin Ratio 0.3 L Microbiology: Microbiology 06/10/20 16:15 Mucosa - Nose SARS-CoV-2 Antigen (Rapid) - Final D/C Instructions Discharge Diet: Low fat / Low cholesterol Meaningful Use Info Meaningful Use Diagnoses (Choose all that apply): None applicable Discharge Plan Admission Admit Date/Time: 06/05/20 23:51 Attending Provider: Manuel Ch Primary Care Provider: Care Physician,No Primary Instructions Patient Instructions: ED Cirrhosis Additional Instructions / Restrictions: Follow up with gastroenterology in 4-6 weeks. Discharge Orders/Prescriptions Prescriptions: New folic acid 1 mg Tablet 1 mg PO DAILY@0800 Qty: 0 RF: 0 furosemide 40 mg Tablet 40 mg PO DAILY Qty: 0 RF: 0 sennosides [Kristi-parveen] 8.6 mg Tablet 2 tab PO QHS PRN PRN (Reason: Constipation) Qty: 0 RF: 0 nystatin 100,000 unit/mL Suspension 500,000 unit PO 4X/DAY Qty: 0 RF: 0 loperamide 2 mg Capsule 2 mg PO Q4H PRN PRN (Reason: LOOSE STOOLS) Qty: 0 RF: 0 ondansetron HCl 8 mg Tablet 8 mg PO Q8H PRN PRN (Reason: NAUSEA/VOMITING) Qty: 0 RF: 0 pantoprazole 20 mg Tablet,Delayed Release (Dr/Ec) 20 mg PO BID Qty: 0 RF: 0 thiamine HCl (vitamin B1) [Vitamin B-1] 100 mg Tablet 100 mg PO DAILYCM Qty: 0 RF: 0 spironolactone 50 mg Tablet 50 mg PO DAILY Qty: 0 RF: 0 trazodone 100 mg Tablet 100 mg PO QHS PRN PRN (Reason: Insomnia) Qty: 0 RF: 0 No Action potassium chloride 20 MEQ/15 ML liquid 20 meq PO DAILY Qty: 210 RF: 0 Referrals: Care Physician,No Primary [Primary Care Provider] - Within 1 Week Disposition Patient Disposition: Senior Living Facility Inpatient E&M: [id number] Disch Hosp
[2020-06-12 13:39] VITALS: BP 112/63; PULSE 80; RESP 18; TEMP 37.1; O2SAT 96
--- NOTE | 2020-06-12 14:05 | CASEMGMT ---
Social Work Note HOMER Wolff called Esther at [facility] and updated her that patient will leave [facility] at 3:30pm. HOMER faxed discharge paperwork including orders, ambulette forms and HENS to [facility] for continuity of care. HOMER Wolff updated [facility] RN that patient would be discharged at 3:30pm. HOMER went to patient's room and spoke to patient. Advised that ambulettte would be here to pick her up at 3:30 today. Patient voiced no issues or concerns regarding discharge plans. Plan: Discharge to [facility] for Skilled LOC Alissa LEVINE
== END 2020-06-12 15:31 | disposition skilled nursing facility (03) | DRG 896 ==
LOC: ED 23:33 → MS3 06-06 06:18
PROVIDERS: Internal Medicine; Admitting Provider Family Medicine; Emergency Provider Student in an Organized Health Care Education/Training Program
DX: F10.20 Alcohol dependence, uncomplicated (principal); E43 Unspecified severe protein-calorie malnutrition; Z68.1 Body mass index [BMI] 19.9 or less, adult; E87.1 Hypo-osmolality and hyponatremia; F50.2 Bulimia nervosa; R44.3 Hallucinations, unspecified; K86.1 Other chronic pancreatitis; K70.31 Alcoholic cirrhosis of liver with ascites; K70.11 Alcoholic hepatitis with ascites; Y90.9 Presence of alcohol in blood, level not specified; R62.7 Adult failure to thrive; F32.9 Major depressive disorder, single episode, unspecified; F41.9 Anxiety disorder, unspecified; K21.9 Gastro-esophageal reflux disease without esophagitis; D64.9 Anemia, unspecified; D69.6 Thrombocytopenia, unspecified; E87.6 Hypokalemia; Z87.19 Personal history of other diseases of the digestive system; Z66 Do not resuscitate; Z79.899 Other long term (current) drug therapy; F17.200 Nicotine dependence, unspecified, uncomplicated
CPT/HCPCS: 36415; 70450; 71045; 80053; 81001; 82077; 82140; 83690; 83735; 84484; 85025; 85610; 86850; 86900; 86901; 86920; 86922; 87426; 93005; 97162; 97166; 97530; 97535; 99285; 99406; J7040; P9016; A4216; J2405

== ENCOUNTER 2020-06-25 19:17 | Inpatient (IN) | payer MEDICARE, MEDICAID, SELFPAY ==
[2020-06-06 14:10] VITALS: BMI 17.7
[2020-06-25 19:18] VITALS: BP 114/77; PULSE 100; RESP 16; TEMP 36.7; O2SAT 98; BMI 17.2
--- NOTE | 2020-06-25 19:40 | CT_ITS ---
STUDY: CT BRAIN WITHOUT CONTRAST REASON FOR EXAM: Female, 49 years old. Confusion and weakness Fell out of bed-injured shoulder. Hx of alcoholic cirrhosis RADIATION DOSAGE (If Supplied By Facility): CTDIvol = ( 44.99 ) mGy, DLP = ( 745.49 ) mGycm TECHNIQUE: Transaxial CT imaging of the brain was performed without administration of intravenous contrast material. Individualized dose optimization techniques were used for this CT. COMPARISON: Head CT dated JUNE 05, 2020 FINDINGS: No visualized skull fractures or hemorrhagic contusions of the brain parenchyma. Normal soft tissue structures. Normal calvarium. There is mild cerebral atrophy with widening of the extra-axial spaces and ventricular dilatation. Normal white matter tracts of the cerebral hemispheres. Normal basal ganglia and thalami. Normal brainstem. Normal cerebellum. There is no intracranial hemorrhage. There are no findings of an acute ischemic infarction. Normal visualized paranasal sinuses. CT/Brain/Head without Contrast IMPRESSION: Chronic involutional changes of the brain. Electronically Signed: Jhonny Watts MD at 20:36 EDT , Service support ,
--- NOTE | 2020-06-25 19:45 | CM.ED ---
SOCIAL WORK Informant: Dr. Harden Reason for Consult: Discharge planning Patient presents by squad for weakness. EMS report they have been called the last 2 days, patient unable to care for self. Reviewed patient's chart, upon discharge last admission-patient discharged to [facility]. Patient known to this worker from previous admission. Patient had been referred to [facility] and agreed to Hospice, prior to leaving hospital patient declined services. Met with patient in room. Introduced role and reason for referral. Patient crying stating, I should have listened, I'm sorry. I need to go back to [facility]. Emotional support and active listening provided. Call to [facility]. Furniture Upholsterer states unable to contact a nurse at this time. Discussed with Dr. Harden. Anticipate admission for placement. Plan: Admit, patient requesting to return to [facility]. SW to follow up tomorrow. Maria E Sandy, TANK CREWMEMBER, WEATHERCASTER
--- NOTE | 2020-06-25 19:46 | EDS_ITS ---
HPI History of Present Illness Chief Complaint: Weakness Informant: patient Onset/Context/Timing Onset: Yesterday Context: Gradual Onset Timing: Continuous Quality: Weakness Location: Generalized Narrative Narrative: Patient presents with generalized weakness that became worse yesterday. Patient was recently admitted to the hospital then transferred to [facility]. Patient was supposed to go into hospice at that time. Patient left [facility] AGAINST MEDICAL ADVICE. Patient states she now lives at home. Patient states she fell out of bed yesterday. Patient states she feels weak all over. Patient states she does not feel like she can take care of herself anymore. Patient has a history of ascites and alcoholic cirrhosis. PFSH PFSH Home Medications potassium chloride 20 meq PO DAILY #210 udc 05/27/20 [Rx Last Taken 06/03/20] folic acid 1 mg PO DAILY@0800 #0 tab 06/12/20 [Rx Last Taken Unknown] furosemide 40 mg PO DAILY #0 tab 06/12/20 [Rx Last Taken Unknown] loperamide 2 mg PO Q4H PRN PRN #0 cap 06/12/20 [Rx Last Taken Unknown] nystatin 500,000 unit PO 4X/DAY #0 ml 06/12/20 [Rx Last Taken Unknown] ondansetron HCl 8 mg PO Q8H PRN PRN #0 tab 06/12/20 [Rx Last Taken Unknown] pantoprazole 20 mg PO BID #0 tab 06/12/20 [Rx Last Taken Unknown] sennosides [Kristi-parveen] 2 tab PO QHS PRN PRN #0 tab 06/12/20 [Rx Last Taken Unknown] spironolactone 50 mg PO DAILY #0 tab 06/12/20 [Rx Last Taken Unknown] thiamine HCl (vitamin B1) [Vitamin B-1] 100 mg PO DAILYCM #0 tab 06/12/20 [Rx Last Taken Unknown] trazodone 100 mg PO QHS PRN PRN #0 tab 06/12/20 [Rx Last Taken Unknown] Allergy/AdvReac Type Severity Reaction Status Date / Time No Known Allergies Allergy Verified 06/05/20 21:18 Social History (System 09/28/18 @ 14:33 by Stephanie Bell) Smoking Status: Never smoker ROS ROS ED Constitutional Constitutional ED: Denies chills or fever(s) Eyes Eyes: Denies blurry vision or change in vision ENT ENT ED: Denies rhinorrhea or sore throat Cardiovascular Cardiovascular: Reports chest pain; Denies palpitations Respiratory/Chest Respiratory/Chest: Reports cough and dyspnea Gastrointestinal Gastrointestinal: Reports abdominal pain, nausea and vomiting Genitourinary Genitourinary ED: Reports hematuria; Denies dysuria Musculoskeletal Musculoskeletal: Denies back pain or neck pain Integumentary Reports rash; Denies abscess Neurologic Neurologic: Reports weakness; Denies paresthesias Allergic/Immunologic Allergic/Immunologic ED: Denies mouth swelling or urticaria EXAM Physical Exam Const Vital Signs: 06/25/20 19:18 06/25/20 19:34 06/25/20 22:18 Temperature 98.1 F Temperature Source Temporal Pulse Rate 100 Respiratory Rate 16 19 H Respiratory Effort Normal Non-Labored Respiratory Depth Normal Respiratory Pattern Normal Blood Pressure 114/77 99/85 H Blood Pressure Mean 89 89 Pulse Ox 98 99 Oxygen Delivery Method Room Air Room Air Room Air Positive well nourished and well developed General Appearance ED: well developed Neck supple and no JVD Resp normal respiratory effort and clear to auscultation bilaterally Cardio regular rhythm Rate: tachycardic GI Palpation: soft and tender epigastric, LLQ, RLQ, LUQ and RUQ; Negative for guarding or rebound tenderness present Neuro CN's II-XII intact bilaterally and no sensory deficits noted Sensorium / Orientation: alert Motor Exam: strength 5/5 throughout MDM MDM MDM Narrative Medical decision making narrative: Comprehensive metabolic profile showed hypokalemia of 2.9. Total bilirubin was elevated at 7.0. AST was elevated at 179. ALT was normal at 34. Alk phos was slightly elevated at 146. Lactate was elevated at 5.2. Ammonia was elevated at 68. Serum alcohol level was also elevated at 324. Patient was given a dose of oral potassium here. Patient was also given a dose of IV potassium. Patient was given a dose of Ativan for her anxiety. Patient was also given a dose of lactulose. CT scan of the brain was obtained. There is no acute intracranial abnormality. This was interpreted by the radiologist and reviewed by myself. Portable 1 view chest x-ray was obtained. On my interpretation, lung sinha are clear. There is normal cardiac silhouette. Bony thorax is normal. There is no acute process noted. Radiologist also interpreted the x-ray and agrees. CBC shows a mild anemia with a hemoglobin of 8.9. This is stable compared to previous results. Platelets were slightly low at 117. These are improved from previous results. Case was discussed with the hospitalist. He will admit the patient to his service. Patient and family understood and were agreeable with the plan. All questions were answered. Lab Data Attestation: I reviewed the patient's lab results. Labs: Laboratory Results - last 24 hr 06/25/20 06/25/20 06/25/20 21:20 21:20 21:20 PT 23.2 H INR 2.2 APTT 46.8 H Sodium 141 Potassium 2.9 L Chloride 104 Carbon Dioxide 26.0 Anion Gap 11 BUN 3 L Creatinine 0.68 Estim Creat Clear Calc 85.09 Est GFR (MDRD) Af Amer 120 Est GFR (MDRD) Non-Af 99 BUN/Creatinine Ratio 4.4 L Glucose 79 Lactic Acid Calcium 8.1 L Total Bilirubin 7.00 H AST 179 H ALT 34 Alkaline Phosphatase 146 H Ammonia Total Protein 7.8 Albumin 2.0 L Globulin 5.8 H Albumin/Globulin Ratio 0.3 L Ethyl Alcohol 324.0 H* 06/25/20 06/25/20 21:20 21:20 PT INR APTT Sodium Potassium Chloride Carbon Dioxide Anion Gap BUN Creatinine Estim Creat Clear Calc Est GFR (MDRD) Af Amer Est GFR (MDRD) Non-Af BUN/Creatinine Ratio Glucose Lactic Acid 5.2 H* Calcium Total Bilirubin AST ALT Alkaline Phosphatase Ammonia 68.0 H Total Protein Albumin Globulin Albumin/Globulin Ratio Ethyl Alcohol Radiography Chest X-Ray - ED: 1 View, Read by ED Physician, Read by Radiologist and Normal Diagnostic Testing: Radiology Impression Brain CT 06/25/20 19:40 IMPRESSION: Chronic involutional changes of the brain. Electronically Signed: Jhonny Watts MD at 20:36 EDT , Service support , Chest X-Ray 06/25/20 20:00 IMPRESSION: Normal x-ray examination of the chest. Electronically Signed: Jhonny Watts MD at 20:47 EDT , Service support , Treatment and Re-Evaluation Vital Sign Attestation:: Vital signs were reviewed prior to patient being admitted. Blood pressure is 99/85. Patient is getting IV fluids. Discharge Plan Dx/Rx/DC Orders Clinical Impression: Encephalopathy, hepatic, Alcoholism, Generalized weakness, Ascites due to alcoholic cirrhosis, Acidosis, lactic, Acute hypokalemia Disposition Disposition: Acute Care Hospital [facility]
--- NOTE | 2020-06-25 20:00 | RAD_ITS ---
STUDY: X-RAY CHEST REASON FOR EXAM: Female, 49 years old. Chest pain FELL OUT OF BED LAST NIGHT AND HURT RIGHT SHOULDER. INCREASED WEAKNESS. ALCOHOLISM. TECHNIQUE: 2 AP portable view of the chest. COMPARISON: JUNE 05, 2020 FINDINGS: The lungs are clear and expanded. There is no demonstrated pleural abnormality. Normal size heart. Normal mediastinum and dillon. Normal visualized pulmonary arteries. Normal visualized aortic arch and descending thoracic aorta. Normal visualized thoracic spine. Normal visualized ribs, clavicles, and shoulders. There is no demonstrated abnormality of the visualized soft tissue structures of the upper abdomen. RAD/Chest 1 View (Portable) IMPRESSION: Normal x-ray examination of the chest. Electronically Signed: Jhonny Watts MD at 20:47 EDT , Service support ,
[2020-06-25 21:34] LABS: Red Blood Count 2.92 M/mm3 (4.2-5.4); White Blood Count 7.6 K/mm3 (4.4-11.0)
[2020-06-25 21:35] LABS: Absolute Lymphocyte Count 2.44 X10^3/uL (0.83-4.51); Absolute Neutrophil Count 4.3 X10^3/uL (2.0-7.7); Basophil# 0.11 X10^3/uL; Basophil% 1.4 % (0-1); Differential Indicated SCAN CRITERIA MET; Eosinophil# 0.34 X10^3/uL; Eosinophils% 4.5 % (0-5); Hematocrit 27.5 % (37-47); Hemoglobin 8.9 g/dL (12.0-15.0); Lymphocyte # 2.44 X10^3/ul (0.83-4.51); Mean Corp Hgb Conc 32.4 g/dL (32-36); Mean Corpuscular Hgb 30.5 pg (27.0-32.0); Mean Corpuscular Volume 94.2 fL (81-99); Mean Platelet Vol. 10.3 fl (6.2-12.0); Monocyte# 0.46 X10^3/uL; Neutrophil # 4.25 X10^3/uL (2.7-7.7); Neutrophil % 55.7 % (47-70); Platelet Count 117 K/mm3 (150-450); RBC Distribution Width CV 21.7 % (11.6-14.6); RBC Distribution Width SD 75.4 fl (35.1-43.9)
[2020-06-25 21:44] LABS: International Normalized Ratio 2.2; Partial Thromboplast Time 46.8 Seconds (24.1-36.2); Prothrombin Time (Protime)PT. 23.2 SECONDS (11.7-14.9)
[2020-06-25 21:51] LABS: ALB/GLOB Ratio 0.3 RATIO (0.9-2.4); AST(SGOT) 179 U/L (15-37); Alanine Aminotransfer ALT/SGPT 34 U/L (13-56); Alkaline Phosphatase 146 U/L (45-117); BUN 3 mg/dL (7-18); BUN/Creat Ratio 4.4 RATIO (10-20); Calcium,Total 8.1 mg/dL (8.5-10.1); Chloride 104 mmol/L (98-107); Creatinine, Serum 0.68 mg/dL (0.55-1.02); EST Glomerular Filtration Rate 99 mL/min (>60); Est Glom Filt Rate - Afr Amer 120 mL/min (>60); Estimated Creatinine Clearance 85.09 ml/min; Globulin 5.8 g/dL (2.2-4.2); Glucose 79 mg/dL (74-106); Potassium 2.9 mmol/L (3.5-5.1); Protein, Total 7.8 g/dL (6.4-8.2); Sodium Level 141 mmol/L (136-145)
[2020-06-25 21:52] LABS: Anion Gap 11 (5-15)
[2020-06-25 22:18] VITALS: BP 99/85; RESP 19; O2SAT 99
[2020-06-25 22:47] LABS: Anisocytosis 3+; Differential Comment SCANNED
[2020-06-25 22:48] LABS: Acanthocytes 1+; Crenated RBC 1+; Platelet Estimate MOD DEC (ADEQ); Schistocytes RARE; Target Cells RARE
[2020-06-25 23:21] VITALS: BP 101/79; PULSE 89; RESP 16; TEMP 36.6; O2SAT 99
[2020-06-25 23:35] LABS: Color, Urine Amber (Yellow); Glucose, Dipstick Normal (Normal); Ketone-Dipstick 5 mg/dl (Negative); Nitrite-Dipstick Positive (Negative); Protein-Dipstick 30 mg/dl (Negative); Specific Gravity, Urine 1.015 (1.002-1.030); Urine Bilirubin Dipstick 6 mg/dL (Negative); Urine Clarity Sl Cloudy (Clear); Urine Urobilinogen 12 mg/dl (Normal)
[2020-06-25 23:36] LABS: Bacteria RARE /hpf (None Seen); Leukocyte Esterase-Dipstick 25 /ul (Negative); Mucous, Urine 1+ /hpf (<or=2+); Occult Blood-Urine 10 /ul (Negative); Red Blood Cells-Urine 0 SEEN /hpf (0-5); Squamous Epithelial Cells - UA 0-5 SEEN /hpf (5-10); White Blood Cells 0-5 SEEN /hpf (0-5)
--- NOTE | 2020-06-25 23:40 | PCM.HP.STD ---
Documented by User: DOLORES Hylton 06/26/20 00:01 HPI - General General Date of Admission: 06/25/20 HPI Narrative KATHRIN CONDE, is a 49 F who presents weakness. Patient reports that she was recently discharged from this hospital to [facility] with a hospice referral but patient signed out of [facility] AMA. Patient reports that she has been increasingly weak at home and is now unable to take care of herself. patient also reports that she fell at home and it took a considerable amount of time to get up and call for help. Patient medical history includes alcoholic cirrhosis with ascites. Upon review of labs patient is noted to be hypokalemic which could be a result of her alcoholism and also the use of diuretics. Alcohol level 324 upon arrival. [facility] Home Medications potassium chloride 20 meq PO DAILY #210 udc 05/27/20 [Rx Last Taken 06/03/20] folic acid 1 mg PO DAILY@0800 #0 tab 06/12/20 [Rx Last Taken Unknown] furosemide 40 mg PO DAILY #0 tab 06/12/20 [Rx Last Taken Unknown] loperamide 2 mg PO Q4H PRN PRN #0 cap 06/12/20 [Rx Last Taken Unknown] nystatin 500,000 unit PO 4X/DAY #0 ml 06/12/20 [Rx Last Taken Unknown] ondansetron HCl 8 mg PO Q8H PRN PRN #0 tab 06/12/20 [Rx Last Taken Unknown] pantoprazole 20 mg PO BID #0 tab 06/12/20 [Rx Last Taken Unknown] sennosides [Kristi-parveen] 2 tab PO QHS PRN PRN #0 tab 06/12/20 [Rx Last Taken Unknown] spironolactone 50 mg PO DAILY #0 tab 06/12/20 [Rx Last Taken Unknown] thiamine HCl (vitamin B1) [Vitamin B-1] 100 mg PO DAILYCM #0 tab 06/12/20 [Rx Last Taken Unknown] trazodone 100 mg PO QHS PRN PRN #0 tab 06/12/20 [Rx Last Taken Unknown] Allergy/AdvReac Type Severity Reaction Status Date / Time No Known Allergies Allergy Verified 06/05/20 21:18 Social History (Updated 06/25/20 @ 23:43 by TAINA HyltonC) Smoking Status: Never smoker alcohol intake: current alcohol intake frequency: 3 or more drinks per day ROS Review of Systems ROS Unobtainable: other Details: Limited due to patient intoxicated during exam Constitutional Constitutional: Reports weakness Musculoskeletal Musculoskeletal: Reports joint pain, joint stiffness and joint swelling Vital Signs Vital Signs Vital Signs: 06/25/20 19:18 06/25/20 19:34 06/25/20 22:18 Temperature 98.1 F Temperature Source Temporal Pulse Rate 100 Respiratory Rate 16 19 H Respiratory Effort Normal Non-Labored Respiratory Depth Normal Respiratory Pattern Normal Blood Pressure 114/77 99/85 H Blood Pressure Mean 89 89 Pulse Ox 98 99 Oxygen Delivery Method Room Air Room Air Room Air 06/25/20 23:21 Temperature 98 F Temperature Source Temporal Pulse Rate 89 Respiratory Rate 16 Respiratory Effort Respiratory Depth Respiratory Pattern Blood Pressure 101/79 Blood Pressure Mean 86 Pulse Ox 99 Oxygen Delivery Method Room Air Physical Exam Const alert Constitutional Narrative: Patient intoxicated at time of exam General Appearance: cooperative and odor of alcohol detected Orientation / Consciousness: oriented to person and oriented to place HEENT normocephalic and head/scalp atraumatic Eyes PERRL Neck supple, no JVD and thyroid normal General: trachea midline Lymph Lymphatic: no lymphadenopathy noted Resp normal respiratory effort, normal air movement and clear to auscultation bilaterally Cardio regular rate, regular rhythm, S1 normal heart sound and S2 normal heart sound GI soft to palpation and non-tender GI Narrative: Chronic alcoholic cirrhosis with ascites Inspection: abdominal distention Extremity normal capillary refill and no clubbing, cyanosis or edema General Extremity: no tenderness to palpation of joints or extremities Skin Skin Narrative: Ecchymosis noted to right shoulder General Skin Exam: no breakdown, turgor normal and ecchymosis Lesions: no lesions Rashes: no rashes Trauma: no lacerations or abrasions Neuro CN's II-XII intact bilaterally Psych Appearance: disheveled Attitude: paranoid Speech: slurred Judgement: questionable Lab / Micro Data Result Diagrams: 06/25/20 21:20 06/25/20 21:20 Labs: Laboratory Results - last 24 hr 06/25/20 06/25/20 06/25/20 21:20 21:20 21:20 WBC 7.6 RBC 2.92 L Hgb 8.9 L Hct 27.5 L MCV 94.2 MCH 30.5 MCHC 32.4 RDW Std Deviation 75.4 H RDW Coeff of Bhakti 21.7 H Plt Count 117 L MPV 10.3 Immature Gran % (Auto) 0.400 Neut % (Auto) 55.7 Lymph % (Auto) 32.0 Davison % (Auto) 6.0 Eos % (Auto) 4.5 Baso % (Auto) 1.4 H Absolute Neuts (auto) 4.3 Absolute Lymphs (auto) 2.44 Differential Comment SCANNED Platelet Estimate MOD DEC Anisocytosis 3+ Target Cells RARE Crenated Cell 1+ Acanthocytes (Spur) 1+ Schistocytes RARE PT 23.2 H INR 2.2 APTT 46.8 H Sodium 141 Potassium 2.9 L Chloride 104 Carbon Dioxide 26.0 Anion Gap 11 BUN 3 L Creatinine 0.68 Estim Creat Clear Calc 85.09 Est GFR (MDRD) Af Amer 120 Est GFR (MDRD) Non-Af 99 BUN/Creatinine Ratio 4.4 L Glucose 79 Lactic Acid Calcium 8.1 L Total Bilirubin 7.00 H AST 179 H ALT 34 Alkaline Phosphatase 146 H Ammonia Total Protein 7.8 Albumin 2.0 L Globulin 5.8 H Albumin/Globulin Ratio 0.3 L Urine Color Urine Clarity Urine pH Ur Specific Montgomery Urine Protein Urine Glucose (UA) Urine Ketones Urine Occult Blood Urine Nitrite Urine Bilirubin Urine Urobilinogen Ur Leukocyte Esterase Urine RBC Urine WBC Ur Squamous Epith Cells Urine Bacteria Urine Mucus Ethyl Alcohol 06/25/20 06/25/20 06/25/20 21:20 21:20 21:20 WBC RBC Hgb Hct MCV MCH MCHC RDW Std Deviation RDW Coeff of Bhakti Plt Count MPV Immature Gran % (Auto) Neut % (Auto) Lymph % (Auto) Davison % (Auto) Eos % (Auto) Baso % (Auto) Absolute Neuts (auto) Absolute Lymphs (auto) Differential Comment Platelet Estimate Anisocytosis Target Cells Crenated Cell Acanthocytes (Spur) Schistocytes PT INR APTT Sodium Potassium Chloride Carbon Dioxide Anion Gap BUN Creatinine Estim Creat Clear Calc Est GFR (MDRD) Af Amer Est GFR (MDRD) Non-Af BUN/Creatinine Ratio Glucose Lactic Acid 5.2 H* Calcium Total Bilirubin AST ALT Alkaline Phosphatase Ammonia 68.0 H Total Protein Albumin Globulin Albumin/Globulin Ratio Urine Color Urine Clarity Urine pH Ur Specific Montgomery Urine Protein Urine Glucose (UA) Urine Ketones Urine Occult Blood Urine Nitrite Urine Bilirubin Urine Urobilinogen Ur Leukocyte Esterase Urine RBC Urine WBC Ur Squamous Epith Cells Urine Bacteria Urine Mucus Ethyl Alcohol 324.0 H* 06/25/20 23:10 WBC RBC Hgb Hct MCV MCH MCHC RDW Std Deviation RDW Coeff of Bhakti Plt Count MPV Immature Gran % (Auto) Neut % (Auto) Lymph % (Auto) Davison % (Auto) Eos % (Auto) Baso % (Auto) Absolute Neuts (auto) Absolute Lymphs (auto) Differential Comment Platelet Estimate Anisocytosis Target Cells Crenated Cell Acanthocytes (Spur) Schistocytes PT INR APTT Sodium Potassium Chloride Carbon Dioxide Anion Gap BUN Creatinine Estim Creat Clear Calc Est GFR (MDRD) Af Amer Est GFR (MDRD) Non-Af BUN/Creatinine Ratio Glucose Lactic Acid Calcium Total Bilirubin AST ALT Alkaline Phosphatase Ammonia Total Protein Albumin Globulin Albumin/Globulin Ratio Urine Color Mel Urine Clarity Sl Cloudy Urine pH 7.0 Ur Specific Montgomery 1.015 Urine Protein 30 H Urine Glucose (UA) Normal Urine Ketones 5 H Urine Occult Blood 10 H Urine Nitrite Positive H Urine Bilirubin 6 H Urine Urobilinogen 12 H Ur Leukocyte Esterase 25 H Urine RBC 0 SEEN Urine WBC 0-5 SEEN Ur Squamous Epith Cells 0-5 SEEN Urine Bacteria RARE Urine Mucus 1+ Ethyl Alcohol Radiology Impression Brain CT 06/25/20 19:40 IMPRESSION: Chronic involutional changes of the brain. Electronically Signed: Jhonny Watts MD at 20:36 EDT , Service support , Chest X-Ray 06/25/20 20:00 IMPRESSION: Normal x-ray examination of the chest. Electronically Signed: Jhonny Watts MD at 20:47 EDT , Service support , Assessment & Plan Assessment/Plan (1) Acute hypokalemia: (2) Acidosis, lactic: (3) Generalized weakness: (4) Alcoholic cirrhosis: QUALIFIERS: Ascites presence: unspecified Qualified Code(s): K70.30 - Alcoholic cirrhosis of liver without ascites (5) Anxiety and depression: PLAN: 1. Acute hypokalemia -Admit to MedSurg with telemetry -IV and p.o. potassium replacement ordered -Recheck BMP in a.m., magnesium and phosphorus level ordered -Intake and output routine -Vital signs per protocol -Will hold diuretics overnight 2. Lactic acidosis -Likely due to cirrhosis of the liver -Will repeat level per protocol 3. Generalized weakness -PT and OT to eval and treat 4. Alcoholic cirrhosis -Patient currently intoxicated, CIWA's with Ativan taper ordered -Lactulose ordered twice daily due to elevated ammonia 5. Anxiety and depression -Will hold trazodone due to patient's current intoxication DVT prophylaxis-not indicated, observation status This patient was seen by Rosa Maria Ojeda NP-C under the supervision of Dr. Armas Documented by User: Dr. Felipe Armas MD 06/26/20 00:20 HPI - General General Date of Admission: 06/25/20 [facility] Home Medications potassium chloride 20 meq PO DAILY #210 udc 05/27/20 [Rx Last Taken 06/03/20] folic acid 1 mg PO DAILY@0800 #0 tab 06/12/20 [Rx Last Taken Unknown] furosemide 40 mg PO DAILY #0 tab 06/12/20 [Rx Last Taken Unknown] loperamide 2 mg PO Q4H PRN PRN #0 cap 06/12/20 [Rx Last Taken Unknown] nystatin 500,000 unit PO 4X/DAY #0 ml 06/12/20 [Rx Last Taken Unknown] ondansetron HCl 8 mg PO Q8H PRN PRN #0 tab 06/12/20 [Rx Last Taken Unknown] pantoprazole 20 mg PO BID #0 tab 06/12/20 [Rx Last Taken Unknown] sennosides [Kristi-parveen] 2 tab PO QHS PRN PRN #0 tab 06/12/20 [Rx Last Taken Unknown] spironolactone 50 mg PO DAILY #0 tab 06/12/20 [Rx Last Taken Unknown] thiamine HCl (vitamin B1) [Vitamin B-1] 100 mg PO DAILYCM #0 tab 06/12/20 [Rx Last Taken Unknown] trazodone 100 mg PO QHS PRN PRN #0 tab 06/12/20 [Rx Last Taken Unknown] Allergy/AdvReac Type Severity Reaction Status Date / Time No Known Allergies Allergy Verified 06/05/20 21:18 Social History (Updated 06/25/20 @ 23:43 by Rosa Maria Ojeda NP-C) Smoking Status: Never smoker alcohol intake: current alcohol intake frequency: 3 or more drinks per day Lab / Micro Data Result Diagrams: 06/25/20 21:20 06/25/20 21:20 Addendum Addendum: Patient is a 49-year-old female with significant history of liver cirrhosis who presented with persistent weakness. On the day of her presentation patient fell and could not get up secondary to weakness. Also the day before presentation patient fell and sustained a bruise on her right shoulder. Of note patient was admitted on 06/05/2020 and [facility] She was supposed to be on hospice. However she left the prison AGAINST MEDICAL ADVICE and went home. She endorses that she is unable to care for self. Alert and oriented x3 Nontraumatic; normocephalic; scleral icterus; red beefy tongue with ulcers Lung clear to auscultate Heart sounds S1-S2. No murmur, gallop or rubs. Abdomen bowel sounds present soft, nontender nondistended Extremity without edema cyanosis or clubbing. Debility PT and OT to work with patient Case management consult for disposition Hyperammonemia Received lactulose at the emergency department and continued. Trend ammonia level Acute hypokalemia Received p.o. and IV potassium at emergency department Trend BMP Lactic acidosis Likely secondary to alcoholism and poor clearance. Trend. Alcoholism Will put on CIWA protocol; Thiamine; and folic acid ordered. Cirrhosis Continue Lasix and Aldactone and supplement potassium. DVT prophylaxis Subcutaneous level Visit Charges OBSV E&M: [id number] Initial observation care L2
[2020-06-25] MEDS: Lactulose 20 GM/30 ML UDC PO (23:49)
[2020-06-25] MEDS: Potassium Chloride 10mEq/100mL 10 MEQ/100 ML IV.SOLN. 100 MEQ IV BOLUS (23:49)
[2020-06-25 23:54] LABS: Lactic Acid 5.2 mmol/L (0.4-1.9); Magnesium 1.7 mg/dL (1.6-2.6)
[2020-06-26] VITALS (11 sets, daily range): BP systolic 84–110; BP diastolic 53–73; PULSE 91–122; RESP 16–24; TEMP 36.8–37.6; O2SAT 96–100; BMI 16.9
--- NOTE | 2020-06-26 01:07 | NURSING ---
Patient is refusing kriders. Says it telles and she already had potassium. Re-educated but still refusing.
[2020-06-26 01:25] LABS: Reflex Lactate? Y
[2020-06-26 02:33] LABS: Absolute Lymphocyte Count 1.75 X10^3/uL (0.83-4.51); Absolute Neutrophil Count 4.9 X10^3/uL (2.0-7.7); Basophil% 1.3 % (0-1); Hematocrit 25.7 % (37-47); Hemoglobin 8.3 g/dL (12.0-15.0); Lymphocyte # 1.75 X10^3/ul (0.83-4.51); Lymphocyte % 23.4 % (19-41); Mean Corp Hgb Conc 32.3 g/dL (32-36); Mean Corpuscular Hgb 31.1 pg (27.0-32.0); Mean Corpuscular Volume 96.3 fL (81-99); Mean Platelet Vol. 10.6 fl (6.2-12.0); Monocyte# 0.44 X10^3/uL; Monocyte% 5.9 % (0-10); NRBC Flagged by Analyzer 0 % (0-5); Neutrophil # 4.88 X10^3/uL (2.7-7.7); Neutrophil % 65.1 % (47-70); POSITIVE MORPHOLOGY YES; Platelet Count 126 K/mm3 (150-450); RBC Distribution Width SD 77.3 fl (35.1-43.9); Red Blood Count 2.67 M/mm3 (4.2-5.4); White Blood Count 7.5 K/mm3 (4.4-11.0)
[2020-06-26 02:36] LABS: Differential Indicated SCAN CRITERIA MET
[2020-06-26 02:47] LABS: Anion Gap 7 (5-15); BUN 4 mg/dL (7-18); BUN/Creat Ratio 6.1 RATIO (10-20); Calcium,Total 7.7 mg/dL (8.5-10.1); Chloride 107 mmol/L (98-107); Creatinine, Serum 0.66 mg/dL (0.55-1.02); EST Glomerular Filtration Rate 102 mL/min (>60); Est Glom Filt Rate - Afr Amer 124 mL/min (>60); Estimated Creatinine Clearance 86.44 ml/min; Glucose 117 mg/dL (74-106); Phosphorus 2.6 mg/dL (2.5-4.9); Potassium 3.1 mmol/L (3.5-5.1); Sodium Level 140 mmol/L (136-145)
[2020-06-26 02:51] LABS: Lactic Acid 4.3 mmol/L (0.4-1.9)
--- NOTE | 2020-06-26 03:10 | NURSING ---
Patient continues to refuse treatment, will not take oral potassium. Will offer again a little later.
[2020-06-26] MEDS: Potassium Chloride Oral Soln 20 MEQ/15 ML UDC 40 MEQ PO ×2 (06:49→08:05)
[2020-06-26] MEDS: LORazepam 1 MG Tablet 2 MG PO (07:40)
--- NOTE | 2020-06-26 07:51 | NURSING ---
PT STATING SHE IS LEAVING. I'M TIRED OFF ALL THE BULLST & NAME CALLING. UNABLE TO CALM PT @ THIS TIME. DR STEWART NOTIFIED. PT GIVEN ATIVAN PO PER PRN ORDERS.
[2020-06-26] MEDS: Furosemide 40 MG Tablet PO (08:01)
[2020-06-26] MEDS: Spironolactone 50 MG Tablet PO (08:01)
[2020-06-26] MEDS: Folic Acid 1 MG Tablet PO (08:01)
[2020-06-26] MEDS: Thiamine Hydrochloride 100 MG Tablet PO (08:01)
[2020-06-26] MEDS: Lactulose 20 GM/30 ML UDC 10 GM PO ×2 (08:05→20:07)
[2020-06-26] MEDS: NYSTATIN 500,000 UNIT/5 ML UDC 500000 UNIT PO ×3 (08:05→20:08)
[2020-06-26] MEDS: Pantoprazole Sodium 20 MG Tablet PO ×2 (08:09→20:08)
--- NOTE | 2020-06-26 10:43 | CM.ED ---
HOMER Follow Up Reason for Referral : Possible SNF placement Referral Source: ED aids social worker HOMER receive message that patient, Emily Merlos, was in the ED last night and was crying . She reports that she wants to return to [facility]. HOMER received voice mail from Aura at [facility] stating she was returning call and to speak to Esther if it is an admission issue and Aura if it is an clinical need. HOMER received call from Esther at [facility]. Esther said that patient was at the facility from 06/12 through 06/18. Esther said id you know that she has a casemanager from [facility] . Then Esther said well she might not be a casemanager but a peer support. Esther said that this morning the peer support, Stephanie Walton ([phone]) called her and stated patient wants hospice consult. Esther said that patient left [facility] AMA. Esther said that the reason patient left AMA was her neighbors and concerns about her neighbors and Stephanie brought a paper in to show patient that stated neighbors were evicted and that night patient left AMA. Esther said that she feels patient need guardian. Esther said that she doesn't know if they would take patient back. HOMER will updated assigned aids social worker. HOMER left voice mail message for HOMER Narvaez updating her regarding patient and conversation this feature writer had with Esther from [facility]. No further ED social work specialist needed at this time. Alissa LEVINE
--- NOTE | 2020-06-26 12:28 | CASEMGMT ---
Addendum entered by Kenyatta Abbott 06/26/20 14:27: Social Work Return call from [facility] and they are able to accept pt. Pt likely ready for discharge tomorrow. SW met with pt and updated and pt is agreeable to discharge plan. SW will continue to follow. ASHVIN Bustillo Original Note: Social Work SW received referral for discharge planning. SW entered pt room and pt sitting up in bed eating lunch. Pt know to this worker from previous visit, pt agreeable to speak with SW. SW reviewed with pt recent hospitalization and placement and pt confirms the following as correct. Pt was at [facility] at the end of May. At that time pt had requested hospice services. Hospice was consulted, pt was seen and pt signed papers with hospice. Prior to discharge from [facility] pt changed her mind and decided against hospice therefore hospice services were cancelled. Pt was discharged to [facility]. Pt was at [facility] from 06/12-06/18 and then pt left AMA and returned to her apartment. Pt now stating that she has had difficulty caring for herself ever since she returned home. SW inquired with pt what she would like SW to do. Pt states, I want you to help me survive. When asked, pt confirms she cannot return home alone and does need SNF. SW provided a list of SNF providers including quality and resource use data and consistent with the patient's preferred geographic region, medical need and insurance network. Pt stating she is too tired to choose and requested SW make a decision. SW informed pt that SW will assist but pt must make own decision. List reviewed with pt and discussed star ratings and location of each facility. Pt stating she does not want to stay in [place] or [place]. Pt preferred facility is [facility]. SW inquired with pt regarding hospice. Pt again asking SW what she should do. SW encouraged pt to speak to her doctor regarding this decision. SW made referral to [facility] SNF. Beds are available. Will await determination if they can accept pt. ASHVIN Bustillo
--- NOTE | 2020-06-26 13:40 | PCM.PN.HOSP ---
Subjective Subjective Earlier wanted to leave [place], but was confused. Objective Data Objective Data Vital Signs: Vital Signs Temp Pulse Resp BP Pulse Ox 37.5 C H 93 18 110/73 100 06/26/20 07:52 06/26/20 10:00 06/26/20 07:52 06/26/20 07:52 06/26/20 07:52 Oxygen Delivery Method Room Air Weight: 52.758 kg Body Mass Index (BMI) 16.9 Intake & Output: Intake and Output for Last 24 Hours 06/24/20 06/25/20 06/26/20 23:59 23:59 23:59 Intake Total 100 / 100 Balance 100 / 100 Lab / Micro Data Result Diagrams: 06/26/20 02:10 06/26/20 02:10 Labs: Laboratory Results - last 24 hr 06/25/20 06/25/20 06/25/20 21:20 21:20 21:20 WBC 7.6 RBC 2.92 L Hgb 8.9 L Hct 27.5 L MCV 94.2 MCH 30.5 MCHC 32.4 RDW Std Deviation 75.4 H RDW Coeff of Bhakti 21.7 H Plt Count 117 L MPV 10.3 Immature Gran % (Auto) 0.400 Neut % (Auto) 55.7 Lymph % (Auto) 32.0 [place] % (Auto) 6.0 Eos % (Auto) 4.5 Baso % (Auto) 1.4 H Absolute Neuts (auto) 4.3 Absolute Lymphs (auto) 2.44 Nucleated RBC % Differential Comment SCANNED Platelet Estimate MOD DEC Anisocytosis 3+ Target Cells RARE Crenated Cell 1+ Acanthocytes (Spur) 1+ Schistocytes RARE PT 23.2 H INR 2.2 APTT 46.8 H Sodium 141 Potassium 2.9 L Chloride 104 Carbon Dioxide 26.0 Anion Gap 11 BUN 3 L Creatinine 0.68 Estim Creat Clear Calc 85.09 Est GFR (MDRD) Af Amer 120 Est GFR (MDRD) Non-Af 99 BUN/Creatinine Ratio 4.4 L Glucose 79 Lactic Acid Calcium 8.1 L Phosphorus Magnesium Total Bilirubin 7.00 H AST 179 H ALT 34 Alkaline Phosphatase 146 H Ammonia Total Protein 7.8 Albumin 2.0 L Globulin 5.8 H Albumin/Globulin Ratio 0.3 L Urine Color Urine Clarity Urine pH Ur Specific [place] Urine Protein Urine Glucose (UA) Urine Ketones Urine Occult Blood Urine Nitrite Urine Bilirubin Urine Urobilinogen Ur Leukocyte Esterase Urine RBC Urine WBC Ur Squamous Epith Cells Urine Bacteria Urine Mucus Ethyl Alcohol 06/25/20 06/25/20 06/25/20 21:20 21:20 21:20 WBC RBC Hgb Hct MCV MCH MCHC RDW Std Deviation RDW Coeff of Bhakti Plt Count MPV Immature Gran % (Auto) Neut % (Auto) Lymph % (Auto) [place] % (Auto) Eos % (Auto) Baso % (Auto) Absolute Neuts (auto) Absolute Lymphs (auto) Nucleated RBC % Differential Comment Platelet Estimate Anisocytosis Target Cells Crenated Cell Acanthocytes (Spur) Schistocytes PT INR APTT Sodium Potassium Chloride Carbon Dioxide Anion Gap BUN Creatinine Estim Creat Clear Calc Est GFR (MDRD) Af Amer Est GFR (MDRD) Non-Af BUN/Creatinine Ratio Glucose Lactic Acid 5.2 H* Calcium Phosphorus Magnesium Total Bilirubin AST ALT Alkaline Phosphatase Ammonia 68.0 H Total Protein Albumin Globulin Albumin/Globulin Ratio Urine Color Urine Clarity Urine pH Ur Specific [place] Urine Protein Urine Glucose (UA) Urine Ketones Urine Occult Blood Urine Nitrite Urine Bilirubin Urine Urobilinogen Ur Leukocyte Esterase Urine RBC Urine WBC Ur Squamous Epith Cells Urine Bacteria Urine Mucus Ethyl Alcohol 324.0 H* 06/25/20 06/25/20 06/26/20 21:20 23:10 02:10 WBC 7.5 RBC 2.67 L Hgb 8.3 L Hct 25.7 L MCV 96.3 MCH 31.1 MCHC 32.3 RDW Std Deviation 77.3 H RDW Coeff of Bhakti 22.0 H Plt Count 126 L MPV 10.6 Immature Gran % (Auto) 0.300 Neut % (Auto) 65.1 Lymph % (Auto) 23.4 [place] % (Auto) 5.9 Eos % (Auto) 4.0 Baso % (Auto) 1.3 H Absolute Neuts (auto) 4.9 Absolute Lymphs (auto) 1.75 Nucleated RBC % 0 Differential Comment Platelet Estimate Anisocytosis Target Cells Crenated Cell Acanthocytes (Spur) Schistocytes PT INR APTT Sodium Potassium Chloride Carbon Dioxide Anion Gap BUN Creatinine Estim Creat Clear Calc Est GFR (MDRD) Af Amer Est GFR (MDRD) Non-Af BUN/Creatinine Ratio Glucose Lactic Acid Calcium Phosphorus Magnesium 1.7 Total Bilirubin AST ALT Alkaline Phosphatase Ammonia Total Protein Albumin Globulin Albumin/Globulin Ratio Urine Color Mel Urine Clarity Sl Cloudy Urine pH 7.0 Ur Specific [place] 1.015 Urine Protein 30 H Urine Glucose (UA) Normal Urine Ketones 5 H Urine Occult Blood 10 H Urine Nitrite Positive H Urine Bilirubin 6 H Urine Urobilinogen 12 H Ur Leukocyte Esterase 25 H Urine RBC 0 SEEN Urine WBC 0-5 SEEN Ur Squamous Epith Cells 0-5 SEEN Urine Bacteria RARE Urine Mucus 1+ Ethyl Alcohol 06/26/20 06/26/20 02:10 02:10 WBC RBC Hgb Hct MCV MCH MCHC RDW Std Deviation RDW Coeff of Bhakti Plt Count MPV Immature Gran % (Auto) Neut % (Auto) Lymph % (Auto) [place] % (Auto) Eos % (Auto) Baso % (Auto) Absolute Neuts (auto) Absolute Lymphs (auto) Nucleated RBC % Differential Comment Platelet Estimate Anisocytosis Target Cells Crenated Cell Acanthocytes (Spur) Schistocytes PT INR APTT Sodium 140 Potassium 3.1 L Chloride 107 Carbon Dioxide 26.0 Anion Gap 7 BUN 4 L Creatinine 0.66 Estim Creat Clear Calc 86.44 Est GFR (MDRD) Af Amer 124 Est GFR (MDRD) Non-Af 102 BUN/Creatinine Ratio 6.1 L Glucose 117 H Lactic Acid 4.3 H* Calcium 7.7 L Phosphorus 2.6 Magnesium Total Bilirubin AST ALT Alkaline Phosphatase Ammonia Total Protein Albumin Globulin Albumin/Globulin Ratio Urine Color Urine Clarity Urine pH Ur Specific [place] Urine Protein Urine Glucose (UA) Urine Ketones Urine Occult Blood Urine Nitrite Urine Bilirubin Urine Urobilinogen Ur Leukocyte Esterase Urine RBC Urine WBC Ur Squamous Epith Cells Urine Bacteria Urine Mucus Ethyl Alcohol Radiography Diagnostic Testing: Radiology Impression Brain CT 06/25/20 19:40 IMPRESSION: Chronic involutional changes of the brain. Electronically Signed: Jhonny Watts MD at 20:36 EDT , Service support , Chest X-Ray 06/25/20 20:00 IMPRESSION: Normal x-ray examination of the chest. Electronically Signed: Jhonny Watts MD at 20:47 EDT , Service support , Physical Exam Narrative lying bed sleeping. did not wake up during encounter. Resp normal respiratory effort and clear to auscultation bilaterally Cardio regular rate, regular rhythm, S1 normal heart sound and S2 normal heart sound Extremity normal to inspection Assessment & Plan Assessment/Plan (1) Acute hypokalemia: (2) Acidosis, lactic: (3) Generalized weakness: (4) Alcoholic cirrhosis: QUALIFIERS: Ascites presence: unspecified Qualified Code(s): K70.30 - Alcoholic cirrhosis of liver without ascites (5) Anxiety and depression: PLAN: 1. Acute hypokalemia -Admit to [facility] with telemetry -IV and p.o. potassium replacement ordered -Recheck BMP in a.m., magnesium and phosphorus level ordered -Intake and output routine 2. Lactic acidosis -chronic -no evidence of infection Likely due to cirrhosis of the liver -no additional work up 3. Generalized weakness -PT and OT to eval and treat 4. Alcoholic cirrhosis -Patient currently intoxicated, CIWA's with Ativan taper ordered -Lactulose ordered twice daily due to elevated ammonia -DC lorazepam 5. Anxiety and depression -Will hold trazodone due to patient's current intoxication DVT prophylaxis-not indicated, observation status Disposition: pt not able to make safe decision to leave AMA at this time. Will reassess. If agrees, likely return to SNF. If still incompetent, then will need to declare imcompetency. Visit Charges Inpatient E&M: 57831 Subs Hosp L2
--- NOTE | 2020-06-26 13:59 | TREXTCAR_ITS ---
Diet 06/26/20 00:28 Diet: Regular - General Food consistency:: Regular Liquid Consistency:: Regular/Thin Type of Dietary Supplement:: Ensure Pudding Is pt able to select menu?: Yes Diet Comments: ensure pudding w/ B&L, Magic cup w/ dinner. Routine Orders/Code Status Code Status: DNRCC-A Therapies Weight Bearing: Full weight bearing Physical Therapy: Eval and Treat Occupational Therapy: Eval and Treat Problem/Diagnosis (1) Acute hypokalemia: Status: Acute (2) Acidosis, lactic: Status: Acute (3) Generalized weakness: Status: Chronic (4) Alcoholic cirrhosis: Status: Chronic (5) Anxiety and depression: Status: Chronic Allergies/Procedures Done in Hospital Allergies No Known Allergies Allergy (Verified 06/05/20 21:18) Procedures: None Type of Care/Length of Stay Estimated LOS: Convalescent Care Less Than 30 days Type of Care Needed: Skilled Rehab Potential: Fair Prognosis: Fair Additional Orders/Day of Discharge Day of Discharge: 06/26/20 Dietary and Speech Recommendations Dietitian Recommendations/Changes: Continue Regular diet w/ ONS at [facility]. Will provide ensure pudding w/ B&L, Magic cup w/ dinner. Follow Up Care Please follow up with your Primary Care Physician in: 2 weeks Please Follow Up With: Hepatology When: 1 month Discharge Plan Admission Admit Date/Time: 06/25/20 23:39 Attending Provider: Manuel Ch Primary Care Provider: Care Physician,No Primary Discharge Orders/Prescriptions Prescriptions: New lactulose 20 gram/30 mL Solution 10 g PO BID Qty: 0 RF: 0 Ensure Enlive 0.08 gram-1.5 kcal/mL Liquid 120 ml PO 4X/DAY Qty: 0 RF: 0 potassium chloride [K-Tab] 20 mEq tablet extended release 40 meq PO DAILY Qty: 6 RF: 0 magnesium oxide 400 mg magnesium tablet 400 mg PO DAILY 3 Days Qty: 3 RF: 0 Continued potassium chloride 20 MEQ/15 ML liquid 20 meq PO DAILY Qty: 210 RF: 0 folic acid 1 mg Tablet 1 mg PO DAILY@0800 Qty: 0 RF: 0 furosemide 40 mg Tablet 40 mg PO DAILY Qty: 0 RF: 0 sennosides [Kristi-parveen] 8.6 mg Tablet 2 tab PO QHS PRN PRN (Reason: Constipation) Qty: 0 RF: 0 nystatin 100,000 unit/mL Suspension 500,000 unit PO 4X/DAY Qty: 0 RF: 0 ondansetron HCl 8 mg Tablet 8 mg PO Q8H PRN PRN (Reason: NAUSEA/VOMITING) Qty: 0 RF: 0 pantoprazole 20 mg Tablet,Delayed Release (Dr/Ec) 20 mg PO BID Qty: 0 RF: 0 thiamine HCl (vitamin B1) [Vitamin B-1] 100 mg Tablet 100 mg PO DAILYCM Qty: 0 RF: 0 spironolactone 50 mg Tablet 50 mg PO DAILY Qty: 0 RF: 0 Discontinued loperamide 2 mg Capsule 2 mg PO Q4H PRN PRN (Reason: LOOSE STOOLS) Qty: 0 RF: 0 trazodone 100 mg Tablet 100 mg PO QHS PRN PRN (Reason: Insomnia) Qty: 0 RF: 0 Referrals / Follow Up: Care Physician,No Primary [Primary Care Provider] - Disposition Disposition (needs filled in before D/C Order can be placed): Longterm Facility
--- NOTE | 2020-06-26 14:12 | DS.PCM_ITS ---
Providers Date of Admission: 06/25/20 Primary Care Physician: Juli Primary Care Phys Reason For Visit: ACUTE HYPOKALEMIA Diagnosis Discharge Diagnosis (1) Acute hypokalemia: Status: Acute Code(s): E87.6 - Hypokalemia (2) Acidosis, lactic: Status: Acute Code(s): E87.2 - Acidosis (3) Generalized weakness: Status: Chronic Code(s): R53.1 - Weakness (4) Alcoholic cirrhosis: Status: Chronic Code(s): K70.30 - Alcoholic cirrhosis of liver without ascites Qualifiers: Ascites presence: unspecified Qualified Code(s): K70.30 - Alcoholic cirrhosis of liver without ascites (5) Anxiety and depression: Status: Chronic Code(s): F41.9 - Anxiety disorder, unspecified; F32.9 - Major depressive disorder, single episode, unspecified Medications at Discharge Home Medications potassium chloride 20 meq PO DAILY #210 udc 05/27/20 folic acid 1 mg PO DAILY@0800 #0 tab 06/12/20 furosemide 40 mg PO DAILY #0 tab 06/12/20 nystatin 500,000 unit PO 4X/DAY #0 ml 06/12/20 ondansetron HCl 8 mg PO Q8H PRN PRN #0 tab 06/12/20 pantoprazole 20 mg PO BID #0 tab 06/12/20 sennosides [Kristi-parveen] 2 tab PO QHS PRN PRN #0 tab 06/12/20 spironolactone 50 mg PO DAILY #0 tab 06/12/20 thiamine HCl (vitamin B1) [Vitamin B-1] 100 mg PO DAILYCM #0 tab 06/12/20 food supplemt, lactose-reduced [Ensure Enlive] 120 ml PO 4X/DAY #0 ml 06/26/20 lactulose 10 g PO BID #0 ml 06/26/20 magnesium oxide 400 mg PO DAILY 3 Days #3 tab 06/26/20 potassium chloride [K-Tab] 40 meq PO DAILY #6 tab 06/26/20 Hospital Course Operations None Procedures None Summary of Care Provided Minutes Spent on Discharge: 35 Hospital Course: Presents with weakness. Found to have hyperkalemia with potassium of 2.9. Patient left AGAINST MEDICAL ADVICE from [facility]. Patient did have potassium repleted. Patient unable to care for self and pres ented here. Patient was Patient remained stable did receive Ativan but was not demonstrating any active signs of withdrawal. Patient did well leave AGAINST MEDICAL ADVICE but was tointoxicated with an alcohol level 324. Patient was accepted at . Patient will be discharged there in stable condition. Patient will continue with for 3 more days of potassium and magnesium replacements. Patient is already on spironolactone and furosemide which she will continue. Patient also continue with lactulose. ABG / Lab / Microbiology Data Result Diagrams: 06/26/20 02:10 06/26/20 02:10 Laboratory: Laboratory Results - last 24 hr 06/25/20 06/25/20 06/25/20 21:20 21:20 21:20 WBC 7.6 RBC 2.92 L Hgb 8.9 L Hct 27.5 L MCV 94.2 MCH 30.5 MCHC 32.4 RDW Std Deviation 75.4 H RDW Coeff of Bhakti 21.7 H Plt Count 117 L MPV 10.3 Immature Gran % (Auto) 0.400 Neut % (Auto) 55.7 Lymph % (Auto) 32.0 [place] % (Auto) 6.0 Eos % (Auto) 4.5 Baso % (Auto) 1.4 H Absolute Neuts (auto) 4.3 Absolute Lymphs (auto) 2.44 Nucleated RBC % Differential Comment SCANNED Platelet Estimate MOD DEC Anisocytosis 3+ Target Cells RARE Crenated Cell 1+ Acanthocytes (Spur) 1+ Schistocytes RARE PT 23.2 H INR 2.2 APTT 46.8 H Sodium 141 Potassium 2.9 L Chloride 104 Carbon Dioxide 26.0 Anion Gap 11 BUN 3 L Creatinine 0.68 Estim Creat Clear Calc 85.09 Est GFR (MDRD) Af Amer 120 Est GFR (MDRD) Non-Af 99 BUN/Creatinine Ratio 4.4 L Glucose 79 Lactic Acid Calcium 8.1 L Phosphorus Magnesium Total Bilirubin 7.00 H AST 179 H ALT 34 Alkaline Phosphatase 146 H Ammonia Total Protein 7.8 Albumin 2.0 L Globulin 5.8 H Albumin/Globulin Ratio 0.3 L Urine Color Urine Clarity Urine pH Ur Specific [place] Urine Protein Urine Glucose (UA) Urine Ketones Urine Occult Blood Urine Nitrite Urine Bilirubin Urine Urobilinogen Ur Leukocyte Esterase Urine RBC Urine WBC Ur Squamous Epith Cells Urine Bacteria Urine Mucus Ethyl Alcohol 06/25/20 06/25/20 06/25/20 21:20 21:20 21:20 WBC RBC Hgb Hct MCV MCH MCHC RDW Std Deviation RDW Coeff of Bhakti Plt Count MPV Immature Gran % (Auto) Neut % (Auto) Lymph % (Auto) [place] % (Auto) Eos % (Auto) Baso % (Auto) Absolute Neuts (auto) Absolute Lymphs (auto) Nucleated RBC % Differential Comment Platelet Estimate Anisocytosis Target Cells Crenated Cell Acanthocytes (Spur) Schistocytes PT INR APTT Sodium Potassium Chloride Carbon Dioxide Anion Gap BUN Creatinine Estim Creat Clear Calc Est GFR (MDRD) Af Amer Est GFR (MDRD) Non-Af BUN/Creatinine Ratio Glucose Lactic Acid 5.2 H* Calcium Phosphorus Magnesium Total Bilirubin AST ALT Alkaline Phosphatase Ammonia 68.0 H Total Protein Albumin Globulin Albumin/Globulin Ratio Urine Color Urine Clarity Urine pH Ur Specific [place] Urine Protein Urine Glucose (UA) Urine Ketones Urine Occult Blood Urine Nitrite Urine Bilirubin Urine Urobilinogen Ur Leukocyte Esterase Urine RBC Urine WBC Ur Squamous Epith Cells Urine Bacteria Urine Mucus Ethyl Alcohol 324.0 H* 06/25/20 06/25/20 06/26/20 21:20 23:10 02:10 WBC 7.5 RBC 2.67 L Hgb 8.3 L Hct 25.7 L MCV 96.3 MCH 31.1 MCHC 32.3 RDW Std Deviation 77.3 H RDW Coeff of Bhakti 22.0 H Plt Count 126 L MPV 10.6 Immature Gran % (Auto) 0.300 Neut % (Auto) 65.1 Lymph % (Auto) 23.4 [place] % (Auto) 5.9 Eos % (Auto) 4.0 Baso % (Auto) 1.3 H Absolute Neuts (auto) 4.9 Absolute Lymphs (auto) 1.75 Nucleated RBC % 0 Differential Comment Platelet Estimate Anisocytosis Target Cells Crenated Cell Acanthocytes (Spur) Schistocytes PT INR APTT Sodium Potassium Chloride Carbon Dioxide Anion Gap BUN Creatinine Estim Creat Clear Calc Est GFR (MDRD) Af Amer Est GFR (MDRD) Non-Af BUN/Creatinine Ratio Glucose Lactic Acid Calcium Phosphorus Magnesium 1.7 Total Bilirubin AST ALT Alkaline Phosphatase Ammonia Total Protein Albumin Globulin Albumin/Globulin Ratio Urine Color Mel Urine Clarity Sl Cloudy Urine pH 7.0 Ur Specific [place] 1.015 Urine Protein 30 H Urine Glucose (UA) Normal Urine Ketones 5 H Urine Occult Blood 10 H Urine Nitrite Positive H Urine Bilirubin 6 H Urine Urobilinogen 12 H Ur Leukocyte Esterase 25 H Urine RBC 0 SEEN Urine WBC 0-5 SEEN Ur Squamous Epith Cells 0-5 SEEN Urine Bacteria RARE Urine Mucus 1+ Ethyl Alcohol 06/26/20 06/26/20 02:10 02:10 WBC RBC Hgb Hct MCV MCH MCHC RDW Std Deviation RDW Coeff of Bhakti Plt Count MPV Immature Gran % (Auto) Neut % (Auto) Lymph % (Auto) [place] % (Auto) Eos % (Auto) Baso % (Auto) Absolute Neuts (auto) Absolute Lymphs (auto) Nucleated RBC % Differential Comment Platelet Estimate Anisocytosis Target Cells Crenated Cell Acanthocytes (Spur) Schistocytes PT INR APTT Sodium 140 Potassium 3.1 L Chloride 107 Carbon Dioxide 26.0 Anion Gap 7 BUN 4 L Creatinine 0.66 Estim Creat Clear Calc 86.44 Est GFR (MDRD) Af Amer 124 Est GFR (MDRD) Non-Af 102 BUN/Creatinine Ratio 6.1 L Glucose 117 H Lactic Acid 4.3 H* Calcium 7.7 L Phosphorus 2.6 Magnesium Total Bilirubin AST ALT Alkaline Phosphatase Ammonia Total Protein Albumin Globulin Albumin/Globulin Ratio Urine Color Urine Clarity Urine pH Ur Specific [place] Urine Protein Urine Glucose (UA) Urine Ketones Urine Occult Blood Urine Nitrite Urine Bilirubin Urine Urobilinogen Ur Leukocyte Esterase Urine RBC Urine WBC Ur Squamous Epith Cells Urine Bacteria Urine Mucus Ethyl Alcohol Radiography Diagnostic Testing: Radiology Impression Brain CT 06/25/20 19:40 IMPRESSION: Chronic involutional changes of the brain. Electronically Signed: Jhonny Watts MD at 20:36 EDT , Service support , Chest X-Ray 06/25/20 20:00 IMPRESSION: Normal x-ray examination of the chest. Electronically Signed: Jhonny Watts MD at 20:47 EDT , Service support , D/C Instructions Please Follow Up With: Hepatology Meaningful Use Info Meaningful Use Diagnoses (Choose all that apply): None applicable Discharge Plan Admission Admit Date/Time: 06/25/20 23:39 Attending Provider: Manuel Ch Primary Care Provider: Care Physician,No Primary Discharge Orders/Prescriptions Prescriptions: New lactulose 20 gram/30 mL Solution 10 g PO BID Qty: 0 RF: 0 Ensure Enlive 0.08 gram-1.5 kcal/mL Liquid 120 ml PO 4X/DAY Qty: 0 RF: 0 potassium chloride [K-Tab] 20 mEq tablet extended release 40 meq PO DAILY Qty: 6 RF: 0 magnesium oxide 400 mg magnesium tablet 400 mg PO DAILY 3 Days Qty: 3 RF: 0 Continued potassium chloride 20 MEQ/15 ML liquid 20 meq PO DAILY Qty: 210 RF: 0 folic acid 1 mg Tablet 1 mg PO DAILY@0800 Qty: 0 RF: 0 furosemide 40 mg Tablet 40 mg PO DAILY Qty: 0 RF: 0 sennosides [Kristi-parveen] 8.6 mg Tablet 2 tab PO QHS PRN PRN (Reason: Constipation) Qty: 0 RF: 0 nystatin 100,000 unit/mL Suspension 500,000 unit PO 4X/DAY Qty: 0 RF: 0 ondansetron HCl 8 mg Tablet 8 mg PO Q8H PRN PRN (Reason: NAUSEA/VOMITING) Qty: 0 RF: 0 pantoprazole 20 mg Tablet,Delayed Release (Dr/Ec) 20 mg PO BID Qty: 0 RF: 0 thiamine HCl (vitamin B1) [Vitamin B-1] 100 mg Tablet 100 mg PO DAILYCM Qty: 0 RF: 0 spironolactone 50 mg Tablet 50 mg PO DAILY Qty: 0 RF: 0 Discontinued loperamide 2 mg Capsule 2 mg PO Q4H PRN PRN (Reason: LOOSE STOOLS) Qty: 0 RF: 0 trazodone 100 mg Tablet 100 mg PO QHS PRN PRN (Reason: Insomnia) Qty: 0 RF: 0 Referrals / Follow Up: Care Physician,No Primary [Primary Care Provider] - Disposition Disposition (needs filled in before D/C Order can be placed): Senior Living Facility Visit Charges OBSV E&M: 18923 Observation care discharge
--- NOTE | 2020-06-26 14:52 | NURSING ---
PT RESTING QUIETLY IN BED, EYES CLOSED, RESP EASY
[2020-06-26] MEDS: LORazepam 2 MG/ML Syringe IV (21:35)
[2020-06-26] MEDS: 0.9% Saline Lock 10 ML Syringe IV (21:35)
[2020-06-27] MEDS: Ondansetron 8 MG Tablet PO (01:45)
[2020-06-27 01:46] VITALS: BP 105/59; PULSE 111; RESP 16; TEMP 38.1; O2SAT 99
[2020-06-27 01:58] VITALS: PULSE 113
--- NOTE | 2020-06-27 02:00 | RAD_ITS ---
STUDY: X-RAY CHEST REASON FOR EXAM: Female, 49 years old. Fever TECHNIQUE: Single AP portable view of the chest. COMPARISON: 06/25/2020 FINDINGS: The lungs are clear and expanded. There is no demonstrated pleural abnormality. Normal size heart. Normal mediastinum and dillon. Normal visualized pulmonary arteries. Normal visualized aortic arch and descending thoracic aorta. Normal visualized thoracic spine. Normal visualized clavicles and shoulders. Old healed rib fracture deformity noted on the left. There is no demonstrated abnormality of the visualized soft tissue structures of the upper abdomen. RAD/Chest 1 View (Portable) IMPRESSION: No acute cardiopulmonary disease Electronically Signed: Patrick Burr MD at 2:58 EDT Tel , Service support ,
--- NOTE | 2020-06-27 02:03 | PCM.PN.BLA ---
Progress Note Earlier in the shift patient was given 2 mg Ativan IV for agitation. Later patient developed a temperature of 100.6. Nurse reported patient complains of abdominal pain. With history of cirrhosis concern is spontaneous bacteria peritonitis. Of note patient is considering hospice. Will start patient on empirical ceftriaxone without persuing any paracentesis at this time. Covid screen a day before was negative. However with new fever will check another rapid Covid antigen.
[2020-06-27] MEDS: Ceftriaxone 1 GM/50 ML BAG IV (02:21)
[2020-06-27] MEDS: Ibuprofen 400 MG Tablet PO (02:21)
[2020-06-27] MEDS: 0.9% Saline Lock 10 ML Syringe IV (02:22)
[2020-06-27 02:38] LABS: Absolute Lymphocyte Count 1.89 X10^3/uL (0.83-4.51); Basophil# 0.09 X10^3/uL; Basophil% 1.1 % (0-1); Eosinophil# 0.65 X10^3/uL; Hematocrit 26.1 % (37-47); Hemoglobin 8.4 g/dL (12.0-15.0); Lymphocyte # 1.89 X10^3/ul (0.83-4.51); Lymphocyte % 23.2 % (19-41); Mean Corp Hgb Conc 32.2 g/dL (32-36); Mean Corpuscular Volume 96.3 fL (81-99); Mean Platelet Vol. 11.3 fl (6.2-12.0); Monocyte# 0.53 X10^3/uL; Monocyte% 6.5 % (0-10); NRBC Flagged by Analyzer 0 % (0-5); Neutrophil # 4.97 X10^3/uL (2.7-7.7); Neutrophil % 60.8 % (47-70); POSITIVE MORPHOLOGY YES; Platelet Count 123 K/mm3 (150-450); RBC Distribution Width SD 77.3 fl (35.1-43.9); Red Blood Count 2.71 M/mm3 (4.2-5.4); White Blood Count 8.2 K/mm3 (4.4-11.0)
[2020-06-27 02:39] LABS: Differential Indicated SCAN CRITERIA MET
[2020-06-27 02:56] LABS: ALB/GLOB Ratio 0.3 RATIO (0.9-2.4); AST(SGOT) 154 U/L (15-37); Alanine Aminotransfer ALT/SGPT 33 U/L (13-56); Albumin, Serum 1.8 g/dL (3.2-5.0); Alkaline Phosphatase 169 U/L (45-117); Anion Gap 5 (5-15); BUN 5 mg/dL (7-18); BUN/Creat Ratio 4.3 RATIO (10-20); Calcium,Total 8.1 mg/dL (8.5-10.1); Chloride 104 mmol/L (98-107); Creatinine, Serum 1.17 mg/dL (0.55-1.02); EST Glomerular Filtration Rate 53 mL/min (>60); Est Glom Filt Rate - Afr Amer 64 mL/min (>60); Estimated Creatinine Clearance 49.51 ml/min; Globulin 5.7 g/dL (2.2-4.2); Glucose 93 mg/dL (74-106); Protein, Total 7.5 g/dL (6.4-8.2); Sodium Level 136 mmol/L (136-145)
[2020-06-27 02:57] LABS: Anisocytosis 2+; Differential Comment SCANNED; Target Cells RARE
[2020-06-27 02:58] LABS: Acanthocytes RARE; Hypochromasia 1+
[2020-06-27 02:59] LABS: Schistocytes RARE
[2020-06-27 04:04] VITALS: PULSE 104; TEMP 37
[2020-06-27 06:00] VITALS: PULSE 100
[2020-06-27 07:35] VITALS: BP 92/58; PULSE 97; RESP 24; TEMP 36.9; O2SAT 96
[2020-06-27 09:33] VITALS: PULSE 98
--- NOTE | 2020-06-27 10:00 | CASEMGMT ---
KASEY MONTERO chart review: Patient was admitted 06/05-06/12/20 for FTT, liver failure. See SW assessment from 06/06/20. Patient was discharge to [facility] on 06/12/20. Patient returned 06/25/20 for weakness. Per SW patient left AMA from SNF on 06/18/20. Patient states she fell and is to weak to care for self and would like to return to SNF. Patient to discharge to [facility] today for usp.
--- NOTE | 2020-06-27 10:17 | CASEMGMT ---
Social Work Note Pt is able to discharge to [facility] today. HOMER faxed completed discharge paperwork to [facility] including transfer to extended care facility, signed medication list, any scripts, COVID test, COVID tool and [facility] in [facility]. Original in SNF folder and copy on pt's chart. HOMER spoke with RN, pt can transport via wheelchair van. HOMER accessed trip assist and arranged transportation via wheelchair van at 11:00am. Transportation form completed and placed on SNF folder and copy on pt's chart. HOMER then updated that pt's mother Jamila is on the phone requesting update. SW in to speak with pt. SW informed pt that pt's mother is on the phone and would like an update. SW asked pt if she will speak to her mother and pt denied. HOMER asked pt if this worker could call her mother to provide update and pt gave this worker permission to call her mother Jamila to update. HOMER informed pt that she will be discharged to [facility] today. Pt states understanding. HOMER placed a call to pt's mother Jamila and updated her on discharge and transportation time to [facility]. Jamila states she had hamilton to bring pt, HOMRE informed Jamila that she can drop off hamilton at [facility] and possibly see pt while at [facility] but encouraged Jamila to call [facility] to inquire about visitation. Jamila states understanding. HOMER updated RN on transportation time. HOMER placed a call to Josie Moran at [facility] and updated her on discharge and transportation time. Josie Moran states understanding. HOMER in to speak with pt. SW updated pt on transportation time. Pt states understanding. Plan: [facility] skilled today with Physician's transporting pt via wheelchair van at 11:00am. Michelle Clarke TRANSIT BUS DRIVER, [employer]OM [employer]
--- NOTE | 2020-06-27 10:25 | NURSING ---
REPORT CALLED TO AMAYA @ [facility]
--- NOTE | 2020-06-27 10:33 | PHA.DC.MR ---
Pharmacy Service has performed discharge medication reconciliation for this patient. The patient's discharge medication list was reviewed for discrepancies and discrepancies were resolved. Home Medications potassium chloride 20 meq PO DAILY #210 udc 05/27/20 folic acid 1 mg PO DAILY@0800 #0 tab 06/12/20 furosemide 40 mg PO DAILY #0 tab 06/12/20 nystatin 500,000 unit PO 4X/DAY #0 ml 06/12/20 ondansetron HCl 8 mg PO Q8H PRN PRN #0 tab 06/12/20 pantoprazole 20 mg PO BID #0 tab 06/12/20 sennosides [Kristi-parveen] 2 tab PO QHS PRN PRN #0 tab 06/12/20 spironolactone 50 mg PO DAILY #0 tab 06/12/20 thiamine HCl (vitamin B1) [Vitamin B-1] 100 mg PO DAILYCM #0 tab 06/12/20 food supplemt, lactose-reduced [Ensure Enlive] 120 ml PO 4X/DAY #0 ml 06/26/20 lactulose 10 g PO BID #0 ml 06/26/20
--- NOTE | 2020-06-27 10:45 | CASEMGMT ---
Social Work Note RN updated this worker that pt is crying stating she doesn't want to go to [facility], that staff is not respecting her rights. SW in to speak with pt. HOMER informed pt that she chose [facility] home yesterday so that is why pt is going to [facility]. SW informed pt that if she goes to [facility] and doesn't like it, she can leave [facility] or ask to be transferred to a different SNF. Pt crying, stating we forgot her sour cream. SW informed pt that this worker can see about her sour cream. SW also informed pt that this worker did update her Mother about discharge to [facility] and her mother was going to bring her hamilton. Pt states I don't want anything from anybody, they are bullies to me. HOMER asked pt to elaborate, pt refused, again stating she just wants her sour cream. SW infromed pt that she will be discharged to [facility] today as she requested [facility] yesterday and they have accepted pt. HOMER spoke with Charge nurse about pt's sour cream. Plan: [facility] at 11:00am Michelle CRAFT, [employer]BER SYSTEMS ADMINISTRATOR
--- NOTE | 2020-06-27 12:22 | PCM.PN.HOSP ---
Subjective Subjective Had low grade temp. Does not feel well. Objective Data Objective Data Vital Signs: Vital Signs Temp Pulse Resp BP Pulse Ox 36.9 C 98 24 H 92/58 L 96 06/27/20 07:35 06/27/20 09:33 06/27/20 07:35 06/27/20 07:35 06/27/20 07:35 Oxygen Delivery Method Room Air Weight: 53.7 kg Body Mass Index (BMI) 16.9 Intake & Output: Intake and Output for Last 24 Hours 06/25/20 06/26/20 06/27/20 23:59 23:59 23:59 Intake Total 530 / 530 50 / 50 Balance 530 / 530 50 / 50 Lab / Micro Data Result Diagrams: 06/27/20 02:20 06/27/20 02:20 Labs: Laboratory Results - last 24 hr 06/27/20 06/27/20 02:20 02:20 WBC 8.2 RBC 2.71 L Hgb 8.4 L Hct 26.1 L MCV 96.3 MCH 31.0 MCHC 32.2 RDW Std Deviation 77.3 H RDW Coeff of Bhakti 22.0 H Plt Count 123 L MPV 11.3 Immature Gran % (Auto) 0.400 Neut % (Auto) 60.8 Lymph % (Auto) 23.2 [place] % (Auto) 6.5 Eos % (Auto) 8.0 H Baso % (Auto) 1.1 H Absolute Neuts (auto) 5.0 Absolute Lymphs (auto) 1.89 Nucleated RBC % 0 Differential Comment SCANNED Hypochromasia 1+ Anisocytosis 2+ Target Cells RARE Acanthocytes (Spur) RARE Schistocytes RARE Sodium 136 Potassium 4.0 Chloride 104 Carbon Dioxide 27.0 Anion Gap 5 BUN 5 L Creatinine 1.17 H Estim Creat Clear Calc 49.51 Est GFR (MDRD) Af Amer 64 Est GFR (MDRD) Non-Af 53 L BUN/Creatinine Ratio 4.3 L Glucose 93 Calcium 8.1 L Total Bilirubin 5.40 H AST 154 H ALT 33 Alkaline Phosphatase 169 H Total Protein 7.5 Albumin 1.8 L Globulin 5.7 H Albumin/Globulin Ratio 0.3 L Micro: Microbiology 06/27/20 06:45 Interface Orders SARS-CoV-2 Antigen (Rapid) - Final 06/26/20 15:00 Interface Orders SARS-CoV-2 Antigen (Rapid) - Final Radiography Diagnostic Testing: Radiology Impression Chest X-Ray 06/27/20 02:00 IMPRESSION: No acute cardiopulmonary disease Electronically Signed: Patrick Burr MD at 2:58 EDT Tel , Service support , Physical Exam Const no apparent distress Constitutional Narrative: afebrile Exam Limitations: no limitations Eyes PERRL Neck no lymphadenopathy Resp normal respiratory effort and clear to auscultation bilaterally Cardio regular rate, regular rhythm, S1 normal heart sound and S2 normal heart sound GI normal to inspection, nondistended, normoactive bowel sounds Assessment & Plan Assessment/Plan (1) Acute hypokalemia: (2) Acidosis, lactic: (3) Generalized weakness: (4) Alcoholic cirrhosis: QUALIFIERS: Ascites presence: unspecified Qualified Code(s): K70.30 - Alcoholic cirrhosis of liver without ascites (5) Anxiety and depression: PLAN: 1. Acute hypokalemia -resolved 2. Lactic acidosis -chronic -no evidence of infection Likely due to cirrhosis of the liver -no additional work up 3. Generalized weakness -PT and OT to eval and treat 4. Alcoholic cirrhosis -Patient currently intoxicated, CIWA's with Ativan taper ordered -Lactulose ordered twice daily due to elevated ammonia -DC lorazepam 5. Anxiety and depression -Will hold trazodone due to patient's current intoxication DVT prophylaxis-not indicated, observation status Disposition: to [facility]. Visit Charges Inpatient E&M: [id number] Disch Hosp
== END 2020-06-27 11:15 | disposition skilled nursing facility (03) | DRG 641 ==
LOC: ED 23:08 → MS3 23:44
PROVIDERS: Nurse Practitioner Family; Admitting Provider Hospitalist; Emergency Provider Emergency Medicine
DX: E87.6 Hypokalemia (principal); E72.20 Disorder of urea cycle metabolism, unspecified; K70.30 Alcoholic cirrhosis of liver without ascites; E87.2 Acidosis; R50.9 Fever, unspecified; D64.9 Anemia, unspecified; F32.9 Major depressive disorder, single episode, unspecified; F41.9 Anxiety disorder, unspecified; R53.81 Other malaise; F10.20 Alcohol dependence, uncomplicated; S40.011A Contusion of right shoulder, initial encounter; W06.XXXA Fall from bed, initial encounter; R45.1 Restlessness and agitation; Y90.8 Blood alcohol level of 240 mg/100 ml or more; Z66 Do not resuscitate
CPT/HCPCS: 36415; 70450; 71045; 80048; 80053; 81001; 82077; 82140; 83605; 83735; 84100; 85025; 85610; 85730; 87040; 87426; 97162; 97166; 97802; 99285; J7030; A4216

== ENCOUNTER 2020-07-11 17:52 | Emergency (ER) | payer MEDICARE, MEDICAID, SELFPAY ==
[2020-06-26 00:28] VITALS: BMI 16.9
[2020-07-11 17:54] VITALS: BP 86/52; PULSE 88; RESP 17; TEMP 36.6; O2SAT 99; BMI 19.1
[2020-07-11 17:58] VITALS: BP 94/55; PULSE 85; RESP 18; O2SAT 94
--- NOTE | 2020-07-11 18:18 | EKG12_ITS ---
Test Reason : ETOH Blood Pressure : / mmHG Vent. Rate : 076 BPM Atrial Rate : 076 BPM P-R Int : 120 ms QRS Dur : 100 ms QT Int : 448 ms P-R-T Axes : -12 023 006 degrees QTc Int : 504 ms Normal sinus rhythm Incomplete right bundle branch block Prolonged QT Abnormal ECG Confirmed by ALEXUS RODRIGUEZ, FABIO ([id number]), online editor BINH FATIMA ([id number]) on 07/15/2020 2:02:03 PM Referred By: LIZZ Confirmed By:FABIO VAUGHAN MD
--- NOTE | 2020-07-11 18:40 | RAD_ITS ---
EXAM: XR CHEST, 1 VIEW : 1970 CLINICAL INDICATION: weakness TECHNIQUE: Frontal view of the chest. This report was created using NumberFour report generation technology. COMPARISON: 06/27/2020 FINDINGS: LUNGS AND PLEURAL SPACES: Unremarkable. No consolidation or edema. No pneumothorax. No effusion. HEART: Unremarkable. Cardiac silhouette not enlarged. MEDIASTINUM: Central airways and mediastinal contour are unremarkable. BONES/JOINTS: Unremarkable. SOFT TISSUES: Unremarkable. RAD/Chest 1 View (Portable) IMPRESSION: No radiographic evidence of acute cardiopulmonary disease. at 1903 Reported and signed by: John Peng MD Electronically Signed: John Peng MD at 19:02 EDT Tel , Service support ,
[2020-07-11 18:44] LABS: Absolute Lymphocyte Count 2.06 X10^3/uL (0.83-4.51); Absolute Neutrophil Count 2.4 X10^3/uL (2.0-7.7); Basophil% 1.8 % (0-1); Eosinophil# 0.46 X10^3/uL; Eosinophils% 8.4 % (0-5); Hematocrit 27.2 % (37-47); Hemoglobin 8.7 g/dL (12.0-15.0); Lymphocyte # 2.06 X10^3/ul (0.83-4.51); Lymphocyte % 37.8 % (19-41); Mean Platelet Vol. 10.9 fl (6.2-12.0); Monocyte# 0.47 X10^3/uL; Monocyte% 8.6 % (0-10); NRBC Flagged by Analyzer 0 % (0-5); Neutrophil # 2.35 X10^3/uL (2.7-7.7); Neutrophil % 43.2 % (47-70); POSITIVE MORPHOLOGY YES; Platelet Count 133 K/mm3 (150-450); RBC Distribution Width CV 19.6 % (11.6-14.6); Red Blood Count 2.72 M/mm3 (4.2-5.4); White Blood Count 5.5 K/mm3 (4.4-11.0)
[2020-07-11 18:51] LABS: International Normalized Ratio 1.6; Prothrombin Time (Protime)PT. 17.9 SECONDS (11.7-14.9)
[2020-07-11 19:02] LABS: ALB/GLOB Ratio 0.4 RATIO (0.9-2.4); AST(SGOT) 118 U/L (15-37); Alanine Aminotransfer ALT/SGPT 24 U/L (13-56); Albumin, Serum 2.1 g/dL (3.2-5.0); Alkaline Phosphatase 119 U/L (45-117); Anion Gap 6 (5-15); BUN 9 mg/dL (7-18); BUN/Creat Ratio 11.6 RATIO (10-20); Calcium,Total 8.3 mg/dL (8.5-10.1); Chloride 108 mmol/L (98-107); Creatinine, Serum 0.78 mg/dL (0.55-1.02); EST Glomerular Filtration Rate 84 mL/min (>60); Est Glom Filt Rate - Afr Amer 102 mL/min (>60); Estimated Creatinine Clearance 75.59 ml/min; Globulin 5.8 g/dL (2.2-4.2); Glucose 73 mg/dL (74-106); Lipase 175 U/L (73-393); Potassium 2.9 mmol/L (3.5-5.1); Protein, Total 7.9 g/dL (6.4-8.2); Sodium Level 142 mmol/L (136-145)
[2020-07-11 19:04] LABS: Differential Indicated SCAN CRITERIA MET
--- NOTE | 2020-07-11 19:05 | ED.RN ---
PT WALKED OUT OF HER ROOM AND DOWN THE ULRICH WITH HER IV IN AND WOULD NOT TELL STAFF WHERE SHE WAS GOING. PT WAS UNSTEADY ON HER FEET. PT WAS ESCORTED BACK TO HER ROOM.
[2020-07-11 19:18] LABS: Anisocytosis 1+; Differential Comment SCANNED; Hypochromasia 1+; Macrocytosis 1+
[2020-07-11 19:19] LABS: Schistocytes 1+
[2020-07-11 19:53] VITALS: BP 106/53; PULSE 86; RESP 16; O2SAT 99
[2020-07-11 20:42] LABS: Color, Urine Straw (Yellow); Glucose, Dipstick Normal (Normal); Ketone-Dipstick Negative (Negative); Leukocyte Esterase-Dipstick Negative /ul (Negative); Nitrite-Dipstick Negative (Negative); Occult Blood-Urine Negative /ul (Negative); Protein-Dipstick Negative (Negative); Urine Bilirubin Dipstick Negative (Negative); Urine Clarity Clear (Clear); Urine Urobilinogen Normal (Normal); Urine pH 6.5 (5.0 - 8.0)
[2020-07-11 20:52] LABS: Amphetamine Urine VISTA NEGATIVE (<1000 ng/mL); Barbiturate Urine VISTA NEGATIVE (< 200 ng/mL); Benzodiazepine Urine VISTA NEGATIVE (< 200 ng/mL); Cocaine Urine VISTA NEGATIVE (< 300 ng/mL); Ecstacy Urine VISTA NEGATIVE (< 500 ng/mL); Methadone Urine VISTA NEGATIVE (< 300 ng/mL); PCP Urine VISTA NEGATIVE (< 25 ng/mL); THC Urine VISTA NEGATIVE (< 50 ng/mL); Vista UDS pH Range 6
[2020-07-11 21:12] VITALS: RESP 16; O2SAT 98
[2020-07-11 22:40] LABS: Reflex Lactate? Y
--- NOTE | 2020-07-11 23:36 | EX.ED.DYSGE1 ---
HPI History of Present Illness Chief Complaint: ETOH Intox Narrative Narrative: 49-year-old female presenting with alcohol intoxication. She denies any injury or trauma. She initially stated that her roommates were supposed to be evicted but nobody affected them. When asked if she had any symptoms of anything she states that she felt sick and fell asleep. [facility] Medical History Alcohol abuse Cancer Chest pain Cirrhosis Irregular heart beat Seizures Home Medications potassium chloride 20 meq PO DAILY #210 udc 05/27/20 [Rx Last Taken 06/03/20] folic acid 1 mg PO DAILY@0800 #0 tab 06/12/20 [Rx Last Taken Unknown] furosemide 40 mg PO DAILY #0 tab 06/12/20 [Rx Last Taken Unknown] nystatin 500,000 unit PO 4X/DAY #0 ml 06/12/20 [Rx Last Taken Unknown] ondansetron HCl 8 mg PO Q8H PRN PRN #0 tab 06/12/20 [Rx Last Taken Unknown] pantoprazole 20 mg PO BID #0 tab 06/12/20 [Rx Last Taken Unknown] sennosides [Kristi-parveen] 2 tab PO QHS PRN PRN #0 tab 06/12/20 [Rx Last Taken Unknown] spironolactone 50 mg PO DAILY #0 tab 06/12/20 [Rx Last Taken Unknown] thiamine HCl (vitamin B1) [Vitamin B-1] 100 mg PO DAILYCM #0 tab 06/12/20 [Rx Last Taken Unknown] food supplemt, lactose-reduced [Ensure Enlive] 120 ml PO 4X/DAY #0 ml 06/26/20 [Rx Last Taken Unknown] lactulose 10 g PO BID #0 ml 06/26/20 [Rx Last Taken Unknown] Allergy/AdvReac Type Severity Reaction Status Date / Time No Known Allergies Allergy Verified 06/05/20 21:18 Social History (Updated 06/25/20 @ 23:43 by Rosa Maria Ojeda NP-Cedric) Smoking Status: Never smoker alcohol intake: current alcohol intake frequency: 3 or more drinks per day ROS ROS ED Review of Systems ROS Unobtainable: due to mental status and other EXAM Physical Exam Const Vital Signs: 07/11/20 17:54 07/11/20 17:58 07/11/20 19:53 Temperature 98 F Temperature Source Oral Pulse Rate 88 85 86 Respiratory Rate 17 18 16 Blood Pressure 86/52 L 94/55 L 106/53 L Blood Pressure Mean 63 68 70 Blood Pressure Source Monitor Blood Pressure Position Left Lateral Blood Pressure Location Right Arm Pulse Ox 99 94 99 Oxygen Delivery Method Room Air Room Air Room Air 07/11/20 21:12 Temperature Temperature Source Pulse Rate Respiratory Rate 16 Blood Pressure Blood Pressure Mean Blood Pressure Source Blood Pressure Position Blood Pressure Location Pulse Ox 98 Oxygen Delivery Method Room Air Positive well nourished General Appearance ED: NAD HEENT Reports moist mucous membranes Negative for trauma or tenderness Eyes EOMs intact bilaterally General Eye ED: Negative for scleral icterus Neck no lymphadenopathy and supple Chest Wall inspection of chest normal and palpation of chest normal Resp normal respiratory effort and clear to auscultation bilaterally Cardio regular rate and regular rhythm GI normal to inspection, nondistended, normoactive bowel sounds Palpation: soft Back/Spine Cervical Spine: Negative for cervical spine tenderness Thoracic Spine / Upper Back: Negative for thoracic spinal tenderness Lumbar Spine / Lower Back: Negative for lumbar spinal tenderness Extremity normal to inspection Neuro oriented x3 Sensorium / Orientation: alert Psych Psych Narrative: Patient appears intoxicated and is not answering questions. Skin no rashes or lesions noted Wounds: wounds noted MDM MDM MDM Narrative Medical decision making narrative: Patient was seen and evaluated on arrival for altered mental status due to EtOH intoxication. Patient unable to give a review of systems due to intoxication and she fell asleep. I did obtain lab work and since the patient has known cirrhosis her abnormal LFTs are not abnormal for her. Some of these seem to be improved. Her renal function is normal. Her potassium was 2.9 and she was given 40 mEq of p.o. potassium. Patient already takes potassium at home and is instructed to take this again tomorrow. Lactic acid is 2.0 and she was given IV fluids. I presume this will normalize. patient has history of elevated ammonia levels but this is normal today. Urinalysis is negative for infection. Chest x-ray is interpreted by myself shows no acute cardiopulmonary process. Radiologist does agree. EKG is sinus rhythm at 76 bpm without signs of ischemic change as interpreted by myself.. At 1 point the patient became agitated and wanted to leave however she was redirected to her room. She has been sleeping since then. Her blood pressure is low at 86/52 however looking back in the medical record she has these low blood pressures in the past consistently. I believe at this point the patient is stable on likely simply intoxicated. We will attempt to find her a ride home. She will be monitored until she can find a ride where she is clinically sober. Impression: 1. Hypokalemia 2. EtOH intoxication. Lab Data Labs: Laboratory Results - last 24 hr 07/11/20 07/11/20 07/11/20 18:30 18:30 18:30 WBC 5.5 RBC 2.72 L Hgb 8.7 L Hct 27.2 L MCV 100.0 H MCH 32.0 MCHC 32.0 RDW Std Deviation 73.0 H RDW Coeff of Bhakti 19.6 H Plt Count 133 L MPV 10.9 Immature Gran % (Auto) 0.200 Neut % (Auto) 43.2 L Lymph % (Auto) 37.8 [place] % (Auto) 8.6 Eos % (Auto) 8.4 H Baso % (Auto) 1.8 H Absolute Neuts (auto) 2.4 Absolute Lymphs (auto) 2.06 Nucleated RBC % 0 Differential Comment SCANNED Hypochromasia 1+ Anisocytosis 1+ Macrocytosis 1+ Schistocytes 1+ PT 17.9 H INR 1.6 Sodium 142 Potassium 2.9 L Chloride 108 H Carbon Dioxide 28.0 Anion Gap 6 BUN 9 Creatinine 0.78 Estim Creat Clear Calc 75.59 Est GFR (MDRD) Af Amer 102 Est GFR (MDRD) Non-Af 84 BUN/Creatinine Ratio 11.6 Glucose 73 L Lactic Acid Calcium 8.3 L Total Bilirubin 3.60 H AST 118 H ALT 24 Alkaline Phosphatase 119 H Ammonia Troponin I < 0.015 Total Protein 7.9 Albumin 2.1 L Globulin 5.8 H Albumin/Globulin Ratio 0.4 L Lipase 175 Urine Color Urine Clarity Urine pH Ur Specific [place] Urine Protein Urine Glucose (UA) Urine Ketones Urine Occult Blood Urine Nitrite Urine Bilirubin Urine Urobilinogen Ur Leukocyte Esterase Urine Opiates Screen Urine Methadone Screen Ur Barbiturates Screen Ur Phencyclidine Scrn Ur Amphetamines Screen U Methamphetamin-MDMA U Benzodiazepines Scrn Urine Cocaine Screen U Cannabinoids Screen Ur Drug Screen Comment Ethyl Alcohol 07/11/20 07/11/20 07/11/20 18:30 18:30 18:30 WBC RBC Hgb Hct MCV MCH MCHC RDW Std Deviation RDW Coeff of Bhakti Plt Count MPV Immature Gran % (Auto) Neut % (Auto) Lymph % (Auto) [place] % (Auto) Eos % (Auto) Baso % (Auto) Absolute Neuts (auto) Absolute Lymphs (auto) Nucleated RBC % Differential Comment Hypochromasia Anisocytosis Macrocytosis Schistocytes PT INR Sodium Potassium Chloride Carbon Dioxide Anion Gap BUN Creatinine Estim Creat Clear Calc Est GFR (MDRD) Af Amer Est GFR (MDRD) Non-Af BUN/Creatinine Ratio Glucose Lactic Acid 2.0 Calcium Total Bilirubin AST ALT Alkaline Phosphatase Ammonia 27.0 Troponin I Total Protein Albumin Globulin Albumin/Globulin Ratio Lipase Urine Color Urine Clarity Urine pH Ur Specific [place] Urine Protein Urine Glucose (UA) Urine Ketones Urine Occult Blood Urine Nitrite Urine Bilirubin Urine Urobilinogen Ur Leukocyte Esterase Urine Opiates Screen Urine Methadone Screen Ur Barbiturates Screen Ur Phencyclidine Scrn Ur Amphetamines Screen U Methamphetamin-MDMA U Benzodiazepines Scrn Urine Cocaine Screen U Cannabinoids Screen Ur Drug Screen Comment Ethyl Alcohol 278.0 07/11/20 07/11/20 20:35 20:35 WBC RBC Hgb Hct MCV MCH MCHC RDW Std Deviation RDW Coeff of Bhakti Plt Count MPV Immature Gran % (Auto) Neut % (Auto) Lymph % (Auto) [place] % (Auto) Eos % (Auto) Baso % (Auto) Absolute Neuts (auto) Absolute Lymphs (auto) Nucleated RBC % Differential Comment Hypochromasia Anisocytosis Macrocytosis Schistocytes PT INR Sodium Potassium Chloride Carbon Dioxide Anion Gap BUN Creatinine Estim Creat Clear Calc Est GFR (MDRD) Af Amer Est GFR (MDRD) Non-Af BUN/Creatinine Ratio Glucose Lactic Acid Calcium Total Bilirubin AST ALT Alkaline Phosphatase Ammonia Troponin I Total Protein Albumin Globulin Albumin/Globulin Ratio Lipase Urine Color Straw Urine Clarity Clear Urine pH 6.5 Ur Specific [place] 1.010 Urine Protein Negative Urine Glucose (UA) Normal Urine Ketones Negative Urine Occult Blood Negative Urine Nitrite Negative Urine Bilirubin Negative Urine Urobilinogen Normal Ur Leukocyte Esterase Negative Urine Opiates Screen NEGATIVE Urine Methadone Screen NEGATIVE Ur Barbiturates Screen NEGATIVE Ur Phencyclidine Scrn NEGATIVE Ur Amphetamines Screen NEGATIVE U Methamphetamin-MDMA NEGATIVE U Benzodiazepines Scrn NEGATIVE Urine Cocaine Screen NEGATIVE U Cannabinoids Screen NEGATIVE Ur Drug Screen Comment Ethyl Alcohol Radiography Diagnostic Testing: Radiology Impression Chest X-Ray 07/11/20 18:40 IMPRESSION: No radiographic evidence of acute cardiopulmonary disease. at 1903 Reported and signed by: John Peng MD Electronically Signed: John Peng MD at 19:02 EDT Tel , Service support , Discharge Plan Triage Chief Complaint: ETOH Intox ED Provider: Coleman Nunes Dx/Rx/DC Orders Instructions: ED Hypokalemia, ED Alcohol Abuse Prescriptions: No Action potassium chloride 20 MEQ/15 ML liquid 20 meq PO DAILY Qty: 210 RF: 0 folic acid 1 mg Tablet 1 mg PO DAILY@0800 Qty: 0 RF: 0 furosemide 40 mg Tablet 40 mg PO DAILY Qty: 0 RF: 0 sennosides [Kristi-parveen] 8.6 mg Tablet 2 tab PO QHS PRN PRN (Reason: Constipation) Qty: 0 RF: 0 nystatin 100,000 unit/mL Suspension 500,000 unit PO 4X/DAY Qty: 0 RF: 0 ondansetron HCl 8 mg Tablet 8 mg PO Q8H PRN PRN (Reason: NAUSEA/VOMITING) Qty: 0 RF: 0 pantoprazole 20 mg Tablet,Delayed Release (Dr/Ec) 20 mg PO BID Qty: 0 RF: 0 thiamine HCl (vitamin B1) [Vitamin B-1] 100 mg Tablet 100 mg PO DAILYCM Qty: 0 RF: 0 spironolactone 50 mg Tablet 50 mg PO DAILY Qty: 0 RF: 0 lactulose 20 gram/30 mL Solution 10 g PO BID Qty: 0 RF: 0 Ensure Enlive 0.08 gram-1.5 kcal/mL Liquid 120 ml PO 4X/DAY Qty: 0 RF: 0 Primary Care Provider: Care Physician,No Primary Referrals: Care Physician,No Primary [Primary Care Provider] - Disposition Disposition: Home, self care
[2020-07-11] MEDS: Potassium Chloride Oral Tablet 20 MEQ 40 MEQ PO (23:40)
[2020-07-11 23:43] VITALS: BP 103/70; PULSE 68; RESP 16; O2SAT 98
[2020-07-11 23:44] VITALS: BP 103/70; PULSE 74; RESP 16; TEMP 36.8; O2SAT 99
--- NOTE | 2020-07-11 23:52 | NURSING ---
Patient reports there is no one I can call and only relative in list is mother who lives in [place]. She states I should call a taxi for her and reports she has her wallet and money to pay and has her keys to get in the house. This nurse gave patient pants and socks to wear home. Called taxi at [phone]
== END 2020-07-12 00:01 | disposition home or self-care (01) ==
PROVIDERS: Emergency Provider Student in an Organized Health Care Education/Training Program
DX: E87.6 Hypokalemia (principal); F10.129 Alcohol abuse with intoxication, unspecified; Y90.9 Presence of alcohol in blood, level not specified; K74.60 Unspecified cirrhosis of liver; G40.909 Epilepsy, unspecified, not intractable, without status epilepticus; Z79.899 Other long term (current) drug therapy
CPT/HCPCS: 71045; 80053; 80307; 81002; 82077; 82140; 83605; 83690; 84484; 85025; 85610; 93005; 96365; 99285; J7040; J3490

== ENCOUNTER 2020-07-12 18:47 | Emergency (ER) | payer MEDICARE, MEDICAID, SELFPAY ==
[2020-07-11 17:54] VITALS: BMI 19.1
[2020-07-12 18:50] VITALS: BP 106/64; PULSE 99; RESP 17; TEMP 36.3; O2SAT 100; BMI 16.2
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
--- NOTE | 2020-07-12 19:15 | RAD_ITS ---
STUDY: X-RAY - LEFT WRIST REASON FOR EXAM: Female, 49 years old. wrist laceration -- Concern for FB TECHNIQUE: 3 view(s) of the wrist were obtained. COMPARISON: None. FINDINGS: Normal visualized distal radius and ulna. Normal radiocarpal articulation. Normal distal radioulnar articulation. Normal carpal bones. Normal carpal articulations. Normal carpometacarpal articulation of the thumb. Normal second through fifth carpometacarpal articulations. Normal visualized metacarpal bones. There is bandage material of the medial wrist. No radiopaque foreign body. There is non-specific soft tissue swelling. RAD/Wrist min 3 Views IMPRESSION: No radiopaque foreign body. Electronically Signed: Ramesh Mckeon MD ([place]) at 19:49 EDT , Service support ,
[2020-07-12] MEDS: Lidocaine/Epi/Tetracaine 50 ML 1 APPLIC TOPICAL (19:17)
--- NOTE | 2020-07-12 20:37 | NURSING ---
Called Jamila, mother, at [phone].Left message to urmila her know Emily is here and requested we call her for a ride home and to head over BUT if cannot come, to call us. Patient is resting at this time.
[2020-07-12 20:39] VITALS: BP 105/62; PULSE 80; RESP 16; O2SAT 100
--- NOTE | 2020-07-12 21:11 | ED.RN ---
Call returned from patient's mother who states she cannot come and take the patient home. Cab called and patient will pay when she gets home as her purse is in the house.
== END 2020-07-12 21:51 | disposition home or self-care (01) ==
PROVIDERS: Emergency Provider Student in an Organized Health Care Education/Training Program
DX: S61.512A Laceration without foreign body of left wrist, initial encounter (principal); W25.XXXA Contact with sharp glass, initial encounter; Y93.9 Activity, unspecified; Y92.9 Unspecified place or not applicable; F10.129 Alcohol abuse with intoxication, unspecified; Y90.9 Presence of alcohol in blood, level not specified; K74.60 Unspecified cirrhosis of liver; G40.909 Epilepsy, unspecified, not intractable, without status epilepticus; Z79.899 Other long term (current) drug therapy
CPT/HCPCS: 73110; 99285

== ENCOUNTER 2020-07-13 12:01 | Emergency (ER) | payer MEDICARE, MEDICAID, SELFPAY ==
[2020-07-12 18:50] VITALS: BMI 16.2
[2020-07-13 12:02] VITALS: BP 105/76; PULSE 93; RESP 15; TEMP 37.1; O2SAT 99; BMI 18.3
--- NOTE | 2020-07-13 12:31 | ED.RN ---
[facility]or [facility]osp[facility] Nurse paged as pt requesting to be inpatient.
[2020-07-13 12:47] LABS: Absolute Lymphocyte Count 1.56 X10^3/uL (0.83-4.51); Basophil% 1.8 % (0-1); Eosinophil# 0.32 X10^3/uL; Eosinophils% 5.8 % (0-5); Hemoglobin 8.4 g/dL (12.0-15.0); Lymphocyte # 1.56 X10^3/ul (0.83-4.51); Lymphocyte % 28.3 % (19-41); Mean Corp Hgb Conc 31.1 g/dL (32-36); Mean Corpuscular Hgb 31.5 pg (27.0-32.0); Mean Corpuscular Volume 101.1 fL (81-99); Mean Platelet Vol. 11.5 fl (6.2-12.0); Monocyte# 0.52 X10^3/uL; Monocyte% 9.4 % (0-10); NRBC Flagged by Analyzer 0 % (0-5); Neutrophil # 2.99 X10^3/uL (2.7-7.7); Neutrophil % 54.2 % (47-70); POSITIVE MORPHOLOGY YES; Platelet Count 135 K/mm3 (150-450); RBC Distribution Width CV 19.3 % (11.6-14.6); RBC Distribution Width SD 72.8 fl (35.1-43.9); Red Blood Count 2.67 M/mm3 (4.2-5.4); White Blood Count 5.5 K/mm3 (4.4-11.0)
[2020-07-13 12:49] LABS: Differential Indicated SCAN CRITERIA MET
[2020-07-13 12:53] LABS: International Normalized Ratio 1.6
[2020-07-13 13:06] LABS: ALB/GLOB Ratio 0.4 RATIO (0.9-2.4); AST(SGOT) 151 U/L (15-37); Alanine Aminotransfer ALT/SGPT 29 U/L (13-56); Albumin, Serum 2.2 g/dL (3.2-5.0); Alkaline Phosphatase 138 U/L (45-117); Anion Gap 11 (5-15); BUN 7 mg/dL (7-18); BUN/Creat Ratio 8.1 RATIO (10-20); Calcium,Total 8.5 mg/dL (8.5-10.1); Chloride 104 mmol/L (98-107); Creatinine, Serum 0.87 mg/dL (0.55-1.02); EST Glomerular Filtration Rate 74 mL/min (>60); Est Glom Filt Rate - Afr Amer 90 mL/min (>60); Estimated Creatinine Clearance 71.18 ml/min; Globulin 5.9 g/dL (2.2-4.2); Glucose 103 mg/dL (74-106); Lipase 212 U/L (73-393); Protein, Total 8.1 g/dL (6.4-8.2); Sodium Level 138 mmol/L (136-145)
[2020-07-13 13:13] LABS: Anisocytosis 2+; Differential Comment SCANNED; Hypochromasia 1+; Macrocytosis 1+; Microcytosis 1+
[2020-07-13 13:34] VITALS: BP 100/73; PULSE 82; RESP 12; O2SAT 97
--- NOTE | 2020-07-13 13:42 | EDS_ITS ---
HPI History of Present Illness Chief Complaint: General Illness Informant: patient Onset/Context/Timing Onset: Yesterday Context: Gradual Onset Quality: Weakness Location: Generalized Current Severity: Severe Maximum Severity: Severe Narrative Narrative: Patient presents with generalized weakness that has been getting worse over the past couple days. Patient was in hospice but signed herself out yesterday or the day before. Patient states she has been getting progressively weaker. Patient is requesting to go back to hospice today. Patient states she is unable to ambulate. Patient states she has difficulty standing. Patient admits to some nausea and vomiting. Patient also admits to subjective fevers and chills but did not take her temperature. [facility] Medical History Alcohol abuse Cancer Chest pain Cirrhosis Irregular heart beat Seizures Home Medications potassium chloride 20 meq PO DAILY #210 udc 05/27/20 [Rx Last Taken 06/03/20] folic acid 1 mg PO DAILY@0800 #0 tab 06/12/20 [Rx Last Taken Unknown] furosemide 40 mg PO DAILY #0 tab 06/12/20 [Rx Last Taken Unknown] nystatin 500,000 unit PO 4X/DAY #0 ml 06/12/20 [Rx Last Taken Unknown] ondansetron HCl 8 mg PO Q8H PRN PRN #0 tab 06/12/20 [Rx Last Taken Unknown] pantoprazole 20 mg PO BID #0 tab 06/12/20 [Rx Last Taken Unknown] sennosides [Kristi-parveen] 2 tab PO QHS PRN PRN #0 tab 06/12/20 [Rx Last Taken Unknown] spironolactone 50 mg PO DAILY #0 tab 06/12/20 [Rx Last Taken Unknown] thiamine HCl (vitamin B1) [Vitamin B-1] 100 mg PO DAILYCM #0 tab 06/12/20 [Rx Last Taken Unknown] food supplemt, lactose-reduced [Ensure Enlive] 120 ml PO 4X/DAY #0 ml 06/26/20 [Rx Last Taken Unknown] lactulose 10 g PO BID #0 ml 06/26/20 [Rx Last Taken Unknown] Allergy/AdvReac Type Severity Reaction Status Date / Time No Known Allergies Allergy Verified 07/12/20 18:49 Social History Smoking Status: Never smoker alcohol intake: current alcohol intake frequency: 3 or more drinks per day ROS ROS ED Constitutional Constitutional ED: Reports chills, fever(s) and subjective Eyes Eyes: Denies blurry vision or change in vision ENT ENT ED: Denies rhinorrhea or sore throat Cardiovascular Cardiovascular: Reports chest pain; Denies palpitations Respiratory/Chest Respiratory/Chest: Reports dyspnea; Denies cough Gastrointestinal Gastrointestinal: Reports nausea and vomiting Genitourinary Genitourinary ED: Denies dysuria or hematuria Musculoskeletal Musculoskeletal: Denies back pain or neck pain Integumentary Denies abscess or rash Neurologic Neurologic: Reports weakness; Denies headache(s) Allergic/Immunologic Allergic/Immunologic ED: Denies mouth swelling or urticaria EXAM Physical Exam Const Vital Signs: 07/13/20 12:02 07/13/20 13:34 Temperature 98.7 F Temperature Source Temporal Pulse Rate 93 82 Respiratory Rate 15 12 Respiratory Effort Normal Respiratory Pattern Normal Blood Pressure 105/76 100/73 Blood Pressure Mean 85 82 Pulse Ox 99 97 Oxygen Delivery Method Room Air Room Air Positive cachectic General Appearance ED: cachectic Nutritional Appearance: cachectic HEENT Reports moist mucous membranes Neck supple and no JVD Resp normal respiratory effort and clear to auscultation bilaterally Cardio regular rate and regular rhythm GI normal to inspection, nondistended, normoactive bowel sounds and non-tender Palpation: soft Neuro oriented x3, CN's II-XII intact bilaterally and no sensory deficits noted Sensorium / Orientation: alert Motor Exam: strength 5/5 throughout Psych mental status grossly normal MDM MDM MDM Narrative Medical decision making narrative: CBC and comprehensive metabolic profile were obtained. Total bilirubin was slightly elevated at 3.1. This is consistent with prior results. Hemoglobin was 8.4. This is also consistent with prior results. PT with INR were 18.0 and 1.6 respectively. Case was discussed with hospice. They were in to evaluate the patient. They will admit the patient back to the hospice facility. Patient understood and was agreeable with the plan. All questions were answered. Lab Data Attestation: I reviewed the patient's lab results. Labs: Laboratory Results - last 24 hr 07/13/20 07/13/20 07/13/20 12:35 12:35 12:35 WBC 5.5 RBC 2.67 L Hgb 8.4 L Hct 27.0 L MCV 101.1 H MCH 31.5 MCHC 31.1 L RDW Std Deviation 72.8 H RDW Coeff of Bhakti 19.3 H Plt Count 135 L MPV 11.5 Immature Gran % (Auto) 0.500 Neut % (Auto) 54.2 Lymph % (Auto) 28.3 Dunn % (Auto) 9.4 Eos % (Auto) 5.8 H Baso % (Auto) 1.8 H Absolute Neuts (auto) 3.0 Absolute Lymphs (auto) 1.56 Nucleated RBC % 0 Differential Comment SCANNED Hypochromasia 1+ Anisocytosis 2+ Microcytosis 1+ Macrocytosis 1+ PT 18.0 H INR 1.6 Sodium 138 Potassium 3.0 L Chloride 104 Carbon Dioxide 23.0 Anion Gap 11 BUN 7 Creatinine 0.87 Estim Creat Clear Calc 71.18 Est GFR (MDRD) Af Amer 90 Est GFR (MDRD) Non-Af 74 BUN/Creatinine Ratio 8.1 L Glucose 103 Calcium 8.5 Total Bilirubin 3.10 H AST 151 H ALT 29 Alkaline Phosphatase 138 H Total Protein 8.1 Albumin 2.2 L Globulin 5.9 H Albumin/Globulin Ratio 0.4 L Lipase 212 Discharge Plan Triage Chief Complaint: General Illness ED Provider: Manuel Harden Dx/Rx/DC Orders Clinical Impression: Generalized weakness Instructions: ED Weakness (Uncertain Cause) Prescriptions: No Action potassium chloride 20 MEQ/15 ML liquid 20 meq PO DAILY Qty: 210 RF: 0 folic acid 1 mg Tablet 1 mg PO DAILY@0800 Qty: 0 RF: 0 furosemide 40 mg Tablet 40 mg PO DAILY Qty: 0 RF: 0 sennosides [Kristi-parveen] 8.6 mg Tablet 2 tab PO QHS PRN PRN (Reason: Constipation) Qty: 0 RF: 0 nystatin 100,000 unit/mL Suspension 500,000 unit PO 4X/DAY Qty: 0 RF: 0 ondansetron HCl 8 mg Tablet 8 mg PO Q8H PRN PRN (Reason: NAUSEA/VOMITING) Qty: 0 RF: 0 pantoprazole 20 mg Tablet,Delayed Release (Dr/Ec) 20 mg PO BID Qty: 0 RF: 0 thiamine HCl (vitamin B1) [Vitamin B-1] 100 mg Tablet 100 mg PO DAILYCM Qty: 0 RF: 0 spironolactone 50 mg Tablet 50 mg PO DAILY Qty: 0 RF: 0 lactulose 20 gram/30 mL Solution 10 g PO BID Qty: 0 RF: 0 Ensure Enlive 0.08 gram-1.5 kcal/mL Liquid 120 ml PO 4X/DAY Qty: 0 RF: 0 Disposition Disposition: Hospice in Medical Facility Discharge Location: [facility]
== END 2020-07-13 14:36 | disposition hospice, inpatient (51) ==
PROVIDERS: Emergency Provider Emergency Medicine
DX: R53.1 Weakness (principal); R11.2 Nausea with vomiting, unspecified; R68.83 Chills (without fever); R64 Cachexia; Z68.1 Body mass index [BMI] 19.9 or less, adult; K74.60 Unspecified cirrhosis of liver; G40.909 Epilepsy, unspecified, not intractable, without status epilepticus; Z79.899 Other long term (current) drug therapy
CPT/HCPCS: 80053; 83690; 85025; 85610; 99284; A4216

== ENCOUNTER 2020-07-17 11:16 | Emergency (ER) | payer MEDICARE, MEDICAID, SELFPAY ==
[2020-07-17 11:17] VITALS: BP 118/77; PULSE 101; RESP 16; TEMP 36.4; O2SAT 98; BMI 19.2
--- NOTE | 2020-07-17 11:26 | EDS_ITS ---
HPI History of Present Illness Chief Complaint: Mental Health Informant: patient and EMS Limited: intoxicated Onset/Context/Timing Onset: Today Current Severity: Mild Narrative Narrative: The patient is a 49-year-old female medical history significant for chronic alcohol abuse, alcoholic cirrhosis, and depression who presents to the emergency department by EMS. The patient is currently active in hospice. Apparently, the hospice worker was at her house today. She states that she was not making rational decisions. Squad was called and she was brought in. The patient does admit to drinking today. She states that she is not suicidal or homicidal. She states that she is just unsure why they sent her here. She states that she is actively dying and she continues to drink. She states that she just wants to be comfortable during her process of dying. [facility] Medical History Alcohol abuse Cancer Chest pain Cirrhosis Irregular heart beat Seizures Home Medications potassium chloride 20 meq PO DAILY #210 udc 05/27/20 [Rx Last Taken 06/03/20] folic acid 1 mg PO DAILY@0800 #0 tab 06/12/20 [Rx Last Taken Unknown] furosemide 40 mg PO DAILY #0 tab 06/12/20 [Rx Last Taken Unknown] nystatin 500,000 unit PO 4X/DAY #0 ml 06/12/20 [Rx Last Taken Unknown] ondansetron HCl 8 mg PO Q8H PRN PRN #0 tab 06/12/20 [Rx Last Taken Unknown] pantoprazole 20 mg PO BID #0 tab 06/12/20 [Rx Last Taken Unknown] sennosides [Kristi-parveen] 2 tab PO QHS PRN PRN #0 tab 06/12/20 [Rx Last Taken Unknown] spironolactone 50 mg PO DAILY #0 tab 06/12/20 [Rx Last Taken Unknown] thiamine HCl (vitamin B1) [Vitamin B-1] 100 mg PO DAILYCM #0 tab 06/12/20 [Rx Last Taken Unknown] food supplemt, lactose-reduced [Ensure Enlive] 120 ml PO 4X/DAY #0 ml 06/26/20 [Rx Last Taken Unknown] lactulose 10 g PO BID #0 ml 06/26/20 [Rx Last Taken Unknown] Allergy/AdvReac Type Severity Reaction Status Date / Time No Known Allergies Allergy Verified 07/17/20 11:20 Social History Smoking Status: Never smoker alcohol intake: current alcohol intake frequency: 3 or more drinks per day ROS ROS ED Constitutional Constitutional ED: Denies chills or fever(s) Eyes Eyes: Denies blurry vision or change in vision ENT ENT ED: Denies ear pain or sore throat Cardiovascular Cardiovascular: Denies chest pain or palpitations Respiratory/Chest Respiratory/Chest: Denies cough, dyspnea or dyspnea on exertion Gastrointestinal Gastrointestinal: Denies abdominal pain, nausea or vomiting Genitourinary Genitourinary ED: Denies dysuria or urinary frequency Musculoskeletal Musculoskeletal: Denies arthralgias or myalgias Integumentary Denies rash Neurologic Neurologic: Denies headache(s) or paresthesias Psychiatric Psychiatric: Denies anxiety or depression Endocrine Endocrinology: Denies polydipsia or polyuria Allergic/Immunologic Allergic/Immunologic ED: Denies urticaria EXAM Physical Exam Const Vital Signs: 07/17/20 11:17 Temperature 97.6 F L Temperature Source Temporal Pulse Rate 101 H Respiratory Rate 16 Blood Pressure 118/77 Blood Pressure Mean 90 Pulse Ox 98 Oxygen Delivery Method Room Air Positive well nourished and well developed General Appearance ED: well developed HEENT Reports normocephalic, head/scalp atraumatic and moist mucous membranes Eyes PERRL and EOMs intact bilaterally Neck no lymphadenopathy and supple General: Negative for tenderness Chest Wall inspection of chest normal Resp normal respiratory effort and clear to auscultation bilaterally Cardio regular rate, regular rhythm and no murmurs GI normal to inspection, nondistended, normoactive bowel sounds Palpation: Negative for tender, guarding or rebound tenderness present Back/Spine no CVA tenderness Cervical Spine: Negative for cervical spine tenderness Thoracic Spine / Upper Back: Negative for thoracic spinal tenderness Extremity normal to inspection General Extremety ED: Negative for tenderness Neuro oriented x3 and CN's II-XII intact bilaterally Neuro Narrative: No focal deficits appreciated. Sensorium / Orientation: alert Psych mental status grossly normal Skin no rashes or lesions noted, no wounds and skin turgor normal MDM MDM MDM Narrative Medical decision making narrative: The patient presents intoxicated, but she is awake and alert. She does admit to drinking today. She has no thoughts of self-harm. She is very confused as to why she is here. I was able to get some more history and it seemed like the hospice cost estimating engineer was just concerned with her irrational behavior. The patient states this is her baseline behavior because she continues to drink. She does not feel that she is a danger to herself. She is actually quite lucid. She does not want any medical work-up. Given her goals of care I feel that this is reasonable. She does not want detox. She wants to go home. The patient will be discharged. Impression 1. Alcohol intoxication Discharge Plan Triage Chief Complaint: Mental Health ED Provider: José Antonio Harris Dx/Rx/DC Orders Instructions: ED Alcohol Intoxication Prescriptions: No Action potassium chloride 20 MEQ/15 ML liquid 20 meq PO DAILY Qty: 210 RF: 0 folic acid 1 mg Tablet 1 mg PO DAILY@0800 Qty: 0 RF: 0 furosemide 40 mg Tablet 40 mg PO DAILY Qty: 0 RF: 0 sennosides [Kristi-parveen] 8.6 mg Tablet 2 tab PO QHS PRN PRN (Reason: Constipation) Qty: 0 RF: 0 nystatin 100,000 unit/mL Suspension 500,000 unit PO 4X/DAY Qty: 0 RF: 0 ondansetron HCl 8 mg Tablet 8 mg PO Q8H PRN PRN (Reason: NAUSEA/VOMITING) Qty: 0 RF: 0 pantoprazole 20 mg Tablet,Delayed Release (Dr/Ec) 20 mg PO BID Qty: 0 RF: 0 thiamine HCl (vitamin B1) [Vitamin B-1] 100 mg Tablet 100 mg PO DAILYCM Qty: 0 RF: 0 spironolactone 50 mg Tablet 50 mg PO DAILY Qty: 0 RF: 0 lactulose 20 gram/30 mL Solution 10 g PO BID Qty: 0 RF: 0 Ensure Enlive 0.08 gram-1.5 kcal/mL Liquid 120 ml PO 4X/DAY Qty: 0 RF: 0 Primary Care Provider: NOT,DEFINED Referrals: NOT,DEFINED [Primary Care Provider] -
[2020-07-17 13:26] VITALS: PULSE 81; RESP 16
--- NOTE | 2020-07-17 13:27 | ED.RN ---
THIS NURSE REVIEWED D/C INSTRUCTIONS WITH PT AND VISITOR. PT VERBALIZED UNDERSTANDING. PT DENIES FURTHER NEEDS OR QUESTIONS AT THIS TIME. PT AMBULATES FROM ROOM ON OWN WITHOUT ASSISTANCE FROM STAFF
--- NOTE | 2020-07-17 13:33 | ED.RN ---
PT VOICES STATES I'M HERE BECAUSE THE BROADCAST ENGINEER THINKS I'M MAKING BAD DECISIONS. PER EMS PT LEFT INPATIENT HOSPICE LAST NIGHT AMA. BROADCAST ENGINEER DID HOME VISIT TODAY, CONCERNED PT DID NOT HAVE GROCERIES. PT APPEARS TO BE AT HER BASELINE, ANSWERING QUESTIONS APPROPRIATELY, VOICES UNDERSTANDING OF WHY HOSPICE IS CONCERNED BUT STATES I'VE NEVER HAD FOOD IN THE HOUSE, STATES SHE WALKS TO [employer], test company OR [employer]UG [employer] EVERY DAY FOR FOOD. PT IS ALSO UPSET HOSPICE WON'T ALLOW ME TO HAVE A BEER. PT STATES I ONLY HAVE 30 DAYS TO LIVE, IF I WANT TO DRINK I SHOULD BE ABLE TO DO SO. PT'S FRIEND AMANDA AT BEDSIDE, CASE MANAGEMENT INVOLVED AND UPDATING HOSPICE.
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
== END 2020-07-17 13:39 | disposition home or self-care (01) ==
LOC: ED 12:07
PROVIDERS: Emergency Provider Emergency Medicine
DX: F10.129 Alcohol abuse with intoxication, unspecified (principal); Y90.9 Presence of alcohol in blood, level not specified; K70.30 Alcoholic cirrhosis of liver without ascites; F32.9 Major depressive disorder, single episode, unspecified; G40.909 Epilepsy, unspecified, not intractable, without status epilepticus; Z51.5 Encounter for palliative care; Z79.899 Other long term (current) drug therapy
CPT/HCPCS: 99284

== ENCOUNTER → 2020-07-24 05:00 | Outpatient (REF) | payer MEDICARE, MEDICAID, SELFPAY ==
[2020-07-17 11:17] VITALS: BMI 19.2
[2020-07-24 08:01] LABS: Potassium 3.9 mmol/L (3.5-5.1)
== END ==
LOC: OLS.HOSPIC 05:00
PROVIDERS: Visit Provider Internal Medicine Cardiovascular Disease
DX: K70.30 Alcoholic cirrhosis of liver without ascites (principal)
CPT/HCPCS: 36415; 84132

== ENCOUNTER 2020-07-24 16:39 | Inpatient (IN) | payer MEDICARE, MEDICAID, SELFPAY ==
[2020-07-24 16:41] VITALS: BP 119/73; PULSE 122; RESP 17; TEMP 37.5; O2SAT 97; BMI 20.2
--- NOTE | 2020-07-24 17:06 | EKG12_ITS ---
Test Reason : MENTAL STATUS Blood Pressure : / mmHG Vent. Rate : 112 BPM Atrial Rate : 112 BPM P-R Int : 122 ms QRS Dur : 080 ms QT Int : 362 ms P-R-T Axes : 021 013 020 degrees QTc Int : 494 ms Sinus tachycardia Otherwise normal ECG When compared with ECG of 11-JUL-2020 18:35, No significant change was found Confirmed by ALEXUS RODRIGUEZ, FABIO ([id number]), copy editor BINH FATIMA ([id number]) on 07/29/2020 9:16:00 AM Referred By: LEONIE Confirmed By:FABIO VAUGHAN MD
--- NOTE | 2020-07-24 17:38 | RAD_ITS ---
STUDY: X-RAY CHEST REASON FOR EXAM: Female, 49 years old. Confusion TECHNIQUE: AP portable COMPARISON: 07/11/2020 FINDINGS: Minor atelectasis at the right base with tiny pleural effusion.. Normal size heart. Normal mediastinum and dillon. Normal visualized pulmonary arteries. Normal visualized aortic arch and descending thoracic aorta. Normal visualized thoracic spine. Normal visualized ribs, clavicles, and shoulders. There is no demonstrated abnormality of the visualized soft tissue structures of the upper abdomen. RAD/Chest 1 View (Portable) IMPRESSION: Minor atelectasis at the right base and tiny effusion Electronically Signed: Pradeep Gallego MD at 18:14 EDT , Service support ,
--- NOTE | 2020-07-24 17:43 | EDS_ITS ---
HPI History of Present Illness Chief Complaint: Confusion Narrative Narrative: The patient is here with his sister they are both providing the history basically the sister reports that the patient has a history of end-stage liver disease cirrhosis alcohol-related encephalopathy currently a hospice patient related to all the above inpatient residential should the patient signed herself out of that hospice facility today because she was concerned that the staff are talking about her. Per the sister the patient has had progressive paranoia for months she was living in her apartment had paranoia about her neighbors talking about her, then she went to different nursing facilities other types of facilities and again signed herself out related to paranoia about others talking about her, a few weeks ago she was arrested and spent a few days in senior care because of her paranoid ideation. It was ultimately decided she should be admitted to the residential hospice facility she is been there for about a week she continued to complain about the staff talking about her to the point that she basically signed herself out when she did this the sister went to court and obtained an immediate court ordered guardianship that took effect after the patient signed herself out the sister then spoke with the staff at the hospice facility and suggested she bring the patient to the emergency department to undergo mental health evaluation pink slip process to be admitted to a psychiatric facility where her paranoia could be managed, the sister reports her alcoholism is stable her cirrhosis is stable her encephalopathy is stable, she had extensive labs at the hospice her prior hospice that were unremarkable and it is not felt that the paranoia is related to her alcohol abuse or encephalopathic history. The patient is awake and alert she knows the president the [facility] the hospital her sister her address patient insisted that people are talking about her and no one will listen to her, per the sister and the patient the patient is not been ill in any way no fever no cough no trauma this is a longstanding issue of paranoia [facility] Medical History Alcohol abuse Cancer Chest pain Cirrhosis Irregular heart beat Seizures Home Medications potassium chloride 20 meq PO DAILY #210 udc 05/27/20 [Rx Last Taken 06/03/20] folic acid 1 mg PO DAILY@0800 #0 tab 06/12/20 [Rx Last Taken Unknown] furosemide 40 mg PO DAILY #0 tab 06/12/20 [Rx Last Taken Unknown] nystatin 500,000 unit PO 4X/DAY #0 ml 06/12/20 [Rx Last Taken Unknown] ondansetron HCl 8 mg PO Q8H PRN PRN #0 tab 06/12/20 [Rx Last Taken Unknown] pantoprazole 20 mg PO BID #0 tab 06/12/20 [Rx Last Taken Unknown] sennosides [Kristi-parveen] 2 tab PO QHS PRN PRN #0 tab 06/12/20 [Rx Last Taken Unknown] spironolactone 50 mg PO DAILY #0 tab 06/12/20 [Rx Last Taken Unknown] thiamine HCl (vitamin B1) [Vitamin B-1] 100 mg PO DAILYCM #0 tab 06/12/20 [Rx Last Taken Unknown] food supplemt, lactose-reduced [Ensure Enlive] 120 ml PO 4X/DAY #0 ml 06/26/20 [Rx Last Taken Unknown] lactulose 10 g PO BID #0 ml 06/26/20 [Rx Last Taken Unknown] Allergy/AdvReac Type Severity Reaction Status Date / Time No Known Allergies Allergy Verified 07/24/20 16:41 Social History Smoking Status: Never smoker alcohol intake: current alcohol intake frequency: 3 or more drinks per day ROS ROS ED ROS Narrative The main issue is paranoia for months Constitutional Constitutional ED: Reports subjective, sweats and other; Denies chills, fever(s) or weight loss Eyes Eyes: Denies blurry vision or change in vision ENT ENT ED: Denies ear pain Cardiovascular Cardiovascular: Denies chest pain or palpitations Respiratory/Chest Respiratory/Chest: Denies dyspnea Gastrointestinal Gastrointestinal: Denies abdominal pain, nausea or vomiting Genitourinary Genitourinary ED: Denies dysuria or hematuria Musculoskeletal Musculoskeletal: Denies arthralgias or myalgias Integumentary Reports rash; Denies abscess Neurologic Neurologic: Denies weakness Psychiatric Psychiatric: Denies anxiety or depression Endocrine Endocrinology: Denies polydipsia or polyuria Allergic/Immunologic Allergic/Immunologic ED: Denies urticaria EXAM Physical Exam Narrative Exam Narrative: The patient is awake alert moving all 4 extremities again oriented x3 as above she insists that she is justified being paranoid as people are talking about her she has no complaints of any kind Const Vital Signs: 07/24/20 16:41 Temperature 99.5 F H Temperature Source Temporal Pulse Rate 122 H Respiratory Rate 17 Blood Pressure 119/73 Blood Pressure Mean 88 Pulse Ox 97 Oxygen Delivery Method Room Air Positive well developed General Appearance ED: well developed HEENT Reports normocephalic Negative for trauma Eyes EOMs intact bilaterally Neck supple Chest Wall inspection of chest normal Resp normal respiratory effort Cardio regular rate GI non-tender and non-distended Back/Spine Back/Spine Narrative: unremarkable Extremity normal to inspection Neuro oriented x3 and CN's II-XII intact bilaterally Sensorium / Orientation: alert Psych mental status grossly normal Skin no rashes or lesions noted MDM MDM MDM Narrative Medical decision making narrative: Given all of the above ED evaluation screening labs Per patient's ED screening evaluation labs are generally unremarkable see those reports, her ammonia level is 45 her EKG shows a sinus rhythm rate of 112 her chest x-ray 1 view to my review is unremarkable see the radiology report The sister is now her guardian the sister wants her seen by mental health services for possible admission to a mental health unit to help with the co nstant paranoia the fact that she constantly signed herself out of facilities that are designed to assist her with her condition, I spoke with mental health services they are seeing her now they are familiar with her condition in case they will determine disposition she appears medically stable to be sent to mental health facility Transfer to mental health facility per consultation above Final impression history of paranoid delusions, history of alcohol abuse cirrhosis alcoholic encephalopathy, sister is now the patient's healthcare guardian Lab Data Labs: Laboratory Results - last 24 hr 07/24/20 07/24/20 07/24/20 18:05 18:05 18:05 WBC RBC Hgb Hct MCV MCH MCHC RDW Std Deviation RDW Coeff of Bhakti Plt Count MPV Immature Gran % (Auto) Neut % (Auto) Lymph % (Auto) Rapides % (Auto) Eos % (Auto) Baso % (Auto) Absolute Neuts (auto) Absolute Lymphs (auto) Nucleated RBC % PT 21.9 H INR 2.0 Sodium 141 Potassium 3.7 Chloride 111 H Carbon Dioxide 23.0 Anion Gap 7 BUN 4 L Creatinine 1.00 Estim Creat Clear Calc 66.42 Est GFR (MDRD) Af Amer 76 Est GFR (MDRD) Non-Af 63 BUN/Creatinine Ratio 4.0 L Glucose 103 Lactic Acid Calcium 8.2 L Total Bilirubin 3.90 H AST 82 H ALT 18 Alkaline Phosphatase 132 H Ammonia Troponin I < 0.015 B-Natriuretic Peptide 163.0 H Total Protein 7.1 Albumin 2.0 L Globulin 5.1 H Albumin/Globulin Ratio 0.4 L Lipase 120 07/24/20 07/24/20 07/24/20 18:05 18:05 18:05 WBC 3.8 L RBC 2.42 L Hgb 7.7 L Hct 24.4 L MCV 100.8 H MCH 31.8 MCHC 31.6 L RDW Std Deviation 63.1 H RDW Coeff of Bhakti 17.4 H Plt Count 107 L MPV 11.5 Immature Gran % (Auto) 0.300 Neut % (Auto) 41.7 L Lymph % (Auto) 35.3 Rapides % (Auto) 11.6 H Eos % (Auto) 10.3 H Baso % (Auto) 0.8 Absolute Neuts (auto) 1.6 L Absolute Lymphs (auto) 1.34 Nucleated RBC % 0 PT INR Sodium Potassium Chloride Carbon Dioxide Anion Gap BUN Creatinine Estim Creat Clear Calc Est GFR (MDRD) Af Amer Est GFR (MDRD) Non-Af BUN/Creatinine Ratio Glucose Lactic Acid 2.2 H* Calcium Total Bilirubin AST ALT Alkaline Phosphatase Ammonia 45.0 H Troponin I B-Natriuretic Peptide Total Protein Albumin Globulin Albumin/Globulin Ratio Lipase Radiography Diagnostic Testing: Radiology Impression Chest X-Ray 07/24/20 17:38 IMPRESSION: Minor atelectasis at the right base and tiny effusion Electronically Signed: Pradeep Gallego MD at 18:14 EDT , Service support , Discharge Plan Triage Chief Complaint: Confusion ED Provider: Carmen Triplett Dx/Rx/DC Orders Clinical Impression: Encephalopathy, hepatic, Paranoid ideation Prescriptions: No Action potassium chloride 20 MEQ/15 ML liquid 20 meq PO DAILY Qty: 210 RF: 0 folic acid 1 mg Tablet 1 mg PO DAILY@0800 Qty: 0 RF: 0 furosemide 40 mg Tablet 40 mg PO DAILY Qty: 0 RF: 0 sennosides [Kristi-parveen] 8.6 mg Tablet 2 tab PO QHS PRN PRN (Reason: Constipation) Qty: 0 RF: 0 nystatin 100,000 unit/mL Suspension 500,000 unit PO 4X/DAY Qty: 0 RF: 0 ondansetron HCl 8 mg Tablet 8 mg PO Q8H PRN PRN (Reason: NAUSEA/VOMITING) Qty: 0 RF: 0 pantoprazole 20 mg Tablet,Delayed Release (Dr/Ec) 20 mg PO BID Qty: 0 RF: 0 thiamine HCl (vitamin B1) [Vitamin B-1] 100 mg Tablet 100 mg PO DAILYCM Qty: 0 RF: 0 spironolactone 50 mg Tablet 50 mg PO DAILY Qty: 0 RF: 0 lactulose 20 gram/30 mL Solution 10 g PO BID Qty: 0 RF: 0 Ensure Enlive 0.08 gram-1.5 kcal/mL Liquid 120 ml PO 4X/DAY Qty: 0 RF: 0 Primary Care Provider: Care Physician,No Primary Referrals: Care Physician,No Primary [Primary Care Provider] -
[2020-07-24 18:14] LABS: Absolute Lymphocyte Count 1.34 X10^3/uL (0.83-4.51); Absolute Neutrophil Count 1.6 X10^3/uL (2.0-7.7); Basophil# 0.03 X10^3/uL; Basophil% 0.8 % (0-1); Eosinophil# 0.39 X10^3/uL; Eosinophils% 10.3 % (0-5); Hematocrit 24.4 % (37-47); Hemoglobin 7.7 g/dL (12.0-15.0); Lymphocyte # 1.34 X10^3/ul (0.83-4.51); Lymphocyte % 35.3 % (19-41); Mean Corp Hgb Conc 31.6 g/dL (32-36); Mean Corpuscular Hgb 31.8 pg (27.0-32.0); Mean Corpuscular Volume 100.8 fL (81-99); Mean Platelet Vol. 11.5 fl (6.2-12.0); Monocyte# 0.44 X10^3/uL; Monocyte% 11.6 % (0-10); NRBC Flagged by Analyzer 0 % (0-5); Neutrophil # 1.59 X10^3/uL (2.7-7.7); Neutrophil % 41.7 % (47-70); Platelet Count 107 K/mm3 (150-450); RBC Distribution Width CV 17.4 % (11.6-14.6); RBC Distribution Width SD 63.1 fl (35.1-43.9); Red Blood Count 2.42 M/mm3 (4.2-5.4); White Blood Count 3.8 K/mm3 (4.4-11.0)
[2020-07-24 18:28] LABS: Prothrombin Time (Protime)PT. 21.9 SECONDS (11.7-14.9)
[2020-07-24 18:33] LABS: ALB/GLOB Ratio 0.4 RATIO (0.9-2.4); AST(SGOT) 82 U/L (15-37); Alanine Aminotransfer ALT/SGPT 18 U/L (13-56); Alkaline Phosphatase 132 U/L (45-117); Anion Gap 7 (5-15); BUN 4 mg/dL (7-18); Calcium,Total 8.2 mg/dL (8.5-10.1); Chloride 111 mmol/L (98-107); EST Glomerular Filtration Rate 63 mL/min (>60); Est Glom Filt Rate - Afr Amer 76 mL/min (>60); Estimated Creatinine Clearance 66.42 ml/min; Globulin 5.1 g/dL (2.2-4.2); Glucose 103 mg/dL (74-106); Lipase 120 U/L (73-393); Potassium 3.7 mmol/L (3.5-5.1); Protein, Total 7.1 g/dL (6.4-8.2); Sodium Level 141 mmol/L (136-145)
[2020-07-24 18:47] LABS: Lactic Acid 2.2 mmol/L (0.4-1.9)
--- NOTE | 2020-07-24 18:48 | ED.RN ---
Pt refusing IV fluids. Dr. Triplett updated and to encourage fluids.
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
--- NOTE | 2020-07-24 20:19 | CM.ED ---
Addendum entered by Alissa Herrera 07/24/20 21:03: Of note, HOMER spoke to patient last week and she reported she had cancer. HOMER asked Kalani at Hospice patient's diagnosis and she said that patient is diagnosed with hospice MD at cirrhosis of the liver. Alissa LEVINE Original Note: HOMER Note: HOMER called Kalani at Hospice. HOMER was able to gain history of patient from Kalani. Kalani indicated that patient is unable to care for herself and is making decisions that put her at risk for harm. Kalani voiced that patient reported [facility] she was tire of hearing the voices and hallucinating. Kalani said that patient has been very paranoidthat staff is talking about her and spreading rumors. Kalani said that while patient was in the Inpatient Hospice unit patient paced, was rocking back and forth in bed and cleaning up her dishes during the night. Patient then was agitated and voiced that she is upset with [facility]. Kalani said that the plan is for [facility] when patient is released from inpatient psych. HOMER called [facility]. They denied placement for patient, per Millicent, due to patient's medical needs. HOMER called [facility] and made referral for patient. HOMER faxed referral to Tatianna at [facility]. SW got call back from [facility]. They need covid 19 test and BAL (Blood Alcohol Level) and tox. (Patient has refused to urinate per RN). MD updated SW spoke to Kalani at Hospice. HOMER updated her that plan is for patient to be placed. Kalani said that she will send CONTRACTS ANALYST over to [facility] to revoke hospice as patient is utilizing services outside of hospice but when patient is discharged from psych Hospice can be reinstated. HOMER updated charge out clerk and RN. Plan: Inpatient psych Alissa LEVINE
[2020-07-24 21:00] VITALS: RESP 16
--- NOTE | 2020-07-24 21:30 | CM.ED ---
HOMER Note: HOMER spoke to Kalani, from Hospice. Kalani indicated that they would discharge patient from Hospice and then reevaluate patient for admission when discharged from psychiatric facility. Kalani said that she planned to speak to guardian and update her. HOMER updated Kalani about the status of the referral for inpatient psych. HOMER made copy of patient's guardianship papers from Probate Court. Alissa LEVINE
[2020-07-24 22:09] LABS: Reflex Lactate? Y
--- NOTE | 2020-07-24 22:21 | CM.ED ---
HOMER Note HOMER called [facility] ([facility]) and spoke to Lucille and updated them that referral had been made to [facility] for patient. HOMER advised that we are waiting for tox screen for patient. HOMER faxed referral information to [facility]. HOMER called [facility] and advised that this technical document writer was leaving at 10:30pm. HOMER advised staff will send tox screen to [facility]. HOMER updated [facility] staff (Alan) with the unit phone contact number (ED school attendance secretary) HOMER received call from Alan at [facility]. She advised that BAL has to be under 80 before it can be presented to provider. HOMER updated staff that tox screen is needed and BAL under 80 before [facility] can review referral. HOMER updated staff with cover sheet and list of who to call if patient is declined at [facility]. HOMER updated patient's sister/Emergency Guardian, Tory Slater. Plan: Inpatient psych Alissa LEVINE
[2020-07-24 22:34] VITALS: PULSE 102; RESP 18; O2SAT 94
[2020-07-25] VITALS (11 sets, daily range): BP systolic 108–122; BP diastolic 68–81; PULSE 87–102; RESP 16–18; TEMP 36.6; O2SAT 96–100
[2020-07-25 03:16] LABS: White Blood Cells 0 SEEN /hpf (0-5)
[2020-07-25 03:19] LABS: Color, Urine Yellow (Yellow); Glucose, Dipstick Normal (Normal); Ketone-Dipstick Negative (Negative); Leukocyte Esterase-Dipstick 25 /ul (Negative); Nitrite-Dipstick Negative (Negative); Occult Blood-Urine Negative /ul (Negative); Protein-Dipstick 15 mg/dl (Negative); Urine Clarity Clear (Clear); Urine Urobilinogen 8 mg/dl (Normal)
[2020-07-25 03:36] LABS: Amphetamine Urine VISTA NEGATIVE (<1000 ng/mL); Barbiturate Urine VISTA NEGATIVE (< 200 ng/mL); Benzodiazepine Urine VISTA NEGATIVE (< 200 ng/mL); Cocaine Urine VISTA NEGATIVE (< 300 ng/mL); Ecstacy Urine VISTA NEGATIVE (< 500 ng/mL); Methadone Urine VISTA NEGATIVE (< 300 ng/mL); PCP Urine VISTA NEGATIVE (< 25 ng/mL); THC Urine VISTA NEGATIVE (< 50 ng/mL); Vista UDS pH Range 6
[2020-07-25 03:41] LABS: Urine Bilirubin Dipstick 1 mg/dL (Negative)
[2020-07-25 03:45] LABS: Bacteria 1+ /hpf (None Seen); Mucous, Urine 1+ /hpf (<or=2+); Red Blood Cells-Urine 0-5 SEEN /hpf (0-5); Squamous Epithelial Cells - UA 5-10 SEEN /hpf (5-10)
[2020-07-25] MEDS: LORazepam 1 MG Tablet PO ×2 (03:47→15:21)
--- NOTE | 2020-07-25 03:48 | ED.RN ---
additional information faxed to [facility] at this time
--- NOTE | 2020-07-25 04:10 | ED.RN ---
[facility] denied patient at this time
--- NOTE | 2020-07-25 04:23 | ED.RN ---
crisis made aware patient has been denied at [facility], patient chart faxed to crisis at this time for further placement
[2020-07-25] MEDS: QUEtiapine 25 MG Tablet 50 MG PO (04:41)
[2020-07-25] MEDS: NYSTATIN 500,000 UNIT/5 ML UDC 500000 UNIT PO ×2 (04:43→16:48)
--- NOTE | 2020-07-25 05:04 | ED.RN ---
PER ANKIT FROM CRISIS, THIS PT WAS DECLINED BY [facility]. PT IS NOW REFERRED TO [facility] FOR [facility]ACEMENT
--- NOTE | 2020-07-25 06:09 | ED.RN ---
patient is pending at [facility] at this time
--- NOTE | 2020-07-25 06:20 | ED.RN ---
patient has been denied at [facility] and [facility]. Patient is pending at [facility] at this time
--- NOTE | 2020-07-25 09:12 | NURSING ---
SPOKE WITH [facility], PT PENDING AT [facility] AT THIS TIME. EKG FAXED AT THIS TIME
[2020-07-25] MEDS: Potassium Chloride Oral Tablet 20 MEQ PO (09:39)
[2020-07-25] MEDS: Folic Acid 1 MG Tablet PO (09:39)
[2020-07-25] MEDS: Furosemide 40 MG Tablet PO (09:40)
[2020-07-25] MEDS: Pantoprazole Sodium 20 MG Tablet PO (09:40)
[2020-07-25] MEDS: Thiamine Hydrochloride 100 MG Tablet PO (09:40)
[2020-07-25] MEDS: Lactulose 20 GM/30 ML UDC 10 GM PO (09:40)
[2020-07-25] MEDS: Spironolactone 50 MG Tablet PO (09:40)
--- NOTE | 2020-07-25 10:14 | CM.ED ---
SOCIAL WORK Fire Sprinkler Designer received call from Crisis requesting vitals, EKG, and test be faxed to [facility] [phone]. This worker to assist with referral. Requested information to be faxed at this time. Maria E Sandy, SENIOR PORTFOLIO ANALYST, SLIVER CUTTER
--- NOTE | 2020-07-25 10:49 | CM.ED ---
SOCIAL WORK Updated by Lucille with Crisis. Patient has been declined at [facility]. Patient is pending at [facility]. LUANA Chacko, PARADICHLOROBENZENE MACHINE OPERATOR
[2020-07-25 10:54] LABS: Internal QC Validated? YES +Cl - CLEAR BKGD; Pregnancy, Serum, hCG Quali. NEGATIVE Negative
--- NOTE | 2020-07-25 10:57 | CM.ED ---
Addendum entered by Rosa Maria Sandy 07/25/20 10:59: Call to [facility] to update that Hospice has been revoked and patient does have legal guardian. Paperwork on chart. Original Note: SOCIAL WORK Call to patient's sister, Tory who reports is patient's legal guardian. Tory informed this worker that Hospice was revoked last night. Tory has hearing today regarding guardianship and will be updating the court on patient's status. Informed Tory patient is currently pending at [facility] and [facility]. Maria E Sandy, HOLDER PILE DRIVING, AIRFREIGHT OPERATIONS AGENT
--- NOTE | 2020-07-25 11:24 | CM.ED ---
SOCIAL WORK Patient has been declined at [facility]. Call to Crisis to update, spoke with Lucille. Per Lucille, patient has been declined at [facility]. Maria E Sandy, VIDEO AND SOUND RECORDER, INTERACTIVE ART DIRECTOR
--- NOTE | 2020-07-25 13:14 | ED.RN ---
PT SITTING IN BED SWEARING AT STAFF. ATTEMPTS TO GET UP. THIS RN TALKS TO PT. PT CALMS BACK DOWN
--- NOTE | 2020-07-25 13:57 | CM.ED ---
SOCIAL WORK Referral called and faxed to [facility]. Pending review at this time. Maria E Sandy, GAME PROGRAMER, SLOT OPERATIONS MANAGER
--- NOTE | 2020-07-25 14:15 | ED.RN ---
this rn finds pt fully dressed in room. belonging left with pt.this rn attempt to get pt back into gown
--- NOTE | 2020-07-25 14:36 | CM.ED ---
SOCIAL WORK Received voicemail from Shannan with [facility] requesting update. Call back to Shannan and update provided. Informed patient has been declined by 8 facilities and is currently pending at [place]. Received call from patient's sister who reports is en route to court hearing. Update provided and informed message has been left for Shannan with [facility]. Sister inquiring about next steps if all psych facilities decline patient. Shannan to speak with [facility]. Maria E Sandy, SUPERVISOR METAL FURNITURE FABRICATION, FEED HANDLER
--- NOTE | 2020-07-25 15:36 | CM.ED ---
SOCIAL WORK Call to [facility] to check on status of referral, spoke with Yary. Referral under review at this time. Maria E Sandy, LOG HAUL CHAIN FEEDER, CLINICAL STAFF EDUCATOR
--- NOTE | 2020-07-25 16:13 | CM.ED ---
SOCIAL WORK Patient has been declined at [facility]. Spoke with Crisis. Crisis recommending physician to physician to [facility]. Dr. Almanzar updated. Dr. Almanzar to review chart. Maria E Sandy, PROCUREMENT CLERK, SAND FILLER
[2020-07-25] MEDS: Lactulose 20 GM/30 ML UDC PO ×2 (16:48→20:49)
--- NOTE | 2020-07-25 17:00 | CM.ED ---
SOCIAL WORK Dr. Almanzar reviewed chart and is treating patient with lactulose q8 hours. Once ammonia level normal, will attempt physician to physician with [facility]. Maria E Sandy, BUSINESS JOB TITLES, DRESSAGE JUDGE
[2020-07-25] MEDS: Haloperidol Lactate 5 MG/ML Vial 10 MG IM (20:33)
[2020-07-26] VITALS (11 sets, daily range): BP systolic 105–146; BP diastolic 62–78; PULSE 89–100; RESP 14–16; O2SAT 96–100
[2020-07-26] MEDS: Lactulose 20 GM/30 ML UDC PO ×3 (05:55→23:38)
[2020-07-26] MEDS: Pantoprazole Sodium 20 MG Tablet PO ×2 (09:17→23:37)
[2020-07-26] MEDS: Furosemide 40 MG Tablet PO (09:17)
[2020-07-26] MEDS: Spironolactone 50 MG Tablet PO (09:17)
[2020-07-26] MEDS: Thiamine Hydrochloride 100 MG Tablet PO (09:17)
[2020-07-26] MEDS: Potassium Chloride Oral Tablet 20 MEQ PO (09:17)
[2020-07-26] MEDS: Folic Acid 1 MG Tablet PO (09:17)
--- NOTE | 2020-07-26 09:26 | ED.RN ---
JAMES WITH [facility] [employer]SFER [employer] CALLED REQUESTING FACESHEET TO BE FAXED. COMPLETED.
[2020-07-26] MEDS: MELATONIN 10 MG TABLET PO (11:10)
--- NOTE | 2020-07-26 11:35 | NURSING ---
PER [facility] DECLINING PT DUE TO THE ACUITY LEVEL OF CARE PT NEEDS
[2020-07-26] MEDS: Haloperidol Lactate 5 MG/ML Vial IM (15:14)
--- NOTE | 2020-07-26 21:29 | ED.RN ---
PT RESTING IN BED WITH EYES CLOSED. LACTULOSE WILL BE HELD UNTIL SHE IS AWAKE.
--- NOTE | 2020-07-26 21:31 | CASEMGMT ---
Addendum entered by Alissa Herrera 07/26/20 22:13: Patient's sister, Tory said that patient has not been in psych facility in 90 days and reported no crisis stay. SW had previously spoken to Crisis about patient and patient was evaluated by crisis on 2-3 occasions this year. Tory said that she was only aware of Hospice evaluating patient. Alissa LEVINE Addendum entered by Alissa Herrera 07/26/20 22:11: HOMER called guardian, Tory Slater and updated her about placement at [facility]. Advised Hospice IP denied. SW completed PASSR. Alissa Javier LUANA LISRENEE Original Note: SW Note SW spoke to [facility]. She advised that they have tried almost all facilities. She said that if patient was referred to [facility] there are 3 inmates before here so patient would probably be at the hospital for 1 week. SW called [facility]. They have no discharges or beds today. SW called [facility]. They were willing to review chart. SW faxed chart to them. [facility] declined patient. They said patient has too many medical needs. SW called [facility] and they had already declined patient. SW called [facility]. They have wait list till Tuesday. SW called [facility]. No beds. SW called [facility] and they declined.They said that patient has to many medical needs. HOMER called patient's guardian, Tory Slater. She is in agreement with patient being placed at [facility] and gave permission to speak to providers including Hospice. Tory reports she feels comfortable with patient's needs being met at [facility] and it would be closer for her. Tory said patient can not return home and patient can not go to her house prior to admission to [facility]. HOMER called Yary at [facility]. She said that she was under the understanding patient was to be admitted for DT's. HOMER noted patient has completed her alcohol withdrawal. Yary said that she would need to get Level of Care and PASSR prior to admission and stated to send referral packet on Tuesday. HOMER called Marily (instrumentation and control technician for Hospice) and updated her about plan for patient to go to [facility]. Marily called Madelin, admin instrumentation and control technician, and Marily reported that Madelin was in agreement with patient going to [facility] an Hospice following. HOMER called Marily (instrumentation and control technician for Hospice) to inquire about patient going to IP unit at hospice. Marily said that Madelin reports that they cannot bring patient into the IP and that their doctor will have to see patient at [facility] for an admit.Marily said that they cannot admit till patient is at [facility]. Marily said that their records note patient Mental Health diagnosis of Major Depressive Disorder, Bulimia and Anxiety. Plan: To be Determined Alissa LEVINE
[2020-07-27] VITALS (9 sets, daily range): BP systolic 106–123; BP diastolic 66–83; PULSE 73–99; RESP 14–18; O2SAT 97–99
[2020-07-27] MEDS: Haloperidol Lactate 5 MG/ML Vial IM (09:03)
[2020-07-27] MEDS: Lactulose 20 GM/30 ML UDC PO ×2 (11:50→15:06)
[2020-07-27] MEDS: Folic Acid 1 MG Tablet PO (11:51)
[2020-07-27] MEDS: Potassium Chloride Oral Tablet 20 MEQ PO (11:51)
[2020-07-27] MEDS: Pantoprazole Sodium 20 MG Tablet PO (11:52)
[2020-07-27] MEDS: Thiamine Hydrochloride 100 MG Tablet PO (11:52)
[2020-07-27] MEDS: Furosemide 40 MG Tablet PO (11:52)
[2020-07-27] MEDS: Spironolactone 50 MG Tablet PO (11:52)
[2020-07-27] MEDS: Zolpidem Tartrate 5 MG Tablet PO ×2 (13:38→19:23)
--- NOTE | 2020-07-27 14:14 | ED.RN ---
PT HAS BEEN CALM AND COOPERATIVE TODAY, AMBULATES TO BATHROOM NEEDED. EATING MEALS WHEN DELIVERED. PT DOES REQUEST SLEEPING MEDS FREQUENTLY, IT'S SO HARD BEING COOPED UP IN THIS ROOM, I JUST WANT TO SLEEP. FAMILY IN TO VISIT, PT STATES SHE DOESN'T FEEL LIKE COMPANY TODAY.
[2020-07-28] VITALS (10 sets, daily range): BP systolic 98–108; BP diastolic 58–67; PULSE 70–97; RESP 16–18; TEMP 36.8; O2SAT 97–100; BMI 17.4
[2020-07-28] MEDS: Lactulose 20 GM/30 ML UDC PO ×2 (06:44→14:30)
[2020-07-28] MEDS: NYSTATIN 500,000 UNIT/5 ML UDC 500000 UNIT PO ×2 (06:44→14:29)
--- NOTE | 2020-07-28 10:23 | CM.ED ---
SOCIAL WORK Call to Yary at [facility]. Left message, awaiting call back. Call to patient's sister/guardian, Tory. Left message, awaiting call back. Maria E Sandy, AIRPLANE TECHNICIAN, LINER INSERTER
[2020-07-28] MEDS: Pantoprazole Sodium 20 MG Tablet PO ×2 (11:21→20:19)
[2020-07-28] MEDS: Thiamine Hydrochloride 100 MG Tablet PO (11:21)
[2020-07-28] MEDS: Spironolactone 50 MG Tablet PO (11:21)
[2020-07-28] MEDS: Furosemide 40 MG Tablet PO (11:21)
[2020-07-28] MEDS: Potassium Chloride Oral Tablet 20 MEQ PO (11:21)
[2020-07-28] MEDS: Folic Acid 1 MG Tablet PO (11:21)
--- NOTE | 2020-07-28 12:15 | CM.ED ---
SOCIAL WORK Received call back from Yary with [facility]. Per Yary, patient has not been accepted at this point. Yary requesting referral be faxed over. Yary states had spoken with Hospice last week and talked with patient's sister/guardian today. Yary to review referral and get back to this worker. Yary aware patient has tripped the screen and requires Level II review. Patient's sister/Tory mathew updated. Plan: Await Level II review from OLLIE Sandy, CHOIR TEACHER, STOCK WORKER
--- NOTE | 2020-07-28 14:12 | NURSING ---
310 OBS [facility]LE[facility] HEPATIC ENCEPHALOPATHY
--- NOTE | 2020-07-28 14:35 | CM.ED ---
Addendum entered by Rosa Maria Sandy 07/28/20 14:53: Received returned phone call from Tory who reports plan is for Hospice to resume services. Tory viramontes will be contacting Shannan with [facility] to update on patient's status and admission and referral to [facility]. DAVID Rm updated. Original Note: SOCIAL WORK Call to patient's sister/guardian, Tory Geib [phone] to update patient being admitted to [facility] and inquire about plan for Hospice to follow. No answer, left voicemail. Call to Yary at [facility] to update on status. Plan: Patient requires Level II Review by OLLIE, pending acceptance to [facility]. LUANA Chacko, MANAGER CCU
--- NOTE | 2020-07-28 14:39 | HP.PCM.HOS_ITS ---
HPI - General General Date of Admission: 07/28/20 Date of Service: 07/28/20 Chief Complaint: Debility, hepatic encephalopathy, schizophrenia HPI Narrative KATHRIN CONDE, is a 49 F who presents to the emergency room at [facility] after being brought in with confusion and paranoia. According to the patient's sister, patient's had progressive paranoia for several months while she was living in her apartment, she has a history of alcoholic cirrhosis, she had been admitted to different nursing facilities but signed herself out related to the paranoia. she had been arrested and spent a few days in group home recently secondary to her behavior. This behavior necessitated her sister to obtain an immediate court ordered guard ianship that took effect after the patient signed herself out recently from hospice, she was brought to the emergency room for evaluation and placement due to her mental illness and debility. At the time of my evaluation today, patient has been in the emergency room for the last 5 days with an attempt to place her into a facility, when we could not confirm a facility that would take the patient, it was felt that the patient should be admitted to the hospital here until a facility could be located that would take the patient. At the time of my examination, patient is alert, she refused labs this morning, she does not appear to be agitated or aggressive. Patient is a poor informant. [facility] Medical History (Updated 07/28/20 @ 14:25 by Odessa Sanford) Alcohol abuse Autism Cancer Chest pain Cirrhosis GERD (gastroesophageal reflux disease) Irregular heart beat Non-smoker Pancreatitis Seizures Home Medications potassium chloride 20 meq PO DAILY #210 udc 05/27/20 [Rx Last Taken 06/03/20] folic acid 1 mg PO DAILY@0800 #0 tab 06/12/20 [Rx Last Taken Unknown] furosemide 40 mg PO DAILY #0 tab 06/12/20 [Rx Last Taken Unknown] nystatin 500,000 unit PO 4X/DAY #0 ml 06/12/20 [Rx Last Taken Unknown] ondansetron HCl 8 mg PO Q8H PRN PRN #0 tab 06/12/20 [Rx Last Taken Unknown] pantoprazole 20 mg PO BID #0 tab 06/12/20 [Rx Last Taken Unknown] sennosides [Kristi-parveen] 2 tab PO QHS PRN PRN #0 tab 06/12/20 [Rx Last Taken Unknown] spironolactone 50 mg PO DAILY #0 tab 06/12/20 [Rx Last Taken Unknown] thiamine HCl (vitamin B1) [Vitamin B-1] 100 mg PO DAILYCM #0 tab 06/12/20 [Rx Last Taken Unknown] food supplemt, lactose-reduced [Ensure Enlive] 120 ml PO 4X/DAY #0 ml 06/26/20 [Rx Last Taken Unknown] lactulose 10 g PO BID #0 ml 06/26/20 [Rx Last Taken Unknown] Allergy/AdvReac Type Severity Reaction Status Date / Time No Known Allergies Allergy Verified 07/24/20 16:41 unable to obtain unable to obtain Social History Smoking Status: Never smoker alcohol intake: current alcohol intake frequency: 3 or more drinks per day ROS ROS Narrative Review of systems was unable to be obtained due to patient's mental status, information was obtained from the patient's medical record only Review of Systems ROS Unobtainable: due to mental status Vital Signs Vital Signs Vital Signs: 07/27/20 19:10 07/27/20 23:01 07/28/20 03:42 Temperature Temperature Source Pulse Rate 99 Respiratory Rate 18 14 16 Blood Pressure 123/66 H Blood Pressure Mean 85 Pulse Ox 99 Oxygen Delivery Method Room Air 07/28/20 06:04 07/28/20 06:54 07/28/20 08:00 Temperature Temperature Source Pulse Rate 79 78 Respiratory Rate 16 18 18 Blood Pressure 106/67 Blood Pressure Mean 80 Pulse Ox 98 Oxygen Delivery Method Room Air 07/28/20 10:00 07/28/20 12:00 07/28/20 14:00 Temperature 98.2 F Temperature Source Temporal Pulse Rate 70 90 Respiratory Rate 16 16 18 Blood Pressure 105/65 106/65 Blood Pressure Mean 78 78 Pulse Ox 97 100 Oxygen Delivery Method Room Air Room Air Weight Weight: 60.5 kg Body Mass Index (BMI) 20.2 Physical Exam Const alert and no apparent distress Constitutional Narrative: Patient appears to have confusion but is directable, she does not appear to be agitated General Appearance: cooperative, well kempt and well developed Orientation / Consciousness: awake, oriented to person, oriented to place, oriented to time and confused HEENT normocephalic, head/scalp atraumatic, hearing grossly normal bilaterally and moist oral mucous membranes Eyes PERRL, EOMs intact bilaterally and conjunctivae normal Neck nuchal rigidity, supple, no JVD, thyroid normal and no carotid bruits General: trachea midline Resp normal respiratory effort, no retractions, no use of accessory muscles and clear to auscultation bilaterally Auscultation: Negative for rales, rhonchi or wheezes Cardio regular rate, regular rhythm, S1 normal heart sound, S2 normal heart sound, no murmurs, no rub, no gallops and no clicks GI normal to inspection, nondistended, normoactive bowel sounds, soft to palpation, non-tender and non-distended Extremity normal to inspection and no clubbing, cyanosis or edema Skin no rashes or lesions noted General Skin Exam: no breakdown Neuro CN's II-XII intact bilaterally, no focal motor deficits and no sensory deficits noted Sensorium / Orientation: awake and alert Speech: speech normal Psych thought process normal Psych Narrative: Patient is confused, she is not agitated, she does all instructions appropriately. Results Lab / Micro Data Result Diagrams: 07/24/20 18:05 07/24/20 18:05 Assessment & Plan Assessment/Plan (1) Paranoid ideation: PLAN: 1. Hepatic encephalopathy-patient refused lab today in the emergen cy room, she is alert and follows most instructions appropriately, I do not think she needs a repeat ammonia level done at this time, patient will be placed into observation status on MedSurg 3, she will need placement in a [place] [facility] [place] facility that has psychiatric facilities. Her current medications will be continued with the exception of her nystatin swish and swallow which I do not believe she needs at this time. Patient's INR recently was 2, I will not place her on any heparin subcu or SCDs. #2 paranoid delusions-probably secondary to schizophrenia, again patient will need to go to an extended care facility with a psychiatric physician, placement is pending at this time #3 alcoholic cirrhosis #4 chronic alcoholism-patient shows no signs of withdrawal at this time #5 chronic anemia-probably secondary to chronic alcoholic liver disease, I will repeat a CBC and a CMP tomorrow as well as magnesium
[2020-07-28 16:03] LABS: Absolute Lymphocyte Count 1.38 X10^3/uL (0.83-4.51); Absolute Neutrophil Count 2.5 X10^3/uL (2.0-7.7); Basophil# 0.09 X10^3/uL; Basophil% 1.9 % (0-1); Eosinophil# 0.38 X10^3/uL; Hematocrit 29.6 % (37-47); Hemoglobin 9.4 g/dL (12.0-15.0); Lymphocyte # 1.38 X10^3/ul (0.83-4.51); Mean Corp Hgb Conc 31.8 g/dL (32-36); Mean Corpuscular Hgb 31.5 pg (27.0-32.0); Mean Corpuscular Volume 99.3 fL (81-99); Mean Platelet Vol. 10.3 fl (6.2-12.0); Monocyte# 0.43 X10^3/uL; NRBC Flagged by Analyzer 0 % (0-5); Neutrophil # 2.47 X10^3/uL (2.7-7.7); Neutrophil % 51.9 % (47-70); Platelet Count 137 K/mm3 (150-450); RBC Distribution Width CV 17.1 % (11.6-14.6); RBC Distribution Width SD 62.4 fl (35.1-43.9); Red Blood Count 2.98 M/mm3 (4.2-5.4); White Blood Count 4.8 K/mm3 (4.4-11.0)
[2020-07-28 16:41] LABS: Magnesium 2.1 mg/dL (1.6-2.6)
--- NOTE | 2020-07-28 17:23 | CASEMGMT ---
Social Work Collaboration with ED and MS3 assigned social workers today. Process has been initiated for placement at [facility], as patient has been denied by multiple psychiatric hospitals due to patient's medical needs. Due to patient's history of emotional health issues, PASARR needed for NF placement has tripped to a Level II further review assessment with [facility]. Faxed clinical documentation needed for further review to confirmed fax at [facility], . Spoke with the patient's sister and legal guardian (letter of guardianship on the chart) to confirm about noted diagnoses in the patient's past medical record of autism and seizures. The legal guardian reports the patient's son has autism, which has segued to the patient now believing self to have autism. Legal guardian denies any seizure disorder for this patient prior to the age of 24. Emotional support and supportive listening offered to the legal guardian. Legal guardian expresses much thanks to assistance being provided. Plan: Pending jail placement, with likely admit to hospice upon admit to the NF. Patient has been denied by multiple psychiatric facilities. Social work following. -LEANDRO Jean, RN RADIATION ONCOLOGY
[2020-07-28] MEDS: hydrOXYzine PAM 25 MG Capsule 50 MG PO (18:33)
[2020-07-28] MEDS: Lactulose 20 GM/30 ML UDC 10 GM PO (20:18)
[2020-07-28] MEDS: Zolpidem Tartrate 5 MG Tablet PO (22:27)
[2020-07-29 03:24] VITALS: BP 101/53; PULSE 91; RESP 14; TEMP 36.7; O2SAT 94
[2020-07-29 07:25] LABS: ALB/GLOB Ratio 0.4 RATIO (0.9-2.4); AST(SGOT) 94 U/L (15-37); Alanine Aminotransfer ALT/SGPT 18 U/L (13-56); Alkaline Phosphatase 129 U/L (45-117); Anion Gap 7 (5-15); BUN 18 mg/dL (7-18); BUN/Creat Ratio 20.4 RATIO (10-20); Calcium,Total 8.7 mg/dL (8.5-10.1); Chloride 103 mmol/L (98-107); Creatinine, Serum 0.88 mg/dL (0.55-1.02); EST Glomerular Filtration Rate 73 mL/min (>60); Est Glom Filt Rate - Afr Amer 88 mL/min (>60); Globulin 5.6 g/dL (2.2-4.2); Glucose 88 mg/dL (74-106); Potassium 3.9 mmol/L (3.5-5.1); Protein, Total 7.6 g/dL (6.4-8.2); Sodium Level 135 mmol/L (136-145)
--- NOTE | 2020-07-29 07:27 | PN.HOSP_ITS ---
Subjective Subjective Seen and examined. Patient has history of alcoholic cirrhosis complicated with ascites, hepatic encephalopathy. Previous RUQ ultrasound of January [address] abdomen of March 12 reviewed. Right upper quadrant sonogram reported liver enlarged and echogenic and portal for hepatic pedal with similar findings CT abdomen. Objective Data Objective Data r Vital Signs: Vital Signs Temp Pulse Resp BP Pulse Ox 98.1 F 91 14 101/53 L 94 07/29/20 03:24 07/29/20 03:24 07/29/20 03:24 07/29/20 03:24 07/29/20 03:24 Oxygen Delivery Method Room Air Weight: 118 lb 6.212 oz Body Mass Index (BMI) 17.4 Intake & Output: Intake and Output for Last 24 Hours 07/27/20 07/28/20 07/29/20 23:59 23:59 23:59 Intake Total 200 / 200 740 / 740 Balance 200 / 200 740 / 740 Lab / Micro Data Result Diagrams: 07/28/20 15:40 07/29/20 05:55 Labs: Laboratory Results - last 24 hr 07/28/20 07/28/20 07/29/20 15:40 15:40 05:55 WBC 4.8 RBC 2.98 L Hgb 9.4 L Hct 29.6 L MCV 99.3 H MCH 31.5 MCHC 31.8 L RDW Std Deviation 62.4 H RDW Coeff of Bhakti 17.1 H Plt Count 137 L MPV 10.3 Immature Gran % (Auto) 0.200 Neut % (Auto) 51.9 Lymph % (Auto) 29.0 [place] % (Auto) 9.0 Eos % (Auto) 8.0 H Baso % (Auto) 1.9 H Absolute Neuts (auto) 2.5 Absolute Lymphs (auto) 1.38 Nucleated RBC % 0 Sodium 135 L Potassium 3.9 Chloride 103 Carbon Dioxide 25.0 Anion Gap 7 BUN 18 Creatinine 0.88 Estim Creat Clear Calc 67.00 Est GFR (MDRD) Af Amer 88 Est GFR (MDRD) Non-Af 73 BUN/Creatinine Ratio 20.4 H Glucose 88 Calcium 8.7 Magnesium 2.1 Total Bilirubin 3.20 H AST 94 H ALT 18 Alkaline Phosphatase 129 H Total Protein 7.6 Albumin 2.0 L Globulin 5.6 H Albumin/Globulin Ratio 0.4 L Micro: Microbiology 07/24/20 20:56 Mucosa - Nose SARS-CoV-2 Antigen (Rapid) - Final Physical Exam Narrative Physical exam General: Alert, Oriented x3, Cooperative HEENT: Atraumatic, PERRLA, EOMI, Normocephalic Oral: No Gingival or Mucosal Lesions/ Ulcerations Neck: Supple, No JVD, Negative Carotid Bruits Lungs: Air entry diminished in bilateral lung bases. No crepitation/rhonchi Cardiovascular: Regular rate, Regular Rhythm, Normal S1, Normal S2, No murmurs Abdomen: Bowel Sounds Present, Soft, Non Tender, mild abdominal distention. : No renal angle tenderness. No suprapubic tenderness. Extremities: No edema, Capillary Refill Less than 3 Seconds Skin: No rashes, No breakdown Musculoskeletal: No Tenderness to Palpation of Joints or Extremities Neurological: Cranial nerves II-XII grossly intact, Deep Tendon Reflexes 2+/4 and Symmetrical, Neuro grossly intact Psych/Mental Status: Flat affect. Delusional disorde Assessment & Plan Assessment/Plan (1) Alcoholic cirrhosis: QUALIFIERS: Ascites presence: unspecified Qualified Code(s): K70.30 - Alcoholic cirrhosis of liver without ascites (2) Paranoid ideation: PLAN: This is a 49-year-old female with complex psychiatric history and chronic alcohol use disorder with tolerance and dependence was admitted after being in ER for 4 days for inpatient psychiatric placement. 1. Hepatic encephalopathy probably due to alcoholic acute on chronic hepatitis: Patient refused for lab in the ER on day of admission. Today AST 94, was 82. ALT 18, total bilirubin 3.2, serum albumin 2.0, mild thrombocytopenia platelet count 1 37,000, macrocytic anemia H&H 9.4/30. Patient is on lactulose. Xifaxan added. GGT ordered #2 paranoid delusions-probably secondary to schizophrenia, again patient will need to go to an extended care facility with a psychiatric physician, placement is pending at this time. Patient denies hallucination, suicidal ideation but has delusional disorder and feels someone is going to hurt her. #3 Acute on chronic alcoholic hepatitis: Previous ultrasound and abdominal CT does not show any ascites or cirrhotic features but fatty infiltration and hepatomegaly. Repeat right upper quadrant sonogram. #4 chronic alcoholism-patient shows no signs of withdrawal at this time #5 chronic anemia, macrocytic-probably secondary to chronic alcoholic liver dis ease, Charges/Coding Visit Charges Inpatient E&M: 35195 Subs Hosp L2
[2020-07-29 08:33] VITALS: BP 103/62; PULSE 57; RESP 18; TEMP 37.3; O2SAT 98
[2020-07-29] MEDS: Potassium Chloride Oral Soln 20 MEQ/15 ML UDC PO (08:34)
[2020-07-29] MEDS: Folic Acid 1 MG Tablet PO (08:34)
[2020-07-29] MEDS: Thiamine Hydrochloride 100 MG Tablet PO (08:34)
[2020-07-29 08:40] VITALS: PULSE 100
--- NOTE | 2020-07-29 08:52 | CASEMGMT ---
Addendum entered by Sujey Burris 07/29/20 14:56: SW spoke w/Yary from [facility], they can take pt as long as the PAS/RR comes back stating pt can go to SNF. HOMER called pt's sister and guardian Tory Slater, message left to call SW. LEANDRO Alvarez Addendum entered by Sujey Burris 07/29/20 11:41: Yary from [facility] called, she asked for updates. If they accept pt, they would want the process of the further review completed for pt. Yary also asked about level of care, if pt comes to [facility], she would return on hospice. Yary states then level of care would not be needed. HOMER faxed updates, will continue to follow. LEANDRO Alvarez Addendum entered by Sujey Burris 07/29/20 10:37: HOMER left Yary at [facility] a second message this morning regarding referral. LEANDRO Alvarez Original Note: HOMER called [facility], message left yesterday regarding pt's referral, will follow up today. LEANDRO Alvarez
[2020-07-29] MEDS: Lactulose 20 GM/30 ML UDC 10 GM PO ×2 (10:45→20:18)
[2020-07-29] MEDS: Furosemide 40 MG Tablet PO (10:45)
[2020-07-29] MEDS: Pantoprazole Sodium 20 MG Tablet PO ×2 (10:45→20:19)
[2020-07-29] MEDS: Spironolactone 50 MG Tablet PO (10:45)
[2020-07-29] MEDS: Ascorbic Acid 500 MG Tablet PO ×2 (10:50→18:24)
[2020-07-29] MEDS: rifAXIMin 550 MG Tablet PO ×2 (12:01→20:19)
[2020-07-29] MEDS: Ferrous Sulfate 325 MG Tablet PO (12:01)
--- NOTE | 2020-07-29 13:04 | US_ITS ---
STUDY: ABDOMINAL ULTRASOUND - RIGHT UPPER QUADRANT REASON FOR VISIT: Female, 49 years old. Alcoholic liver disease, evaluation for cirrhosis TECHNIQUE: Ultrasound evaluation of the right upper quadrant was performed with real-time and static weston-scale imaging. TECHNICAL QUALITY: Adequate. COMPARISON: 12 March 2020 FINDINGS: Liver: The liver measures 19.4 cm. There is increased echogenicity of the liver and mild cirrhosis. The bile ducts are within normal limits. There is hepatic color flow. The direction of portal flow is hepatopetal. There are simple hepatic cysts. There is no demonstrated mass lesion. Gallbladder: Normal distended gallbladder. The gallbladder wall measures 2 mm. There is a negative sonographic Brooks''s sign. There is no pericholecystic fluid. There are no gallstones. There is gallbladder sludge. Common Bile Duct (C.B.D.): The common bile duct measures 4 mm. Pancreas: Normal size of the head, body and tail of the pancreas. There is normal echogenicity of the pancreas. There is no demonstrated pancreatic mass or cyst. Right Kidney: Normal size of the right kidney. The right kidney measures 10.7 x 4.6 x 3.6 cm. Normal renal cortex. The right cortex measures 1.2 cm. There is no demonstrated renal mass or cyst. There is no right hydronephrosis. US/Abdomen Limited IMPRESSION: 1. Early cirrhosis. 2. Severe hepatomegaly and steatosis. Electronically Signed: Mariann Denson MD at 17:57 EDT Tel , Service support ,
[2020-07-29 13:47] LABS: GGTP 101 U/L (5-55)
[2020-07-29 14:04] VITALS: BP 133/80; PULSE 79; RESP 18; TEMP 37.4; O2SAT 99
--- NOTE | 2020-07-29 15:24 | CASEMGMT ---
SW spoke w/pt's sister, explained that [facility] can take pt, and now we are just waiting for the further review, SW explained to pt's sister that this may take several days. Pt's sister states understanding. SW spoke w/pt in room, explained to pt also that she will be able to go to [facility], explained to her also that we need to wait for this paperwork process for pt to be approved, and once this happens she will be able to go to [facility]. SW also let pt know this may take several days and SW will let her know once we have everything set for her to go. LEANDRO Alvarez
--- NOTE | 2020-07-29 15:57 | CASEMGMT ---
Social Work Spoke with Hermelindo Deluca, Level II mental health roofing contractor for [facility]. Updated to patient's current status, reviewed therapy evaluations. Transferred to patient's room so that phone interview could be conducted. Hermelindo anticipates her part of assessment to be done today, but then will need to wait on response from the state. Plan: NF placement with hospice to admit at the NF, pending further review determination from the state. -LEANDRO Jean, GASFITTER
--- NOTE | 2020-07-29 16:26 | CHAPLAIN ---
Type of Pastoral Visit _x__ Initial Visit ___ Follow-up Visit ___ On-call Visit ___ General Patient Visit ___ Spiritual Assessment ___ Family Conference ___ Bereavement ___ Rapid Response ___ Code Blue ___ Other (describe below) Pastoral Care Referral From _x__ Patient ___ Family ___ Nurse ___ Physician ___ Vba Developer ___ Cost Controller ___ Other (describe below) Sacrament/Intervention _x__ Active listening ___ Anointing ___ Islam ___ Bereavement ___ Communion _x__ Brianna exploration ___ _x__ Life review _x__ Prayer ___ Reconciliation ___ Sacrament of Sick _x__ Supportive presence ___ Wedding ___ Other (describe below) Pastoral Comments explored feelings of patient and she asked several questions about God; pt has deep feelings of sadness; pt welcomes support of spiritual nature and prayer
[2020-07-29] MEDS: Zolpidem Tartrate 5 MG Tablet PO (20:19)
[2020-07-29 20:21] VITALS: BP 116/62; PULSE 103; RESP 16; TEMP 37.1; O2SAT 97
[2020-07-30 03:43] VITALS: BP 99/56; PULSE 90; RESP 16; TEMP 36.9; O2SAT 95
[2020-07-30] MEDS: Ascorbic Acid 500 MG Tablet PO ×2 (07:38→17:15)
[2020-07-30] MEDS: Thiamine Hydrochloride 100 MG Tablet PO (07:38)
[2020-07-30] MEDS: Folic Acid 1 MG Tablet PO (07:38)
[2020-07-30] MEDS: Potassium Chloride Oral Soln 20 MEQ/15 ML UDC PO (07:38)
[2020-07-30 08:26] VITALS: BP 104/73; PULSE 98; RESP 16; TEMP 37.2; O2SAT 99
[2020-07-30 08:30] VITALS: PULSE 100
[2020-07-30] MEDS: Spironolactone 50 MG Tablet PO (09:49)
[2020-07-30] MEDS: Pantoprazole Sodium 20 MG Tablet PO ×2 (09:49→20:08)
[2020-07-30] MEDS: Furosemide 40 MG Tablet PO (09:49)
[2020-07-30] MEDS: rifAXIMin 550 MG Tablet PO ×2 (09:49→20:07)
[2020-07-30] MEDS: Lactulose 20 GM/30 ML UDC 10 GM PO ×2 (09:49→20:08)
--- NOTE | 2020-07-30 14:03 | PCM.PN.HOSP ---
Subjective Subjective Patient is sleeping. Does not want to be disturbed. Seizure disease doing fine. Objective Data Objective Data Vital Signs: Vital Signs Temp Pulse Resp BP Pulse Ox 98.9 F 100 16 104/73 99 07/30/20 08:26 07/30/20 08:30 07/30/20 08:26 07/30/20 08:26 07/30/20 08:26 Oxygen Delivery Method Room Air Weight: 118 lb 6.212 oz Body Mass Index (BMI) 17.4 Intake & Output: Intake and Output for Last 24 Hours 07/28/20 07/29/20 07/30/20 23:59 23:59 23:59 Intake Total 200 / 200 2640 / 2860 270 / 270 Balance 200 / 200 2640 / 2860 270 / 270 Lab / Micro Data Result Diagrams: 07/28/20 15:40 07/29/20 05:55 Micro: Microbiology 07/24/20 20:56 Mucosa - Nose SARS-CoV-2 Antigen (Rapid) - Final Radiography Diagnostic Testing: Radiology Impression Abdomen Ultrasound 07/29/20 13:04 IMPRESSION: 1. Early cirrhosis. 2. Severe hepatomegaly and steatosis. Electronically Signed: Mariann Denson MD at 17:57 EDT Tel , Service support , Physical Exam Narrative Physical exam General: Drowsy, sleepy HEENT: Atraumatic, PERRLA, EOMI, Normocephalic Oral: No Gingival or Mucosal Lesions/ Ulcerations Neck: Supple, No JVD, Negative Carotid Bruits Lungs: Air entry diminished in bilateral lung bases. No crepitation/rhonchi Cardiovascular: Regular rate, Regular Rhythm, Normal S1, Normal S2, No murmurs Abdomen: Bowel Sounds Present, Soft, Non Tender, nondistended : No renal angle tenderness. No suprapubic tenderness. Extremities: No edema, Capillary Refill Less than 3 Seconds Skin: No rashes, No breakdown Musculoskeletal: No Tenderness to Palpation of Joints or Extremities Neurological: Cranial nerves II-XII grossly intact, Deep Tendon Reflexes 2+/4 and Symmetrical, Neuro grossly intact Psych/Mental Status: Flat affect. Delusional disorder Assessment & Plan Assessment/Plan (1) Alcoholic cirrhosis: QUALIFIERS: Ascites presence: unspecified Qualified Code(s): K70.30 - Alcoholic cirrhosis of liver without ascites (2) Paranoid ideation: PLAN: 1. Hepatic encephalopathy-patient refused lab today in the emergency room, she is alert and follows most instructions appropriately, I do not think she needs a repeat ammonia level done at this time, patient will be placed into observation status on MedSurg 3, she will need placement in a half-way facility that has psychiatric facilities. Her current medications will be continued with the exception of her nystatin swish and swallow which I do not believe she needs at this time. #2 paranoid delusions-probably secondary to schizophrenia, again patient will need to go to an extended care facility with a psychiatric physician, placement is pending at this time #3 alcoholic cirrhosis: Right upper quadrant sonogram shows early cirrhosis with severe hepatomegaly and steatosis. No demonstrated mass lesion. Portal flow is hepatopetal bile ducts within normal limit. CBD 4 mm. #4 chronic alcoholism-patient shows no signs of withdrawal at this time #5 chronic anemia-probably secondary to chronic alcoholic liver disease, I will repeat a CBC and a CMP tomorrow as well as magnesium VTE prophylaxis bilateral SCDs Charges/Coding Visit Charges Inpatient E&M: 90267 Subs Hosp L2
[2020-07-30 15:27] VITALS: BP 119/83; PULSE 111; RESP 18; TEMP 37.2; O2SAT 100
--- NOTE | 2020-07-30 15:27 | CASEMGMT ---
Social Work SW checked [facility] system for [facility] mental health review results. Review not complete at this time. Pt to remain in hospital until assessment complete. ASHVIN Bustillo
[2020-07-30] MEDS: hydrOXYzine PAM 25 MG Capsule PO (16:04)
[2020-07-30 19:57] VITALS: BP 125/74; PULSE 102; RESP 18; TEMP 37.1; O2SAT 100
[2020-07-30] MEDS: Zolpidem Tartrate 5 MG Tablet PO (20:07)
[2020-07-31] VITALS (7 sets, daily range): BP systolic 100–122; BP diastolic 45–75; PULSE 72–95; RESP 14–16; TEMP 36.6–37.1; O2SAT 95–100
[2020-07-31] MEDS: hydrOXYzine PAM 25 MG Capsule PO ×3 (04:33→16:33)
[2020-07-31] MEDS: Folic Acid 1 MG Tablet PO (09:28)
[2020-07-31] MEDS: Potassium Chloride Oral Soln 20 MEQ/15 ML UDC PO (09:29)
[2020-07-31] MEDS: Thiamine Hydrochloride 100 MG Tablet PO (09:30)
[2020-07-31] MEDS: Lactulose 20 GM/30 ML UDC 10 GM PO ×2 (09:30→20:07)
[2020-07-31] MEDS: Ascorbic Acid 500 MG Tablet PO ×2 (09:30→16:34)
[2020-07-31] MEDS: Spironolactone 50 MG Tablet PO (09:31)
[2020-07-31] MEDS: Pantoprazole Sodium 20 MG Tablet PO ×2 (09:32→20:06)
[2020-07-31] MEDS: rifAXIMin 550 MG Tablet PO ×2 (09:32→20:06)
[2020-07-31] MEDS: Furosemide 40 MG Tablet PO (09:32)
--- NOTE | 2020-07-31 09:49 | NURSING ---
voided in toilet missed hat. after voiding denies any urgency or feelings of needing to void.
--- NOTE | 2020-07-31 12:04 | CASEMGMT ---
Addendum entered by Kenyatta Abbott 07/31/20 14:28: Return call from [facility] stating pt's further review is in que for review. Once this step is complete case will be forwarded to the state for determination. Results may possibly be ready tomorrow, but no guarantee. Pt updated and appreciative of information. ASHVIN Bustillo Original Note: Social Work SW placed call to [facility] and left VM inquiring about status of further review, SW also check online [facility] system and review not in system. Pt requesting update on discharge. SW explained that further review must be completed prior to discharge. Pt expresses understanding. ASHVIN Ceron
[2020-07-31] MEDS: QUEtiapine 25 MG Tablet PO (13:47)
--- NOTE | 2020-07-31 15:01 | PN.HOSP_ITS ---
Subjective Subjective Patient has episode of delusion in afternoon although she was good in the morning. She was having auditory hallucination and stated something sounding wet and yucky. Objective Data Objective Data Vital Signs: Vital Signs Temp Pulse Resp BP Pulse Ox 97.9 F 92 16 122/75 H 100 07/31/20 12:37 07/31/20 12:37 07/31/20 12:37 07/31/20 12:37 07/31/20 12:37 Oxygen Delivery Method Room Air Weight: 118 lb 6.212 oz Body Mass Index (BMI) 17.4 Intake & Output: Intake and Output for Last 24 Hours 07/29/20 07/30/20 07/31/20 23:59 23:59 23:59 Intake Total 2640 / 2860 1650 / 1650 400 / 400 Balance 2640 / 2860 1650 / 1650 400 / 400 Lab / Micro Data Result Diagrams: 07/28/20 15:40 07/29/20 05:55 Micro: Microbiology 07/24/20 20:56 Mucosa - Nose SARS-CoV-2 Antigen (Rapid) - Final Physical Exam Narrative Physical exam General: Awake but having auditory hallucinations. Disoriented HEENT: Atraumatic, PERRLA, EOMI, Normocephalic Oral: No Gingival or Mucosal Lesions/ Ulcerations Neck: Supple, No JVD, Negative Carotid Bruits Lungs: Air entry diminished in bilateral lung bases. No crepitation/rhonchi Cardiovascular: Regular rate, Regular Rhythm, Normal S1, Normal S2, No murmurs Abdomen: Bowel Sounds Present, Soft, Non Tender, nondistended : No renal angle tenderness. No suprapubic tenderness. Extremities: No edema, Capillary Refill Less than 3 Seconds Skin: No rashes, No breakdown Musculoskeletal: No Tenderness to Palpation of Joints or Extremities Neurological: Cranial nerves II-XII grossly intact, Deep Tendon Reflexes 2+/4 and Symmetrical, Neuro grossly intact Psych/Mental Status: Flat affect. Delusional disorder Assessment & Plan Assessment/Plan (1) Alcoholic cirrhosis: QUALIFIERS: Ascites presence: unspecified Qualified Code(s): K70.30 - Alcoholic cirrhosis of liver without ascites (2) Paranoid ideation: PLAN: 1. Hepatic encephalopathy-patient is being admitted on MedSurg floor. She will need placement in a intermediate facility that has psychiatric facilities. On lactulose and Xifaxan. #2 paranoid delusions-probably secondary to schizophrenia, again patient will need to go to an extended care facility with a psychiatric physician, placement is pending at this time 08/03/2016: Started on Seroquel 25 mg twice daily. #3 alcoholic cirrhosis: Right upper quadrant sonogram shows early cirrhosis with severe hepatomegaly and steatosis. No demonstrated mass lesion. Portal flow is hepatopetal bile ducts within normal limit. CBD 4 mm. #4 chronic alcoholism-patient shows no signs of withdrawal at this time #5 chronic anemia-probably secondary to chronic alcoholic liver disease, I will repeat a CBC and a CMP tomorrow as well as magnesium VTE prophylaxis bilateral SCDs Active Medications Ascorbic Acid (Ascorbic Acid 500 Mg Tablet) [facility] Last Admin: 07/31/20 09:30 Dose: 500 mg Documented by: Ferrous Sulfate (Ferrous Sulfate 325 Mg Tablet) 325 mg PO DAILY@1200 [facility] Last Admin: 07/31/20 09:33 Dose: Not Given Documented by: Folic Acid (Folic Acid 1 Mg Tablet) [facility] Last Admin: 07/31/20 09:28 Dose: 1 mg Documented by: Furosemide (Furosemide 40 Mg Tablet) 40 mg PO DAILY [facility] Last Admin: 07/31/20 09:32 Dose: 40 mg Documented by: Hydroxyzine Pamoate (Hydroxyzine Leigh 25 Mg Capsule) 25 mg PO Q6H PRN PRN PRN Reason: ANXIETY/RESTLESSNESS/SLEEP Last Admin: 07/31/20 10:32 Dose: 25 mg Documented by: Lactulose (Lactulose 20 Gm/30 Ml Udc) 10 gm PO BID [facility] Last Admin: 07/31/20 09:30 Dose: 10 gm Documented by: Ondansetron HCl (Ondansetron 8 Mg Tablet) 8 mg PO Q8H PRN PRN PRN Reason: NAUSEA/VOMITING Pantoprazole Sodium (Pantoprazole Sodium 20 Mg Tablet) 20 mg PO BID [facility] Last Admin: 07/31/20 09:32 Dose: 20 mg Documented by: Potassium Chloride (Potassium Chloride Oral Soln 20 Meq/15 Ml Udc) 20 meq [facility] Last Admin: 07/31/20 09:29 Dose: 20 meq Documented by: Quetiapine Fumarate (Quetiapine 25 Mg Tablet) 25 mg PO BID [facility] Last Admin: 07/31/20 13:47 Dose: 25 mg Documented by: Rifaximin (Rifaximin 550 Mg Tablet) 550 mg PO BID [facility] Last Admin: 07/31/20 09:32 Dose: 550 mg Documented by: Spironolactone (Spironolactone 50 Mg Tablet) 50 mg PO DAILY [facility] Last Admin: 07/31/20 09:31 Dose: 50 mg Documented by: Thiamine HCl (Thiamine Hydrochloride 100 Mg Tablet) 100 mg PO DAILYCM [facility] Last Admin: 07/31/20 09:30 Dose: 100 mg Documented by: Zolpidem Tartrate (Zolpidem Tartrate 5 Mg Tablet) 5 mg PO QHS PRN PRN PRN Reason: SLEEP Last Admin: 07/30/20 20:07 Dose: 5 mg Documented by: Charges/Coding Visit Charges Inpatient E&M: 02616 Subs Hosp L2
--- NOTE | 2020-07-31 16:21 | NURSING ---
pt nephew Brandyn is getting on Tuesday and pt is having anxiety about missing the wedding. discussed with pt and with pt sister, Tory, the option of using an iPad for facetiming if pt is still at hospital on Tuesday afternoon. both are agreeable to this plan and Tory was going to let us know a phone number of who to contact for the ceremony.
[2020-07-31] MEDS: Zolpidem Tartrate 5 MG Tablet PO (21:24)
[2020-08-01 06:03] VITALS: BP 103/61; PULSE 93; RESP 14; TEMP 37.1; O2SAT 98
[2020-08-01] MEDS: QUEtiapine 25 MG Tablet PO ×2 (07:42→21:10)
[2020-08-01] MEDS: Furosemide 40 MG Tablet PO (07:43)
[2020-08-01] MEDS: Ascorbic Acid 500 MG Tablet PO ×2 (07:43→18:12)
[2020-08-01] MEDS: Lactulose 20 GM/30 ML UDC 10 GM PO ×2 (07:43→21:10)
[2020-08-01] MEDS: Folic Acid 1 MG Tablet PO (07:43)
[2020-08-01] MEDS: Potassium Chloride Oral Soln 20 MEQ/15 ML UDC PO (07:43)
[2020-08-01] MEDS: Pantoprazole Sodium 20 MG Tablet PO ×2 (07:43→21:10)
[2020-08-01] MEDS: rifAXIMin 550 MG Tablet PO ×2 (07:44→21:10)
[2020-08-01] MEDS: Thiamine Hydrochloride 100 MG Tablet PO (07:44)
[2020-08-01] MEDS: Spironolactone 50 MG Tablet PO (07:44)
--- NOTE | 2020-08-01 11:25 | CASEMGMT ---
Pt asked to speak w/nurse case management. SW spoke w/pt, explained to pt that we are still waiting for the paperwork process to be completed in order to be able to send her to [facility]. SW explained that as soon as this SW knows, will let her know. SW checked in the [employer] system, pt's case is still pending w/[facility] and the further review. SW will continue to follow. LEANDRO Alvarez
[2020-08-01 12:10] VITALS: BP 114/72; PULSE 102; RESP 16; TEMP 36.9; O2SAT 98
[2020-08-01] MEDS: hydrOXYzine PAM 25 MG Capsule PO (12:23)
--- NOTE | 2020-08-01 15:08 | PCM.PN.HOSP ---
Subjective Subjective Patient is awake and alert. He denies hallucinations, delusional thoughts or suicidal thoughts. Objective Data Objective Data Vital Signs: Vital Signs Temp Pulse Resp BP Pulse Ox 98.4 F 102 H 16 114/72 98 08/01/20 12:10 08/01/20 12:10 08/01/20 12:10 08/01/20 12:10 08/01/20 12:10 Oxygen Delivery Method Room Air Weight: 118 lb 6.212 oz Body Mass Index (BMI) 17.4 Intake & Output: Intake and Output for Last 24 Hours 07/30/20 07/31/20 08/01/20 23:59 23:59 23:59 Intake Total 1650 / 1650 1150 / 1150 Balance 1650 / 1650 1150 / 1150 Lab / Micro Data Result Diagrams: 07/28/20 15:40 07/29/20 05:55 Micro: Microbiology 07/24/20 20:56 Mucosa - Nose SARS-CoV-2 Antigen (Rapid) - Final Physical Exam Narrative Physical exam General: Awake, awake and oriented x3. No delusional thoughts. HEENT: Atraumatic, PERRLA, EOMI, Normocephalic Oral: No Gingival or Mucosal Lesions/ Ulcerations Neck: Supple, No JVD, Negative Carotid Bruits Lungs: Air entry diminished in bilateral lung bases. No crepitation/rhonchi Cardiovascular: Regular rate, Regular Rhythm, Normal S1, Normal S2, No murmurs Abdomen: Bowel Sounds Present, Soft, Non Tender, nondistended : No renal angle tenderness. No suprapubic tenderness. Extremities: No edema, Capillary Refill Less than 3 Seconds Skin: No rashes, No breakdown Musculoskeletal: No Tenderness to Palpation of Joints or Extremities Neurological: Cranial nerves II-XII grossly intact, Deep Tendon Reflexes 2+/4 and Symmetrical, Neuro grossly intact Psych/Mental Status: Flat affect. Delusional disorder Assessment & Plan Assessment/Plan (1) Alcoholic cirrhosis: QUALIFIERS: Ascites presence: unspecified Qualified Code(s): K70.30 - Alcoholic cirrhosis of liver without ascites (2) Paranoid ideation: PLAN: 1. Hepatic encephalopathy-patient is being admitted on MedSurg floor. She will need placement in a group home facility that has psychiatric facilities. On lactulose and Xifaxan. #2 paranoid delusions-probably secondary to schizophrenia, again patient will need to go to an extended care facility with a psychiatric physician, placement is pending at this time 07/31: Started on Seroquel 25 mg twice daily. 08/01: She looks more sober. No suicidal thought or delusional disorder. Labs ordered for tomorrow a.m. #3 alcoholic cirrhosis: Right upper quadrant sonogram shows early cirrhosis with severe hepatomegaly and steatosis. No demonstrated mass lesion. Portal flow is hepatopetal bile ducts within normal limit. CBD 4 mm. #4 chronic alcoholism-patient shows no signs of withdrawal at this time #5 chronic anemia-probably secondary to chronic alcoholic liver disease, I will repeat a CBC and a CMP tomorrow as well as magnesium VTE prophylaxis bilateral SCDs Charges/Coding Visit Charges Inpatient E&M: 75740 Subs Hosp L2
--- NOTE | 2020-08-01 15:33 | CASEMGMT ---
Pt at nurse's station asking about leaving today. SW spoke w/pt, walked her back to room. SW explained we are still waiting for an answer to make sure we are sending her to the right level of care. Pt explained her nephew is getting this weekend and she was hoping to go. SW offered support to pt. SW called [facility], message left, they called back. Pt's case is still in que for review by the state. However, the state is closed today as it is a holiday. The [facility] sales donor recruitment representative states that pt's case is about 1/2 way down the list. She states it takes 3-5 business days, and that her case is not considered delayed yet. SW called pt's sister, let her know pt will be here through the weekend. SW also let pt know, and offered support. HOMER let Yary at [facility] know that pt will not be able to come until next week. LEANDRO Alvarez
[2020-08-01 18:00] VITALS: BP 119/77; PULSE 104; RESP 16; TEMP 36.9; O2SAT 99
[2020-08-01] MEDS: Zolpidem Tartrate 5 MG Tablet PO (21:10)
[2020-08-01 21:15] VITALS: BP 114/67; PULSE 101; RESP 18; TEMP 36.9; O2SAT 97
[2020-08-02 03:34] VITALS: BP 93/54; PULSE 88; RESP 16; TEMP 37.2; O2SAT 94
[2020-08-02 05:51] LABS: Absolute Lymphocyte Count 1.48 X10^3/uL (0.83-4.51); Absolute Neutrophil Count 2.2 X10^3/uL (2.0-7.7); Basophil# 0.07 X10^3/uL; Basophil% 1.5 % (0-1); Eosinophil# 0.26 X10^3/uL; Eosinophils% 5.7 % (0-5); Hematocrit 24.9 % (37-47); Hemoglobin 8.2 g/dL (12.0-15.0); Lymphocyte # 1.48 X10^3/ul (0.83-4.51); Lymphocyte % 32.5 % (19-41); Mean Corp Hgb Conc 32.9 g/dL (32-36); Mean Corpuscular Hgb 31.8 pg (27.0-32.0); Mean Corpuscular Volume 96.5 fL (81-99); Mean Platelet Vol. 11.4 fl (6.2-12.0); Monocyte# 0.52 X10^3/uL; Monocyte% 11.4 % (0-10); NRBC Flagged by Analyzer 0 % (0-5); Neutrophil # 2.21 X10^3/uL (2.7-7.7); Neutrophil % 48.7 % (47-70); Platelet Count 151 K/mm3 (150-450); RBC Distribution Width CV 16.1 % (11.6-14.6); RBC Distribution Width SD 57.8 fl (35.1-43.9); Red Blood Count 2.58 M/mm3 (4.2-5.4); White Blood Count 4.6 K/mm3 (4.4-11.0)
[2020-08-02 06:18] LABS: ALB/GLOB Ratio 0.4 RATIO (0.9-2.4); AST(SGOT) 170 U/L (15-37); Alanine Aminotransfer ALT/SGPT 35 U/L (13-56); Albumin, Serum 2.2 g/dL (3.2-5.0); Alkaline Phosphatase 143 U/L (45-117); Anion Gap 6 (5-15); BUN 13 mg/dL (7-18); BUN/Creat Ratio 12.7 RATIO (10-20); Calcium,Total 8.5 mg/dL (8.5-10.1); Chloride 101 mmol/L (98-107); Creatinine, Serum 1.02 mg/dL (0.55-1.02); EST Glomerular Filtration Rate 62 mL/min (>60); Est Glom Filt Rate - Afr Amer 75 mL/min (>60); Globulin 5.5 g/dL (2.2-4.2); Glucose 90 mg/dL (74-106); Potassium 4.1 mmol/L (3.5-5.1); Protein, Total 7.7 g/dL (6.4-8.2); Sodium Level 134 mmol/L (136-145)
[2020-08-02 08:16] VITALS: BP 122/78; PULSE 92; RESP 16; TEMP 37; O2SAT 100
[2020-08-02] MEDS: Thiamine Hydrochloride 100 MG Tablet PO (08:19)
[2020-08-02] MEDS: Pantoprazole Sodium 20 MG Tablet PO ×2 (08:20→20:45)
[2020-08-02] MEDS: Folic Acid 1 MG Tablet PO (08:20)
[2020-08-02] MEDS: Ascorbic Acid 500 MG Tablet PO ×2 (08:20→17:31)
[2020-08-02] MEDS: Furosemide 40 MG Tablet PO (08:20)
[2020-08-02] MEDS: QUEtiapine 25 MG Tablet PO ×2 (08:21→20:44)
[2020-08-02] MEDS: Potassium Chloride Oral Soln 20 MEQ/15 ML UDC PO (08:21)
[2020-08-02] MEDS: Lactulose 20 GM/30 ML UDC 10 GM PO ×2 (08:22→20:44)
[2020-08-02] MEDS: rifAXIMin 550 MG Tablet PO ×2 (08:22→20:45)
--- NOTE | 2020-08-02 11:44 | PN.HOSP_ITS ---
Subjective Subjective No acute problem or symptom. Patient is not complaining of hallucination or delusion. Objective Data Objective Data Vital Signs: Vital Signs Temp Pulse Resp BP Pulse Ox 98.6 F 92 16 122/78 H 100 08/02/20 08:16 08/02/20 08:16 08/02/20 08:16 08/02/20 08:16 08/02/20 08:16 Oxygen Delivery Method Room Air Weight: 118 lb 6.212 oz Body Mass Index (BMI) 17.4 Intake & Output: Intake and Output for Last 24 Hours 07/31/20 08/01/20 08/02/20 23:59 23:59 23:59 Intake Total 1150 / 1150 600 / 600 Balance 1150 / 1150 600 / 600 Lab / Micro Data Result Diagrams: 08/02/20 05:35 08/02/20 05:35 Labs: Laboratory Results - last 24 hr 08/02/20 08/02/20 05:35 05:35 WBC 4.6 RBC 2.58 L Hgb 8.2 L Hct 24.9 L MCV 96.5 MCH 31.8 MCHC 32.9 RDW Std Deviation 57.8 H RDW Coeff of Bhakti 16.1 H Plt Count 151 MPV 11.4 Immature Gran % (Auto) 0.200 Neut % (Auto) 48.7 Lymph % (Auto) 32.5 Prentiss % (Auto) 11.4 H Eos % (Auto) 5.7 H Baso % (Auto) 1.5 H Absolute Neuts (auto) 2.2 Absolute Lymphs (auto) 1.48 Nucleated RBC % 0 Sodium 134 L Potassium 4.1 Chloride 101 Carbon Dioxide 27.0 Anion Gap 6 BUN 13 Creatinine 1.02 Estim Creat Clear Calc 57.80 Est GFR (MDRD) Af Amer 75 Est GFR (MDRD) Non-Af 62 BUN/Creatinine Ratio 12.7 Glucose 90 Calcium 8.5 Total Bilirubin 3.50 H AST 170 H ALT 35 Alkaline Phosphatase 143 H Total Protein 7.7 Albumin 2.2 L Globulin 5.5 H Albumin/Globulin Ratio 0.4 L Micro: Microbiology 07/24/20 20:56 Mucosa - Nose SARS-CoV-2 Antigen (Rapid) - Final Physical Exam Narrative Physical exam General: Awake, awake and oriented x3. No delusional thoughts. HEENT: Atraumatic, PERRLA, EOMI, Normocephalic Oral: No Gingival or Mucosal Lesions/ Ulcerations Neck: Supple, No JVD, Negative Carotid Bruits Lungs: Air entry diminished in bilateral lung bases. No crepitation/rhonchi Cardiovascular: Regular rate, Regular Rhythm, Normal S1, Normal S2, No murmurs Abdomen: Bowel Sounds Present, Soft, Non Tender, nondistended : No renal angle tenderness. No suprapubic tenderness. Extremities: No edema, Capillary Refill Less than 3 Seconds Skin: No rashes, No breakdown Musculoskeletal: No Tenderness to Palpation of Joints or Extremities Neurological: Cranial nerves II-XII grossly intact, Deep Tendon Reflexes 2+/4 and Symmetrical, Neuro grossly intact Psych/Mental Status: Flat affect. Assessment & Plan Assessment/Plan (1) Alcoholic cirrhosis: QUALIFIERS: Ascites presence: unspecified Qualified Code(s): K70.30 - Alcoholic cirrhosis of liver without ascites (2) Paranoid ideation: PLAN: 1. Hepatic encephalopathy-patient is being admitted on MedSurg floor. She will need placement in a residential facility that has psychiatric facilities. On lactulose and Xifaxan. 08/02 labs reviewed; hemoglobin 8.2, on baseline. Serum sodium 134. #2 paranoid delusions-probably secondary to schizophrenia, again patient will need to go to an extended care facility with a psychiatric physician, placement is pending at this time 07/31: Started on Seroquel 25 mg twice daily. 08/01: She looks more sober. No suicidal thought or delusional disorder. 08/02: Symptoms are controlled. #3 alcoholic cirrhosis: Right upper quadrant sonogram shows early cirrhosis with severe hepatomegaly and steatosis. No demonstrated mass lesion. Portal flow is hepatopetal bile ducts within normal limit. CBD 4 mm. #4 chronic alcoholism-patient shows no signs of withdrawal at this time #5 chronic anemia-probably secondary to chronic alcoholic liver disease, I will repeat a CBC and a CMP tomorrow as well as magnesium VTE prophylaxis bilateral SCDs Discussed with the family service caseworker Charges/Coding Visit Charges Inpatient E&M: 23207 Subs Hosp L2
[2020-08-02] MEDS: Spironolactone 50 MG Tablet PO (14:40)
[2020-08-02 14:41] VITALS: BP 104/75; PULSE 102; RESP 18; TEMP 37; O2SAT 100
[2020-08-02] MEDS: hydrOXYzine PAM 25 MG Capsule PO (19:28)
[2020-08-02] MEDS: Zolpidem Tartrate 5 MG Tablet PO (20:42)
[2020-08-02 20:56] VITALS: BP 118/75; PULSE 101; RESP 16; TEMP 36.9; O2SAT 100
[2020-08-03 06:08] VITALS: BP 115/63; PULSE 86; RESP 16; TEMP 36.9; O2SAT 99
[2020-08-03] MEDS: rifAXIMin 550 MG Tablet PO ×2 (08:06→20:23)
[2020-08-03] MEDS: Folic Acid 1 MG Tablet PO (08:07)
[2020-08-03] MEDS: Pantoprazole Sodium 20 MG Tablet PO ×2 (08:07→20:23)
[2020-08-03] MEDS: Furosemide 40 MG Tablet PO (08:07)
[2020-08-03] MEDS: Spironolactone 50 MG Tablet PO (08:07)
[2020-08-03] MEDS: Thiamine Hydrochloride 100 MG Tablet PO (08:08)
[2020-08-03] MEDS: QUEtiapine 25 MG Tablet PO ×2 (08:09→20:23)
[2020-08-03] MEDS: Ascorbic Acid 500 MG Tablet PO (08:09)
[2020-08-03] MEDS: Lactulose 20 GM/30 ML UDC 10 GM PO ×3 (08:10→20:23)
--- NOTE | 2020-08-03 10:39 | NURSING ---
Pt states she does not feel right. pt was out in the jose with her mask telling this nurse this. Pt escorted back to her room. Pt states she feels dizzy and weak. When she was laying down, she didnt feel dizzy but just tired. Vital Signs taken. See intervention. Will Call Dr. Philip.
[2020-08-03 10:41] VITALS: BP 108/62; PULSE 97; RESP 16; TEMP 36.9; O2SAT 98
[2020-08-03 11:50] LABS: Hematocrit 26.1 % (37-47); Hemoglobin 8.4 g/dL (12.0-15.0)
--- NOTE | 2020-08-03 12:33 | PCM.PN.HOSP ---
Subjective Subjective Patient is not confused or disoriented. She talks coherent. No delusional thoughts. Objective Data Objective Data Vital Signs: Vital Signs Temp Pulse Resp BP Pulse Ox 98.4 F 97 16 108/62 98 08/03/20 10:41 08/03/20 10:41 08/03/20 10:41 08/03/20 10:41 08/03/20 10:41 Oxygen Delivery Method Room Air Weight: 118 lb 6.212 oz Body Mass Index (BMI) 17.4 Intake & Output: Intake and Output for Last 24 Hours 08/01/20 08/02/20 08/03/20 23:59 23:59 23:59 Intake Total 600 / 600 660 / 660 Balance 600 / 600 660 / 660 Lab / Micro Data Result Diagrams: 08/03/20 11:40 08/02/20 05:35 Labs: Laboratory Results - last 24 hr 08/03/20 11:40 Hgb 8.4 L Hct 26.1 L Micro: Microbiology 07/24/20 20:56 Mucosa - Nose SARS-CoV-2 Antigen (Rapid) - Final Physical Exam Narrative Physical exam General: Awake, awake and oriented x3. No delusional thoughts or hallucination. HEENT: Atraumatic, PERRLA, EOMI, Normocephalic Oral: No Gingival or Mucosal Lesions/ Ulcerations Neck: Supple, No JVD, Negative Carotid Bruits Lungs: Air entry diminished in bilateral lung bases. No crepitation/rhonchi Cardiovascular: Regular rate, Regular Rhythm, Normal S1, Normal S2, No murmurs Abdomen: Bowel Sounds Present, Soft, Non Tender, nondistended : No renal angle tenderness. No suprapubic tenderness. Extremities: No edema, Capillary Refill Less than 3 Seconds Skin: No rashes, No breakdown Musculoskeletal: No Tenderness to Palpation of Joints or Extremities Neurological: Cranial nerves II-XII grossly intact, Neuro grossly intact Psych/Mental Status: Flat affect. Assessment & Plan Assessment/Plan (1) Alcoholic cirrhosis: QUALIFIERS: Ascites presence: unspecified Qualified Code(s): K70.30 - Alcoholic cirrhosis of liver without ascites (2) Paranoid ideation: PLAN: 1. Hepatic encephalopathy-patient is being admitted on MedSurg floor. She will need placement in a detention facility that has psychiatric facilities. On lactulose and Xifaxan. 08/02 labs reviewed; hemoglobin 8.2, on baseline. Serum sodium 134. 08/03: H&H is stable. Dose of lactulose increased as she had small bowel movement. #2 paranoid delusions-probably secondary to schizophrenia, again patient will need to go to an extended care facility with a psychiatric physician, placement is pending at this time 07/31: Started on Seroquel 25 mg twice daily. 08/01: She looks more sober. No suicidal thought or delusional disorder. 08/02: Symptoms are controlled. #3 alcoholic cirrhosis: Right upper quadrant sonogram shows early cirrhosis with severe hepatomegaly and steatosis. No demonstrated mass lesion. Portal flow is hepatopetal bile ducts within normal limit. CBD 4 mm. #4 chronic alcoholism-patient shows no signs of withdrawal at this time #5 chronic anemia-probably secondary to chronic alcoholic liver disease, I will repeat a CBC and a CMP tomorrow as well as magnesium VTE prophylaxis bilateral SCDs Discussed with the nurse case management Charges/Coding Visit Charges Inpatient E&M: 61569 Subs Hosp L2
[2020-08-03] MEDS: Ferrous Sulfate 325 MG Tablet PO (12:55)
[2020-08-03] MEDS: hydrOXYzine PAM 25 MG Capsule PO ×2 (13:02→20:23)
[2020-08-03 14:54] VITALS: BP 110/64; PULSE 92; RESP 16; TEMP 37.1; O2SAT 99
[2020-08-03] MEDS: Ondansetron 8 MG Tablet PO (14:58)
--- NOTE | 2020-08-03 17:35 | NURSING ---
Pt crying and cursing b/c her pizza was 2hrs late. I should have been the first one to get it. I ordered it at 3:30. This nurse tried to explain to pt but pt would not listen. Sitting in chair.
[2020-08-03] MEDS: Zolpidem Tartrate 5 MG Tablet PO (20:23)
[2020-08-03 20:37] VITALS: BP 114/70; PULSE 94; RESP 16; TEMP 36.8; O2SAT 100
[2020-08-04] MEDS: Lactulose 20 GM/30 ML UDC 10 GM PO ×3 (06:35→20:14)
[2020-08-04 06:38] VITALS: BP 130/82; PULSE 103; RESP 16; TEMP 37; O2SAT 100
[2020-08-04] MEDS: Potassium Chloride Oral Soln 20 MEQ/15 ML UDC PO (08:37)
[2020-08-04] MEDS: Folic Acid 1 MG Tablet PO (08:37)
[2020-08-04] MEDS: Thiamine Hydrochloride 100 MG Tablet PO (08:38)
[2020-08-04] MEDS: Ascorbic Acid 500 MG Tablet PO (08:38)
[2020-08-04] MEDS: Furosemide 40 MG Tablet PO (08:38)
[2020-08-04] MEDS: Pantoprazole Sodium 20 MG Tablet PO ×2 (08:38→20:15)
[2020-08-04] MEDS: Spironolactone 50 MG Tablet PO (08:38)
[2020-08-04] MEDS: rifAXIMin 550 MG Tablet PO ×2 (08:39→20:14)
[2020-08-04] MEDS: QUEtiapine 25 MG Tablet PO ×2 (08:39→20:15)
--- NOTE | 2020-08-04 10:02 | CASEMGMT ---
Social Work Note SW checked [facility] website, no results are available at this time. SW to continue to follow. Pt will need results from [facility] before pt can discharge. HOMER received call from pt's sister and guardian Tory requesting update. HOMER informed Tory that [facility] is able to accept pt but pt cannot be discharged to [facility] until results from [facility] are received. Pt cannot leave [facility] until results from [facility] are obtained. Plan: [facility] pending results from [facility] Michelle Clarke DEBURR TECHNICIAN, SURGICAL RESIDENT
[2020-08-04 12:02] VITALS: BP 123/62; PULSE 109; RESP 18; TEMP 36.7; O2SAT 99
--- NOTE | 2020-08-04 16:30 | PCM.PN.HOSP ---
Subjective Subjective Patient states he is feeling well. Reports she has been here for 11 days. She is really only been here for 6 days. Tells me she is leaving today. Has no complaints. Objective Data Objective Data Vital Signs: Vital Signs Temp Pulse Resp BP Pulse Ox 98.0 F 109 H 18 123/62 H 99 08/04/20 12:02 08/04/20 12:02 08/04/20 12:02 08/04/20 12:02 08/04/20 12:02 Oxygen Delivery Method Room Air Weight: 53.7 kg Body Mass Index (BMI) 17.4 Intake & Output: Intake and Output for Last 24 Hours 08/02/20 08/03/20 08/04/20 23:59 23:59 23:59 Intake Total 660 / 660 860 / 860 500 / 500 Balance 660 / 660 860 / 860 500 / 500 Lab / Micro Data Result Diagrams: 08/03/20 11:40 08/02/20 05:35 Micro: Microbiology 07/24/20 20:56 Mucosa - Nose SARS-CoV-2 Antigen (Rapid) - Final Physical Exam Const alert, oriented x3, no apparent distress and average body habitus Constitutional Narrative: Thin white female, middle-aged, appears older than stated age, walking around room in [facility], room is significantly warm HEENT head/scalp atraumatic and moist oral mucous membranes HEENT Narrative: Mild buccal jaundice Head and Scalp: normocephalic Mouth: oral and palatal mucosa normal Eyes PERRL and EOMs intact bilaterally Resp normal respiratory effort, no retractions, no use of accessory muscles and clear to auscultation bilaterally Cardio regular rate, regular rhythm, S1 normal heart sound, S2 normal heart sound, no murmurs, no gallops and no clicks GI normal to inspection, nondistended, normoactive bowel sounds, soft to palpation, non-tender, non-distended and hepatosplenomegaly Extremity normal to inspection and no clubbing, cyanosis or edema Peripheral Pulses: Yes pulses 2+ throughout Neuro oriented x3, moves all extremities and no sensory deficits noted Sensorium / Orientation: awake and alert Speech: speech normal Motor Exam: strength 5/5 throughout Assessment & Plan Assessment/Plan (1) Encephalopathy, hepatic: (2) Paranoid ideation: (3) Alcoholic cirrhosis: QUALIFIERS: Ascites presence: unspecified Qualified Code(s): K70.30 - Alcoholic cirrhosis of liver without ascites PLAN: Hepatic encephalopathy -Plan is for discharge to long-term facility with hospice consult -Continue lactulose and rifaximin -Patient remained stable with regards to mental status -No changes in acute care 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 secondary to schizophrenia -Plan is for discharge tomorrow -Continue Seroquel -No suicidal thoughts or ideations -Appears to have intermittent confusion Alcoholic cirrhosis -Right upper quadrant ultrasound shows early cirrhosis with severe hepatomegaly and steatosis -Common bile duct is within normal limits -Recommend cessation -Bilirubin and LFTs remains elevated -Continue daily Lasix -Continue Aldactone Elevated blood pressure -Patient does not carry a diagnosis of hypertension -Start nadolol 20 mg twice daily given history of cirrhosis and GI bleed -Monitor blood pressure History of alcoholism -No signs of acute withdrawal at this time Chronic hyponatremia -Sodium has been stable History of GI bleed -Continue Protonix Chronic anemia -Hemoglobin is stable -Continue iron supplementation DVT prophylaxis -Ambulation protocol Charges/Coding Visit Charges Inpatient E&M: 15516 Subs Hosp L2
--- NOTE | 2020-08-04 17:25 | CASEMGMT ---
Social Work Note SW Checked [facility] website, PAS/RR results are available, pt has been approved to admit to SNF. HOMER placed a call to Yary at [facility]. Yary states she will need to check with credit control administrator at [facility]. Pt will need COVID test and Hospice will need to be at [facility] tonight to do admission. HOMER faxed PAS/RR results to [facility]. HOMER placed a call to [facility] and spoke with Bindu in admissions. Bindu states she will need to call pt's sister Tory to get Hospice paperwork signed, she will need to check with information systems auditor RN and will need to check with doctor for face to face. Bindu to call this worker back. HOMER received call from Bindu stating pt's sister Tory is able to sign Hospice paperwork tonight, they just need to know transportation time as RN and doctor will be available tonight. HOMER placed a call to Yary at [facility] and updated her that Hospice is stating they are able to meet pt tonight at [facility] and COVID test will be ordered. Yary states credit control administrator at [facility] is requesting discharge tomorrow. HOMER informed Yary that pt has been medically ready for discharge since last week and the only thing that was holding up pt's discharge was the results from [facility] which have now been obtained. HOMER informed Yary that pt is wanting to discharge and has been wanting to discharge since last week. Yary states she understands, will relay to credit control administrator at [facility]. HOMER received call from BAKARI Mobley/Bale Piler at [facility], stating they cannot accept pt tonight as they have no beds available. HOMER asked Leandra how that is possible since they have been able to accept pt since last week. Leandra states they've had admissions and discharges and not able to have to have a bed tonight for pt as they need to move beds around. Leandra states they can accept pt tomorrow. HOMER placed a call to Mohit Phillip, legal records manager, who is calling Leandra at [facility]. HOMER received message from Mohit Phillip stating she called and spoke with Leandra at [facility] who stated the same thing they have no female beds tonight, can accept pt after 8:00am tomorrow. HOMER received call from pt's sister Tory asking for an update. HOMER updated Tory that results from [facility] has been obtained but [facility] is now stating no female beds available today, can accept pt after 8:00am tomorrow. Tory states she will be at [facility] tomorrow morning at 8:00am to transport pt to [facility]. HOMER placed a call to Bindu in admissions at [facility] updating her that pt will be discharged tomorrow. Bindu asked for copy of pt's Guardianship be faxed to [facility], SW faxed guardianship paperwork to [facility]. HOMER placed a call to Yary at [facility] and updated her that pt's sister Tory is going to transport pt at 8:00am tomorrow morning. Yary states Tory is able to transport pt. Yary states if COVID test is ordered tonight, it will be good for pt to admit to [facility] tomorrow. HOMER placed a call to information systems auditor RN Cassia at [facility] and updated her that pt will be discharged to [facility] custodial tomorrow at 8:00am. Cassia states she will relay to RN. HOMER placed Green sheet, COVID test on pt's chart. HOMER placed PAS/RR and PAS/RR Results in SNF folder and copy on pt's chart. HOMER updated both RN and running rigger on plan for pt to discharge tomorrow morning at 8:00am with pt's sister Tory transporting pt. Discharge paperwork will need to be faxed to both [facility] and [facility] (wrote on Green sheet). Pt will also need COVID test/results before pt can discharge (wrote on Green Sheet). Physician updated. Plan: [facility] with Hospice tomorrow with pt's sister/guardian Tory transporting pt at 8:00am. Discharge paperwork will need to be faxed to both [facility] and [facility] (numbers are on Green sheet). Pt will need COVID tests and results faxed to [facility] before pt can discharge. Michelle Clarke BUSINESS LAW INSTRUCTOR, MONOTYPE MECHANIC
[2020-08-04 18:30] VITALS: BP 125/65; PULSE 100; RESP 18; TEMP 36.7; O2SAT 100
[2020-08-04] MEDS: Nadolol 20 MG Tablet PO (20:14)
[2020-08-04] MEDS: hydrOXYzine PAM 25 MG Capsule PO (20:14)
[2020-08-04] MEDS: Zolpidem Tartrate 5 MG Tablet PO (20:16)
[2020-08-04 20:18] VITALS: BP 131/66; PULSE 109; RESP 16; TEMP 37.1; O2SAT 98
[2020-08-05 05:51] VITALS: BP 103/59; PULSE 84; RESP 16; TEMP 36.9; O2SAT 97
[2020-08-05] MEDS: Lactulose 20 GM/30 ML UDC 10 GM PO (05:52)
[2020-08-05 06:15] LABS: Absolute Lymphocyte Count 1.49 X10^3/uL (0.83-4.51); Absolute Neutrophil Count 2.6 X10^3/uL (2.0-7.7); Eosinophil# 0.39 X10^3/uL; Eosinophils% 7.7 % (0-5); Hematocrit 24.7 % (37-47); Lymphocyte # 1.49 X10^3/ul (0.83-4.51); Lymphocyte % 29.4 % (19-41); Mean Corp Hgb Conc 32.4 g/dL (32-36); Mean Corpuscular Hgb 31.1 pg (27.0-32.0); Mean Corpuscular Volume 96.1 fL (81-99); Mean Platelet Vol. 10.4 fl (6.2-12.0); Monocyte# 0.53 X10^3/uL; Monocyte% 10.5 % (0-10); NRBC Flagged by Analyzer 0 % (0-5); Neutrophil # 2.55 X10^3/uL (2.7-7.7); Neutrophil % 50.2 % (47-70); Platelet Count 170 K/mm3 (150-450); RBC Distribution Width CV 16.3 % (11.6-14.6); RBC Distribution Width SD 57.7 fl (35.1-43.9); Red Blood Count 2.57 M/mm3 (4.2-5.4); White Blood Count 5.1 K/mm3 (4.4-11.0)
[2020-08-05 06:40] LABS: ALB/GLOB Ratio 0.4 RATIO (0.9-2.4); AST(SGOT) 125 U/L (15-37); Alanine Aminotransfer ALT/SGPT 32 U/L (13-56); Albumin, Serum 2.1 g/dL (3.2-5.0); Alkaline Phosphatase 129 U/L (45-117); Anion Gap 8 (5-15); BUN 15 mg/dL (7-18); BUN/Creat Ratio 13.9 RATIO (10-20); Calcium,Total 8.8 mg/dL (8.5-10.1); Chloride 100 mmol/L (98-107); Creatinine, Serum 1.08 mg/dL (0.55-1.02); EST Glomerular Filtration Rate 58 mL/min (>60); Est Glom Filt Rate - Afr Amer 70 mL/min (>60); Estimated Creatinine Clearance 54.59 ml/min; Globulin 5.2 g/dL (2.2-4.2); Glucose 90 mg/dL (74-106); Potassium 4.3 mmol/L (3.5-5.1); Protein, Total 7.3 g/dL (6.4-8.2); Sodium Level 134 mmol/L (136-145)
--- NOTE | 2020-08-05 07:16 | PCM.DC.SUM ---
Providers Date of Admission: 07/29/20 Primary Care Physician: No Primary Care Phys Reason For Visit: HEPATIC ENCEPHALOPATHY Diagnosis Discharge Diagnosis (1) Encephalopathy, hepatic: Status: Acute Code(s): K72.90 - Hepatic failure, unspecified without coma (2) Paranoid ideation: Status: Acute Code(s): F22 - Delusional disorders (3) Alcoholic cirrhosis: Status: Chronic Code(s): K70.30 - Alcoholic cirrhosis of liver without ascites Qualifiers: Ascites presence: unspecified Qualified Code(s): K70.30 - Alcoholic cirrhosis of liver without ascites Medications at Discharge Home Medications ascorbic acid (vitamin C) 500 mg PO BIDCM #0 tab 08/05/20 ferrous sulfate [FeroSul] 325 mg PO DAILY@1200 #0 tab 08/05/20 folic acid 1 mg PO DAILYCM #0 tab 08/05/20 furosemide 40 mg PO DAILY #0 tab 08/05/20 hydroxyzine pamoate 25 mg PO Q6H PRN PRN #0 cap 08/05/20 lactulose 10 g PO TID #0 ml 08/05/20 nadolol 20 mg PO BID #0 tab 08/05/20 ondansetron HCl 8 mg PO Q8H PRN PRN #0 tab 08/05/20 pantoprazole 20 mg PO BID #0 tab 08/05/20 potassium chloride 20 meq PO DAILYCM #0 ml 08/05/20 quetiapine 25 mg PO BID #0 tab 08/05/20 rifaximin [Xifaxan] 550 mg PO BID #0 tab 08/05/20 spironolactone 50 mg PO DAILY #0 tab 08/05/20 Hospital Course Operations None Procedures None Summary of Care Provided Minutes Spent on Discharge: 41 Hospital Course: Weight / BMI Weight Weight: 53.7 kg Body Mass Index (BMI) 17.4 ABG / Lab / Microbiology Data Result Diagrams: 08/05/20 05:52 08/05/20 05:52 Laboratory: Laboratory Results - last 24 hr 08/05/20 08/05/20 05:52 05:52 WBC 5.1 RBC 2.57 L Hgb 8.0 L Hct 24.7 L MCV 96.1 MCH 31.1 MCHC 32.4 RDW Std Deviation 57.7 H RDW Coeff of Bhakti 16.3 H Plt Count 170 MPV 10.4 Immature Gran % (Auto) 0.200 Neut % (Auto) 50.2 Lymph % (Auto) 29.4 Meagher % (Auto) 10.5 H Eos % (Auto) 7.7 H Baso % (Auto) 2.0 H Absolute Neuts (auto) 2.6 Absolute Lymphs (auto) 1.49 Nucleated RBC % 0 Sodium 134 L Potassium 4.3 Chloride 100 Carbon Dioxide 26.0 Anion Gap 8 BUN 15 Creatinine 1.08 H Estim Creat Clear Calc 54.59 Est GFR (MDRD) Af Amer 70 Est GFR (MDRD) Non-Af 58 L BUN/Creatinine Ratio 13.9 Glucose 90 Calcium 8.8 Total Bilirubin 2.70 H AST 125 H ALT 32 Alkaline Phosphatase 129 H Total Protein 7.3 Albumin 2.1 L Globulin 5.2 H Albumin/Globulin Ratio 0.4 L Microbiology: Microbiology 08/04/20 17:50 SARS-CoV-2 Antigen (Rapid) - Final Mucosa - Nose Microbiology 08/04/20 17:50 Mucosa - Nose SARS-CoV-2 Antigen (Rapid) - Final 07/24/20 20:56 Mucosa - Nose SARS-CoV-2 Antigen (Rapid) - Final D/C Instructions Discharge Diet: 2000 mg Sodium Diet Discharge Activity: Return to Normal Activity Meaningful Use Info Meaningful Use Diagnoses (Choose all that apply): None applicable Discharge Plan Admission Admit Date/Time: 07/29/20 14:10 Primary Reason for Your Visit: Hepatic Encephalopathy Attending Provider: Jeny Mejia Primary Care Provider: Care Physician,Juli Primary Discharge Orders/Prescriptions Prescriptions: New Xifaxan 550 mg Tablet 550 mg PO BID Qty: 0 RF: 0 nadolol 20 mg Tablet 20 mg PO BID Qty: 0 RF: 0 ferrous sulfate [FeroSul] 325 mg (65 mg iron) Tablet 325 mg PO DAILY@1200 Qty: 0 RF: 0 hydroxyzine pamoate 25 mg Capsule 25 mg PO Q6H PRN PRN (Reason: Anxiety/Restlessness/Sleep) Qty: 0 RF: 0 ascorbic acid (vitamin C) 500 mg Tablet 500 mg PO BIDCM Qty: 0 RF: 0 quetiapine 25 mg Tablet 25 mg PO BID Qty: 0 RF: 0 ondansetron HCl 8 mg Tablet 8 mg PO Q8H PRN PRN (Reason: NAUSEA/VOMITING) Qty: 0 RF: 0 potassium chloride 20 mEq/15 mL Liquid 20 meq PO DAILYCM Qty: 0 RF: 0 pantoprazole 20 mg Tablet,Delayed Release (Dr/Ec) 20 mg PO BID Qty: 0 RF: 0 spironolactone 50 mg Tablet 50 mg PO DAILY Qty: 0 RF: 0 lactulose 20 gram/30 mL Solution 10 g PO TID Qty: 0 RF: 0 folic acid 1 mg Tablet 1 mg PO DAILYCM Qty: 0 RF: 0 furosemide 40 mg Tablet 40 mg PO DAILY Qty: 0 RF: 0 Discontinued potassium chloride 20 MEQ/15 ML liquid 20 meq PO DAILY Qty: 210 RF: 0 folic acid 1 mg Tablet 1 mg PO DAILY@0800 Qty: 0 RF: 0 furosemide 40 mg Tablet 40 mg PO DAILY Qty: 0 RF: 0 sennosides [Kristi-parveen] 8.6 mg Tablet 2 tab PO QHS PRN PRN (Reason: Constipation) Qty: 0 RF: 0 nystatin 100,000 unit/mL Suspension 500,000 unit PO 4X/DAY Qty: 0 RF: 0 ondansetron HCl 8 mg Tablet 8 mg PO Q8H PRN PRN (Reason: NAUSEA/VOMITING) Qty: 0 RF: 0 pantoprazole 20 mg Tablet,Delayed Release (Dr/Ec) 20 mg PO BID Qty: 0 RF: 0 thiamine HCl (vitamin B1) [Vitamin B-1] 100 mg Tablet 100 mg PO DAILYCM Qty: 0 RF: 0 spironolactone 50 mg Tablet 50 mg PO DAILY Qty: 0 RF: 0 lactulose 20 gram/30 mL Solution 10 g PO BID Qty: 0 RF: 0 Ensure Enlive 0.08 gram-1.5 kcal/mL Liquid 120 ml PO 4X/DAY Qty: 0 RF: 0 quetiapine 25 mg tablet 25 mg PO BID PRN (Reason: agitation/paranoia) RF: 0 quetiapine [Seroquel] 25 mg tablet 12.5 mg PO BID RF: 0 Referrals / Follow Up: Care Physician,No Primary [Primary Care Provider] - Disposition Disposition (needs filled in before D/C Order can be placed): Senior Living Facility Charges/Coding Visit Charges Inpatient E&M: 75892 SNF Disch >30 Min
--- NOTE | 2020-08-05 07:55 | NURSING ---
[facility]
--- NOTE | 2020-08-05 07:58 | NURSING ---
PT REFUSING TO TAKE ANY AM MEDS, WANTS TO WAIT UNTIL GET TRANSFERRED TO TAKE THEM
--- NOTE | 2020-08-05 07:58 | PCM.TXEXTCAR ---
Diet 07/28/20 14:41 Diet: Regular - General Food consistency:: Regular Liquid Consistency:: Regular/Thin Is pt able to select menu?: Yes Diet Comments: regular mental status Routine Orders/Code Status O2 Frequency: PRN Routine Lab Work: CBC and BMP Wound(s) Lt wrist: Wound Type: Laceration Therapies Weight Bearing: Full weight bearing Problem/Diagnosis (1) Encephalopathy, hepatic: Status: Acute (2) Paranoid ideation: Status: Acute (3) Alcoholic cirrhosis: Status: Chronic Allergies/Procedures Done in Hospital Allergies No Known Allergies Allergy (Verified 07/24/20 16:41) Procedures: None Type of Care/Length of Stay Estimated LOS: More Than 30 Days Type of Care Needed: Skilled Rehab Potential: Fair Prognosis: Poor Additional Orders/Day of Discharge Day of Discharge: 08/05/20 Dietary and Speech Recommendations Dietitian Recommendations/Changes: Will continue Regular diet and provide ONS as pt accepting- declines at this time. Discharge Plan Admission Admit Date/Time: 07/29/20 14:10 Primary Reason for Your Visit: Hepatic Encephalopathy Attending Provider: Jeny Mejia Primary Care Provider: Care Physician,No Primary Discharge Orders/Prescriptions Prescriptions: New Xifaxan 550 mg Tablet 550 mg PO BID Qty: 0 RF: 0 nadolol 20 mg Tablet 20 mg PO BID Qty: 0 RF: 0 ferrous sulfate [FeroSul] 325 mg (65 mg iron) Tablet 325 mg PO DAILY@1200 Qty: 0 RF: 0 hydroxyzine pamoate 25 mg Capsule 25 mg PO Q6H PRN PRN (Reason: Anxiety/Restlessness/Sleep) Qty: 0 RF: 0 ascorbic acid (vitamin C) 500 mg Tablet 500 mg PO BIDCM Qty: 0 RF: 0 quetiapine 25 mg Tablet 25 mg PO BID Qty: 0 RF: 0 ondansetron HCl 8 mg Tablet 8 mg PO Q8H PRN PRN (Reason: NAUSEA/VOMITING) Qty: 0 RF: 0 potassium chloride 20 mEq/15 mL Liquid 20 meq PO DAILYCM Qty: 0 RF: 0 pantoprazole 20 mg Tablet,Delayed Release (Dr/Ec) 20 mg PO BID Qty: 0 RF: 0 spironolactone 50 mg Tablet 50 mg PO DAILY Qty: 0 RF: 0 lactulose 20 gram/30 mL Solution 10 g PO TID Qty: 0 RF: 0 folic acid 1 mg Tablet 1 mg PO DAILYCM Qty: 0 RF: 0 furosemide 40 mg Tablet 40 mg PO DAILY Qty: 0 RF: 0 Discontinued potassium chloride 20 MEQ/15 ML liquid 20 meq PO DAILY Qty: 210 RF: 0 folic acid 1 mg Tablet 1 mg PO DAILY@0800 Qty: 0 RF: 0 furosemide 40 mg Tablet 40 mg PO DAILY Qty: 0 RF: 0 sennosides [Kristi-parveen] 8.6 mg Tablet 2 tab PO QHS PRN PRN (Reason: Constipation) Qty: 0 RF: 0 nystatin 100,000 unit/mL Suspension 500,000 unit PO 4X/DAY Qty: 0 RF: 0 ondansetron HCl 8 mg Tablet 8 mg PO Q8H PRN PRN (Reason: NAUSEA/VOMITING) Qty: 0 RF: 0 pantoprazole 20 mg Tablet,Delayed Release (Dr/Ec) 20 mg PO BID Qty: 0 RF: 0 thiamine HCl (vitamin B1) [Vitamin B-1] 100 mg Tablet 100 mg PO DAILYCM Qty: 0 RF: 0 spironolactone 50 mg Tablet 50 mg PO DAILY Qty: 0 RF: 0 lactulose 20 gram/30 mL Solution 10 g PO BID Qty: 0 RF: 0 Ensure Enlive 0.08 gram-1.5 kcal/mL Liquid 120 ml PO 4X/DAY Qty: 0 RF: 0 quetiapine 25 mg tablet 25 mg PO BID PRN (Reason: agitation/paranoia) RF: 0 quetiapine [Seroquel] 25 mg tablet 12.5 mg PO BID RF: 0 Referrals / Follow Up: Care Physician,No Primary [Primary Care Provider] - Disposition Disposition (needs filled in before D/C Order can be placed): Group Home Facility
--- NOTE | 2020-08-05 09:00 | CASEMGMT ---
Social Work Note Pt's sister is at [facility] to transport pt to [facility]. HOMER spoke with order processing clerk, discharge paperwork has been faxed to both [facility] and [facility]. HOMER placed a call to Yary at [facility] and updated her on discharge time. HOMER placed a call to [facility] and spoke with Yanique in admissions and updated her on transportation time. Plan: [facility] with Hospice today. Pt's sister/guardian Tory is at [facility] to transport pt to [facility]. Michelle Clarke GARMENT LINER, MEMBERSHIP ASSISTANT
== END 2020-08-05 08:59 | disposition skilled nursing facility (03) | DRG 442 ==
LOC: ED 07-28 14:03 → MS3 07-28 14:12
PROVIDERS: Emergency Medicine; Internal Medicine; Admitting Provider Internal Medicine; Emergency Provider Emergency Medicine; Visit Provider Internal Medicine
DX: K72.90 Hepatic failure, unspecified without coma (principal); F84.0 Autistic disorder; E87.1 Hypo-osmolality and hyponatremia; F20.0 Paranoid schizophrenia; K70.30 Alcoholic cirrhosis of liver without ascites; F20.9 Schizophrenia, unspecified; K21.9 Gastro-esophageal reflux disease without esophagitis; F10.20 Alcohol dependence, uncomplicated; Y90.9 Presence of alcohol in blood, level not specified; D63.8 Anemia in other chronic diseases classified elsewhere; R03.0 Elevated blood-pressure reading, without diagnosis of hypertension; K70.10 Alcoholic hepatitis without ascites; D69.6 Thrombocytopenia, unspecified; K76.0 Fatty (change of) liver, not elsewhere classified; Z87.19 Personal history of other diseases of the digestive system; Z79.899 Other long term (current) drug therapy
CPT/HCPCS: 36415; 71045; 76705; 80053; 80307; 81001; 82077; 82140; 82977; 83605; 83690; 83735; 83880; 84484; 84703; 85014; 85018; 85025; 85610; 87426; 93005; 97162; 97166; 97530; 97535; 97802; 99285; 99406; A4216